=== PATIENT | female | born 1945 | race Caucasian/White ===

== ENCOUNTER → 2017-05-08 09:27 | Outpatient (CLI) | payer MEDICARE, OTHER, SELFPAY ==
[2017-05-08 10:56] LABS: Hemoglobin A1c 6.4 % (4.2-6.3)
[2017-05-08 11:04] LABS: AST(SGOT) 15 U/L (15-37); Alanine Aminotransfer ALT/SGPT 26 U/L (13-56); Albumin, Serum 3.7 g/dL (3.2-5.0); Alkaline Phosphatase 84 U/L (45-117); Anion Gap 10 (5-15); BUN 24 mg/dL (7-18); BUN/Creat Ratio 29.2 RATIO (10-20); Calcium,Total 8.9 mg/dL (8.5-10.1); Chloride 104 mmol/L (98-107); Cholesterol 148 mg/dL (200); Creatinine, Serum 0.82 mg/dL (0.55-1.02); EST Glomerular Filtration Rate 73 mL/min (>60); Est Glom Filt Rate - Afr Amer 88 mL/min (>60); Globulin 3.8 g/dL (2.2-4.2); Glucose 141 mg/dL (74-106); High Density Lipoprotein 44 mg/dL; Potassium 4.1 mmol/L (3.5-5.1); Protein, Total 7.5 g/dL (6.4-8.2); Sodium Level 141 mmol/L (136-145); Thyroid Stim Hormone (TSH) 1.85 uIU/mL (0.358-3.74); Triglycerides 180 mg/dL; Very Low Density Lipoprotein 36 mg/dL (5-40)
== END ==
DX: I10 Essential (primary) hypertension (principal); E78.00 Pure hypercholesterolemia, unspecified; E03.9 Hypothyroidism, unspecified; E11.9 Type 2 diabetes mellitus without complications
CPT/HCPCS: 36415; 80053; 80061; 83036; 84443

== ENCOUNTER → 2017-06-13 13:49 | Outpatient (CLI) | payer MEDICARE, OTHER, SELFPAY ==
--- NOTE | 2017-06-13 13:51 | HPBI_ITS ---
MAMMOGRAPHY - BILATERAL SCREENING REASON FOR EXAM: Female, 72 years old. Routine annual screening examination. PERTINENT HISTORY: Sister with breast cancer. TECHNIQUE: Digital bilateral breast matty (3D mammographic acquisition) in the CC and MLO projections. 2-D mediolateral oblique (MLO) and craniocaudad (CC) views of both breasts were obtained. CAD: Full Field Digital Mammography with Computer Added Detection was performed. COMPARISON: Comparison is made with prior outside examination dated April 20, 2009. FINDINGS: Breast Composition: There are scattered areas of fibroglandular density. There are no dominant masses or suspicious calcifications. No other significant abnormalities are identified. There has been no significant change since the prior study. HPBI/SCREENING MAMM (CAD), BILAT IMPRESSION: Stable bilateral screening mammogram. Yearly follow-up mammogram recommended. (A) ASSESSMENT CATEGORY: BIRADS Category 1: Negative. A letter regarding these results will be sent to the patient by the facility within 30 days. Approximately 10% of breast cancers are not detected by mammography. A normal mammogram should not delay biopsy of a clinically suspicious abnormality. [id number] Electronically Signed: Boris Carney MD at 8:27 EDT Tel [phone], Service support ,
== END ==
DX: Z12.31 Encounter for screening mammogram for malignant neoplasm of breast (principal)
CPT/HCPCS: 77063; 77067

== ENCOUNTER 2017-10-06 05:28 | Inpatient (IN) | payer MEDICARE, OTHER, SELFPAY ==
[2017-09-23 14:18] VITALS: BP 130/57; PULSE 85; RESP 16; TEMP 36.5; O2SAT 94; BMI 35.4
--- NOTE | 2017-09-23 14:54 | SDCEKG_ITS ---
Test Reason : Blood Pressure : / mmHG Vent. Rate : 082 BPM Atrial Rate : 082 BPM P-R Int : 152 ms QRS Dur : 090 ms QT Int : 384 ms P-R-T Axes : 044 086 064 degrees QTc Int : 448 ms Normal sinus rhythm Normal ECG Confirmed by FLORA ALBRIGHT MD ([id number]), editor & co founder JARRET PUGA ([id number]) on 09/25/2017 2:35:27 PM Referred By: Travis Jones Confirmed By:FLORA ALBRIGHT MD
--- NOTE | 2017-09-23 15:47 | RAD_ITS ---
STUDY: X-RAY CHEST REASON FOR EXAM: Female, 72 years old. PRE OPERATIVE TECHNIQUE: Frontal and lateral views of the chest. COMPARISON: April 01, 2016 FINDINGS: Chronic appearing increased interstitial lung markings. There is no demonstrated pleural abnormality. Enlarged heart size. Normal mediastinum and santino. Normal visualized pulmonary arteries. There is atherosclerotic calcification of the aortic arch with tortuosity. There are diffuse degenerative changes of the visualized thoracic spine. There is degenerative osteoarthritis of the bilateral shoulders. There is no demonstrated abnormality of the visualized soft tissue structures of the upper abdomen. RAD/Chest PA and Lateral IMPRESSION: There are no acute findings. Electronically Signed: Rizwan Overton MD at 16:27 EDT , Service support ,
[2017-09-23 16:07] LABS: Hematocrit 43.9 % (37-47); Hemoglobin 14.6 g/dl (12.0-15.0); Mean Corp Hgb Conc 33.3 g/gl (32-36); Mean Corpuscular Hgb 31.5 pg (27.0-32.0); Mean Corpuscular Volume 94.6 fL (81-99); Mean Platelet Vol. 9.6 fl (6.2-12.0); Platelet Count 211 K/mm3 (150-450); RBC Distribution Width CV 13.2 % (11.6-14.6); Red Blood Count 4.64 M/mm3 (4.2-5.4)
[2017-09-23 16:09] LABS: Scan Indicated on CBC? Y/N NO
[2017-09-23 16:37] LABS: Hemoglobin A1c 6.6 % (4.2-6.3)
[2017-09-23 16:42] LABS: Anion Gap 6 (5-15); BUN 22 mg/dL (7-18); BUN/Creat Ratio 23.4 RATIO (10-20); Chloride 104 mmol/L (98-107); Creatinine, Serum 0.94 mg/dL (0.55-1.02); EST Glomerular Filtration Rate 62 mL/min (>60); Est Glom Filt Rate - Afr Amer 75 mL/min (>60); Estimated Creatinine Clearance 43.42 ml/min; Glucose 97 mg/dL (74-106); Potassium 4.2 mmol/L (3.5-5.1); Sodium Level 143 mmol/L (136-145); Thyroid Stim Hormone (TSH) 2.67 uIU/mL (0.358-3.74)
[2017-10-06] VITALS (15 sets, daily range): BP systolic 109–139; BP diastolic 60–92; PULSE 58–91; RESP 14–18; TEMP 36–36.6; O2SAT 91–99; BMI 35.4; BMI 38.2
[2017-10-06] MEDS: Acetaminophen 500 MG Tablet 1000 MG PO ×3 (06:05→22:26)
[2017-10-06] MEDS: oxyCODONE HCl Cr 10 MG Tablet PO (06:05)
[2017-10-06 06:30] LABS: Bedside Glucose 188 mg/dL (70-110)
[2017-10-06] MEDS: Lactated Ringers 1,000 ML 999 ML IV (07:03)
[2017-10-06] MEDS: Cefazolin 2 GM in 0.9% Normal Saline 100 ML IV (07:17)
--- NOTE | 2017-10-06 07:30 | PCM.OPRPT ---
Report of Operation Date of Procedure: 10/06/17 Pre-Operative Diagnosis: Severe end-stage osteoarthritis left knee Post-Operative Diagnosis: Same Surgery/Procedure Performed:: total knee arthroplasty left Description of Surgical Findings:: Eburnation of bone, periarticular osteophytes pharmacy clinical coordinator: Brandon Cage Type of Anesthesia:: Spinal Anesthesiologist: Brayan Subramanian Special Medications: txa Specimen's removed: Bone and soft tissue Estimated Blood Loss (mL): 100 Fluids Replaced: See anesthesia report Description of Procedure: Implants: [place] triathlon size 4 PS femur, 3 tibia, 32 x 10 mm patella all cemented with Simplex, 10 mm posterior stabilized articulating surface Indications: Patient has severe end-stage osteoarthritis diagnosed via x-rays in the knee. They have failed all forms of conservative measures including activity modification, injections, anti-inflammatories, use of assistive device. The patient has pain that affects on a daily basis and prevents him from doing things that they enjoyed. They have elected to undergo the above procedure. The risks of the procedure were discussed at length and their questions were answered. Procedure description: The patient was greeted in the preoperative area. The left knee was then marked with a surgical marker. Patient was then taken to or [address]. They were administered a dose of antibiotics as well as tranexamic acid. Once adequate anesthesia was obtained and airway was secured to placed in supine position on the operating room table. A well-padded tourniquet was placed on the affected extremity. Leg was then prepped and draped in the usual sterile fashion from the knee down. Ioban was used on the skin. Surgical timeout was then performed and confirmed with all present. Six-inch Esmarch was used to examine the limb and tourniquet was then inflated to 250 mmHg. A longitudinal incision was then planned and carried out in the anterior aspect of the knee. The dissection was then carried the length of the incision the extensor mechanism was identified. Standard medial parapatellar arthrotomy was then performed revealing severe eburnation of bone and periarticular osteophytes. There is complete loss of cartilage especially in the medial compartment with varus alignment. Anterior fat pad was removed for visualization purposes and the anterior medial aspect of the tibia was skeletonized for exposure to the knee. The knee was then flexed the patella was inverted. Opening reamer was then used in the femur approximately 1 cm anterior to the attachment of the PCL. The intramedullary valgus wand was then placed in the femur set at 5? of valgus. The distal femoral cutting jig was then applied to the femur with anticipated resection of approximately 8 mm. This was then made with a oscillating saw. The sizing guide was then placed referencing off the posterior condyles and also reference off the epicondylar axis. This was measured and the appropriate size 4-in-1 cutting jig was then applied to the distal femur. Anterior posterior cuts were made followed by the anterior and posterior chamfer cuts. These bony pieces and fragments were removed and placed on the back table. Posterior retractor was then utilized and the tibia was subluxed anteriorly. Extramedullary tibial alignment jig was then applied to the tibia referencing off the medial one third of the tibial tubercle the anterior tibial spine the middle aspect of the tibiotalar joint. Also reference off patient's wilton slope. The tibial cutting jig was then pinned with anticipated resection of 2 mm off of the deficient medial tibial condyle. This cut was made with the oscillating saw. Once this was complete a laminar public health veterinarian was utilized in both medial lateral meniscus were removed and a posterior capsular osteophytes were also removed. Posterior capsule release was performed in the posterior capsule as well as the geniculate arteries are treated with the aqua Ann. The tibia was incised and the appropriate sized tibial tray was then pinned. The femoral box cutting jig was then applied to the femur and the box was prepared removing a portion of the intercondylar notch. The femoral trial was then placed and the knee was trialed. Full flexion-extension were easily achieved. The knee seemed to balance quite nicely. Any remaining osteophytes were removed at this time. Once this was complete the patella was everted and the Amy patella reaming device was then utilized the patella was then placed in the appropriate jig and reamer was then used to remove approximately 9 mm of the undersurface of the patella. A soft tissue remaining was in the way was removed and patella trial was then placed listed maintain excellent tracking using the no thumbs technique. The tibial tray at this point was punched to accommodate the fins of the final implant. At this point cement was mixed on the back table. The trial components were removed and the knee was copiously irrigated. Did use a cocktail of injection for postoperative pain control. The final components were then cemented in the standard fashion and excess cement was removed with cement removal tools and patellar clamp is placed in the patella. As the cement had cured in full extension tourniquet was deflated and hemostasis was perfect with Bovie cautery as well as the aqua Manus. Needle is once again trialed with different size polyethylenes to ensure the full range of motion was achieved as well as excellent balancing ligamentously was achieved. At this point the knee was copiously irrigated. Final implant was then inserted locking mechanism was engaged and confirmed to be locked. The arthrotomy was then closed with #1 Vicryl aggravate type fashion interrupted. Subcutaneous tissue was closed with 0 Vicryl and surgical lillie were placed in the skin. A occlusive silver impregnated dressing was then applied followed by well-padded sterile dressing secured with an Robert wrap. The patient was taken to the PACU in stable condition. No complications known at this time. Postoperatively we will maintain standard total knee postoperative protocol. The use of the physician assistant professor of economics was integral during this procedure. They assisted with positioning placement of the tourniquet retracting closure and placement of the dressing. The procedure would have been much more difficult without their expertise and assistance - Complications None known - Admit VTE Documentation VTE Present on Admission: Yes VTE Mechan Device Prophylaxis: SCD's, Thigh High ALMA Hose VTE Pharm Prophylaxis ordered?: Yes
[2017-10-06 09:16] LABS: Bedside Glucose 173 mg/dL (70-110)
--- NOTE | 2017-10-06 09:41 | EKG12_ITS ---
Test Reason : POST-OP Blood Pressure : / mmHG Vent. Rate : 070 BPM Atrial Rate : 070 BPM P-R Int : 200 ms QRS Dur : 100 ms QT Int : 450 ms P-R-T Axes : 055 079 058 degrees QTc Int : 486 ms Normal sinus rhythm Normal ECG When compared with ECG of 23-SEP-2017 14:10, No significant change was found Confirmed by JOSE RAMON CRAFT, FLORA ([id number]), food expeditor JARRET PUGA ([id number]) on 10/07/2017 3:02:41 PM Referred By: Travis Jones Confirmed By:FLORA ALBRIGHT MD
[2017-10-06] MEDS: Lactated Ringers 1,000 ML 125 ML IV (10:56)
[2017-10-06] MEDS: oxyCODONE 5 MG Tablet PO ×2 (12:20→20:29)
[2017-10-06] MEDS: Ketorolac 15 MG/ML Vial IV (12:21)
[2017-10-06] MEDS: Albuterol 2.5 MG/3 ML VIAL.NEB. INHALATION (12:46)
--- NOTE | 2017-10-06 14:52 | CASEMGMT ---
[facility] Face to Face with patient for initial transition planning/care coordination assessment. RN LOGAN introduced self and role at [facility]. Patient sitting in chair, alert and oriented. Patient willing to participate in assessment and is able to answer all questions appropriately. Care providers, pharmacy, and demographics verified. See link attached. Patient wishes to discharge home and is setup with [facility] for outpatient therapy with friend providing transportation. Patient states she has no further needs or concerns at this time. CM to follow for discharge planning needs that may arise. Disposition Plan: Patient to discharge home with family support, outpatient therapy, and follow-up plans in place.
[2017-10-06] MEDS: Cefazolin 1 GM/50 ML BAG IV ×2 (15:30→22:30)
[2017-10-06] MEDS: Aspirin 325 MG Tablet PO (16:07)
[2017-10-06] MEDS: morphine SR 15 MG Tablet PO (22:23)
[2017-10-06] MEDS: Senna/Docusate Sodium 1 Tablet 2 TABLET PO (22:26)
[2017-10-06] MEDS: buPROPion (SR) 100 MG TABLET.SA PO (22:26)
[2017-10-06] MEDS: Losartan Potassium 100 MG Tablet PO (22:27)
[2017-10-06] MEDS: Celecoxib 200 MG Capsule PO (22:27)
[2017-10-06] MEDS: Metoprolol Tartrate 100 MG Tablet PO (22:27)
[2017-10-06] MEDS: Pravastatin 40 MG Tablet PO (22:27)
[2017-10-07] VITALS (7 sets, daily range): BP systolic 113–135; BP diastolic 71–91; PULSE 70–82; RESP 17–18; TEMP 36.8–37.2; O2SAT 92–100
[2017-10-07] MEDS: oxyCODONE 5 MG Tablet PO ×4 (01:47→18:45)
[2017-10-07] MEDS: Ondansetron 4 MG/2 ML Vial IV ×2 (05:13→14:05)
[2017-10-07] MEDS: 0.9% NaCl Peripheral Flush Adult/Peds IV ×4 (05:13→20:30)
[2017-10-07 05:52] LABS: Hematocrit 37.1 % (37-47); Hemoglobin 12.6 g/dl (12.0-15.0); Mean Corpuscular Hgb 32.8 pg (27.0-32.0); Mean Corpuscular Volume 96.6 fL (81-99); Platelet Count 149 K/mm3 (150-450); RBC Distribution Width CV 12.9 % (11.6-14.6); RBC Distribution Width SD 43.3 fl (35.1-43.9); Red Blood Count 3.84 M/mm3 (4.2-5.4); White Blood Count 10.7 K/mm3 (4.4-11.0)
[2017-10-07 05:59] LABS: Scan Indicated on CBC? Y/N NO
[2017-10-07] MEDS: Levothyroxine 150 MCG Tablet PO (06:00)
[2017-10-07] MEDS: Acetaminophen 500 MG Tablet 1000 MG PO ×3 (06:00→21:44)
[2017-10-07 06:23] LABS: Anion Gap 3 (5-15); BUN 16 mg/dL (7-18); BUN/Creat Ratio 21.1 RATIO (10-20); Calcium,Total 8.6 mg/dL (8.5-10.1); Chloride 104 mmol/L (98-107); Creatinine, Serum 0.76 mg/dL (0.55-1.02); EST Glomerular Filtration Rate 80 mL/min (>60); Est Glom Filt Rate - Afr Amer 97 mL/min (>60); Estimated Creatinine Clearance 40.81 ml/min; Glucose 155 mg/dL (74-106); Potassium 4.5 mmol/L (3.5-5.1); Sodium Level 143 mmol/L (136-145)
[2017-10-07] MEDS: Aspirin 325 MG Tablet PO ×2 (07:39→17:18)
[2017-10-07] MEDS: FLUTICASONE/VILANTEROL 1 EACH BLST.W.DEV IH (07:39)
[2017-10-07] MEDS: Celecoxib 200 MG Capsule PO ×2 (07:39→21:44)
[2017-10-07] MEDS: Famotidine 20 MG Tablet PO (07:39)
[2017-10-07] MEDS: buPROPion (SR) 100 MG TABLET.SA PO ×2 (07:39→21:44)
[2017-10-07] MEDS: Montelukast 10 MG Tablet PO (07:39)
[2017-10-07] MEDS: dilTIAZem CD 240 MG Capsule PO (07:39)
[2017-10-07] MEDS: Metoprolol Tartrate 100 MG Tablet PO ×2 (07:39→21:44)
[2017-10-07] MEDS: Fenofibrate 145 MG Tablet PO (07:39)
--- NOTE | 2017-10-07 07:45 | PCM.PN.ORT ---
Subjective: Patient sitting up in bed eating breakfast. Pain well managed. Denies chest pain, shortness breath, calf pain, nausea vomiting. No other complaints Objective: Dressings clean dry intact. Negative signs and symptoms of DVT. Vital signs labs within normal limits. Patient is afebrile neurovascular is otherwise intact. - Physical Exam General: Alert, Oriented x3, Cooperative HEENT: PERRLA Neurological: Cranial nerves II-XII grossly intact Psych/Mental Status: Normal Affect, Alert and oriented to time, place, person, mood and affect Vital Signs Temp Pulse Resp BP Pulse Ox 98.4 F 75 18 135/91 H 99 10/07/17 07:33 10/07/17 07:39 10/07/17 07:33 10/07/17 07:33 10/07/17 07:33 Oxygen Flow Rate (L/min) 3 Oxygen Delivery Method Nasal Cannula Weight: 95 kg Body Mass Index (BMI) 38.2 Finger Stick Blood Glucose 173 Intake and Output for Last 24 Hours 10/05/17 10/06/17 10/07/17 23:59 23:59 23:59 Intake Total 3572 / 3572 120 / 120 Output Total 1000 / 1000 200 / 200 Balance 2572 / 2572 -80 / -80 Laboratory Tests Past 24 Hrs 10/07/17 10/07/17 05:40 05:40 WBC 10.7 RBC 3.84 L Hgb 12.6 Hct 37.1 MCV 96.6 MCH 32.8 H MCHC 34.0 RDW 12.9 RDW Differential 43.3 Plt Count 149 L MPV 9.0 Sodium 143 Potassium 4.5 Chloride 104 Carbon Dioxide 36.0 H Anion Gap 3 L BUN 16 Creatinine 0.76 Estim Creat Clear Calc 40.81 Est GFR (MDRD) Af Amer 97 Est GFR (MDRD) Non-Af 80 BUN/Creatinine Ratio 21.1 H Glucose 155 H Calcium 8.6 POC Glucose 10/06/17 09:10 POC Glucose 173 H Medical Necessity - Tobacco Use Smoking Status: Current some day smoker Tobacco Use: Cigarettes Assessment/Plan Status post left total knee Plan 1. Continue all pain medications as prescribed 2. Begin physical therapy today, weight-bear as tolerated with walker 3. Aspirin 325 mg 1 p.o. every 12 hours times 30 days for postop DVT prophylaxis 4. Encourage incentive spirometry 5. Possible discharge home tomorrow
[2017-10-07] MEDS: morphine SR 15 MG Tablet PO ×2 (10:02→21:44)
[2017-10-07] MEDS: Morphine 2 MG/ML Syringe IV (17:25)
[2017-10-07] MEDS: Ketorolac 15 MG/ML Vial IV (20:30)
[2017-10-07] MEDS: Senna/Docusate Sodium 1 Tablet 2 TABLET PO (21:43)
[2017-10-07] MEDS: Pravastatin 40 MG Tablet PO (21:44)
[2017-10-07] MEDS: Losartan Potassium 100 MG Tablet PO (21:44)
[2017-10-07] MEDS: Albuterol 2.5 MG/3 ML VIAL.NEB. INHALATION (23:27)
[2017-10-08] MEDS: proMETHazine 25 MG/ML Syringe 12.5 MG IM (00:08)
[2017-10-08 02:22] VITALS: BP 106/59; PULSE 69; RESP 16; TEMP 36.4; O2SAT 94
[2017-10-08 06:08] LABS: Hematocrit 32.5 % (37-47); Hemoglobin 10.8 g/dl (12.0-15.0); Mean Corp Hgb Conc 33.2 g/gl (32-36); Mean Corpuscular Volume 96.2 fL (81-99); Mean Platelet Vol. 9.6 fl (6.2-12.0); Platelet Count 156 K/mm3 (150-450); RBC Distribution Width CV 12.9 % (11.6-14.6); RBC Distribution Width SD 43.2 fl (35.1-43.9); Red Blood Count 3.38 M/mm3 (4.2-5.4)
[2017-10-08 06:14] LABS: Scan Indicated on CBC? Y/N NO
[2017-10-08] MEDS: Levothyroxine 150 MCG Tablet PO (06:18)
[2017-10-08] MEDS: Acetaminophen 500 MG Tablet 1000 MG PO ×2 (06:18→14:06)
[2017-10-08 08:13] VITALS: BP 112/64; PULSE 60; RESP 18; TEMP 36.8; O2SAT 92
[2017-10-08] MEDS: dilTIAZem CD 240 MG Capsule PO (08:22)
[2017-10-08] MEDS: Celecoxib 200 MG Capsule PO (08:22)
[2017-10-08] MEDS: Fenofibrate 145 MG Tablet PO (08:22)
[2017-10-08] MEDS: Aspirin 325 MG Tablet PO (08:22)
[2017-10-08] MEDS: FLUTICASONE/VILANTEROL 1 EACH BLST.W.DEV IH (08:22)
[2017-10-08] MEDS: buPROPion (SR) 100 MG TABLET.SA PO (08:22)
[2017-10-08] MEDS: Senna/Docusate Sodium 1 Tablet 2 TABLET PO (08:22)
[2017-10-08] MEDS: Famotidine 20 MG Tablet PO (08:22)
[2017-10-08] MEDS: Montelukast 10 MG Tablet PO (08:22)
[2017-10-08 08:25] VITALS: PULSE 60
[2017-10-08] MEDS: morphine SR 15 MG Tablet PO (09:04)
--- NOTE | 2017-10-08 11:57 | PCM.PN.ORT ---
Subjective: Patient sitting up in bed, pain well-managed. No other complaints. Ready for discharge home. Objective: Dressing clean dry intact, negative signs symptoms of DVT. Vital signs labs within normal limits. Patient is afebrile neurovascular is otherwise intact. - Physical Exam General: Alert, Oriented x3 Psych/Mental Status: Normal Affect, Alert and oriented to time, place, person, mood and affect Vital Signs Temp Pulse Resp BP Pulse Ox 98.3 F 60 18 112/64 92 10/08/17 08:13 10/08/17 08:25 10/08/17 08:13 10/08/17 08:13 10/08/17 08:13 Oxygen Flow Rate (L/min) 3 Oxygen Delivery Method Room Air Weight: 95 kg Body Mass Index (BMI) 38.2 Finger Stick Blood Glucose 173 Intake and Output for Last 24 Hours 10/06/17 10/07/17 10/08/17 23:59 23:59 23:59 Intake Total 3572 / 3572 840 / 840 780 / 780 Output Total 1000 / 1000 350 / 350 100 / 100 Balance 2572 / 2572 490 / 490 680 / 680 Laboratory Tests Past 24 Hrs 10/08/17 05:14 WBC 9.0 RBC 3.38 L Hgb 10.8 L Hct 32.5 L MCV 96.2 MCH 32.0 MCHC 33.2 RDW 12.9 RDW Differential 43.2 Plt Count 156 MPV 9.6 Medical Necessity - Tobacco Use Smoking Status: Current some day smoker Tobacco Use: Cigarettes Assessment/Plan Status post left total knee Plan 1. Continue all pain medications as prescribed 2. Continue physical therapy outpatient, weight-bear as tolerated with walker 3. Aspirin 325 mg 1 p.o. every 12 hours times 30 days for postop DVT prophylaxis 4. Follow-up as scheduled 5. Discharge home today
--- NOTE | 2017-10-08 12:02 | PCM.DC.TKR ---
Discharge Diet: No Restrictions Discharge Activity: May Not Drive, May Shower, Use Walker May shower in (days): 1 Ice area for (Minutes): 20 - each hour while awake. Weight Bearing Status: Weight bearing as tolerated Elevate: Operative Extremity Additional Activity Instructions:: Wear elastic stockings for 2 weeks after your surgery. Call your doctor if your incision/area has: Continuous Slow Oozing, Sudden Increased Bleeding, Increased Pain/ Swelling, Increased Redness, Foul Smelling Discharge Call your doctor if you observe: Fever of 101 or Higher, Coldness, Increased Pain - in extremity, Numbness or Tingling, Change in Color, Calf discomfort, Uncontrolled pain Change Dressing in (Days):: 0 - and daily as needed. Remove Dressing in (days):: 8 Cleanse incision/area with: Soap & Water Allergies/Adverse Reactions: Allergies Sulfa (Sulfonamide Antibiotics) Allergy (Verified 09/23/17 14:04) Other Medications to take at Discharge Albuterol Inhaler [Ventolin Hfa] 2 puff INHALATION Q6H PRN PRN 09/23/17 Ascorbic Acid [Vitamin C] 500 mg PO DAILY 09/23/17 Bupropion HCl [Wellbutrin Sr] 100 mg PO BID 09/23/17 Cimetidine 150 mg PO BID 09/23/17 Diltiazem HCl [Diltiazem 24Hr ER] 240 mg PO DAILY 09/23/17 Fenofibrate Nanocrystallized [Triglide] 160 mg PO DAILY 09/23/17 Fluticasone/Vilanterol [Breo Ellipta 100-25 Mcg INH] 1 each IH DAILY 09/23/17 Gluc Bender/Chondro Bender A/Vit C/Mn [Glucosamine-Chondroitin Cap] 1 each PO DAILY 09/23/17 Hyoscyamine Sulfate 0.125 mg SL PRN PRN 09/23/17 Levothyroxine [Synthroid] 150 mcg PO DAILY 09/23/17 Loperamide HCl [Imodium A-D] 2 mg PO PRN PRN 09/23/17 Losartan Potassium [Cozaar] 100 mg PO QHS 09/23/17 Magnesium 40 mg PO DAILY 09/23/17 Metoprolol Tartrate [Lopressor] 100 mg PO BID 09/23/17 Montelukast Sodium [Singulair] 10 mg PO DAILY 09/23/17 Mcdonald-3 Fatty Acids [Fish Oil] 500 mg PO DAILY 09/23/17 Potassium 99 mg PO DAILY 09/23/17 Pravastatin [Pravachol] 40 mg PO QHS 09/23/17 Turmeric Root Extract [Turmeric] 500 mg PO DAILY 09/23/17 Vitamin B Complex 1 each PO DAILY 09/23/17 Vitamin E 1,000 unit PO DAILY 09/23/17 Acetaminophen [Tylenol] 1,000 mg PO Q8 #90 tab 10/08/17 Oxycodone [Oxyir] 5 - 10 mg PO Q6H PRN PRN 7 Days #80 tab 10/08/17 The following prescriptions were given: Oxycodone [Oxyir] 5 - 10 mg PO Q6H PRN PRN 7 Days #80 tab PRN Reason: Mod-Severe Pain (4-10/10) Acetaminophen [Tylenol] 1,000 mg PO Q8 #90 tab Primary Care Physician: Mihir Bess [Primary Care Provider] - Test Results: Test results from this visit will be discussed in further detail at your follow-up appointment, if applicable. Please Follow Up With: Brandon Cage PA-C When: see pink sheet
[2017-10-08 13:37] VITALS: BP 121/54; PULSE 67; RESP 20; TEMP 37.4; O2SAT 93
[2017-10-08] MEDS: Ketorolac 15 MG/ML Vial IV (13:45)
== END 2017-10-08 14:19 | disposition home or self-care (01) | DRG 470 ==
PROVIDERS: Admitting Provider Orthopaedic Surgery; Visit Provider Orthopaedic Surgery
PROC: 0SRD0J9 Replacement of Left Knee Joint with Synthetic Substitute, Cemented, Open Approach (ICD-10-PCS; CPT 27447; principal; 2017-10-06 06:50)
DX: M17.12 Unilateral primary osteoarthritis, left knee (principal); I10 Essential (primary) hypertension; F17.210 Nicotine dependence, cigarettes, uncomplicated; E11.9 Type 2 diabetes mellitus without complications; E66.9 Obesity, unspecified; Z68.35 Body mass index [BMI] 35.0-35.9, adult
CPT/HCPCS: 36415; 71046; 80048; 82962; 83036; 84443; 85027; 87081; 93005; 94640; 97116; 97162; 97166; 97530; C1776; J7120; A4216; J2405

== ENCOUNTER → 2017-11-10 08:34 | Outpatient (CLI) | payer MEDICARE, OTHER, SELFPAY ==
[2017-11-10 09:59] LABS: Hemoglobin A1c 5.7 % (4.2-6.3)
[2017-11-10 10:42] LABS: AST(SGOT) 14 U/L (15-37); Alanine Aminotransfer ALT/SGPT 16 U/L (13-56); Albumin, Serum 3.6 g/dL (3.2-5.0); Alkaline Phosphatase 85 U/L (45-117); Bilirubin, Direct 0.14 mg/dL (0.00-0.30); Cholesterol 126 mg/dL (200); High Density Lipoprotein 45 mg/dL; Protein, Total 7.6 g/dL (6.4-8.2); Thyroid Stim Hormone (TSH) 4.47 uIU/mL (0.358-3.74); Triglycerides 179 mg/dL; Very Low Density Lipoprotein 36 mg/dL (5-40)
== END ==
PROVIDERS: Visit Provider Family Medicine
DX: E11.9 Type 2 diabetes mellitus without complications (principal); E03.9 Hypothyroidism, unspecified; E78.00 Pure hypercholesterolemia, unspecified
CPT/HCPCS: 36415; 80061; 80076; 83036; 84443

== ENCOUNTER → 2018-02-16 15:47 | Outpatient (CLI) | payer MEDICARE, OTHER, SELFPAY ==
--- NOTE | 2018-02-16 15:50 | CT_ITS ---
STUDY: LOW DOSE CT LUNG CANCER SCREENING REASON FOR EXAM: Female, 72 years old. History of a 50 pack-year smoker. RADIATION DOSAGE (If Supplied By Facility): CTDIvol = ( 2.55 ) mGy, DLP = ( 75.31 ) mGycm TECHNIQUE: No contrast was administered. Low dose technique was utilized (average mAS-38 and kVp 120). 1.25 mm axial source images with a slice interval of 1.25-mm were reconstructed in lung windows. 2.5 mm axial source images with a slice interval of 2.5-mm were reconstructed in lung windows. 5.0 mm axial source images with a slice interval of 5.0-mm were reconstructed in soft tissue windows. Nodule measured using lung windows on PACS and/or independent workstation with automated measurement of minimum and maximum diameter. Nodule measurement reported as average diameter rounded to the nearest whole number. Growth is defined as an increase ins size of greater than 1.5 mm. COMPARISON: None. NODULES: There is a 2.8 mm peripherally located nodule in the lateral aspect of the left lower lobe as seen on axial image #149. This is also evidence of a partially calcified nodule measuring 2.9 mm in the peripheral lateral aspect of the right lower lobe as seen on image #147. There is a 4.1 mm faintly calcified nodule in the anterior lateral aspect of the right upper lobe as seen on axial image #76. There is evidence of a thickening of the superior aspect of the right major fissure. Mild increased markings in the lateral aspect of the left lower lobe suggestive of possible focal scarring. Aorta: Unremarkable. Coronary arteries: Coronary artery calcification. Calcified right hilar lymph nodes. Pulmonary artery: Unremarkable. Mediastinal nodes: Small benign-appearing mediastinal lymph nodes. Other chest and abdominal findings: CT/Low Dose CT Lung Screening IMPRESSION: Lung-RADS category 2 - Continue annual screening with LDCT in 12 months. IMPORTANT NOTES FOR USE: ACR Lung-RADS Version 1.0 Assessment Categories Release Date: July 19, 2013 Category: Coded 0-4 bases on nodule(s) with highest degree of suspicion. Negative screen is defined as categories 1 and 2; a positive screen is defined as categories 3 and 4. Category 3 and 4A nodules that are unchanged on interval CT should be coded as category 2, and individuals returned to screening in 12 months. Category 4X: Category 3 or 4 nodules with additional imaging findings that increase the suspicion of lung cancer, such as spiculation, GGN that doubles in size in 1 year, enlarged lymph notes, etc. Category Modifiers: S (significant finding unrelated to lung cancer) and C (prior history of treated lung cancer) may be added to the 0-4 Lung-RADS Electronically Signed: Boris Carney MD at 15:49 EST Tel [phone], Service support ,
--- OUTSIDE RECORDS SUMMARY | 2018-03-31 14:22 | XMS RPT_ITS ---
:1945 Author Organization [facility] Care Team Providers Name Role Phone TIP GARCIA, DR. HAYWOOD Attending Unavailable AZIZA GARCIA, DR. ANN Primary Care Unavailable Mihir Bess Attending Unavailable Mihir Bess Primary Care Unavailable Mihir Bess Attending Unavailable Mihir Bess Primary Care Unavailable Mihir Bess Referring Unavailable Travis Jones Admitting Unavailable Travis Jones Attending Unavailable Travis Jones Referring Unavailable Mihir Bess Primary Care Unavailable Ulysses Alfred Attending Unavailable Robert, Travis Referring Unavailable Aziza Mihir Attending Unavailable Mihir Bess Referring Unavailable Mihir Bess Primary Care Unavailable Tima, Ulysses Attending Unavailable Robert, Travis Referring Unavailable Jose L Orr Attending Unavailable Jose L Orr Referring Unavailable Mihir Bess Primary Care Unavailable PROBLEMS PROBLEMS DATE TYPE CONDITION / CODE ATTENDING STATUS SOURCE 02/16/2018 Unknown Z87.891 - Personal Dominga Jose L Active [facility] history of nicotine Community dependence / Hospital Z87.891(ICD-10) Repository 11/10/2017 Unknown E78.00 - Pure Mihir Bess Active [place] hypercholesterolemia Community , unspecified / Hospital E78.00(ICD-10) Repository 11/10/2017 Unknown E11.9 - Type 2 Mihir Bess Active [facility] diabetes mellitus Community without Hospital complications / Repository E11.9(ICD-10) 10/08/2017 Unknown G89.18 - Other acute Travis Jones Active [place] postprocedural pain Community / G89.18(ICD-10) Hospital Repository 11/19/2017 Unknown I10 - Essential Tima, [place] Active [facility] (primary) Community hypertension / Hospital I10(ICD-10) Repository 07/28/2017 Unknown Z12.31 - Encounter Mihir Bess Active [place] for screening Community mammogram for Hospital malignant neoplasm Repository of breast / Z12.31(ICD-10) 05/08/2017 Unknown E03.9 - Mihir Bess Active [place] Hypothyroidism, Community unspecified / Hospital E03.9(ICD-10) Repository PROCEDURES PROCEDURES No Procedure Records FoundRESULTS RESULTS LOW DOSE CT LUNG Observed: 02/16/2018 Status: F Source: [facility] SCREENING 3:50 PM ON LICENSE OF [facility] REPOSITORY [facility] Imaging Services [address] [place] [address] Lung Screening MR#: [id number] Acct: [id number] Name: MAURICEHAILEY Rep #: [id number] : 1945 F 72 From: Boris Carney MD PCP: Mihir Bess Status: REG CLI Study: Low Dose CT Lung Screening Date of Exam: 02/16/18 Exam# [id number] Ordering Dr: Jose L Orr MD STUDY: LOW DOSE CT LUNG CANCER SCREENING REASON FOR EXAM: Female, 72 years old. History of a 50 pack-year smoker. RADIATION DOSAGE (If Supplied By Facility): CTDIvol = ( 2.55 ) mGy, DLP = ( 75.31 ) mGycm TECHNIQUE: No contrast was administered. Low dose technique was utilized (average mAS-38 and kVp 120). 1.25 mm axial source images with a slice interval of 1.25- mm were reconstructed in lung windows. 2.5 mm axial source images with a slice interval of 2.5-mm were reconstructed in lung windows. 5.0 mm axial source images with a slice interval of 5.0-mm were reconstructed in soft tissue windows. Nodule measured using lung windows on PACS and/or independent workstation with automated measurement of minimum and maximum diameter. Nodule measurement reported as average diameter rounded to the nearest whole number. Growth is defined as an increase ins size of greater than 1.5 mm. COMPARISON: None. NODULES: There is a 2.8 mm peripherally located nodule in the lateral aspect of the left lower lobe as seen on axial image #149. This is also evidence of a partially calcified nodule measuring 2.9 mm in the peripheral lateral aspect of the right lower lobe as seen on image #147. There is a 4.1 mm faintly calcified nodule in the anterior lateral aspect of the right upper lobe as seen on axial image #76. There is evidence of a thickening of the superior aspect of the right major fissure. Mild increased markings in the lateral aspect of the left lower lobe suggestive of possible focal scarring. Aorta: Unremarkable. Coronary arteries: Coronary artery calcification. Calcified right hilar lymph nodes. Pulmonary artery: Unremarkable. Mediastinal nodes: Small benign-appearing mediastinal lymph nodes. Other chest and abdominal findings: CT/Low Dose CT Lung Screening IMPRESSION: Lung-RADS category 2 - Continue annual screening with LDCT in 12 months. IMPORTANT NOTES FOR USE: ACR Lung-RADS Version 1.0 Assessment Categories Release Date: July 19, 2013 Category: Coded 0-4 bases on nodule(s) with highest degree of suspicion. Negative screen is defined as categories 1 and 2; a positive screen is defined as categories 3 and 4. Category 3 and 4A nodules that are unchanged on interval CT should be coded as category 2, and individuals returned to screening in 12 months. Category 4X: Category 3 or 4 nodules with additional imaging findings that increase the suspicion of lung cancer, such as spiculation, GGN that doubles in size in 1 year, enlarged lymph notes, etc. Category Modifiers: S (significant finding unrelated to lung cancer) and C (prior history of treated lung cancer) may be added to the 0-4 Lung-RADS Electronically Signed: Boris Carney MD at 15:49 EST Tel [phone], Service support , CC: Mihir Bess; Jose L Orr MD Curing Press Maintainer: Signed HEMOGLOBIN A1C Collected: 11/10/2017 Status: F Source: [place] 8:54 AM [facility] REPOSITORY TYPE CODE TESTS RESULT OUT OF RANGE REFERENCE UNITS LAB L501.9985 4.2-6.3 % Normal HGB A1C 5.7 Performed By: #### L501.9985 #### [facility] [address] [facility]. [place], [place], [id number] LIVER PROFILE Collected: 11/10/2017 Status: F Source: [place] 8:54 AM [facility] REPOSITORY TYPE CODE TESTS RESULT OUT OF RANGE REFERENCE UNITS LAB L501.1500 6.4-8.2 g/dL Normal T PROT 7.6 LAB L501.1800 3.2-5.0 g/dL Normal ALB 3.6 LAB L501.1950 2.2-4.2 g/dL Normal GLOB 4.0 LAB L501.4100 15-37 U/L Low AST 14 LAB L501.4305 45-117 U/L Normal ALK P 85 LAB L501.4405 13-56 U/L Normal ALT 16 LAB L501.4600 0.20-1.00 mg/dL Normal T BILI 0.60 LAB L501.4700 0.00-0.30 mg/dL Normal D BILI 0.14 Performed By: #### L500.3400, L500.4100, L501.9520 #### [facility] [address] [facility], [address] LIPID PROFILE Collected: 11/10/2017 Status: F Source: [place] 8:54 AM [facility] REPOSITORY TYPE CODE TESTS RESULT OUT OF RANGE REFERENCE UNITS LAB L501.4900 200 mg/dL Normal CHOL 126 Result Comment: <200 mg/dL Desirable 200-240 mg/dL Borderline >240 mg/dL High Risk LAB L501.5000 mg/dL Normal TRIG 179 Result Comment: The drugs N-Acetylcysteine and Metamizole may falsely depress this assay. Serum Triglycerides Reference Interval Normal <150 mg/dL Borderline high 150 - 199 mg/dL High 200 - 499 mg/dL Very High > or = 500 mg/dL LAB L501.6400 mg/dL Normal HDL 45 Result Comment: The drugs N-Acetylcysteine and Metamizole may falsely depress this assay. Reference Range HDL <40 mg/dL Low HDL Cholesterol HDL >or= 60 mg/dL High HDL Cholesterol LAB L501.6500 0-130 mg/dL Normal LDL 45 LAB L501.6600 5-40 mg/dL Normal VLDL 36 Performed By: #### L500.3400, L500.4100, L501.9520 #### [facility] [address] [facility] [place], [address] THYROID STIM HORMONE Collected: 11/10/2017 Status: F Source: [place] (TSH) 8:54 AM [facility] REPOSITORY TYPE CODE TESTS RESULT OUT OF RANGE REFERENCE UNITS LAB L501.9520 0.358-3.74 uIU/mL High TSH 4.47 Performed By: #### L500.3400, L500.4100, L501.9520 #### [facility] [address] [place], [address] DISCHARGE INSTRUCTION Observed: 10/08/2017 Status: F Source: [place] 12:03 PM [facility] REPOSITORY [facility] Medical Records Department [address] [place] [address] [place] [address] Instructions for Home/Discharge Instructions 10/08/17 1202 MR#: [id number] Acct: [id number] Name: HAILEY MAURICE Rep #: [id number] : 1945 72 From: Brandon Cage PA-C PCP: Mihir Bess Status: ADM IN Discharge Diet: No Restrictions Discharge Activity: May Not Drive, May Shower, Use Walker May shower in (days): 1 Ice area for (Minutes): 20 - each hour while awake. Weight Bearing Status: Weight bearing as tolerated Elevate: Operative Extremity Additional Activity Instructions:: Wear elastic stockings for 2 weeks after your surgery. Call your doctor if your incision/area has: Continuous Slow Oozing, Sudden Increased Bleeding, Increased Pain/ Swelling, Increased Redness, Foul Smelling Discharge Call your doctor if you observe: Fever of 101 or Higher, Coldness, Increased Pain - in extremity, Numbness or Tingling, Change in Color, Calf discomfort, Uncontrolled pain Change Dressing in (Days):: 0 - and daily as needed. Remove Dressing in (days):: 8 Cleanse incision/area with: Soap AND Water Allergies/Adverse Reactions: Allergies Sulfa (Sulfonamide Antibiotics) Allergy (Verified 09/23/17 14:04) Other Medications to take at Discharge Albuterol Inhaler [Ventolin Hfa] 2 puff INHALATION Q6H PRN PRN 09/23/17 Ascorbic Acid [Vitamin C] 500 mg PO DAILY 09/23/17 Bupropion HCl [Wellbutrin Sr] 100 mg PO BID 09/23/17 Cimetidine 150 mg PO BID 09/23/17 Diltiazem HCl [Diltiazem 24Hr ER] 240 mg PO DAILY 09/23/17 Fenofibrate Nanocrystallized [Triglide] 160 mg PO DAILY 09/23/17 Fluticasone/Vilanterol [Breo Ellipta 100-25 Mcg INH] 1 each IH DAILY 09/23/17 Gluc Bender/Chondro Bender A/Vit C/Mn [Glucosamine-Chondroitin Cap] 1 each PO DAILY 09/23/17 Hyoscyamine Sulfate 0.125 mg SL PRN PRN 09/23/17 Levothyroxine [Synthroid] 150 mcg PO DAILY 09/23/17 Loperamide HCl [Imodium A-D] 2 mg PO PRN PRN 09/23/17 Losartan Potassium [Cozaar] 100 mg PO QHS 09/23/17 Magnesium 40 mg PO DAILY 09/23/17 Metoprolol Tartrate [Lopressor] 100 mg PO BID 09/23/17 Montelukast Sodium [Singulair] 10 mg PO DAILY 09/23/17 [place]-3 Fatty Acids [Fish Oil] 500 mg PO DAILY 09/23/17 Potassium 99 mg PO DAILY 09/23/17 Pravastatin [Pravachol] 40 mg PO QHS 09/23/17 Turmeric Root Extract [Turmeric] 500 mg PO DAILY 09/23/17 Vitamin B Complex 1 each PO DAILY 09/23/17 Vitamin E 1,000 unit PO DAILY 09/23/17 Acetaminophen [Tylenol] 1,000 mg PO Q8 #90 tab 10/08/17 Oxycodone [Oxyir] 5 - 10 mg PO Q6H PRN PRN 7 Days #80 tab 10/08/17 The following prescriptions were given: Oxycodone [Oxyir] 5 - 10 mg PO Q6H PRN PRN 7 Days #80 tab PRN Reason: Mod-Severe Pain (4-10/10) Acetaminophen [Tylenol] 1,000 mg PO Q8 #90 tab Primary Care Physician: Mihir Bess [Primary Care Provider] - Test Results: Test results from this visit will be discussed in further detail at your follow-up appointment, if applicable. Please Follow Up With: Brandon Cage PA-C When: see pink sheet 10/08/17 1203 <Electronically signed by Brandon Cage PA-C> Date Brandon Cage PA-C CC: Mihir Bess CBC-COMPLETE BLOOD CNT Collected: 10/08/2017 Status: F Source: [place] NO DIFF 5:14 AM [facility] REPOSITORY TYPE CODE TESTS RESULT OUT OF RANGE REFERENCE UNITS LAB L100.1000 4.4-11.0 K/mm3 Normal WBC 9.0 LAB L100.1200 4.2-5.4 M/mm3 Low RBC 3.38 LAB L100.1300 12.0-15.0 g/dl Low HGB 10.8 LAB L100.1400 37-47 % Low HCT 32.5 LAB L100.1500 81-99 fL Normal MCV 96.2 LAB L100.1600 27.0-32.0 pg Normal MCH 32.0 LAB L100.1700 32-36 g/gl Normal MCHC 33.2 LAB L100.1810 11.6-14.6 % Normal RDW CV 12.9 LAB L100.1820 35.1-43.9 fl Normal RDW SD 43.2 LAB L100.1900 150-450 K/mm3 Normal PLT 156 LAB L100.2000 6.2-12.0 fl Normal MPV 9.6 Performed By: #### L100.0500 #### [facility] [address] [facility] [place], [address] 12 LEAD ELECTROCARDIOGRAM Observed: 10/07/2017 Status: F Source: [place] 3:03 PM [facility] REPOSITORY [facility] Cardiovascular Services [address] [place] [address] 12 Lead EKG 10/06/17 0936 MR#: [id number] Acct: [id number] Name: HAILEY MAURICE Rep #: [id number] : 1945 72 From: Ulysses Alfred MD Attending Dr: Travis Jones DO Status: ADM IN Ordering Dr: Brayan Subramanian MD Date: 10/06/17 Location: MS3 Sex: F C Admitted: 10/06/17 Test Reason : POST-OP Blood Pressure : / mmHG Vent. Rate : 070 BPM Atrial Rate : 070 BPM P-R Int : 200 ms QRS Dur : 100 ms QT Int : 450 ms P-R-T Axes : 055 079 058 degrees QTc Int : 486 ms Normal sinus rhythm Normal ECG When compared with ECG of 23-SEP-2017 14:10, No significant change was found Confirmed by ULYSSES ALFRED MD ([id number]), editor in chief newspaper JARRET PUGA ([id number]) on 10/07/2017 3:02:41 PM Referred By: Travis Jones Confirmed By:ULYSSES ALFRED MD 10/07/17 1502 Date Ulysses Alfred MD CC: Mihir Bess; Travis Jones DO; Brayan Subramanian MD Signed CBC-COMPLETE BLOOD CNT Collected: 10/07/2017 Status: F Source: [place] NO DIFF 5:40 AM [facility] REPOSITORY TYPE CODE TESTS RESULT OUT OF RANGE REFERENCE UNITS LAB L100.1000 4.4-11.0 K/mm3 Normal WBC 10.7 LAB L100.1200 4.2-5.4 M/mm3 Low RBC 3.84 LAB L100.1300 12.0-15.0 g/dl Normal HGB 12.6 LAB L100.1400 37-47 % Normal HCT 37.1 LAB L100.1500 81-99 fL Normal MCV 96.6 LAB L100.1600 27.0-32.0 pg High MCH 32.8 LAB L100.1700 32-36 g/gl Normal MCHC 34.0 LAB L100.1810 11.6-14.6 % Normal RDW CV 12.9 LAB L100.1820 35.1-43.9 fl Normal RDW SD 43.3 LAB L100.1900 150-450 K/mm3 Low PLT 149 LAB L100.2000 6.2-12.0 fl Normal MPV 9.0 Performed By: #### L100.0500 #### [facility] [address] [place], [place], [address] BASIC METABOLIC Collected: 10/07/2017 Status: F Source: [place] PROFILE (BMP) 5:40 AM [facility] REPOSITORY TYPE CODE TESTS RESULT OUT OF RANGE REFERENCE UNITS LAB L501.0100 74-106 mg/dL High GLU 155 Result Comment: Fasting Glucose result greater than or equal to 126 mg/dL suggests DIABETES MELLITUS per A.D.A. criteria. Please note revised GLUCOSE reference range effective 2017. LAB L501.1000 7-18 mg/dL Normal BUN 16 LAB L501.1100 0.55-1.02 mg/dL Normal CREAT,SERUM 0.76 Result Comment: The validity of the calculated GFR AND GFRAA in patients over 70 years has not been determined. Clinical correlation is essential. LAB L501.1110 >60 mL/min Normal EST GFR 80 Result Comment: Non- GFR Calc LAB L501.1115 >60 mL/min Normal EST GFR - AA 97 Result Comment: GFR Calc LAB L501.1255 ml/min Normal Estimated CRCL 40.81 LAB L501.1300 10-20 RATIO High BUN/CRE 21.1 LAB L501.2200 8.5-10 mg/dL Normal .1 CA 8.6 LAB L501.5300 136-14 mmol/L Normal 5 NA 143 LAB L501.5600 3.5-5. mmol/L Normal 1 K 4.5 LAB L501.5900 98-107 mmol/L Normal CL 104 LAB L501.6100 21.0-3 mmol/L High 2.0 CO2 36.0 LAB L501.6200 5-15 Low GAP 3 Performed By: #### L500.2500 #### [facility] [address] [place], [address] BEDSIDE GLUCOSE Collected: 10/06/2017 Status: F Source: [place] 9:10 AM [facility] REPOSITORY TYPE CODE TESTS RESULT OUT OF REFERENCE UNITS RANGE LAB L501.080 70-110 mg/dL High BEDSIDE GLU 173 Result Comment: MANAGEMENT OF PATIENT CARE PER NURSING PROTOCOL Performed By: #### L501.080 #### [facility] Point of Care [address] [place] [address] OPERATIVE REPORT Observed: 10/06/2017 Status: F Source: [place] 8:35 AM [facility] REPOSITORY [facility] Medical Records Department [address] [place] [address] Operative Report 10/06/17 0730 MR#: [id number] Acct: [id number] Name: MAURICEHAILEY Rep #: [id number] : 1945 72 From: Travis Jones DO PCP: Mihir Bess Status: ADM IN Y Location: [place] [address]-1 Report of Operation Date of Procedure: 10/06/17 Pre-Operative Diagnosis: Severe end-stage osteoarthritis left knee Post-Operative Diagnosis: Same Surgery/Procedure Performed:: total knee arthroplasty left Description of Surgical Findings:: Eburnation of bone, periarticular osteophytes hazardous waste management specialist: Brandon Cage Type of Anesthesia:: Spinal Anesthesiologist: Brayan Subramanian Special Medications: txa Specimen's removed: Bone and soft tissue Estimated Blood Loss (mL): 100 Fluids Replaced: See anesthesia report Description of Procedure: Implants: Aydee triathlon size 4 PS femur, 3 tibia, 32 x 10 mm patella all cemented with Simplex, 10 mm posterior stabilized articulating surface Indications: Patient has severe end-stage osteoarthritis diagnosed via x-rays in the knee. They have failed all forms of conservative measures including activity modification, injections, anti-inflammatories, use of assistive device. The patient has pain that affects on a daily basis and prevents him from doing things that they enjoyed. They have elected to undergo the above procedure. The risks of the procedure were discussed at length and their questions were answered. Procedure description: The patient was greeted in the preoperative area. The left knee was then marked with a surgical marker. Patient was then taken to or [address]. They were administered a dose of antibiotics as well as tranexamic acid. Once adequate anesthesia was obtained and airway was secured to placed in supine position on the operating room table. A well-padded tourniquet was placed on the affected extremity. Leg was then prepped and draped in the usual sterile fashion from the knee down. Ioban was used on the skin. Surgical timeout was then performed and confirmed with all present. Six-inch Esmarch was used to examine the limb and tourniquet was then inflated to 250 mmHg. A longitudinal incision was then planned and carried out in the anterior aspect of the knee. The dissection was then carried the length of the incision the extensor mechanism was identified. Standard medial parapatellar arthrotomy was then performed revealing severe eburnation of bone and periarticular osteophytes. There is complete loss of cartilage especially in the medial compartment with varus alignment. Anterior fat pad was removed for visualization purposes and the anterior medial aspect of the tibia was skeletonized for exposure to the knee. The knee was then flexed the patella was inverted. Opening reamer was then used in the femur approximately 1 cm anterior to the attachment of the PCL. The intramedullary valgus wand was then placed in the femur set at 5 of valgus. The distal femoral cutting jig was then applied to the femur with anticipated resection of approximately 8 mm. This was then made with a oscillating saw. The sizing guide was then placed referencing off the posterior condyles and also reference off the epicondylar axis. This was measured and the appropriate size 4-in-1 cutting jig was then applied to the distal femur. Anterior posterior cuts were made followed by the anterior and posterior chamfer cuts. These bony pieces and fragments were removed and placed on the back table. Posterior retractor was then utilized and the tibia was subluxed anteriorly. Extramedullary tibial alignment jig was then applied to the tibia referencing off the medial one third of the tibial tubercle the anterior tibial spine the middle aspect of the tibiotalar joint. Also reference off patient's [place] slope. The tibial cutting jig was then pinned with anticipated resection of 2 mm off of the deficient medial tibial condyle. This cut was made with the oscillating saw. Once this was complete a laminar sign poster was utilized in both medial lateral meniscus were removed and a posterior capsular osteophytes were also removed. Posterior capsule release was performed in the posterior capsule as well as the geniculate arteries are treated with the aqua Ann. The tibia was incised and the appropriate sized tibial tray was then pinned. The femoral box cutting jig was then applied to the femur and the box was prepared removing a portion of the intercondylar notch. The femoral trial was then placed and the knee was trialed. Full flexion-extension were easily achieved. The knee seemed to balance quite nicely. Any remaining osteophytes were removed at this time. Once this was complete the patella was everted and the Amy patella reaming device was then utilized the patella was then placed in the appropriate jig and reamer was then used to remove approximately 9 mm of the undersurface of the patella. A soft tissue remaining was in the way was removed and patella trial was then placed listed maintain excellent tracking using the no thumbs technique. The tibial tray at this point was punched to accommodate the fins of the final implant. At this point cement was mixed on the back table. The trial components were removed and the knee was copiously irrigated. Did use a cocktail of injection for postoperative pain control. The final components were then cemented in the standard fashion and excess cement was removed with cement removal tools and patellar clamp is placed in the patella. As the cement had cured in full extension tourniquet was deflated and hemostasis was perfect with Bovie cautery as well as the aqua Manus. Needle is once again trialed with different size polyethylenes to ensure the full range of motion was achieved as well as excellent balancing ligamentously was achieved. At this point the knee was copiously irrigated. Final implant was then inserted locking mechanism was engaged and confirmed to be locked. The arthrotomy was then closed with #1 Vicryl aggravate type fashion interrupted. Subcutaneous tissue was closed with 0 Vicryl and surgical lillie were placed in the skin. A occlusive silver impregnated dressing was then applied followed by well-padded sterile dressing secured with an Robert wrap. The patient was taken to the PACU in stable condition. No complications known at this time. Postoperatively we will maintain standard total knee postoperative protocol. The use of the physician tv production assistant was integral during this procedure. They assisted with positioning placement of the tourniquet retracting closure and placement of the dressing. The procedure would have been much more difficult without their expertise and assistance - Complications None known - Admit VTE Documentation VTE Present on Admission: Yes VTE Mechan Device Prophylaxis: SCD's, Thigh High ALMA Hose VTE Pharm Prophylaxis ordered?: Yes 10/06/17 0835 <Electronically signed by Travis Jones DO> Date Travis Jones DO CC: Mihir Bess; Travis Jones DO Signed BEDSIDE GLUCOSE Collected: 10/06/2017 Status: F Source: [place] 6:03 AM [facility] REPOSITORY TYPE CODE TESTS RESULT OUT OF REFERENCE UNITS RANGE LAB L501.080 70-110 mg/dL High BEDSIDE GLU 188 Result Comment: MANAGEMENT OF PATIENT CARE PER NURSING PROTOCOL Performed By: #### L501.080 #### [facility] Point of Care [address] [facility] [place] [address] 12 LEAD ELECTROCARDIOGRAM Observed: 09/25/2017 Status: F Source: [place] 2:35 PM [facility] REPOSITORY [facility] Cardiovascular Services [address] [place] [address] EKG - [facility] 09/23/17 1410 MR#: [id number] Acct: [id number] Name: HAILEY MAURICE Rep #: [id number] : 1945 72 From: Ulysses Alfred MD Attending Dr: Travis Jones DO Status: PRE IN Ordering Dr: Travis Jones DO Date: 09/23/17 Location: [facility] Sex: F C Admitted: Test Reason : Blood Pressure : / mmHG Vent. Rate : 082 BPM Atrial Rate : 082 BPM P-R Int : 152 ms QRS Dur : 090 ms QT Int : 384 ms P-R-T Axes : 044 086 064 degrees QTc Int : 448 ms Normal sinus rhythm Normal ECG Confirmed by ULYSSES ALFRED MD ([id number]), editor in chief newspaper JARRET PUGA ([id number]) on 09/25/2017 2:35:27 PM Referred By: Travis Jones Confirmed By:ULYSSES ALFRED MD 09/25/17 1435 Date Ulysses Alfred MD CC: Mihir Jones DO Date Dictated: 09/23/17 1410 Date Transcribed: 09/23/17 1410 Curing Press Maintainer: Signed CHEST PA AND LATERAL Observed: 09/23/2017 Status: F Source: [place] 3:47 PM [facility] REPOSITORY [facility] Imaging Services [address] [place] [address] Chest PA and Lateral MR#: [id number] Acct: [id number] Name: HAILEY MAURICE Rep #: [id number] : 1945 F 72 From: Rizwan Overton MD PCP: Mihir Bess Status: PRE IN Study: Chest PA and Lateral Date of Exam: 09/23/17 Exam# [id number] Ordering Dr: Travis Jones DO STUDY: X-RAY CHEST REASON FOR EXAM: Female, 72 years old. PRE OPERATIVE TECHNIQUE: Frontal and lateral views of the chest. COMPARISON: April 01, 2016 FINDINGS: Chronic appearing increased interstitial lung markings. There is no demonstrated pleural abnormality. Enlarged heart size. Normal mediastinum and santino. Normal visualized pulmonary arteries. There is atherosclerotic calcification of the aortic arch with tortuosity. There are diffuse degenerative changes of the visualized thoracic spine. There is degenerative osteoarthritis of the bilateral shoulders. There is no demonstrated abnormality of the visualized soft tissue structures of the upper abdomen. RAD/Chest PA and Lateral IMPRESSION: There are no acute findings. Electronically Signed: Rizwan Overton MD at 16:27 EDT , Service support , CC: Mihir Bess; Travis Jones DO Curing Press Maintainer: Signed CBC-COMPLETE BLOOD CNT Collected: 09/23/2017 Status: F Source: LIDIA NO DIFF 3:35 PM [facility] REPOSITORY TYPE CODE TESTS RESULT OUT OF RANGE REFERENCE UNITS LAB L100.1000 4.4-11.0 K/mm3 Normal WBC 9.0 LAB L100.1200 4.2-5.4 M/mm3 Normal RBC 4.64 LAB L100.1300 12.0-15.0 g/dl Normal HGB 14.6 LAB L100.1400 37-47 % Normal HCT 43.9 LAB L100.1500 81-99 fL Normal MCV 94.6 LAB L100.1600 27.0-32.0 pg Normal MCH 31.5 LAB L100.1700 32-36 g/gl Normal MCHC 33.3 LAB L100.1810 11.6-14.6 % Normal RDW CV 13.2 LAB L100.1820 35.1-43.9 fl High RDW SD 45.0 LAB L100.1900 150-450 K/mm3 Normal PLT 211 LAB L100.2000 6.2-12.0 fl Normal MPV 9.6 Performed By: #### L100.0500 #### [facility] [address] [place], [place], [address] HEMOGLOBIN A1C Collected: 09/23/2017 Status: F Source: LIDIA 3:35 PM [facility] REPOSITORY TYPE CODE TESTS RESULT OUT OF RANGE REFERENCE UNITS LAB L501.9985 4.2-6.3 % High HGB A1C 6.6 Performed By: #### L501.9985 #### [facility] [address] [place], [address] BASIC METABOLIC Collected: 09/23/2017 Status: F Source: LIDIA PROFILE (BMP) 3:35 PM [facility] REPOSITORY TYPE CODE TESTS RESULT OUT OF RANGE REFERENCE UNITS LAB L501.0100 74-106 mg/dL Normal GLU 97 Result Comment: Please note revised GLUCOSE reference range effective 2017. LAB L501.1000 7-18 mg/dL High BUN 22 LAB L501.1100 0.55-1.02 mg/dL Normal CREAT,SERUM 0.94 Result Comment: The validity of the calculated GFR AND GFRAA in patients over 70 years has not been determined. Clinical correlation is essential. LAB L501.1110 >60 mL/min Normal EST GFR 62 Result Comment: Non- GFR Calc LAB L501.1115 >60 mL/min Normal EST GFR - AA 75 Result Comment: GFR Calc LAB L501.1255 ml/min Normal Estimated CRCL 43.42 LAB L501.1300 10-20 RATIO High BUN/CRE 23.4 LAB L501.2200 8.5-10 mg/dL Normal .1 CA 9.0 LAB L501.5300 136-14 mmol/L Normal 5 NA 143 LAB L501.5600 3.5-5. mmol/L Normal 1 K 4.2 LAB L501.5900 98-107 mmol/L Normal CL 104 LAB L501.6100 21.0-3 mmol/L High 2.0 CO2 33.0 LAB L501.6200 5-15 Normal GAP 6 Performed By: #### L500.2500, L501.9520 #### [facility] [address] [place], [address] THYROID STIM HORMONE Collected: 09/23/2017 Status: F Source: LIDIA (TSH) 3:35 PM [facility] REPOSITORY TYPE CODE TESTS RESULT OUT OF RANGE REFERENCE UNITS LAB L501.9520 0.358-3.74 uIU/mL Normal TSH 2.67 Performed By: #### L500.2500, L501.9520 #### [facility] [address] [place] [place], [address] Observed: 09/23/2017 Status: F Source: HOOPLE MRSA/SAID SCREEN 3:00 PM [facility] REPOSITORY MRSA/SAID SCRN S. AUREUS S. aureus Negative MRSA MRSA Negative Performed By: #### M100.651 #### [facility] [address] [facility] [place], [address] FINAL SURGICAL Observed: 09/12/2017 Status: F Source: [facility] PATHOLOGY REPORT 10:23 AM [facility] REPOSITORY . Pathology Reports Accession: Collected Date/Time: Received Date/Time: Pathologist: [id number] 09/12/2017 10:23 EDT 09/15/2017 09:57 EDT MD MANOJ MATTHEWS Final Surgical Pathology Report DIAGNOSIS: RIGHT COLON POLYP, BIOPSY -- ACUTE COLITIS PATTERN OF INJURY WITH INCREASED NEUTROPHILS IN THE LAMINA PROPRIA AND REACTIVE GLANDULAR EPITHELIAL CHANGES. CLINICAL INFORMATION: Procedure: COLONOSCOPY WITH BIOPSY Preoperative diagnosis: HISTORY POLYPS Postoperative diagnosis: HISTORY POLYPS SPECIMEN: A POLYP, RIGHT COLON - BIOPSY OF - R/O ADENOMA GROSS DESCRIPTION: Received in formalin labeled right colon polyp biopsy is a 1.5 x 0.5 x 0.2 cm aggregate of apodaca soft tissue fragments. TS -1 Dictated by ISAIAS KISER ([facility]) MICROSCOPIC DESCRIPTION: Slides reviewed. Electronically Signed by Pathology Report verified by [facility] Electronically signed by MANOJ MATTHEWS MD Sign out Date: 09/16/2017 14:16 Performing Lab: [facility], [address] [place] [address] Performed By: #### SPFR #### [place] [address] SCREENING MAMM (CAD), Observed: 06/13/2017 Status: F Source: [place] BILAT 1:51 PM [facility] REPOSITORY [facility] Imaging Services [address] [facility] [address] SCREENING MAMM (CAD), BILAT MR#: [id number] Acct: [id number] Name: JOSAFATHAILEY Ayla Rep #: [id number] : 1945 F 72 From: Boris Carney MD PCP: Mihir Bess Status: REG CLI Study: SCREENING MAMM (CAD), BILAT Date of Exam: 06/13/17 Exam# [id number] Ordering Dr: Mihir Bess MD MAMMOGRAPHY - BILATERAL SCREENING REASON FOR EXAM: Female, 72 years old. Routine annual screening examination. PERTINENT HISTORY: Sister with breast cancer. TECHNIQUE: Digital bilateral breast matty (3D mammographic acquisition) in the CC and MLO projections. 2-D mediolateral oblique (MLO) and craniocaudad (CC) views of both breasts were obtained. CAD: Full Field Digital Mammography with Computer Added Detection was performed. COMPARISON: Comparison is made with prior outside examination dated April 20, 2009. FINDINGS: Breast Composition: There are scattered areas of fibroglandular density. There are no dominant masses or suspicious calcifications. No other significant abnormalities are identified. There has been no significant change since the prior study. HPBI/SCREENING MAMM (CAD), BILAT IMPRESSION: Stable bilateral screening mammogram. Yearly follow-up mammogram recommended. (A) ASSESSMENT CATEGORY: BIRADS Category 1: Negative. A letter regarding these results will be sent to the patient by the facility within 30 days. Approximately 10% of breast cancers are not detected by mammography. A normal mammogram should not delay biopsy of a clinically suspicious abnormality. [id number] Electronically Signed: Boris Carney MD at 8:27 EDT Tel [phone], Service support , CC: Mihir Bess; Mihir Bess MD Curing Press Maintainer: Signed HEMOGLOBIN A1C Collected: 05/08/2017 Status: F Source: HOOPLE 9:36 AM [facility] REPOSITORY TYPE CODE TESTS RESULT OUT OF RANGE REFERENCE UNITS LAB L501.9985 4.2-6.3 % High HGB A1C 6.4 Performed By: #### L501.9985 #### [facility] [place], [address] COMPREHENSIVE METABOLIC Collected: 05/08/2017 Status: F Source: LIDIA CASTELLANOS 9:36 AM [facility] REPOSITORY TYPE CODE TESTS RESULT OUT OF RANGE REFERENCE UNITS LAB L501.0100 74-106 mg/dL High GLU 141 Result Comment: Fasting Glucose result greater than or equal to 126 mg/dL suggests DIABETES MELLITUS per A.D.A. criteria. Please note revised GLUCOSE reference range effective 2017. LAB L501.1000 7-18 mg/dL High BUN 24 LAB L501.1100 0.55-1.02 mg/dL Normal CREAT,SERUM 0.82 Result Comment: The validity of the calculated GFR AND GFRAA in patients over 70 years has not been determined. Clinical correlation is essential. LAB L501.1110 >60 mL/min Normal EST GFR 73 Result Comment: Non- GFR Calc LAB L501.1115 >60 mL/min Normal EST GFR - AA 88 Result Comment: GFR Calc LAB L501.1300 10-20 RATIO High BUN/CRE 29.2 LAB L501.1500 6.4-8.2 g/dL T Normal PROT 7.5 LAB L501.1800 3.2-5.0 g/dL Normal ALB 3.7 LAB L501.1950 2.2-4.2 g/dL Normal GLOB 3.8 LAB L501.2000 0.9-2.4 RATIO Normal A/G 1.0 LAB L501.2200 8.5-10.1 mg/dL CA Normal 8.9 LAB L501.4100 15-37 U/L Normal AST 15 LAB L501.4305 45-117 U/L Normal ALK P 84 LAB L501.4405 13-56 U/L Normal ALT 26 Result Comment: Please note revised ALT reference range effective 2017. LAB L501.4600 0.20-1.00 mg/dL Normal T BILI 0.80 LAB L501.5300 136-145 mmol/L Normal NA 141 LAB L501.5600 3.5-5.1 mmol/L Normal K 4.1 LAB L501.5900 98-107 mmol/L Normal CL 104 LAB L501.6100 21.0-32.0 mmol/L Normal CO2 27.0 LAB L501.6200 5-15 Normal GAP 10 Performed By: #### L500.4050, L500.4100, L501.9520 #### [facility] [address] [place], [place], [address] LIPID PROFILE Collected: 05/08/2017 Status: F Source: LIDIA 9:36 AM [facility] REPOSITORY TYPE CODE TESTS RESULT OUT OF RANGE REFERENCE UNITS LAB L501.4900 200 mg/dL Normal CHOL 148 Result Comment: <200 mg/dL Desirable 200-240 mg/dL Borderline >240 mg/dL High Risk LAB L501.5000 mg/dL Normal TRIG 180 Result Comment: The drugs N-Acetylcysteine and Metamizole may falsely depress this assay. Serum Triglycerides Reference Interval Normal <150 mg/dL Borderline high 150 - 199 mg/dL High 200 - 499 mg/dL Very High > or = 500 mg/dL LAB L501.6400 mg/dL Normal HDL 44 Result Comment: The drugs N-Acetylcysteine and Metamizole may falsely depress this assay. Reference Range HDL <40 mg/dL Low HDL Cholesterol HDL >or= 60 mg/dL High HDL Cholesterol LAB L501.6500 0-130 mg/dL Normal LDL 68 LAB L501.6600 5-40 mg/dL Normal VLDL 36 Performed By: #### L500.4050, L500.4100, L501.9520 #### [facility] [address] [place], [place], [address] THYROID STIM HORMONE Collected: 05/08/2017 Status: F Source: LIDIA (TSH) 9:36 AM [facility] REPOSITORY TYPE CODE TESTS RESULT OUT OF RANGE REFERENCE UNITS LAB L501.9520 0.358-3.74 uIU/mL Normal TSH 1.85 Performed By: #### L500.4050, L500.4100, L501.9520 #### [facility] [address] [place], [place], [address] ALLERGIES ALLERGIES DATE TYPE / CODE NAME / CODE REACTION SEVERITY SOURCE 09/23/2017 Drug Sulfa Other Unknown [facility] Allergy/4160 (Sulfonamide Hospital 83691(SNOMED Antibiotics)/ Repository CT) [id number](RX NORM) ENCOUNTERS ENCOUNTERS ADMIT/DISCHARGE ACCOUNT NUMBER ADMITTING ENCOUNTER LOCATION SOURCE CLASS 02/16/[id number] [facility] ding:CT Repository 11/10/[id number] [facility] ding:LAB Repository 10/06/2017/10/09/19 [id number] Robert, Inpatient [place] ding:[id number] Repository : [id number]: 1 10/06/2017/10/09/19 [id number] Ambulatory BMSBuilding: [place] [facility] Repository 09/23/2017/10/09/19 [id number] Ambulatory BMSBuilding: [place] [facility] Repository 09/12/2017/09/13/19 [id number] Ambulatory BBuilding:IN [place] [address] [place] [address] Repository 06/13/[id number] [facility] ding:BI Repository 05/08/[id number] [facility] ding:LAB Repository PAYERS PAYERS ENCOUNTER GUARANTOR PAYER SUBSCRIBER SOURCE 02/16/2018 HAILEY Aguila Primary HAILEY R [place] [id number] W Insurance:MEDICARE GIBSONDOB: [facility] PART A [facility] [id number] Number: Repository [address]Ihh: [phone] [id number] [phone] () Date:2018-01-26 02/16/2018 Secondary HAILEY R [place] Insurance:AARPPolicy GIBSONDOB: [facility] Number: [id number] [id number] Repository Date:2101-11-16[address], [place] [address]SV: 02/16/2018 Tertiary NOT GIVENUNK [place] Insurance:SELF PAY [facility] Number: Effective Repository Date:2018-01-26 11/10/2017 HAILEY Aguila Primary HAILEY R [place] [id number] W Insurance:MEDICARE GIBSONDOB: [facility] PART A [facility] [id number] Number: Repository [address]Mlr: [phone] [id number] [phone] (HP) Date:2017-11-10 11/10/2017 Secondary HAILEY R [place] Insurance:AARPPolicy GIBSONDOB: Community Number: [id number] Hospital [id number] Repository Date:3327-04-02[address], [place] [address]HN: 11/10/2017 Tertiary NOT GIVENUNK [place] Insurance:SELF PAY [facility] Number: Effective Repository Date:2017-11-10 10/06/2017 HAILEY R Primary HAILEY R [place] [id number] W Insurance:MEDICARE GIBSONDOB: [facility] [address] PART A [facility] [id number] Number: Repository [address]Iqq: [phone] [id number] [phone] () Date:2017-09-11 10/06/2017 Secondary HAILEY R [place] Insurance:AARPPolicy GIBSONDOB: Community Number: [id number] Hospital [id number] Repository Date:6447-09-43[address], [place] [address]NV: 10/06/2017 Tertiary NOT GIVENUNK [place] Insurance:SELF PAY [facility] Number: Effective Repository Date:2017-09-11 10/06/2017 HAILEY R Primary HAILEY R [place] [id number] W Insurance:MEDICARE GIBSONDOB: [facility] [address] PART A [facility] [id number] Number: Repository [address]Hyu: [phone] [id number] [phone] () Date:2017-09-11 10/06/2017 Secondary HAILEY R [place] Insurance:AARPPolicy GIBSONDOB: Community Number: [id number] Hospital [id number] Repository Date:7113-70-41[address], [place] [address]UH: 10/06/2017 Tertiary NOT GIVENUNK [place] Insurance:SELF PAY [facility] Number: Effective Repository Date:2017-10-06 09/23/2017 HAILEY R Primary HAILEY R [place] [id number] W Insurance:MEDICARE GIBSONDOB: Community [address] PART A BPolicy [id number] Number: Repository [address]Gea: [phone] [id number] [phone] () Date:2017-09-11 09/23/2017 Secondary HAILEY R [place] Insurance:AARPPolicy GIBSONDOB: Community Number: [id number] Hospital [id number] Repository Date:5756-90-42[address], [place] [address]ZN: 09/23/2017 Tertiary NOT GIVENUNK [place] Insurance:SELF PAY [facility] Number: Effective Repository Date:2017-09-23 09/12/2017 HAILEY R Primary HAILEY R [facility] GIBSONDOB: Insurance:MEDICARE GIBSONDOB: [facility] W PART BPolicy Number: [id number] Repository [id number] W [facility] [address] C Date:2017-09-02 [address] [place] [address] [id number] [address] [place] [address]Idt: (025) Name:[facility] [address]Fkn: () Administrators LLCPO [phone] [address]Pxqexvqcq, ()Tel: [phone] [place] [phone]: () [phone] 09/12/2017 Secondary HAILEY R [facility] Insurance:AARP UNITED GIBSONDOB: [facility] HEALTH-SECONDARY [id number] Repository ONLYPolicy Number: [address] [facility] [id number] [address] Date:2017-09-[place], [place] [id number] [address]Zei: (369) Name:CHIEF DIGITAL MEDIA OFFICER [phone] [address], [place] ()Tel: [phone]: () [phone] 06/13/2017 Hailey R Primary Hailey R [place] [id number] W Insurance:MEDICARE GibsonDOB: [facility] [address] PART A [facility] [id number] Number: Repository [address]Jyj: [phone] [id number] [phone] () Date:2017-05-08 06/13/2017 Secondary Hailey R [place] Insurance:AARPPolicy GibsonDOB: Community Number: [id number] Hospital [id number] Repository Date:5807-85-44NP [facility] [address], [place] [address]AK: 06/13/2017 Tertiary NOT GIVENUNK [place] Insurance:SELF PAY [facility] Number: Effective Repository Date:2017-05-08 05/08/2017 Hailey R Primary Hailey R [place] [id number] W Insurance:MEDICARE GibsonDOB: [facility] PART A [place] [id number] Number: Repository [address]Fpr: [phone] [id number] [phone] () Date:2017-05-08 05/08/2017 Secondary Hailey R [place] Insurance:AARPPolicy GibsonDOB: Community Number: [id number] Hospital [id number] Repository Date:4629-84-85LI [facility] [address], [place] [address]KQ: 05/08/2017 Tertiary NOT GIVENUNK [place] Insurance:SELF PAY [facility] Number: Effective Repository Date:2017-05-08
== END ==
PROVIDERS: Referring Provider Internal Medicine Pulmonary Disease; Visit Provider Internal Medicine Pulmonary Disease
DX: Z87.891 Personal history of nicotine dependence (principal); Z12.2 Encounter for screening for malignant neoplasm of respiratory organs
CPT/HCPCS: G0297

== ENCOUNTER → 2019-01-08 | Outpatient (CLI) | payer MEDICARE, OTHER, SELFPAY ==
[2017-10-06 11:03] VITALS: BMI 38.2
[2019-01-08 11:20] LABS: Hemoglobin A1c 6.8 % (4.2-6.3)
[2019-01-08 11:30] LABS: AST(SGOT) 11 U/L (15-37); Alanine Aminotransfer ALT/SGPT 19 U/L (13-56); Albumin, Serum 3.7 g/dL (3.2-5.0); Alkaline Phosphatase 82 U/L (45-117); Bilirubin, Direct 0.16 mg/dL (0.00-0.30); Cholesterol 143 mg/dL (200); Globulin 4.2 g/dL (2.2-4.2); High Density Lipoprotein 45 mg/dL; Protein, Total 7.9 g/dL (6.4-8.2); Thyroid Stim Hormone (TSH) 5.81 uIU/mL (0.358-3.74); Triglycerides 153 mg/dL; Very Low Density Lipoprotein 31 mg/dL (5-40)
== END | disposition home or self-care (01) ==
LOC: LAB 10:18
PROVIDERS: Referring Provider Family Medicine; Visit Provider Family Medicine
DX: E03.9 Hypothyroidism, unspecified (principal); E11.9 Type 2 diabetes mellitus without complications; E78.00 Pure hypercholesterolemia, unspecified
CPT/HCPCS: 36415; 80061; 80076; 83036; 84443

== ENCOUNTER → 2019-02-16 13:03 | Outpatient (CLI) | payer MEDICARE, OTHER, SELFPAY ==
[2017-10-06 11:03] VITALS: BMI 38.2
--- NOTE | 2019-02-16 13:05 | CT_ITS ---
STUDY: LOW DOSE CT LUNG CANCER SCREENING REASON FOR EXAM: Female, 73 years old. RADIATION DOSAGE (If Supplied By Facility): CTDIvol = ( 3.02 ) mGy, DLP = ( 89.12 ) mGycm TECHNIQUE: No contrast was administered. Low dose technique was utilized (average mAS-38 and kVp 120). 1.25 mm axial source images with a slice interval of 1.25-mm were reconstructed in lung windows. 2.5 mm axial source images with a slice interval of 2.5-mm were reconstructed in lung windows. 5.0 mm axial source images with a slice interval of 5.0-mm were reconstructed in soft tissue windows. Nodule measured using lung windows on PACS and/or independent workstation with automated measurement of minimum and maximum diameter. Nodule measurement reported as average diameter rounded to the nearest whole number. Growth is defined as an increase ins size of greater than 1.5 mm. COMPARISON: None. NODULES: Right lun-There is 0.45 cm right lower lung nodule adjacent to the pleura (image 123/211). 2-there is 0.48 cm nodule in the right midlung peripherally (image 118/121). 3-Tiny pleural nodule paravertebral in location (image 90/121). 4-there is 0.74 x 0.44 cm anterior aspect right midlung (image 67/2 11). Left lun-calcified granuloma left apex (image 28/211). 2.-Tiny nodule laterally near the pleural (image 58/211). 3-0.57 cm left lower lobe nodule (image 147/211). 4-Tiny pleural nodule left lower lobe (image 147/211). 5- tiny pleural nodule left lower lobe (image 15 9/211). IMPRESSION: Multiple small nodules involving both lung manning please see the discussion above and refer to the images. 9image number Nodule #: Density: Lung location: lobe: cm from pleura Location in series: Series Number: Image: Size - D1 x D2 mm: mm: average diameter Margin: Shape: Calcification: Fat: Temporal comparison: Total lung nodules (excluding granulomas): Emphysema: Endobronchial lesion: Aorta: Coronary arteries: Heart: Pulmonary artery: Mediastinal nodes: Other chest and abdominal findings: CT/Low Dose CT Lung Screening IMPRESSION: IMPORTANT NOTES FOR USE: ACR Lung-RADS Version 1.0 Assessment Categories Release Date: July 19, 2013 Category: Coded 0-4 bases on nodule(s) with highest degree of suspicion. Negative screen is defined as categories 1 and 2; a positive screen is defined as categories 3 and 4. Category 3 and 4A nodules that are unchanged on interval CT should be coded as category 2, and individuals returned to screening in 12 months. Category 4X: Category 3 or 4 nodules with additional imaging findings that increase the suspicion of lung cancer, such as spiculation, GGN that doubles in size in 1 year, enlarged lymph notes, etc. Category Modifiers: S (significant finding unrelated to lung cancer) and C (prior history of treated lung cancer) may be added to the 0-4 Lung-RADS Electronically Signed: Edison Harry, at 9:13 EST Tel , Service support ,
== END ==
PROVIDERS: Referring Provider Internal Medicine Pulmonary Disease; Visit Provider Internal Medicine Pulmonary Disease
DX: Z87.891 Personal history of nicotine dependence (principal)
CPT/HCPCS: G0297

== ENCOUNTER → 2019-08-17 12:38 | Outpatient (CLI) | payer MEDICARE, OTHER, SELFPAY ==
--- NOTE | 2019-08-17 12:41 | CT_ITS ---
STUDY: CT CHEST WITHOUT CONTRAST REASON FOR EXAM: Female, 74 years old. LUNG NODULE FOLLOW-UP. COPD RADIATION DOSAGE (If Supplied By Facility): CTDIvol = ( 16.90 ) mGy, DLP = ( 578.42 ) mGycm TECHNIQUE: Transaxial imaging was performed without the administration of intravenous contrast material. Individualized dose optimization techniques were used for this CT. COMPARISON: 02/16/1990 FINDINGS: No change in the 7 mm noncalcified nodule in the anterior right upper lobe on image 44. No change in a 4 mm noncalcified nodule in the periphery of the right lower lobe on image 61. No change in a 4 mm noncalcified nodule peripherally in the right lower lobe the lungs on image 72. No change in a 5 mm noncalcified nodule peripherally in the left lower lobe the lungs on image 67. No change in a 4 mm noncalcified nodule in the periphery of the left lower lobe the lungs on image 73. No new noncalcified nodule or mass. There is no demonstrated pleural abnormality. Normal heart and pericardium. There are calcifications of the coronary arteries. Normal mediastinum. Normal hilar regions. Normal unenhanced pulmonary arteries. Normal aorta arch and descending thoracic aorta. There are multi-level degenerative changes of the thoracic spine. Diffusely decreased attenuation of the hepatic parenchyma consistent with fatty infiltration. CT/Chest without Contrast IMPRESSION: No change in multiple small noncalcified nodules. Follow-up CT the chest is recommended in 6 months document stability particularly of the 7 mm nodule. Right upper lobe. Electronically Signed: Dre Wyatt MD at 12:06 EDT Tel , Service support ,
== END ==
PROVIDERS: Referring Provider Internal Medicine Pulmonary Disease; Visit Provider Internal Medicine Pulmonary Disease
DX: R91.1 Solitary pulmonary nodule (principal)
CPT/HCPCS: 71250

== ENCOUNTER → 2019-08-24 | Outpatient (CLI) | payer MEDICARE, OTHER, SELFPAY ==
[2017-10-06 11:03] VITALS: BMI 38.2
[2019-08-24 09:21] LABS: Erythrocyte Sedimentation Rate 17 mm/hr (0-30)
[2019-08-24 09:22] LABS: Absolute Lymphocyte Count 1.89 X10^3/uL (0.83-4.51); Absolute Neutrophil Count 5.5 X10^3/uL (2.0-7.7); Basophil# 0.05 X10^3/uL; Basophil% 0.6 % (0-1); Color, Urine Yellow (Yellow); Eosinophil# 0.26 X10^3/uL; Eosinophils% 3.1 % (0-5); Glucose, Dipstick Normal (Normal); Hematocrit 44.7 % (37-47); Hemoglobin 14.5 g/dL (12.0-15.0); Ketone-Dipstick Negative (Negative); Leukocyte Esterase-Dipstick Negative /ul (Negative); Lymphocyte # 1.89 X10^3/ul (4.0); Lymphocyte % 22.4 % (19-41); Mean Corp Hgb Conc 32.4 g/dL (32-36); Mean Corpuscular Hgb 31.3 pg (27.0-32.0); Mean Corpuscular Volume 96.5 fL (81-99); Mean Platelet Vol. 9.6 fl (6.2-12.0); Monocyte# 0.72 X10^3/uL; Monocyte% 8.5 % (0-10); NRBC Flagged by Analyzer 0 % (0-5); Neutrophil # 5.47 X10^3/uL (2.7-7.7); Neutrophil % 64.9 % (47-70); Nitrite-Dipstick Negative (Negative); Occult Blood-Urine 10 /ul (Negative); Platelet Count 239 K/mm3 (150-450); Protein-Dipstick 30 mg/dl (Negative); RBC Distribution Width CV 12.9 % (11.6-14.6); RBC Distribution Width SD 45.1 fl (35.1-43.9); Red Blood Count 4.63 M/mm3 (4.2-5.4); Urine Bilirubin Dipstick Negative (Negative); Urine Clarity Clear (Clear); Urine Urobilinogen Normal (Normal); White Blood Count 8.4 K/mm3 (4.4-11.0)
[2019-08-24 09:50] LABS: ALB/GLOB Ratio 0.9 RATIO (0.9-2.4); AST(SGOT) 12 U/L (15-37); Alanine Aminotransfer ALT/SGPT 25 U/L (13-56); Albumin, Serum 3.6 g/dL (3.2-5.0); Alkaline Phosphatase 83 U/L (45-117); Anion Gap 9 (5-15); BUN 22 mg/dL (7-18); BUN/Creat Ratio 24.1 RATIO (10-20); Calcium,Total 9.2 mg/dL (8.5-10.1); Chloride 100 mmol/L (98-107); Creatinine, Serum 0.91 mg/dL (0.55-1.02); EST Glomerular Filtration Rate 64 mL/min (>60); Est Glom Filt Rate - Afr Amer 78 mL/min (>60); Globulin 4.2 g/dL (2.2-4.2); Glucose 199 mg/dL (74-106); Protein, Total 7.8 g/dL (6.4-8.2); Rheumatoid Factor < 10.0 IU/mL (<15); Sodium Level 140 mmol/L (136-145); Thyroid Stim Hormone (TSH) 0.74 uIU/mL (0.358-3.74)
[2019-08-24 09:56] LABS: Hemoglobin A1c 6.5 % (3.8-5.6)
[2019-08-25 17:15] LABS: ANTINUCLEAR ANTIBODIES DIRECT Negative (Negative)
== END | disposition home or self-care (01) ==
LOC: LAB 08:16
PROVIDERS: Referring Provider Family Medicine; Visit Provider Family Medicine
DX: Z00.00 Encounter for general adult medical examination without abnormal findings (principal); M13.0 Polyarthritis, unspecified; E78.00 Pure hypercholesterolemia, unspecified; I10 Essential (primary) hypertension; E11.9 Type 2 diabetes mellitus without complications; E03.9 Hypothyroidism, unspecified
CPT/HCPCS: 36415; 80053; 81002; 83036; 84443; 85025; 85652; 86038; 86431

== ENCOUNTER → 2019-09-27 | Outpatient (CLI) | payer MEDICARE, OTHER, SELFPAY ==
--- NOTE | 2019-09-27 13:55 | US_ITS ---
STUDY: SUPERFICIAL ULTRASOUND - SUBMANDIBULAR REGION. REASON FOR EXAM: Female, 74 years old. 3 lumps underneath the jaw. Its question swollen glands. TECHNIQUE: A superficial ultrasound was performed with real-time and static connell-scale imaging. COMPARISON: None. FINDINGS: The right submandibular gland measures 2.7 x 3.2 x 1.9 cm and is grossly normal. The left submandibular gland measures 2.6 x 2.9 x 1.8 cm and is unremarkable. In the right neck, there is a 0.9 x 0.8 x 0.7 cm lymph node which correlates with one of the palpable areas. Also the right neck there is a 0.8 x 1.3 x 0.6 cm lymph node. Also in the mid neck under the chin there is a 1.1 x 1.0 x 1.1 cm lymph node. The patient is status post thyroidectomy. US/Head/Neck Soft Tissue IMPRESSION: 1. 3 small lymph nodes which correlate with the palpable masses. 2. Normal submandibular glands. 3. Status post thyroidectomy. Electronically Signed: Jonny Gonzales DO at 22:44 EDT Tel [phone], Service support ,
== END | disposition home or self-care (01) ==
LOC: US 13:53
PROVIDERS: Referring Provider Family Medicine; Visit Provider Family Medicine
DX: R22.9 Localized swelling, mass and lump, unspecified (principal)
CPT/HCPCS: 76536

== ENCOUNTER → 2020-02-21 12:51 | Outpatient (CLI) | payer MEDICARE, OTHER, SELFPAY ==
--- NOTE | 2020-02-21 12:53 | CT_ITS ---
STUDY: CT CHEST WITHOUT CONTRAST REASON FOR EXAM: Female, 74 years old. LUNG NODULE F/U, SMOKER X 45 YRS, ONLY SMOKES A FEW CIGARETTES A WEEK NOW, HTN, COPD, DB RADIATION DOSAGE (If Supplied By Facility): CTDIvol = ( 15.08 ) mGy, DLP = ( 486.05 ) mGycm TECHNIQUE: Transaxial imaging was performed without the administration of intravenous contrast material. Multiplanar coronal and sagittal images were reformatted. Individualized dose optimization techniques were used for this CT. COMPARISON: Comparison is made with prior study dated 08/17/2019. FINDINGS: Small benign-appearing bilateral axillary lymph nodes. Stable 7 mm noncalcified nodule in the anterior aspect of the right upper lobe as seen on axial image #41. Stable appearance of a 4 mm noncalcified nodule in the peripheral aspect of the right lower lobe as seen on axial image #71. Stable 5 mm noncalcified nodule in the peripheral aspect of the left lower lobe as seen on axial image #78. Stable thickening of the right minor fissure. There are calcifications of the coronary arteries. There are multiple small lymph nodes within the mediastinum, which are normal in size and morphology most compatible with reactive lymph hyperplasia. Calcified right hilar lymph nodes. Normal unenhanced pulmonary arteries. There is atherosclerotic calcification of the aortic arch with tortuosity and elongation of the aortic arch and descending thoracic aorta. There are multi-level degenerative changes of the thoracic spine. Hepatomegaly. Calcified splenic granulomas. CT/Chest without Contrast IMPRESSION: Stable examination. Electronically Signed: Boris Carney, at 15:20 EST , Service support ,
== END ==
PROVIDERS: Referring Provider Internal Medicine Pulmonary Disease; Visit Provider Internal Medicine Pulmonary Disease
DX: R91.1 Solitary pulmonary nodule (principal)
CPT/HCPCS: 71250

== ENCOUNTER → 2020-03-10 13:45 | Outpatient (CLI) | payer MEDICARE, OTHER, SELFPAY ==
[2017-10-06 11:03] VITALS: BMI 38.2
--- NOTE | 2020-03-10 13:47 | BI_ITS ---
MAMMOGRAPHY - BILATERAL SCREENING REASON FOR EXAM: Female, 74 years old. Routine annual screening examination. PERTINENT HISTORY: Sister with breast cancer. TECHNIQUE: Digital bilateral breast terri (3D mammographic acquisition) in the CC and MLO projections. 2-D mediolateral oblique (MLO) and craniocaudad (CC) views of both breasts were obtained. CAD: Full Field Digital Mammography with Computer Added Detection was performed. COMPARISON: Comparison is made with prior study of 06/13/2017. FINDINGS: Breast Composition: There are scattered areas of fibroglandular density. There are no dominant masses or suspicious calcifications. Stable benign-appearing right axillary lymph nodes. No other significant abnormalities are identified. There has been no significant change since the prior study. BI/SCREEN MAMM (CAD) W/TERRI BILAT IMPRESSION: Stable bilateral screening mammogram. Yearly follow-up mammogram recommended. (A) ASSESSMENT CATEGORY: BIRADS Category 2: Benign. A letter regarding these results will be sent to the patient by the facility within 30 days. Approximately 10% of breast cancers are not detected by mammography. A normal mammogram should not delay biopsy of a clinically suspicious abnormality. [id number] Electronically Signed: Boris Carney, at 15:00 EST , Service support ,
== END ==
PROVIDERS: Visit Provider Family Medicine
DX: Z12.31 Encounter for screening mammogram for malignant neoplasm of breast (principal)
CPT/HCPCS: 77063; 77067

== ENCOUNTER → 2021-02-20 13:54 | Outpatient (CLI) | payer MEDICARE, OTHER, SELFPAY ==
--- NOTE | 2021-02-20 14:00 | CT_ITS ---
STUDY: CT CHEST WITHOUT CONTRAST REASON FOR EXAM: Female, 75 years old. PULM NODULE. Follow-up. RADIATION DOSAGE (If Supplied By Facility): CTDIvol = ( 17.96 ) mGy, DLP = ( 601.23 ) mGycm TECHNIQUE: Transaxial imaging was performed without the administration of intravenous contrast material. Multiplanar coronal and sagittal images were reformatted. Individualized dose optimization techniques were used for this CT. COMPARISON: Comparison is made with prior study dated 02/21/2020. FINDINGS: Small bilateral axillary lymph nodes. Stable 7 mm noncalcified nodule in the anterior aspect of the right upper lobe as seen on axial image #45. Stable 4 mm noncalcified nodule in the peripheral lateral aspect of the right lower lobe as seen on axial image #78. Stable thickening of the right major fissure. There are calcifications of the coronary arteries. There are multiple small lymph nodes within the mediastinum, which are normal in size and morphology most compatible with reactive lymph hyperplasia. Calcified right hilar lymph nodes. Normal unenhanced pulmonary arteries. Normal aorta arch and descending thoracic aorta. There are multi-level degenerative changes of the thoracic spine. Calcified splenic granulomas. CT/Chest without Contrast IMPRESSION: Stable examination. Electronically Signed: Boris Carney MD at 14:29 EST , Service support ,
== END ==
PROVIDERS: Referring Provider Internal Medicine Pulmonary Disease; Visit Provider Internal Medicine Pulmonary Disease
DX: R91.1 Solitary pulmonary nodule (principal)
CPT/HCPCS: 71250

== ENCOUNTER 2021-05-08 12:38 | Outpatient (CLI) | payer MEDICARE, OTHER, SELFPAY ==
--- NOTE | 2021-05-08 12:59 | BI_ITS ---
MAMMOGRAPHY - BILATERAL SCREENING REASON FOR EXAM: Female, 75 years old. Routine annual screening examination. PERTINENT HISTORY: Sister with breast cancer. TECHNIQUE: Digital bilateral breast terri (3D mammographic acquisition) in the CC and MLO projections. 2-D mediolateral oblique (MLO) and craniocaudad (CC) views of both breasts were obtained. CAD: Full Field Digital Mammography with Computer Added Detection was performed. COMPARISON: Comparison is made with prior study dated 03/10/2020 and 06/13/2017. FINDINGS: Breast Composition: There are scattered areas of fibroglandular density. There are no dominant masses or suspicious calcifications. Stable benign-appearing bilateral axillary No other significant abnormalities are identified. There has been no significant change since the prior study. BI/SCRN MAMM (CAD)W/TERRI BILAT IMPRESSION: Stable bilateral screening mammogram. Yearly follow-up mammogram recommended. (A) ASSESSMENT CATEGORY: BIRADS Category 2: Benign. A letter regarding these results will be sent to the patient by the facility within 30 days. Approximately 10% of breast cancers are not detected by mammography. A normal mammogram should not delay biopsy of a clinically suspicious abnormality. [id number] Electronically Signed: Boris Carney MD at 14:22 EST ,
--- NOTE | 2021-05-08 13:01 | BD_ITS ---
STUDY: DUAL ENERGY X-RAY ABSORPTIOMETRY / DXA REASON FOR EXAM: Female, 75 years old. [id number]. Patient is postmenopausal. TECHNIQUE: Bone Mineral Density (BMD) measurements of lumbar spine and bilateral hips were obtained. COMPARISON: None. FINDINGS: Lumbar Spine (L1-L4): g/cm2 (1.017) / T-score (-0.3) / Z-score (2.1) Findings are suggestive of normal bone density with a low fracture risk. Left Femur Total: g/cm2 (0.930) / T-score (-0.1) / Z-score (1.7) Left Femoral Neck: g/cm2 (0.845) / T-score (0.0) / Z-score (2.0) Right Femur Total: g/cm2 (0.920) / T-score (-0.2) / Z-score (1.6) Right Femoral Neck: g/cm2 (0.864) / T-score (0.1) / Z-score (2) BD/Dexa Bone Density Study IMPRESSION: The patient is considered normal as outlined below according to World [employer] Organization (WHO) criteria with a low fracture risk. Reference Information: The T-score is the number of standard deviations above or below the standard which is normal for young adults at their peak bone mineral density. The World Health Organization (WHO) interprets the T-scores as follows: Above -1 Normal bone density Between -1 and -2.5 Osteopenia Equal to / or below -2.5 Osteoporosis As a practical clinical guideline, osteopenia may be graded as follows: Mild -1 through -1.5 Moderate -1.6 through -2.0 Severe -2.1 through -2.4 The Z-score is the number of standard deviations above or below age-matched controls. A Z-score of less than -1.5 would be considered abnormal. References: 1. NIH Osteoporosis and Related Bone Diseases www osteo.org 2. International Society for Clinical Densitometry www iscd.org 3. National Osteoporosis Foundation www nof.org Electronically Signed: Boris Carney MD at 12:50 EST ,
== END 2021-05-08 23:59 | disposition home or self-care (01) ==
PROVIDERS: Referring Provider Internal Medicine; Visit Provider Internal Medicine
DX: Z12.31 Encounter for screening mammogram for malignant neoplasm of breast (principal); Z13.820 Encounter for screening for osteoporosis; Z78.0 Asymptomatic menopausal state
CPT/HCPCS: 77063; 77067; 77080

== ENCOUNTER → 2021-12-07 | Outpatient (CLI) | payer MEDICARE, OTHER, SELFPAY ==
[2021-12-07 10:25] LABS: Absolute Lymphocyte Count 2.07 X10^3/uL (0.83-4.51); Absolute Neutrophil Count 4.7 X10^3/uL (2.0-7.7); Basophil# 0.06 X10^3/uL; Basophil% 0.8 % (0-1); Eosinophil# 0.17 X10^3/uL; Eosinophils% 2.2 % (0-5); Hemoglobin 14.5 g/dL (12.0-15.0); Lymphocyte # 2.07 X10^3/ul (0.83-4.51); Lymphocyte % 26.7 % (19-41); Mean Corp Hgb Conc 32.2 g/dL (32-36); Mean Corpuscular Hgb 31.3 pg (27.0-32.0); Mean Platelet Vol. 9.5 fl (6.2-12.0); Monocyte# 0.69 X10^3/uL; Monocyte% 8.9 % (0-10); NRBC Flagged by Analyzer 0 % (0-5); Neutrophil % 60.6 % (47-70); Platelet Count 226 K/mm3 (150-450); RBC Distribution Width CV 12.9 % (11.6-14.6); RBC Distribution Width SD 45.9 fl (35.1-43.9); Red Blood Count 4.64 M/mm3 (4.2-5.4); White Blood Count 7.8 K/mm3 (4.4-11.0)
== END | disposition home or self-care (01) ==
PROVIDERS: Referring Provider Internal Medicine Pulmonary Disease; Visit Provider Internal Medicine Pulmonary Disease
DX: R09.02 Hypoxemia (principal); R06.00 Dyspnea, unspecified
CPT/HCPCS: 36415; 85025

== ENCOUNTER 2022-05-10 10:55 | Emergency (ER) | payer MEDICARE, OTHER, SELFPAY ==
[2022-05-10 10:56] VITALS: BP 148/96; PULSE 83; RESP 16; TEMP 36.2; O2SAT 97; BMI 30.8
[2022-05-10] MEDS: Morphine 4 MG/ML Syringe IV (11:27)
[2022-05-10] MEDS: Ondansetron 4 MG/2 ML Vial IV (11:27)
[2022-05-10 11:32] LABS: Absolute Lymphocyte Count 1.77 X10^3/uL (0.83-4.51); Absolute Neutrophil Count 4.8 X10^3/uL (2.0-7.7); Basophil# 0.07 X10^3/uL; Eosinophil# 0.12 X10^3/uL; Eosinophils% 1.6 % (0-5); Hematocrit 43.2 % (37-47); Hemoglobin 14.5 g/dL (12.0-15.0); Lymphocyte # 1.77 X10^3/ul (0.83-4.51); Lymphocyte % 24.2 % (19-41); Mean Corp Hgb Conc 33.6 g/dL (32-36); Mean Corpuscular Hgb 31.5 pg (27.0-32.0); Mean Corpuscular Volume 93.7 fL (81-99); Monocyte# 0.55 X10^3/uL; Monocyte% 7.5 % (0-10); NRBC Flagged by Analyzer 0 % (0-5); Neutrophil % 65.6 % (47-70); Platelet Count 195 K/mm3 (150-450); RBC Distribution Width CV 12.8 % (11.6-14.6); RBC Distribution Width SD 43.9 fl (35.1-43.9); Red Blood Count 4.61 M/mm3 (4.2-5.4); White Blood Count 7.3 K/mm3 (4.4-11.0)
[2022-05-10 11:53] LABS: AST(SGOT) 18 U/L (15-37); Alanine Aminotransfer ALT/SGPT 21 U/L (13-56); Albumin, Serum 3.6 g/dL (3.2-5.0); Alkaline Phosphatase 67 U/L (45-117); Anion Gap 6 (5-15); BUN 15 mg/dL (7-18); BUN/Creat Ratio 19.1 RATIO (10-20); Bilirubin, Direct 0.24 mg/dL (0.00-0.30); Calcium,Total 9.3 mg/dL (8.5-10.1); Chloride 110 mmol/L (98-107); Creatinine, Serum 0.78 mg/dL (0.55-1.02); EST Glomerular Filtration Rate 76 mL/min (>60); Est Glom Filt Rate - Afr Amer 92 mL/min (>60); Globulin 3.7 g/dL (2.2-4.2); Glucose 126 mg/dL (74-106); Lipase 577 U/L (73-393); Potassium 3.7 mmol/L (3.5-5.1); Protein, Total 7.3 g/dL (6.4-8.2); Sodium Level 143 mmol/L (136-145)
--- NOTE | 2022-05-10 11:54 | EDS_ITS ---
HPI HPI - GI History of Present Illness Chief Complaint: Abd Pain Detail of Chief Complaint: Right upper quadrant pain, history of cholelithiasis Informant: patient Abdominal Pain/Flank Pain Onset: Weeks Context: Sudden Onset Timing: Continuous and Waxes and wanes Quality: Aching and Cramping Location: RUQ Current Severity: Moderate Maximum Severity: Severe Worsened by: Nothing Relieved by: Nothing Nausea/Vomiting/Emesis GI Symptom: Positive for Nausea; Negative for Vomiting Diarrhea/Melena/Hematochezia GI Symptom: Negative for Diarrhea, Melena or Hematochezia Associated Symptoms Associated Symptoms: Negative for Dysuria, Frequency, Hematuria or Urgency Narrative Narrative: Patient presents with right upper quadrant pain. She was scheduled to see Dr. Forbes, general surgeon, today. Her appointment was canceled because of an emergency. She presents because of persistent pain since onset. She was told by staff that she would have to wait 2 weeks. She states she cannot wait 2 weeks. She states no matter what she eats or drinks her pain gets somewhat worse. The pain is never gone away. She does report nausea without vomiting or diarrhea. She denies fever, chills night sweats. Denies change in color of her urine or stool. Denies change in color of her eyes. Records from outside facility were obtained using [facility]. Liver was unremarkable. Common bile duct was 0.4 cm at the hilum. Gallbladder caliber was normal. Stones and sludge were noted. There was no thickening of the gallbladder wall. No evidence of pericholecystic fluid or positive sonographic Burkett sign. There is no right hydronephrosis. There was a 5.2 cm right renal cyst noted. Outside records from [facility] were reviewed. This was the evaluation prior to her gallbladder ultrasound. Concern at time of that evaluation was that patient had biliary disease. Prior similar symptoms: Yes Recent Illness/Hospitalization: Yes PFSH PFSH Home Medications albuterol sulfate 90 mcg/actuation aerosol inhaler (Ventolin HFA) 2 puff inhalation Q6H PRN PRN COPD 09/23/17 [History Last Taken Unknown] ascorbic acid (vitamin C) 500 mg capsule 500 mg PO DAILY SUPPLEMENT 09/23/17 [History Last Taken Unknown] bupropion HCl 100 mg tablet,12 hr sustained-release (Wellbutrin SR) 100 mg PO BID ANXIETY 09/23/17 [History Last Taken Unknown] cimetidine 200 mg tablet 150 mg PO BID ANTACID 09/23/17 [History Last Taken Unknown] diltiazem HCl 240 mg capsule,extended release 24 hr 240 mg PO DAILY BP 09/23/17 [History Last Taken 10/06/17 04:00 240 MG] fenofibrate nanocrystallized 160 mg tablet (Triglide) 160 mg PO DAILY CHOLESTEROL 09/23/17 [History Last Taken Unknown] fluticasone furoate 100 mcg-vilanterol 25 mcg/dose inhalation powder (Breo Ellipta) 1 ea IH DAILY COPD 09/23/17 [History Last Taken 10/06/17 04:00 1 EACH] [id number] C-Mn 500 mg-400 mg capsule 1 ea PO DAILY SUPPLEMENT 09/23/17 [History Last Taken Unknown] hyoscyamine sulfate 0.125 mg sublingual tablet 0.125 mg sublingual PRN PRN Irritable Bowel Syndrome 09/23/17 [History Last Taken Unknown] levothyroxine 150 mcg tablet 150 mcg PO DAILY THYROID 09/23/17 [History Last Taken 10/06/17 04:00 150 MCG] loperamide 2 mg capsule (Imodium A-D) 2 mg PO PRN PRN Irritable Bowel Syndrome 09/23/17 [History Last Taken Unknown] losartan 100 mg tablet 100 mg PO QHS BP 09/23/17 [History Last Taken Unknown] magnesium 30 mg tablet 40 mg PO DAILY SUPPLEMENT 09/23/17 [History Last Taken Unknown] metoprolol tartrate 100 mg tablet (Lopressor) 100 mg PO BID BP 09/23/17 [History Last Taken 10/06/17 04:00 100 MG] montelukast 10 mg tablet (Singulair) 10 mg PO DAILY COPD 09/23/17 [History Last Taken Unknown] omega 3-dha 60 mg-epa 90 mg-fish oil 500 mg capsule, delayed release (Fish Oil) 500 mg PO DAILY SUPPLEMENT 09/23/17 [History Last Taken Unknown] potassium 99 mg tablet 99 mg PO DAILY SUPPLEMENT 09/23/17 [History Last Taken Unknown] pravastatin 40 mg tablet 40 mg PO QHS CHOLESTEROL 09/23/17 [History Last Taken Unknown] turmeric root extract 500 mg capsule 500 mg PO DAILY SUPPLEMENT 09/23/17 [History Last Taken Unknown] vitamin B complex 1 ea PO DAILY SUPPLEMENT 09/23/17 [History Last Taken Unknown] vitamin E 670 mg (1,000 unit) capsule 1,000 unit PO DAILY SUPPLEMENT 09/23/17 [History Last Taken Unknown] acetaminophen 500 mg tablet 1,000 mg PO Q8 #90 tabs 10/08/17 [Rx Last Taken Unknown] oxycodone 5 mg tablet 5 - 10 mg PO Q6H PRN PRN Mod-Severe Pain (4-10/10) 7 days #80 tabs 10/08/17 [Rx Last Taken Unknown] oxycodone-acetaminophen 5 mg-325 mg tablet 1 tab PO Q6H PRN PRN pain 5 days #20 TABLETS 05/10/22 [Rx Last Taken Unknown] Allergy/AdvReac Type Severity Reaction Status Date / Time Sulfa (Sulfonamide Allergy Other Verified 09/23/17 14:04 Antibiotics) Social History (Updated 05/10/22 @ 11:[address] Sergio Mojica MD) household members: none Smoking Status: Never smoker substance use type: does not use ROS ROS ED Constitutional Constitutional ED: Denies chills, fever(s), subjective, sweats or weight loss ENT ENT ED: Denies ear pain, rhinorrhea or sore throat Cardiovascular Cardiovascular: Denies chest pain, orthopnea, palpitations, paroxysmal nocturnal dyspnea or racing heartbeat Respiratory/Chest Respiratory/Chest: Denies cough, dyspnea, dyspnea on exertion, orthopnea or paroxysmal nocturnal dyspnea Gastrointestinal Gastrointestinal: Reports abdominal pain and nausea; Denies constipation, diarrhea, melena or vomiting Genitourinary Genitourinary ED: Denies dysuria, hematuria or urinary frequency Musculoskeletal Musculoskeletal: Denies arthralgias, back pain, myalgias or neck pain Integumentary Denies abscess, Abrasions or rash Neurologic Neurologic: Denies paresthesias Psychiatric Psychiatric: Reports depression Endocrine Endocrinology: Denies polydipsia, polyphagia or polyuria EXAM Physical Exam Const Vital Signs: 05/10/22 10:56 05/10/22 12:35 05/10/22 12:35 Temperature 97.2 F L Temperature Source Temporal Pulse Rate 83 Respiratory Rate 16 Blood Pressure 148/96 H Blood Pressure Mean 113 Pulse Ox 97 85 95 Oxygen Delivery Method Room Air Room Air Nasal Cannula Oxygen Flow Rate (L/min) 2 Positive well nourished, well developed and obese Constitutional Narrative: Patient appears uncomfortable. General Appearance ED: well developed; Negative for NAD Nutritional Appearance: obese HEENT Reports TM's clear and moist mucous membranes HEENT Narrative: Posterior pharynx unremarkable. normocephalic and atraumatic Tympanic Membrane ED: Yes TM's clear Eyes PERRL and EOMs intact bilaterally General Eye ED: Negative for pale conjunctiva or scleral icterus Neck no lymphadenopathy, supple and no JVD Resp normal respiratory effort and clear to auscultation bilaterally Cardio regular rate, regular rhythm, S1 normal heart sound, S2 normal heart sound and no murmurs GI no masses; Negative for non-tender Inspection: Negative for abdominal distention Auscultation: hypoactive bowel sounds Palpation: soft, tender RLQ (There is is a positive clinical Burkett sign.) and guarding RUQ; Negative for rigid, hepatomegaly, splenomegaly, hernia, mass, pulsatile mass or rebound tenderness present Back/Spine no CVA tenderness Cervical Spine: Negative for cervical spine tenderness Thoracic Spine / Upper Back: Negative for thoracic spinal tenderness Extremity full ROM General Extremety ED: Negative for edema or tenderness General Extremity: Negative for edema Neuro CN's II-XII intact bilaterally, moves all extremities and no sensory deficits noted Sensorium / Orientation: alert Psych Mood & Affect: depressed Skin no wounds General Skin Exam: Negative for jaundice Lesions: no lesions Rashes: no rashes MDM MDM MDM Narrative Medical decision making narrative: Will obtain blood work and discuss case with surgeon. Patient did receive IV morphine for her pain and IV Zofran for her nausea. If transaminases are elevated will reimage. Lipase was obtained because of possibility of gallstone pancreatitis. Prior records from outside facility were reviewed. Lab Data Attestation: I reviewed the patient's lab results. Lab results narrative: White count is normal. Basic metabolic panel is unremarkable. Liver panel is unremarkable. Lipase is elevated at 577. Lipase is approximate 1.5 times normal. This does not indicate pancreatitis. Because she has multiple stones noted on ultrasound and lipase is now elevated we will obtain ultrasound of the right upper quadrant to assess gallbladder and common bile duct. The common bile duct was normal on prior ultrasound. Labs: Laboratory Results - last 24 hr 05/10/22 05/10/22 11:25 11:25 WBC 7.3 RBC 4.61 Hgb 14.5 Hct 43.2 MCV 93.7 MCH 31.5 MCHC 33.6 RDW Std Deviation 43.9 RDW Coeff of Duong 12.8 Plt Count 195 MPV 9.0 Immature Gran % (Auto) 0.100 Neut % (Auto) 65.6 Lymph % (Auto) 24.2 Tillman % (Auto) 7.5 Eos % (Auto) 1.6 Baso % (Auto) 1.0 Absolute Neuts (auto) 4.8 Absolute Lymphs (auto) 1.77 Nucleated RBC % 0 Sodium 143 Potassium 3.7 Chloride 110 H Carbon Dioxide 27.0 Anion Gap 6 BUN 15 Creatinine 0.78 Estim Creat Clear Calc 45.50 Est GFR (MDRD) Af Amer 92 Est GFR (MDRD) Non-Af 76 BUN/Creatinine Ratio 19.1 Glucose 126 H Calcium 9.3 Total Bilirubin 0.70 Direct Bilirubin 0.24 AST 18 ALT 21 Alkaline Phosphatase 67 Total Protein 7.3 Albumin 3.6 Globulin 3.7 Lipase 577 H Radiography Diagnostic Testing: Clinical Impression(s) from Imaging Studies Gallbladder Ultrasound 05/10/22 12:05 IMPRESSION: Hepatomegaly and diffuse fatty infiltration of the liver. Solitary gallstone with mildly distended gallbladder lumen. Electronically Signed: Boris Carney MD at 13:24 EST , ADDENDUM: 05/10/22 1402 IMPRESSION: undefined Treatment and Re-Evaluation Narrative: Patient was reassessed at 1541. Patient states that she is still having pain. She was informed that her laboratory studies are unremarkable. She was informed that she has a solitary gallstone. There was fatty infiltration of the liver as well. There is no evidence of cholecystitis. There is no evidence of pancreatitis. The common bile duct was normal. She was discharged with prescription for pain medicine. She did reschedule to follow-up with surgeon. Discharge Plan Triage Chief Complaint: Abd Pain ED Provider: YuniorSergio Dx/Rx/DC Orders Clinical Impression: Biliary colic, Cholelithiasis, Hypertension, Fatty liver, Elevated lipase Instructions: ED Gallstones with Biliary Colic Prescriptions: New oxycodone-acetaminophen [oxycodone-acetaminophen] 5-325 mg tablet 1 tab PO Q6H PRN PRN (Reason: pain) 5 Days Qty: 20 0RF No Action vitamin E 1,000 UNIT capsule 1,000 unit PO DAILY loperamide [Imodium A-D] 2 MG capsule 2 mg PO PRN PRN (Reason: Irritable Bowel Syndrome) pravastatin 40 MG tablet 40 mg PO QHS metoprolol tartrate [Lopressor] 100 MG tablet 100 mg PO BID diltiazem HCl 240 MG capsule,extended release 24hr 240 mg PO DAILY bupropion HCl [Wellbutrin SR] 100 MG tablet sustained-release 12 hr 100 mg PO BID potassium 99 MG tablet 99 mg PO DAILY cimetidine 200 MG tablet 150 mg PO BID hyoscyamine sulfate 0.125 MG tablet, sublingual 0.125 mg sublingual PRN PRN (Reason: Irritable Bowel Syndrome) levothyroxine 150 MCG tablet 150 mcg PO DAILY montelukast [Singulair] 10 MG tablet 10 mg PO DAILY albuterol sulfate [Ventolin HFA] 1 INHALER inhaler 2 puff inhalation Q6H PRN PRN (Reason: COPD) losartan 100 MG tablet 100 mg PO QHS magnesium 30 MG tablet 40 mg PO DAILY vitamin B complex 1 EACH capsule 1 ea PO DAILY [id number] C-Mn 1 EACH capsule 1 ea PO DAILY omega 5-oof-cad-fish oil [Fish Oil] 500 MG capsule,delayed release(DR/EC) 500 mg PO DAILY fenofibrate nanocrystallized [Triglide] 160 MG tablet 160 mg PO DAILY turmeric root extract 500 MG capsule 500 mg PO DAILY fluticasone furoate-vilanterol [Breo Ellipta] 1 EACH blister with device 1 ea IH DAILY ascorbic acid (vitamin C) 500 MG capsule 500 mg PO DAILY acetaminophen 500 MG tablet 1,000 mg PO Q8 Qty: 90 0RF oxycodone 5 MG tablet 5 - 10 mg PO Q6H PRN PRN (Reason: Mod-Severe Pain (4-10/10)) 7 Days Qty: 80 0RF Primary Care Provider: JAYLENE VO Referrals: JAYLENE VO MD [Primary Care Provider] - Andrew Forbes MD [Med Staff - Active Staff] - [facility] appointment Disposition Disposition: Home, Self Care
--- NOTE | 2022-05-10 12:05 | US_ITS ---
STUDY: ABDOMINAL ULTRASOUND - RIGHT UPPER QUADRANT REASON FOR VISIT: Female, 76 years old PAIN -- History of cholelithiasis, common bile duct was no TECHNIQUE: Ultrasound evaluation of the right upper quadrant was performed with real-time and static connell-scale imaging. TECHNICAL QUALITY: Adequate. COMPARISON: None. FINDINGS: Liver: The liver is enlarged and measures 23.6 cm. There is increased echogenicity consistent with fatty infiltration. The bile ducts are within normal limits. There is hepatic color flow. The direction of portal flow is hepatopetal. There is no demonstrated mass lesion. Gallbladder: There is a moderately distended gallbladder. The gallbladder wall measures 2 mm. There is a positive sonographic Burkett''s sign. There is no pericholecystic fluid. There is a solitary echogenic gallstone within the gallbladder. This measures 1.3 cm. Common Bile Duct (C.B.D.): The common bile duct measures 5 mm. Pancreas: Normal size of the head, body and tail of the pancreas. There is normal echogenicity of the pancreas. There is no demonstrated pancreatic mass or cyst. Right Kidney: Normal size of the right kidney. The right kidney measures 13 cm x 4.9 cm x 4.7 cm. Normal renal cortex. The right cortex measures 1.8 cm. There is no demonstrated renal mass or cyst. There is no right hydronephrosis. US/Gallbladder IMPRESSION: Hepatomegaly and diffuse fatty infiltration of the liver. Solitary gallstone with mildly distended gallbladder lumen. Electronically Signed: Boris Carney MD at 13:24 EST ,
[2022-05-10 12:35] VITALS: O2SAT 85; O2SAT 95
[2022-05-10 15:57] VITALS: RESP 18; O2SAT 99
== END 2022-05-10 16:00 | disposition home or self-care (01) ==
PROVIDERS: Emergency Provider Emergency Medicine; PCP Internal Medicine; Visit Provider Emergency Medicine
DX: K80.70 Calculus of gallbladder and bile duct without cholecystitis without obstruction (principal); N28.1 Cyst of kidney, acquired; K76.0 Fatty (change of) liver, not elsewhere classified; I10 Essential (primary) hypertension; Z87.19 Personal history of other diseases of the digestive system; F32.A Depression, unspecified; E66.9 Obesity, unspecified
CPT/HCPCS: 76705; 80048; 80076; 83690; 85025; 96374; 96375; 99283; J7030; A4216; J2405

== ENCOUNTER 2022-05-27 11:51 | Day surgery (SDC) | payer MEDICARE, OTHER, SELFPAY ==
[2022-05-27] VITALS (7 sets, daily range): BP systolic 113–136; BP diastolic 64–70; PULSE 81–86; RESP 16–20; TEMP 36.2–36.5; O2SAT 90–96; BMI 34.0
[2022-05-27] MEDS: Lactated Ringers 1,000 ML 15 ML IV (12:23)
--- NOTE | 2022-05-27 12:40 | HP.PCM_ITS ---
History and Physical Date of Admission: 05/27/22 Date of Service:? 05/20/22 MR#: [id number] Acct: [id number] Name:RAFAEL PARK Rep #: [id number] : 1945 ? ? Provider: Dr. Andrew Forbes MD Age/Sex:? 76/F ? ? [place] [facility] [place] Status: Signed Intake Vital Signs ? 05/10/2309:56 05/20/2308:49 Height 5 ft 6 in 5 ft 2 in Weight: 191 lb 187 lb BMI 30.8 34.2 BP 148/96 H 154/73 H Blood Pressure Location ? Rt brachial Position ? Sitting Respiration 16 17 Pulse 83 80 Pulse Source ? Monitor Temp 97.2 F L 97.6 F L Temp Source Temporal Temporal Pulse Oximetry (%) 97 93 Oxygen Delivery Method ? room air Intake Visit Reasons:?Gall Stones Chief Complaint: Gallstones Medical Aides Teacher Required: No Is patient in pain?: Yes Allergies Sulfa (Sulfonamide Antibiotics) Allergy (Verified 05/20/22 09:50) Rash Medications albuterol sulfate 90 mcg/actuation aerosol inhaler (Ventolin HFA) 2 puff inhalation Q6H PRN PRN COPD 09/23/17 [History Confirmed 05/20/22] ascorbic acid (vitamin C) 500 mg capsule 500 mg PO DAILY SUPPLEMENT 09/23/17 [History Confirmed 05/20/22] bupropion HCl 100 mg tablet,12 hr sustained-release (Wellbutrin SR) 100 mg PO BID ANXIETY 09/23/17 [History Confirmed 05/20/22] cimetidine 200 mg tablet 150 mg PO BID ANTACID 09/23/17 [History Confirmed 05/20/22] fenofibrate nanocrystallized 160 mg tablet (Triglide) 160 mg PO DAILY CHOLESTEROL 09/23/17 [History Confirmed 05/20/22] fluticasone furoate 100 mcg-vilanterol 25 mcg/dose inhalation powder (Breo Ellipta) 1 ea IH DAILY COPD 09/23/17 [History Confirmed 05/20/22] fviuysumdxn-lzceqqrxx-kvg C-Mn 500 mg-400 mg capsule 1 ea PO DAILY SUPPLEMENT 09/23/17 [History Confirmed 05/20/22] hyoscyamine sulfate 0.125 mg sublingual tablet 0.125 mg sublingual PRN PRN Irrit able Bowel Syndrome 09/23/17 [History Confirmed 05/20/22] loperamide 2 mg capsule (Imodium A-D) 2 mg PO PRN PRN Irritable Bowel Syndrome 09/23/17 [History Confirmed 05/20/22] losartan 100 mg tablet 100 mg PO QHS BP 09/23/17 [History Confirmed 05/20/22] magnesium 30 mg tablet 40 mg PO DAILY SUPPLEMENT 09/23/17 [History Confirmed 05/20/22] montelukast 10 mg tablet (Singulair) 10 mg PO DAILY COPD 09/23/17 [History Confirmed 05/20/22] omega 3-dha 60 mg-epa 90 mg-fish oil 500 mg capsule, delayed release (Fish Oil) 500 mg PO DAILY SUPPLEMENT 09/23/17 [History Confirmed 05/20/22] pravastatin 40 mg tablet 40 mg PO QHS CHOLESTEROL 09/23/17 [History Confirmed 05/20/22] vitamin B complex 1 ea PO DAILY SUPPLEMENT 09/23/17 [History Confirmed 05/20/22] acetaminophen 500 mg tablet 1,000 mg PO Q8 #90 tabs 10/08/17 [Rx Confirmed 05/20/22] aspirin 81 mg chewable tablet 81 mg PO DAILY 05/20/22 [History Confirmed 05/20/22] azelastine 137 mcg (0.1 %) nasal spray aerosol 2 spray intranasal BID 05/20/22 [History Confirmed 05/20/22] cholecalciferol (vitamin D3) 50 mcg (2,000 unit) capsule 150 mcg PO DAILY 05/20/22 [History Confirmed 05/20/22] cinnamon bark 500 mg capsule (Cinnamon) 1,000 mg PO BID 05/20/22 [History Confirmed 05/20/22] fluticasone fur. 100 mcg-umeclid 62.5 mcg-vilant 25 mcg inhalat.powder (Trelegy Ellipta) 1 inh inhalation DAILY 05/20/22 [History Confirmed 05/20/22] guaifenesin 600 mg tablet, extended release 12 hr (Mucinex) 1,200 mg PO DAILY 05/20/22 [History Confirmed 05/20/22] hydralazine 50 mg tablet 25 mg PO TID 05/20/22 [History Confirmed 05/20/22] levocetirizine 5 mg tablet 5 mg PO DAILY 05/20/22 [History Confirmed 05/20/22] levothyroxine 150 mcg tablet 175 mcg PO DAILY THYROID 05/20/22 [History Confirmed 05/20/22] metformin 500 mg tablet 500 mg PO DAILY 05/20/22 [History Confirmed 05/20/22] metoprolol tartrate 100 mg tablet (Lopressor) 50 mg PO BID BP 05/20/22 [History Confirmed 05/20/22] mirtazapine 15 mg tablet 15 mg PO DAILY 05/20/22 [History Confirmed 05/20/22] omeprazole 20 mg capsule,delayed release 20 mg PO DAILY #30 caps 05/20/22 [Rx Confirmed 05/20/22] potassium chloride 10 mEq tablet,extended release 10 meq PO DAILY 05/20/22 [History Confirmed 05/20/22] vitamin E 670 mg (1,000 unit) capsule 670 mg PO DAILY SUPPLEMENT 05/20/22 [History Confirmed 05/20/22] zinc 50 mg tablet 50 mg PO DAILY 05/20/22 [History Confirmed 05/20/22] PFS Medical History?(Updated 05/20/22 @ 18:[address] Andrew Forbes MD) Adhesion, postoperative Hemorrhoids History of back problems History of ovarian cyst History of rheumatic fever Surgical History?(Updated 05/20/22 @ 09:44 by Ayse Friday) History of appendectomy History of cardiac cath History of carpal tunnel repair History of D&C History of hysterectomy History of left knee replacement History of ovarian cystectomy History of placement of ear tubes History of thyroidectomy Hx of tonsillectomy Family History?(Updated 05/20/22 @ 09:45 by Ayse Friday) Sister Breast cancer HypertensionMother Cancer ?? ? pancreatic HypertensionAunt DiabetesGrandfather Hypertension CVA (cerebral vascular accident)Grandmother Hypertension Social History?(Updated 05/20/22 @ 09:49 by Ayse Friday) household members:? none Smoking Status:? Current every day smoker tobacco type: cigarettes Smoking packs per day: 0.5 Smoking cigarettes per day: 10.0 alcohol intake:? never substance use type:? does not use HPI HPI HPI: Patient is a 76-year-old female who presents for diagnosis of cholelithiasis.? They are referred for surgical consultation from emergency medicine.? Patient presents today with her daughter who is a nurse practitioner locally.? Pain is described as hurting all the time, but punctuated with sudden sharp pains.? She reports that this pain radiates from back to front.? Symptoms have been present for at least 1.5 months.? She states that she was initially seen at [facility] where she was directed to follow-up with her PCP and administered some naproxen.? On presenting to her PCP there is a suspicion of kidney stones and she underwent renal ultrasound 04/26/2022 but this was negative.? Ultrasound of the gallbladder, however revealed sludge and gallstones.? At this time she was referred to our office, but we had to cancel her initial visit on 05/10/2022 due to emergency operation.? That same day patient states that her pain became intolerable and she presented to our emergency room.? At that visit she had her right upper quadrant ultrasound repeated and this was stable.? She also had no concerning laboratories (daughter reports that patient's lipase was mildly elevated but not consistent with pancreatitis?Per chart it was 577) and she was thus discharged with a recommendation to keep to a liquid diet.? Patient states that she was compliant with this recommendation, but did not notice any difference in her pain symptoms after 3 to 4 days.? Symptoms are not associated with eating.? Patient denies any associated nausea, vomiting, fevers, or chills.? Because of this discomfort, and feeling full all the time she has experienced some weight loss. In addition to the above, patient complains of uncomfortable bloating that prevents her from sitting on her right side.? She denies any history or present complaint of heartburn or reflux.? She has had no swallowing difficulties.? She confirms a history of screening colonoscopy with Dr. Cooper.? She reports this scope was performed 3 years ago and she was given a 5-year follow-up.? Her daughter recalls a history of adenomatous polyps. Previous work-up has included: Right upper quadrant ultrasound (as above on 05/10/2022.? This identified hepatomegaly and diffuse fatty liver infiltration.? Radiology also identified a solitary gallstone measuring 1.3 cm with mildly distended gallbladder lumen.? Gallbladder wall measures 2 mm.? Common bile duct diameter measured 5 mm. ROS General General: Yes weight change and fatigue; No appetite, colon cancer, breast cancer or weakness HEENT HEENT: Yes swollen glands; No difficulty swallowing, eye injury, eye surgery or hoarseness Endo Endocrine: Yes thyroid disease and diabetes mellitus; No thyroid cancer, Hair loss, heat intolerance or cold intolerance Skin Skin: No rash or changing moles Musc Musculoskeletal: Yes back problems and arthritis; No rheumatoid arthritis, gout or joint pain Cardio Cardiovascular: Yes high blood pressure; No murmur, pacemaker, heart disease, atrial fibrillation, heart attack, heart stent, palpitations, shortness of breat with exertion or chest pain Psych Psychiatric: No depression, anxiety or hearing voices Resp Respiratory: Yes shortness of breath, Yes sleep apnea, Yes cough, Yes COPD, No asthma, No emphysema and No wheezing Gastro Gastrointestinal: Yes abdominal pain, No nausea or vomiting, No diarrhea, No co nstipation, No blood in stool, No acid reflux, Yes hemorrhoids, No ulcers, No gallbladder problem and No black,tarry stools Hebert Hematologic: No blood thinners, No blood disorders, No bleeding, No anemia and No blood clots Neuro Neurologic: No system reviewed and no additional complaints, except as documented, No as per HPI, No abnormal gait, No abnormal hearing, No abnormal movements, No abnormal speech, No behavioral changes, No burning sensations, No confusion, No convulsions, No disequilibrium, No dizziness, No localized weakness, No frequent falls, No headache(s), No lack of coordination, No loss of vision, No memory loss, No numbness, No other visual disturbances, No radicular pain, No restless legs, No sensory deficit, No syncope, No tingling, No tremor(s), No weakness and No other Exam Const General: cooperative Other: Frustrated Resp Effort & Inspection: normal respiratory effort Auscultation: no rales, no rhonchi and no wheezes Cardio Rate: regular rate Rhythm: regular rhythm GI Other: Mildly distended, soft, tender to palpation in the right upper quadrant and epigastrium.? Patient's tenderness is not consistent as she reports differing degrees of intensity with repeat exam.? Burkett sign is negative. Musc Thoracic/Lumbar Spine: paraspinal tenderness on the right (Patient reports significant lower thoracic tenderness right about the level of the costovertebral angle and extending anteriorly) in the lower thoracic Assessment and Plan Assessment and Plan (1) Abdominal pain: ?Status:?Acute ?Comment: Is a 76-year-old female, with numerous comorbidities and moderately extensive past surgical history, who presents for complaints of constant right upper quadrant abdominal discomfort.? Her full history is given in HPI, but is not consistent with a classic description of biliary colic/symptomatic cholelithiasis.? Important differences include origination posteriorly and radiation than anteriorly as well as no postprandial effect or any associated nausea and vomiting.? With exam, patient's pain is partially reproduced with palpation along the paraspinal tissues in the lower thoracic region.? With this history and exam my differential includes gastritis, peptic ulcer disease, radiculopathy, chronic cholecystitis.? Given patient's extensive past surgical history and the atypical history for this complaint, I would like to proceed with further work-up of this differential.? I have recommended initiation of PPI, scheduling diagnostic EGD, obtaining HIDA imaging, and that patient reestablishes contact with her spine doctor.? Patient and her daughter expressed appreciation for this recommendation and states they see the merit in further evaluation before proceeding with surgery. ?Plan: ? Omeprazole 20 mg daily ? Diagnostic EGD ? HIDA imaging ? Patient referred back to spine/pain doctor given radiating pain from her back (2) Cholelithiasis: ?Status:?Acute ?Comment: Patient with evidence of cholelithiasis and sludge on recent gallbladder imaging.? However, her story is not typical for biliary colic or symptomatic lithiasis.? Weighing this against her extensive surgical/medical history, I have proposed the above work-up for further evaluation.? As part of this I would like to obtain a HIDA scan to assess for possible chronic cholecystitis.? Given the large size of her solitary gallstone, I do not believe that it would be at significant risk for becoming lodged within the biliary tract.? I have also informed patient and her daughter, that if we proceeded with surgery rather than doing further work-up and we did not help with her discomfort, we could instead exacerbate her issues with chronic diarrhea. ?Plan: ? HIDA imaging as above I have examined the patient and the H&P has been reviewed. There are no clinical changes since date of exam. Procedure was described in brief, again, and I also reminded both patient and her daughter of Sveta may expect biopsy results. Neither has any questions so we will proceed to the endoscopy suite for diagnostic EGD as discussed above.
[2022-05-27 12:45] LABS: Bedside Glucose 134 mg/dL (74-106)
--- NOTE | 2022-05-27 13:00 | IMM_PTH ---
PATIENT: RAFAEL MAURICE LOC: EN U#:[id number] AGE/SX: 77/F ROOM: RE05/27/[address]: Dr. Andrew Forbes MD : 1945 BED: DIS: 05/27/2022 SPEC #: [id number] RECD: 05/28/22 09:04 STATUS: EVIN RELewis #: [id number] WILLIAM: 05/27/22 13:[address]: Andrew Forbes DEPT: IMMUNOHISTOCHEMISTRY RECD BY: Anaid Salmon ENTERED: 05/28/22 09:05 SP TYPE: IMMUNO OTHR DR: JAYLENE VO MD Tissues: B - Stomach, NOS E - Gastric mucous membrane Procedures: H Pylori (initial) P53 (initial) KI-67 (add) PHYSICIAN & INSTITUTION [place] [id number] SPECIMEN INFORMATION: Tissue Source: B ? Antrum biopsy, E - Gastroesophageal junction Clinical Info: Abdominal pain, cholelithiasis Specimen Number: [id number] B & E CPT code: 24121 x2, 68181 METHODOLOGY: Deparaffinized sections of prefer/formalin-fixed tissue or PAP/DQ stained slides are incubated with monoclonal/polyclonal antibodies/oligonucleotide probes. Localization is made via biotin free immunoperoxidase method. Appropriate controls are performed and reacted as expected. Results on target cell population are indicated in the following table: RESULTS: ANTIBODY / CLONE RESULT Block B H Pylori (polyclonal) negative Block E P53 (DO-7) negative (Null pattern) Ki-67 (30-9) positive, very low These tests were developed and their performance characteristics determined by [facility]. They may not have been cleared or approved by the U.S. Food and Drug Administration. The FDA has determined that such clearance or approval is not necessary. The above immunohistochemical/dualISH markers are ordered and reviewed by the Pathologist. INTERPRETATION: B. Antrum, biopsy: Negative for Helicobacter pylori organisms. E. Gastroesophageal junction, biopsy: Negative for dysplasia. SJ:olena 05/30/2022
--- NOTE | 2022-05-27 13:00 | EGD_PTH ---
PATIENT: RAFAEL MAURICE LOC: EN U#:[id number] AGE/SX: 77/F ROOM: RE05/27/[address]: Dr. Andrew Forbes MD : 1945 BED: DIS: 05/27/2022 SPEC #: [id number] RECD: 05/27/22 13:36 STATUS: EVIN LUIZA #: [id number] WILLIAM: 05/27/22 13:[address]: Andrew Forbes DEPT: SURGICAL PATHOLOGY RECD BY: Barbara Hall ENTERED: 05/28/22 07:18 SP TYPE: EGD BIOPSY OTHR DR: JAYLENE VO MD Tissues: A - Duodenum, NOS B - Gastric mucous membrane C - Stomach, NOS D - Gastric fundus E - Stomach, NOS F - Esophagus, NOS Procedures: Special Stain Group II Surgery Specimen Level IV Alcian Blue/PAS (control) HEADER OPERATION[place] [place] with [place] PRE-OP DIAGNOSIS: Abdominal pain, cholelithiasis TISSUE SUBMITTED: A - Duodenal bulb biopsy, B - Antrum biopsy for H. pylori and path, C - Greater curvature biopsy, D - Fundus biopsy, E - Plaque gastroesophageal junction biopsy, F - Proximal esophagus nodule biopsy MICROSCOPIC DIAGNOSIS A. Duodenal bulb, biopsy: Fragments of duodenal mucosa, no pathologic diagnosis. B. Antrum, biopsy: Mild gastritis. See microscopic description and comment. C. Greater curvature, biopsy: Mild gastritis. See microscopic description. D. Fundus, biopsy: Mild gastritis. See microscopic description. E. Gastroesophageal junction, biopsy: Fragments of gastroesophageal mucosa with focal intestinal metaplasia (goblet cell metaplasia), consistent with Callahan's esophagus. Chronic inflammation. Negative for dysplasia. See comment. F. Proximal esophagus, biopsy: A fragment of benign squamous epithelium. SJ:rg 05/29/2022 COMMENT B. The results of immunohistochemistry for Helicobacter pylori will be reported separately ([id number]). E. Immunohistochemistry ([id number]) for P53 and Ki-67 will be performed and results will be reported separately. Alcian blue/PAS stain with matched control is used in the evaluation of the specimen. MICROSCOPIC DESCRIPTION Slides are reviewed. B-D. The specimen shows fragments of gastric mucosa with chronic inflammatory cell infiltrates in the lamina propria consisting of lymphocytes and plasma cells, consistent with mild chronic gastritis. GROSS DESCRIPTION A - Received in fixative is one container labeled with the patient's name and designated duodenal bulb biopsy. The specimen consists of multiple irregular fragments of light [place]aca soft tissue that in aggregate measure 1.0 x 0.3 x 0.1 cm. The specimen is totally submitted in one cassette. B - Received in fixative is one container labeled with the patient's name and designated antrum biopsy. The specimen consists of multiple irregular fragments of light [place] soft tissue that in aggregate measure 1.0 x 0.4 x 0.1 cm. The specimen is totally submitted in one cassette. C - Received in fixative is one container labeled with the patient's name and designated greater curvature biopsy. The specimen consists of multiple irregular fragments of light [place] soft tissue that in aggregate measure 0.3 x 0.2 x 0.1 cm. The specimen is totally submitted in one cassette. D - Received in fixative is one container labeled with the patient's name and designated fundus biopsy. The specimen consists of one irregular fragment of light [place] soft tissue that measures 0.3 x 0.3 x 0.1 cm. The specimen is totally submitted in one cassette. E - Received in fixative is one container labeled with the patient's name and designated GE junction biopsy. The specimen consists of multiple irregular fragments of light [place] soft tissue that in aggregate measure 2.0 x 0.2 x 0.1 cm. The specimen is totally submitted in one cassette. F - Received in fixative is one container labeled with the patient's name and designated proximal esophagus biopsy. The specimen consists of one irregular fragment of light [place]aca soft tissue that measures 0.4 x 0.2 x 0.1 cm. The specimen is totally submitted in one cassette. / SJ:olena 05/28/2022 TC:3 [facility]: [id number] [phone], [phone]
--- NOTE | 2022-05-27 13:36 | OP.EGD_ITS ---
Patient Name: Hailey Govea Procedure Date: 05/27/2022 12:41 PM Date of : 1945 Age: 77 Procedure: Upper GI endoscopy Indications: Epigastric abdominal pain, Anorexia, Abdominal bloating Providers: Andrew Forbes MD Referring MD: Andrew Forbes MD Medicines: See the Anesthesia note for documentation of the administered medications Patient Profile: Patient has symptoms of acute epigastric abdominal pain. Complications: No immediate complications. Estimated blood loss: Minimal. Procedure: Pre-Anesthesia Assessment: - The heart rate, respiratory rate, oxygen saturations, blood pressure, adequacy of pulmonary ventilation, and response to care were monitored throughout the procedure. After obtaining informed consent, the endoscope was passed under direct vision. Throughout the procedure, the patient's blood pressure, pulse, and oxygen saturations were monitored continuously. The gastroscope was introduced through the mouth, and advanced to the second part of duodenum. The upper GI endoscopy was accomplished without difficulty. The patient tolerated the procedure well. Scope In: 1:00:11 PM Scope Out: 1:25:25 PM Total Procedure Duration Time 0 hours 25 minutes 14 seconds Findings: No gross lesions were noted in the first portion of the duodenum and in the second portion of the duodenum. No biopsies or other specimens were collected for this exam. Localized nodular mucosa was found in the duodenal bulb. Biopsies were taken with a cold forceps for histology. Estimated blood loss was minimal. Diffuse moderately erythematous mucosa without bleeding was found in the gastric fundus, in the gastric body and in the gastric antrum. Biopsies were taken with a cold forceps for histology. Estimated blood loss was minimal. The Z-line was regular and was found 39 cm from the incisors. Biopsies were taken with a cold forceps for histology. Multiple 3 mm semi-sessile fundic gland polyps with no bleeding and no stigmata of recent bleeding were found in the gastric fundus. Biopsies were taken with a cold forceps for histology. Estimated blood loss was minimal. A few 5 mm mucosal nodules with a patchy distribution were found in the upper third of the esophagus and in the middle third of the esophagus. Biopsies were taken with a cold forceps for histology. Estimated blood loss was minimal. A small hiatal hernia was present. No biopsies or other specimens were collected for this exam. Impression: - No gross lesions in the first portion of the duodenum and in the second portion of the duodenum. No specimens collected. - Nodular mucosa in the duodenal bulb. Biopsied. - Erythematous mucosa in the gastric fundus, gastric body and antrum. Biopsied. - Z-line regular, 39 cm from the incisors. Biopsied. - Multiple fundic gland polyps. Biopsied. - Mucosal nodule found in the esophagus. Biopsied. - Small hiatal hernia. No specimens collected. Recommendation: - Discharge patient to home (via wheelchair). - Resume previous diet today. - Continue present medications. - Await pathology results. - Telephone my office for pathology results in 1 week. Procedure Code(s): --- Professional --- 41324, Esophagogastroduodenoscopy, flexible, transoral; with biopsy, single or multiple Diagnosis Code(s): --- Professional --- K31.89, Other diseases of stomach and duodenum K31.7, Polyp of stomach and duodenum K22.8, Other specified diseases of esophagus K44.9, Diaphragmatic hernia without obstruction or gangrene R10.13, Epigastric pain R63.0, Anorexia R14.0, Abdominal distension (gaseous) CPT copyright 2017 [employer]. All rights reserved. The codes documented in this report are preliminary and upon anime artist review may be revised to meet current compliance requirements. Andrew Forbes MD 05/27/2022 1:36:24 PM This report has been signed electronically. Number of Addenda: 0 Note Initiated On: 05/27/2022 12:41 PM
--- NOTE | 2022-05-27 13:37 | OP.CCLET_ITS ---
05/27/2022 Geo Faith Md Re : Upper GI endoscopy procedure for Hailey Goeva Dear Vianney This procedure was performed on Friday, May 27, 2022. My impressions and recommendations are as follows: Impressions : - No gross lesions in the first portion of the duodenum and in the second portion of the duodenum. No specimens collected. - Nodular mucosa in the duodenal bulb. Biopsied. - Erythematous mucosa in the gastric fundus, gastric body and antrum. Biopsied. - Z-line regular, 39 cm from the incisors. Biopsied. - Multiple fundic gland polyps. Biopsied. - Mucosal nodule found in the esophagus. Biopsied. - Small hiatal hernia. No specimens collected. Recommendations : - Discharge patient to home (via wheelchair). - Resume previous diet today. - Continue present medications. - Await pathology results. - Telephone my office for pathology results in 1 week. My findings are described in the full procedure note, which is enclosed. If I can be of further assistance, please feel free to contact me at Doctor phone number(s): , Work: . Sincerely, Andrew Forbes MD 05/27/2022 1:36:24 PM This report has been signed electronically.
== END 2022-05-27 14:30 | disposition home or self-care (01) ==
LOC: EN 11:52 → AC 11:54
PROVIDERS: PCP Internal Medicine; Referring Provider Surgery; Visit Provider Surgery
PROC: 0DJ08ZZ Inspection of Upper Intestinal Tract, Via Natural or Artificial Opening Endoscopic (ICD-10-PCS; CPT 43235; principal; 2022-05-27 12:55)
DX: K22.70 Barrett's esophagus without dysplasia (principal); J44.9 Chronic obstructive pulmonary disease, unspecified; E11.9 Type 2 diabetes mellitus without complications; K80.20 Calculus of gallbladder without cholecystitis without obstruction; F17.210 Nicotine dependence, cigarettes, uncomplicated; K44.9 Diaphragmatic hernia without obstruction or gangrene; E03.9 Hypothyroidism, unspecified; K31.7 Polyp of stomach and duodenum; K22.89 Other specified disease of esophagus; K31.89 Other diseases of stomach and duodenum; K29.70 Gastritis, unspecified, without bleeding; Z79.890 Hormone replacement therapy; Z79.899 Other long term (current) drug therapy; I10 Essential (primary) hypertension; Z87.19 Personal history of other diseases of the digestive system; E78.00 Pure hypercholesterolemia, unspecified
CPT/HCPCS: 43239; 82962; 88305; 88313; 88341; 88342; J7120; J2405

== ENCOUNTER → 2022-06-18 | Outpatient (CLI) | payer MEDICARE, OTHER, SELFPAY ==
--- NOTE | 2022-06-18 09:27 | NM_ITS ---
CLINICAL: 77-year-old female with history of right upper quadrant abdominal pain. RADIONUCLIDE HEPATOBILIARY SCINTIGRAPHY COMPARISON: Gallbladder ultrasound report 05/10/2022 FINDINGS: Following the intravenous administration of 5.4 mCi of 99m Tc Mebrofenin, hepatobiliary images reveal: 1. Relatively prompt and homogeneous radiopharmaceutical concentration is noted by a normal sized liver. No parenchymal defects are identified. 2. Gallbladder activity is identified at 30 minutes post radiopharmaceutical administration. 3. Small intestinal tract is observed at 15 minutes following tracer injection. 4. Washout of the radiopharmaceutical by the hepatic parenchyma appears qualitatively normal. Cholecystokinin (0.02 ug/kg) was administered intravenously over a 30-minute period. The post CCK gallbladder ejection fraction calculated at 21 minutes following Cholecystokinin administration was noted to be 9.0 % (normal greater than 35%). There is scintigraphic evidence of duodenal-gastric reflux following cholecystokinin infusion. UT/Hepatobilliary Img w/Pharm Int IMPRESSION: 1. ABNORMAL 99m Tc Mebrofenin hepatobiliary imaging examination with Cholecystokinin. A. A gallbladder ejection fraction calculated to be less than 35% following the administration of Cholecystokinin is consistent with the presence of functional hepatobiliary disease (gallbladder and/or sphincter of Oddi dyskinesia) and/or organic hepatobiliary disease (chronic acalculous cholecystitis and/or cystic duct syndrome) in patients with intermediate to high pretest probabilities of hepatobiliary illness. (Christo Mcnulty et al, Journal of Nuclear Medicine 32:1695, 1991). B. There is scintigraphic evidence of post cholecystokinin duodenal-gastric reflux. Electronically Signed: Dre Cardoza, at 21:28 EDT ,
== END | disposition home or self-care (01) ==
LOC: NM 09:26
PROVIDERS: PCP Internal Medicine; Visit Provider Surgery
DX: R10.11 Right upper quadrant pain (principal); K80.20 Calculus of gallbladder without cholecystitis without obstruction
CPT/HCPCS: 78227; A9537; J2805

== ENCOUNTER 2022-06-22 12:00 | Emergency (ER) | payer MEDICARE, OTHER, SELFPAY ==
[2022-06-22 12:01] VITALS: BP 158/91; PULSE 114; RESP 16; TEMP 36.3; O2SAT 90; BMI 33.6
[2022-06-22 12:13] VITALS: BP 139/83; PULSE 109; RESP 18; O2SAT 93
--- NOTE | 2022-06-22 12:46 | US_ITS ---
STUDY: ABDOMINAL ULTRASOUND - RIGHT UPPER QUADRANT REASON FOR VISIT: Female, 77 years old ruq pain, known cholelithiasis TECHNIQUE: Ultrasound evaluation of the right upper quadrant was performed with real-time and static connell-scale imaging. TECHNICAL QUALITY: Adequate. COMPARISON: CT of abdomen and pelvis dated July 01, 2016 FINDINGS: Liver: The liver measures 17 cm. There is increased echogenicity consistent with fatty infiltration. The bile ducts are within normal limits. There is hepatic color flow. The direction of portal flow is hepatopetal. There is no demonstrated mass lesion. Gallbladder: Mildly distended gallbladder. The gallbladder wall measures 2.0 mm. There is a negative sonographic Burkett''s sign. There is no pericholecystic fluid. Moderate sized 2.7 cm gallstone redemonstrated. Common Bile Duct (C.B.D.): The common bile duct measures 6.0 mm. Pancreas: Normal size of the head and occipital body of the pancreas. The tail was not seen. There is normal echogenicity of the pancreas. There is no demonstrated pancreatic mass or cyst. Right Kidney: Normal size of the right kidney. The right kidney measures 12.9 cm. Normal renal cortex. There is no demonstrated renal mass or cyst. There is no right hydronephrosis. US/Gallbladder IMPRESSION: 1. Redemonstration of a solitary gallstone and mild gallbladder distention. Electronically Signed: Humphrey Turner MD at 14:45 EDT ,
--- NOTE | 2022-06-22 12:47 | CT_ITS ---
STUDY: CT Abdomen And Pelvis W/ Contrast Injection 06/22/2022 2:28 PM REASON FOR EXAM: Female, 77 years old. PT STATES RUQ TO BACK PAIN WITH DIARRHEA SINCE FRIDAY. PT SCHEDULED WITH DR WILHELM TO SCHEDULE SURGERY FOR GALLBLADDER ON FRIDAY. pain abdominal pain Individualized dose optimization techniques were used for this CT. COMPARISON: 07.01.16. TECHNIQUE: CT Abdomen And Pelvis W/ Contrast Injection IV 100mL [id number] FINDINGS: There are atherosclerotic calcifications of visualized coronary arteries. The visualized portions of the heart are within normal limits. There is hepatomegaly with diffuse hepatic enlargement. There is a solitary gallstone. There are multiple benign calcified granulomata of the spleen. Normal pancreas. Gallbladder is dilated at 56 mm in diameter. Findings may suggest hydropic gallbladder. Normal bilateral adrenal glands. There are hypodensities in the right kidney. These are consistent for cysts. No follow up required. No acute findings of the left kidney. Normal visualized stomach. Normal small intestine. Stool throughout the colon. There is non-visualization of the appendix. There are calcifications of the abdominal aorta. This is consistent for atherosclerotic disease. There is NO abdominal aortic aneurysm. Vascular workup can be obtained based on clinical correlation. Normal inferior vena cava. Subcentimeter mesenteric lymph nodes. Normal urinary bladder. There is absence of the uterus consistent with a prior hysterectomy. Acquired degenerative spinal stenosis. There is an umbilical hernia containing fat. There are diffuse degenerative changes of the visualized lumbar spine. There is a Grade 1 anterolisthesis of L4 on L5. CT/Abdomen/Pelvis W IV Cont ONLY IMPRESSION: (NOT LISTED IN ORDER OF SIGNIFICANCE) There is hepatomegaly with diffuse hepatic enlargement. There is a solitary gallstone. Gallbladder is dilated at 56 mm in diameter. Findings may suggest hydropic gallbladder. Other findings as above. Electronically Signed: Rizwan Overton MD at 14:33 EDT ,
[2022-06-22] MEDS: 0.9% Normal Saline 1,000 ML 999 ML IV (12:59)
[2022-06-22] MEDS: HYDROmorphone 0.5 MG/0.5 ML SYRINGE IV (12:59)
[2022-06-22] MEDS: Ondansetron 4 MG/2 ML Vial IV (13:00)
[2022-06-22 13:15] LABS: Basophil# 0.06 X10^3/uL; Basophil% 0.8 % (0-1); Eosinophil# 0.12 X10^3/uL; Eosinophils% 1.6 % (0-5); Hematocrit 40.9 % (37-47); Hemoglobin 13.7 g/dL (12.0-15.0); Lymphocyte % 21.9 % (19-41); Mean Corp Hgb Conc 33.5 g/dL (32-36); Mean Corpuscular Hgb 31.2 pg (27.0-32.0); Mean Corpuscular Volume 93.2 fL (81-99); Monocyte# 0.51 X10^3/uL; NRBC Flagged by Analyzer 0 % (0-5); Neutrophil # 4.98 X10^3/uL (2.7-7.7); Neutrophil % 68.4 % (47-70); Platelet Count 198 K/mm3 (150-450); RBC Distribution Width CV 12.7 % (11.6-14.6); Red Blood Count 4.39 M/mm3 (4.2-5.4); White Blood Count 7.3 K/mm3 (4.4-11.0)
[2022-06-22 13:29] LABS: AST(SGOT) 24 U/L (15-37); Alanine Aminotransfer ALT/SGPT 29 U/L (13-56); Albumin, Serum 3.6 g/dL (3.2-5.0); Alkaline Phosphatase 70 U/L (45-117); Anion Gap 5 (5-15); BUN 14 mg/dL (7-18); BUN/Creat Ratio 16.4 RATIO (10-20); Bilirubin, Direct 0.21 mg/dL (0.00-0.30); Calcium,Total 9.5 mg/dL (8.5-10.1); Chloride 106 mmol/L (98-107); Creatinine, Serum 0.86 mg/dL (0.55-1.02); EST Glomerular Filtration Rate 69 mL/min (>60); Est Glom Filt Rate - Afr Amer 83 mL/min (>60); Estimated Creatinine Clearance 44.02 ml/min; Globulin 3.5 g/dL (2.2-4.2); Glucose 103 mg/dL (74-106); Lipase 63 U/L (73-393); Potassium 4.1 mmol/L (3.5-5.1); Protein, Total 7.1 g/dL (6.4-8.2); Sodium Level 140 mmol/L (136-145)
[2022-06-22 14:03] VITALS: BP 148/67; PULSE 86; RESP 18; O2SAT 96
[2022-06-22 14:12] VITALS: BP 158/65; PULSE 94; RESP 16; O2SAT 95
--- NOTE | 2022-06-22 14:48 | ED.VIS.GI ---
HPI HPI - GI History of Present Illness Chief Complaint: Abd Pain Narrative Narrative: 77-year-old female presenting with diffuse crampy abdominal pain, diarrhea, right upper quadrant pain. Patient states she was diagnosed with a gallstone. She states that 1 isolated gallstone. She was seen for and had an ultrasound and lab work which did not demonstrate acute cholecystitis. Patient states she saw Dr. Forbes and she has a scheduled appointment outpatient for Friday to discuss surgical planning. She is had a HIDA scan she states which showed 9% function of her gallbladder. Patient denies having fever. Is not nauseous. She states she feels generally weak from all the diarrhea. She has a history of IBS she states. She also has a history of diverticulitis. [facility] LICENSE OF [facility] Medical History Adhesion, postoperative Arthritis Back pain BiPAP (biphasic positive airway pressure) dependence Cardiology follow-up encounter Chronic cough COPD (chronic obstructive pulmonary disease) Diabetes Dietary restriction Easy bruising Epigastric direct abdominal tenderness Fatty liver Hemorrhoids High cholesterol History of back problems History of diverticulitis History of echocardiogram History of IBS History of ovarian cyst History of rheumatic fever History of stress test Hypertension On home oxygen therapy Post-menopausal Shortness of breath on exertion Smoker Thyroid disease Wears partial dentures Home Medications albuterol sulfate 90 mcg/actuation aerosol inhaler (Ventolin HFA) 2 puff inhalation Q6H PRN PRN COPD 09/23/17 [History Last Taken Unknown] ascorbic acid (vitamin C) 500 mg capsule 500 mg PO DAILY SUPPLEMENT 09/23/17 [History Last Taken Unknown] bupropion HCl 100 mg tablet,12 hr sustained-release (Wellbutrin SR) 100 mg PO BID ANXIETY 09/23/17 [History Last Taken Unknown] fenofibrate nanocrystallized 160 mg tablet (Triglide) 160 mg PO DAILY CHOLESTEROL 09/23/17 [History Last Taken Unknown] vevkvgvxomh-rmmppagvf-mez C-Mn 500 mg-400 mg capsule 1 ea PO DAILY SUPPLEMENT 09/23/17 [History Last Taken Unknown] hyoscyamine sulfate 0.125 mg sublingual tablet 0.125 mg sublingual PRN PRN Irritable Bowel Syndrome 09/23/17 [History Last Taken Unknown] loperamide 2 mg capsule (Imodium A-D) 2 mg PO PRN PRN Irritable Bowel Syndrome 09/23/17 [History Last Taken Unknown] losartan 100 mg tablet 100 mg PO QHS BP 09/23/17 [History Last Taken Unknown] magnesium 30 mg tablet 40 mg PO DAILY SUPPLEMENT 09/23/17 [History Last Taken Unknown] montelukast 10 mg tablet (Singulair) 10 mg PO DAILY COPD 09/23/17 [History Last Taken Unknown] omega 3-dha 60 mg-epa 90 mg-fish oil 500 mg capsule, delayed release (Fish Oil) 500 mg PO DAILY SUPPLEMENT 09/23/17 [History Last Taken Unknown] pravastatin 40 mg tablet 40 mg PO QHS CHOLESTEROL 09/23/17 [History Last Taken Unknown] vitamin B complex 1 ea PO DAILY SUPPLEMENT 09/23/17 [History Last Taken Unknown] aspirin 81 mg chewable tablet 81 mg PO DAILY 05/20/22 [History Last Taken Unknown] azelastine 137 mcg (0.1 %) nasal spray aerosol 2 spray intranasal BID 05/20/22 [History Last Taken Unknown] cholecalciferol (vitamin D3) 50 mcg (2,000 unit) capsule 50 mcg PO DAILY 05/20/22 [History Last Taken Unknown] cinnamon bark 500 mg capsule (Cinnamon) 1,000 mg PO BID 05/20/22 [History Last Taken Unknown] fluticasone fur. 100 mcg-umeclid 62.5 mcg-vilant 25 mcg inhalat.powder (Trelegy Ellipta) 1 inh inhalation DAILY 05/20/22 [History Last Taken Unknown] guaifenesin 600 mg tablet, extended release 12 hr (Mucinex) 1,200 mg PO DAILY 05/20/22 [History Last Taken 05/27/22] hydralazine 50 mg tablet 25 mg PO TID 05/20/22 [History Last Taken 05/27/22] levocetirizine 5 mg tablet 5 mg PO DAILY 05/20/22 [History Last Taken Unknown] levothyroxine 150 mcg tablet 175 mcg PO DAILY THYROID 05/20/22 [History Last Taken 05/27/22] metformin 500 mg tablet 500 mg PO DAILY 05/20/22 [History Last Taken Unknown] metoprolol tartrate 100 mg tablet (Lopressor) 50 mg PO BID BP 05/20/22 [History Last Taken 05/27/22] mirtazapine 15 mg tablet 15 mg PO QHS 05/20/22 [History Last Taken Unknown] potassium chloride 10 mEq tablet,extended release 10 meq PO DAILY 05/20/22 [History Last Taken Unknown] vitamin E 670 mg (1,000 unit) capsule 670 mg PO DAILY SUPPLEMENT 05/20/22 [History Last Taken Unknown] omeprazole 20 mg tablet,delayed release 20 mg PO DAILY 05/22/22 [History Last Taken Unknown] oxycodone-acetaminophen 5 mg-325 mg tablet (Percocet) 1 tab PO Q6H PRN Pain 05/22/22 [History Last Taken Unknown] Allergy/AdvReac Type Severity Reaction Status Date / Time adhesive tape Allergy Rash Verified 06/22/22 12:09 Sulfa (Sulfonamide Allergy Rash Verified 06/22/22 12:09 Antibiotics) Family History Sister Breast cancer Hypertension Mother Cancer pancreatic Hypertension Aunt Diabetes Grandfather Hypertension CVA (cerebral vascular accident) Grandmother Hypertension Surgical History History of appendectomy History of cardiac cath History of carpal tunnel repair History of D&C History of esophagogastroduodenoscopy (EGD) History of hysterectomy History of left knee replacement History of ovarian cystectomy History of placement of ear tubes History of thyroidectomy Hx of colonoscopy Hx of left cataract extraction Hx of right cataract extraction Hx of tonsillectomy Social History household members: none Smoking Status: Current every day smoker tobacco type: cigarettes alcohol intake: never substance use type: does not use ROS ROS ED Constitutional Constitutional ED: Reports other Details: Generalized weakness ; Denies chills or fever(s) ENT ENT ED: Denies rhinorrhea or sore throat Cardiovascular Cardiovascular: Denies chest pain or palpitations Respiratory/Chest Respiratory/Chest: Denies cough or dyspnea Gastrointestinal Gastrointestinal: Reports abdominal pain and diarrhea; Denies nausea or vomiting Genitourinary Genitourinary ED: Denies dysuria or hematuria Musculoskeletal Musculoskeletal: Denies arthralgias or back pain Integumentary Denies abscess Neurologic Neurologic: Denies headache(s) or paresthesias Psychiatric Psychiatric: Denies anxiety or depression EXAM Physical Exam Const Vital Signs: 06/22/22 12:01 06/22/22 12:13 06/22/22 14:03 Temperature 97.4 F L Temperature Source Temporal Pulse Rate 114 H 109 H 86 Respiratory Rate 16 18 18 Blood Pressure 158/91 H 139/83 H 148/67 H Blood Pressure Mean 113 101 94 Pulse Ox 90 93 96 Oxygen Delivery Method Room Air Room Air Nasal Cannula Oxygen Flow Rate (L/min) 2 06/22/22 14:12 06/22/22 14:55 Temperature Temperature Source Pulse Rate 94 89 Respiratory Rate 16 18 Blood Pressure 158/65 H 139/71 H Blood Pressure Mean 96 Pulse Ox 95 91 Oxygen Delivery Method Room Air Oxygen Flow Rate (L/min) Positive well nourished General Appearance ED: NAD; Negative for pallor HEENT Reports moist mucous membranes Eyes PERRL and EOMs intact bilaterally Neck no lymphadenopathy Resp normal respiratory effort Cardio regular rate and regular rhythm GI GI Narrative: Diffusely tender to palpation. Mild right upper quadrant tenderness. No rebound, guarding, rigidity Back/Spine no CVA tenderness Neuro CN's II-XII intact bilaterally Sensorium / Orientation: alert, oriented to person, oriented to place and oriented to time Motor Exam: strength 5/5 throughout Psych mental status grossly normal Skin General Skin Exam: Negative for jaundice or pallor MDM MDM MDM Narrative Medical decision making narrative: Patient presenting with abdominal pain, diarrhea. Recently diagnosed with gallstone. She has diffuse pain but does have pain of the right upper quadrant. Differential includes but is not limited to GERD, gastritis, peptic ulcer disease, acute cholecystitis, acute cholelithiasis, appendicitis, diverticulitis, pancreatitis, small bowel obstruction, perforated bowel, viral etiology, food poisoning. Patient given Dilaudid and Zofran. Blood work was obtained. CBC shows no leukocytosis. Hemoglobin hematocrit stable. Platelets are normal. LFTs are all within normal limits. Renal function electrolytes are also normal. Glucose normal. Lipase normal. Right upper quadrant ultrasound was obtained and does not show any acute cholecystitis and it does again identify a solitary stone. When this was negative I did get a CT of the abdomen pelvis to rule out diverticulitis and this was also negative for acute findings except for the stone in the gallbladder. Patient counseled on findings. I discussed the case with Dr. Scott who reviewed the imaging and the lab work and recommended that she follow-up with Dr. Forbes on Friday. Patient counseled of this. Return precautions were discussed. Discharged in stable condition. Impression: 1. Abdominal pain 2. Diarrhea 3. Gallstone Lab Data Labs: Laboratory Results - last 24 hr 06/22/22 06/22/22 13:02 13:02 WBC 7.3 RBC 4.39 Hgb 13.7 Hct 40.9 MCV 93.2 MCH 31.2 MCHC 33.5 RDW Std Deviation 43.0 RDW Coeff of Duong 12.7 Plt Count 198 MPV 9.0 Immature Gran % (Auto) 0.300 Neut % (Auto) 68.4 Lymph % (Auto) 21.9 Stewart % (Auto) 7.0 Eos % (Auto) 1.6 Baso % (Auto) 0.8 Absolute Neuts (auto) 5.0 Absolute Lymphs (auto) 1.60 Nucleated RBC % 0 Sodium 140 Potassium 4.1 Chloride 106 Carbon Dioxide 29.0 Anion Gap 5 BUN 14 Creatinine 0.86 Estim Creat Clear Calc 44.02 Est GFR (MDRD) Af Amer 83 Est GFR (MDRD) Non-Af 69 BUN/Creatinine Ratio 16.4 Glucose 103 Calcium 9.5 Total Bilirubin 0.70 Direct Bilirubin 0.21 AST 24 ALT 29 Alkaline Phosphatase 70 Total Protein 7.1 Albumin 3.6 Globulin 3.5 Lipase 63 L Radiography Diagnostic Testing: Clinical Impression(s) from Imaging Studies Gallbladder Ultrasound 06/22/22 12:46 IMPRESSION: 1. Redemonstration of a solitary gallstone and mild gallbladder distention. Electronically Signed: Humphrey Turner MD at 14:45 EDT , Abdomen/Pelvis CT 06/22/22 12:47 IMPRESSION: (NOT LISTED IN ORDER OF SIGNIFICANCE) There is hepatomegaly with diffuse hepatic enlargement. There is a solitary gallstone. Gallbladder is dilated at 56 mm in diameter. Findings may suggest hydropic gallbladder. Other findings as above. Electronically Signed: Rizwan Overton MD at 14:33 EDT , Discharge Plan Triage Chief Complaint: Abd Pain ED Provider: Farhan Enriquez Dx/Rx/DC Orders Instructions: ED Abdominal Pain Unkn Cause Fem Prescriptions: No Action potassium chloride 10 mEq tablet extended release 10 meq PO DAILY metformin 500 mg tablet 500 mg PO DAILY hydralazine 50 mg tablet 25 mg PO TID Trelegy Ellipta 100-62.5-25 mcg blister with device 1 inh inhalation DAILY azelastine 137 mcg (0.1 %) aerosol,spray 2 spray intranasal BID Rx Instructions: administer into each nostril levocetirizine 5 mg tablet 5 mg PO DAILY mirtazapine 15 mg tablet 15 mg PO QHS guaifenesin [Mucinex] 600 mg tablet extended release 12hr 1,200 mg PO DAILY cholecalciferol (vitamin D3) 50 mcg (2,000 unit) capsule 50 mcg PO DAILY cinnamon bark [Cinnamon] 500 mg capsule 1,000 mg PO BID aspirin 81 mg tablet,chewable 81 mg PO DAILY loperamide [Imodium A-D] 2 MG capsule 2 mg PO PRN PRN (Reason: Irritable Bowel Syndrome) pravastatin 40 MG tablet 40 mg PO QHS bupropion HCl [Wellbutrin SR] 100 MG tablet sustained-release 12 hr 100 mg PO BID hyoscyamine sulfate 0.125 MG tablet, sublingual 0.125 mg sublingual PRN PRN (Reason: Irritable Bowel Syndrome) montelukast [Singulair] 10 MG tablet 10 mg PO DAILY albuterol sulfate [Ventolin HFA] 1 INHALER inhaler 2 puff inhalation Q6H PRN PRN (Reason: COPD) losartan 100 MG tablet 100 mg PO QHS magnesium 30 MG tablet 40 mg PO DAILY vitamin B complex 1 EACH capsule 1 ea PO DAILY fimfqlaeznc-hwwiutzlb-zib C-Mn 1 EACH capsule 1 ea PO DAILY Fish Oil 500 MG capsule,delayed release(DR/EC) 500 mg PO DAILY Triglide 160 MG tablet 160 mg PO DAILY ascorbic acid (vitamin C) 500 MG capsule 500 mg PO DAILY levothyroxine 150 mcg tablet 175 mcg PO DAILY metoprolol tartrate [Lopressor] 100 mg tablet 50 mg PO BID vitamin E 670 mg (1,000 unit) capsule 670 mg PO DAILY Label Comments: M, W, F oxycodone-acetaminophen [Percocet] 5-325 mg Tablet 1 tab PO Q6H PRN (Reason: Pain) omeprazole 20 mg Tablet,Delayed Release (Dr/Ec) 20 mg PO DAILY Primary Care Provider: JAYLENE VO Referrals: JAYLENE VO MD [Primary Care Provider] - Andrew Forbes MD [Med Staff - Active Staff] - Keep [facility] appointment Disposition Disposition: Home, Self Care Discharge Date/Time: 06/22/22 15:23
[2022-06-22 14:55] VITALS: BP 139/71; PULSE 89; RESP 18; O2SAT 91
== END 2022-06-22 15:23 | disposition home or self-care (01) ==
PROVIDERS: Emergency Provider Student in an Organized Health Care Education/Training Program; PCP Internal Medicine; Visit Provider Student in an Organized Health Care Education/Training Program
DX: R10.11 Right upper quadrant pain (principal); J44.9 Chronic obstructive pulmonary disease, unspecified; E11.9 Type 2 diabetes mellitus without complications; K80.20 Calculus of gallbladder without cholecystitis without obstruction; E78.00 Pure hypercholesterolemia, unspecified; I10 Essential (primary) hypertension; R19.7 Diarrhea, unspecified
CPT/HCPCS: 74177; 76705; 80048; 80076; 83690; 85025; 96361; 96374; 96375; 99283; J7030; Q9967; J2405

== ENCOUNTER → 2022-06-25 | Outpatient (CLI) | payer MEDICARE, OTHER, SELFPAY | END | disposition home or self-care (01) | LOC: LABSPEC 14:28 | PROVIDERS: PCP Internal Medicine; Referring Provider Surgery; Visit Provider Surgery | DX: R19.7 Diarrhea, unspecified (principal); K58.9 Irritable bowel syndrome, unspecified | CPT/HCPCS: 87506 ==

== ENCOUNTER 2022-07-08 09:37 | Observation (INO) | payer MEDICARE, OTHER, SELFPAY ==
[2022-07-03 15:18] LABS: Hemoglobin A1c 5.8 % (3.8-5.6)
[2022-07-03 15:29] LABS: Thyroid Stim Hormone (TSH) 4.65 uIU/mL (0.358-3.74)
[2022-07-08] VITALS (16 sets, daily range): BP systolic 106–141; BP diastolic 61–73; PULSE 77–87; RESP 16–18; TEMP 36.1–37.3; O2SAT 92–97; BMI 33.8
--- NOTE | 2022-07-08 | GALL_PTH ---
PATIENT: RAFAEL MAURICE LOC: [facility]3 U#:[id number] AGE/SX: 77/F ROOM: ND317 RE07/08/[address]: Dr. Andrew Forbes MD : 1945 BED: 1 DIS: 07/09/2022 SPEC #: [id number] RECD: 07/08/22 13:03 STATUS: EVIN JARRETT #: [id number] WILLIAM: 07/08/22 00:[address]: Andrew Forbes DEPT: SURGICAL PATHOLOGY RECD BY: Diogenes Chatman ENTERED: 07/08/22 13:03 SP TYPE: JOSE GATES DR: MD JAYLENE Zarate MD Tissues: Gallbladder, NOS Procedures: Surgery Specimen Level III HEADER OPERATION: Laparoscopic cholecystectomy with IOC PRE-OP DIAGNOSIS: Symptomatic cholelithiasis, umbilical hernia, biliary dyskinesia, bile reflux gastritis TISSUE SUBMITTED: Gallbladder MICROSCOPIC DIAGNOSIS Gallbladder, cholecystectomy: Chronic cholecystitis and cholelithiasis. AM:olena 07/09/2022 MICROSCOPIC DESCRIPTION Slides are reviewed. GROSS DESCRIPTION Received is one container labeled with the patient's name and designated gallbladder. The specimen consists of a gallbladder measuring 8.5 x 4.0 x 2.5 cm. The external surface is smooth and glistening. Focally, it is granular, hemorrhagic and contains cautery artifact. The lumen of the gallbladder contains greenish-yellow mucoid bile and a single black calculus measuring 2.4 x 1.6 x 1.5 cm. The gallbladder mucosa is bile-stained and without any mass lesions. The gallbladder wall averages 0.2 cm in thickness and is free of mass lesions. Management Professional sections of the gallbladder and the cystic duct at margin of resection are submitted in one cassette. / AM:olena 07/08/2022 TC:3 CPT: 29127
--- NOTE | 2022-07-08 06:04 | EKG12_ITS ---
Test Reason : PRE-OP Blood Pressure : / mmHG Vent. Rate : 081 BPM Atrial Rate : 081 BPM P-R Int : 184 ms QRS Dur : 086 ms QT Int : 406 ms P-R-T Axes : 057 088 051 degrees QTc Int : 471 ms Normal sinus rhythm Normal ECG When compared with ECG of 06-OCT-2017 09:36, No significant change was found Confirmed by JOSE RAMON CRAFT, FLORA ([id number]), newspaper editor managing NISHA ACKERMAN ([id number]) on 07/15/2022 1:54:42 PM Referred By: Andrew Forbes Confirmed By:FLORA ALBRIGHT MD
[2022-07-08] MEDS: Lactated Ringers 1,000 ML 15 ML IV ×2 (06:42→07:30)
[2022-07-08 07:15] LABS: Bedside Glucose 141 mg/dL (74-106)
[2022-07-08] MEDS: Cefazolin 2 GM in 0.9% Normal Saline 100 ML IV (07:30)
--- NOTE | 2022-07-08 07:30 | PCM.HP.BLA ---
History and Physical Date of Admission: 07/08/22 Date of Service:? 06/25/22 MR#: [id number] Acct: [id number] Name:RAFAEL PARK Rep #: [id number] : 1945 ? ? Provider: Dr. Andrew Forbes MD Age/Sex:? 77/F ? ? Location: [facility] [place] Status: Signed Intake Vital Signs ? 05/28/2311:11 06/23/2311:01 06/25/2309:05 Height 5 ft 2 in 5 ft 2 in 5 ft 2 in Weight: ? ? 187 lb 8 oz BMI ? ? 34.2 BP ? ? 131/80 H Blood Pressure Location ? ? Lt brachial Position ? ? Sitting Respiration ? ? 17 Pulse ? ? 76 Pulse Source ? ? Monitor Temp ? ? 97.5 F L Temp Source ? ? Temporal Pulse Oximetry (%) ? ? 92 Oxygen Delivery Method ? ? room air Intake Visit Reasons:?DISCUSS SURGERY Chief Complaint: discuss surgery Is patient in pain?: Yes Allergies adhesive tape Allergy (Verified 06/25/22 10:06) RashSulfa (Sulfonamide Antibiotics) Allergy (Verified 06/25/22 10:06) Rash Medications albuterol sulfate 90 mcg/actuation aerosol inhaler (Ventolin HFA) 2 puff inhalation Q6H PRN PRN COPD 09/23/17 [History Confirmed 05/22/22] ascorbic acid (vitamin C) 500 mg capsule 500 mg PO DAILY SUPPLEMENT 09/23/17 [History Confirmed 05/22/22] bupropion HCl 100 mg tablet,12 hr sustained-release (Wellbutrin SR) 100 mg PO BID ANXIETY 09/23/17 [History Confirmed 05/22/22] fenofibrate nanocrystallized 160 mg tablet (Triglide) 160 mg PO DAILY CHOLESTEROL 09/23/17 [History Confirmed 05/22/22] [id number]-[id number]-syg C-Mn 500 mg-400 mg capsule 1 ea PO DAILY SUPPLEMENT 09/23/17 [History Confirmed 05/22/22] hyoscyamine sulfate 0.125 mg sublingual tablet 0.125 mg sublingual PRN PRN Irritable Bowel Syndrome 09/23/17 [History Confirmed 05/22/22] loperamide 2 mg capsule (Imodium A-D) 2 mg PO PRN PRN Irritable Bowel Syndrome 09/23/17 [History Confirmed 05/22/22] losartan 100 mg tablet 100 mg PO QHS BP 09/23/17 [History Confirmed 05/22/22] magnesium 30 mg tablet 40 mg PO DAILY SUPPLEMENT 09/23/17 [History Confirmed 05/22/22] montelukast 10 mg tablet (Singulair) 10 mg PO DAILY COPD 09/23/17 [History Confirmed 05/22/22] omega 3-dha 60 mg-epa 90 mg-fish oil 500 mg capsule, delayed release (Fish Oil) 500 mg PO DAILY SUPPLEMENT 09/23/17 [History Confirmed 05/22/22] pravastatin 40 mg tablet 40 mg PO QHS CHOLESTEROL 09/23/17 [History Confirmed 05/22/22] vitamin B complex 1 ea PO DAILY SUPPLEMENT 09/23/17 [History Confirmed 05/22/22] aspirin 81 mg chewable tablet 81 mg PO DAILY 05/20/22 [History Confirmed 05/22/22] azelastine 137 mcg (0.1 %) nasal spray aerosol 2 spray intranasal BID 05/20/22 [History Confirmed 05/22/22] cholecalciferol (vitamin D3) 50 mcg (2,000 unit) capsule 50 mcg PO DAILY 05/20/22 [History Confirmed 05/22/22] cinnamon bark 500 mg capsule (Cinnamon) 1,000 mg PO BID 05/20/22 [History Confirmed 05/22/22] fluticasone fur. 100 mcg-umeclid 62.5 mcg-vilant 25 mcg inhalat.powder (Trelegy Ellipta) 1 inh inhalation DAILY 05/20/22 [History Confirmed 05/22/22] guaifenesin 600 mg tablet, extended release 12 hr (Mucinex) 1,200 mg PO DAILY 05/20/22 [History Confirmed 05/22/22] hydralazine 50 mg tablet 25 mg PO TID 05/20/22 [History Confirmed 05/22/22] levocetirizine 5 mg tablet 5 mg PO DAILY 05/20/22 [History Confirmed 05/22/22] levothyroxine 150 mcg tablet 175 mcg PO DAILY THYROID 05/20/22 [History Confirmed 05/22/22] metformin 500 mg tablet 500 mg PO DAILY 05/20/22 [History Confirmed 05/22/22] metoprolol tartrate 100 mg tablet (Lopressor) 50 mg PO BID BP 05/20/22 [History Confirmed 05/22/22] mirtazapine 15 mg tablet 15 mg PO QHS 05/20/22 [History Confirmed 05/22/22] potassium chloride 10 mEq tablet,extended release 10 meq PO DAILY 05/20/22 [History Confirmed 05/22/22] vitamin E 670 mg (1,000 unit) capsule 670 mg PO DAILY SUPPLEMENT 05/20/22 [History Confirmed 05/22/22] omeprazole 20 mg tablet,delayed release 20 mg PO DAILY 05/22/22 [History Confirmed 05/22/22] oxycodone-acetaminophen 5 mg-325 mg tablet (Percocet) 1 tab PO Q6H PRN Pain 05/22/22 [History Confirmed 05/22/22] cholestyramine (with sugar) 4 gram oral powder PO 06/25/22 [History Confirmed 06/25/22] sucralfate 1 gram tablet (Carafate) 1 g PO BID #60 tabs 06/25/22 [Rx Confirmed 06/25/22] PFSH Medical History? Adhesion, postoperative Arthritis Back pain BiPAP (biphasic positive airway pressure) dependence Cardiology follow-up encounter Chronic cough COPD (chronic obstructive pulmonary disease) Diabetes Dietary restriction Easy bruising Epigastric direct abdominal tenderness Fatty liver Hemorrhoids High cholesterol History of back problems History of diverticulitis History of echocardiogram History of IBS History of ovarian cyst History of rheumatic fever History of stress test Hypertension On home oxygen therapy Post-menopausal Shortness of breath on exertion Smoker Thyroid disease Wears partial dentures Surgical History? History of appendectomy History of cardiac cath History of carpal tunnel repair History of D&C History of esophagogastroduodenoscopy (EGD) History of hysterectomy History of left knee replacement History of ovarian cystectomy History of placement of ear tubes History of thyroidectomy Hx of colonoscopy Hx of left cataract extraction Hx of right cataract extraction Hx of tonsillectomy Family History? Sister Breast cancer HypertensionMother Cancer ?? ? pancreatic HypertensionAunt DiabetesGrandfather Hypertension CVA (cerebral vascular accident)Grandmother Hypertension Social History? household members:? none Smoking Status:? Current every day smoker tobacco type: cigarettes alcohol intake:? never substance use type:? does not use HPI HPI HPI: Patient is well-known to me for history of gallbladder work-up.? At our last encounter she underwent EGD on 05/27/2022.? Her last office visit was 05/20/2022.? He reports today with her 2 daughters.? She recalls a recent visit to the ER on 06/22/2022.? She states at that time she had diarrhea for up to 4 days prior.? She notes that it was explosive in nature.? She reports that since this visit, she was placed on cholestyramine by her PCP with good effect.? She notes favorable response to both her diarrhea as well as her abdominal pains.? Still she is noticing that her stool is light brown to yellow in color and loose.? She still remarks that her abdominal pains present as a stabbing character from time to time.? She repeatedly mentions that with the symptoms she simply cannot go on living like this as she is just existing. As this history is taken, 1 of patient's daughters reports that there is a history of irritable bowel syndrome?that has been marked by fecal incontinence for years. Below is recapitulated from patient's last office visit for ease of review: Patient is a 76-year-old female who presents for diagnosis of cholelithiasis.? They are referred for surgical consultation from emergency medicine.? Patient presents today with her daughter who is a nurse practitioner locally.? Pain is described as hurting all the time, but punctuated with sudden sharp pains.? She reports that this pain radiates from back to front.? Symptoms have been present for at least 1.5 months.? She states that she was initially seen at [facility] where she was directed to follow-up with her PCP and administered some naproxen.? On presenting to her PCP there is a suspicion of kidney stones and she underwent renal ultrasound 04/26/2022 but this was negative.? Ultrasound of the gallbladder, however revealed sludge and gallstones.? At this time she was referred to our office, but we had to cancel her initial visit on 05/10/2022 due to emergency operation.? That same day patient states that her pain became intolerable and she presented to our emergency room.? At that visit she had her right upper quadrant ultrasound repeated and this was stable.? She also had no concerning laboratories (daughter reports that patient's lipase was mildly elevated but not consistent with pancreatitis?Per chart it was 577) and she was thus discharged with a recommendation to keep to a liquid diet.? Patient states that she was compliant with this recommendation, but did not notice any difference in her pain symptoms after 3 to 4 days.? Symptoms are not associated with eating.? Patient denies any associated nausea, vomiting, fevers, or chills.? Because of this discomfort, and feeling full all the time she has experienced some weight loss. In addition to the above, patient complains of uncomfortable bloating that prevents her from sitting on her right side.? She denies any history or present complaint of heartburn or reflux.? She has had no swallowing difficulties.? She confirms a history of screening colonoscopy with Dr. Cooper.? She reports this scope was performed 3 years ago and she was given a 5-year follow-up.? Her daughter recalls a history of adenomatous polyps. Previous work-up has included: Right upper quadrant ultrasound (as above on 05/10/2022.? This identified hepatomegaly and diffuse fatty liver infiltration.? Radiology also identified a solitary gallstone measuring 1.3 cm with mildly distended gallbladder lumen.? Gallbladder wall measures 2 mm.? Common bile duct diameter measured 5 mm. ROS General General: Yes weight change and fatigue; No appetite, colon cancer, breast cancer or weakness HEENT HEENT: Yes swollen glands; No difficulty swallowing, eye injury, eye surgery or hoarseness Endo Endocrine: Yes thyroid disease and diabetes mellitus; No thyroid cancer, Hair loss, heat intolerance or cold intolerance Skin Skin: No rash or changing moles Musc Musculoskeletal: Yes back problems and arthritis; No rheumatoid arthritis, gout or joint pain Cardio Cardiovascular: Yes high blood pressure; No murmur, pacemaker, heart disease, atrial fibrillation, heart attack, heart stent, palpitations, shortness of breat with exertion or chest pain Psych Psychiatric: No depression, anxiety or hearing voices Resp Respiratory: Yes shortness of breath, Yes sleep apnea, Yes cough, Yes COPD, No asthma, No emphysema and No wheezing Gastro Gastrointestinal: Yes abdominal pain, No nausea or vomiting, No diarrhea, No constipation, No blood in stool, No acid reflux, Yes hemorrhoids, No ulcers, No gallbladder problem and No black,tarry stools Hebert Hematologic: No blood thinners, No blood disorders, No bleeding, No anemia and No blood clots Neuro Neurologic: No system reviewed and no additional complaints, except as documented, No as per HPI, No abnormal gait, No abnormal hearing, No abnormal movements, No abnormal speech, No behavioral changes, No burning sensations, No confusion, No convulsions, No disequilibrium, No dizziness, No localized weakness, No frequent falls, No headache(s), No lack of coordination, No loss of vision, No memory loss, No numbness, No other visual disturbances, No radicular pain, No restless legs, No sensory deficit, No syncope, No tingling, No tremor(s), No weakness and No other Exam Const General: cooperative, healthy appearing and no acute distress Orientation: alert and awake Resp Effort & Inspection: normal respiratory effort GI Other: Mildly distended, no scars above the level of the umbilicus.? Small fat-containing umbilical hernia that is tender with palpation generalized tenderness in the right upper quadrant.? Soft. Assessment and Plan Assessment and Plan (1) Symptomatic cholelithiasis: ?Status:?Acute ?Comment: Is a 77-year-old female with known cholelithiasis who describes ongoing biliary colic type of symptoms.? She did have some relief with initiation of cholestyramine for treatment of diarrhea as a double effect.? Now that we also have a diagnosis of biliary dyskinesia with her recent HIDA imaging, I have recommended that we proceed for laparoscopic cholecystectomy with intraoperative cholangiogram.? Patient did have recent ER visit with completed CMP and lipase?both these were within normal limits.? I did discuss with patient that both bile reflux gastropathy and diarrhea can be seen in the postoperative period from the cholecystectomy and I have no way to prognosticate what her symptoms will do in response.? I have also informed her that I would have a low threshold to monitor her postoperatively given her numerous medical comorbidities, but would plan for an outpatient disposition. ?Plan: Lap margarita with intraoperative cholangiogram targeting 07/08/2022. (2) Biliary dyskinesia: ?Status:?Acute ?Comment: As per recent HIDA imaging patient has an ejection fraction of 9%.? This qualifies her as biliary dyskinesia.? Taken together with the biliary colic described above, I recommend laparoscopic cholecystectomy with intraoperative cholangiogram. (3) Bile reflux gastritis: ?Status:?Acute ?Comment: Seen during EGD earlier last month (May 2022).? Patient reports that she is still taking the PPI, but never was able to mixing picker tender Carafate due to miscommunication.? We will look to make sure that this is appropriately ordered out of today's visit and patient is to begin taking it as soon as she fills the prescription.? I have, as above, shared with patient and her family that I am uncertain whether the gallbladder surgery may improve this issue, and have concerns that it may actually worsen the symptoms.? Patient states that she is ready to try despite this risk. ?Plan: ? Carafate to be ordered to patient's pharmacy 1 g twice daily (4) Diarrhea in adult patient: ?Status:?Acute ?Comment: Patient describes onset frequent, explosive diarrhea.? She reports some benefits with starting cholestyramine per PCP.? She denies any recent stool testing.? Given that we are planning a semielective surgery, I would like to obtain a results before proceeding to the OR.? I have also informed patient that diarrhea can be a side effect of cholecystectomy and have no way of prognosticating how her body will respond in the postoperative period.? Lastly, patient's family reports that patient does have a diagnosis of irritable bowel syndrome with fecal incontinence, but the above symptoms appear to be distinctly worse from her baseline. ?Plan: Obtain stool sample.? If positive this may delay our cholecystectomy slightly (5) Umbilical hernia without obstruction and without gangrene: ?Status:?Acute ?Comment: Patient with small local hernia noted on recent CT imaging during her ER visit earlier this month.? This appears to be asymptomatic, but when I performed exam patient does have tenderness referred to the right upper quadrant.? I have discussed repairing this at the time of her cholecystectomy by simply shifting my supraumbilical port site into this hernia and the closing it primarily.? Patient is interested in proceeding with this addition to her procedure.? We will addend her consents to reflect this addition. ?Plan: Plan for primary repair of umbilical hernia at the time of cholecystectomy ? ? ? Orders: Orders ENTERIC PATHOGEN PANEL STOOL Today K58.9 - Irritable bowel syndrome without diarrhea, R19.7 - Diarrhea, unspecified I have examined the patient and the H&P has been reviewed. There are no clinical changes since date of exam. Patient states that she has had more abdominal discomfort this morning since not really take her cholestyramine, but otherwise has remained in a stable state of health. We reviewed the plans for today's operation as well as post procedure expectations. At this time we will rerequest a observation bed, but monitor patient's progress and have not completely ruled out discharge later today. Proceed to the operating room now for planned laparoscopic cholecystectomy intraoperative cholangiogram and primary repair of umbilical hernia.
[2022-07-08] MEDS: Bupivacaine 0.25% 30 ML Vial (07:58)
--- NOTE | 2022-07-08 08:00 | RAD_ITS ---
STUDY: INTRAOPERATIVE CHOLANGIOGRAM. REASON FOR EXAM: Female, 77 years old. Laparoscopic cholecystectomy. FLUOROSCOPY TIME (if supplied): ( 27 seconds ) minutes/seconds. 14.46 mGy TECHNIQUE: An intraoperative cholangiogram was performed by the surgeon. Imaging was submitted. COMPARISON: None. FINDINGS: The intrahepatic biliary ducts are unremarkable. The common bile duct is not dilated. There is free flow of contrast into the duodenum. No intraluminal filling defect is seen. RAD/Cholangiogram/ O R,Initial IMPRESSION: Unremarkable intraoperative cholangiogram. Electronically Signed: Boris Carney MD at 13:13 EDT ,
--- NOTE | 2022-07-08 09:35 | OP.PCM_ITS ---
Report of Operation Date of Procedure: 07/08/22 Pre-Operative Diagnosis: 1. Cholelithiasis 2. Biliary dyskinesia Post-Operative Diagnosis: 1. Cholelithiasis 2. Biliary dyskinesia 3. Chronic cholecystitis Surgery/Procedure Performed:: 1. Laparoscopic cholecystectomy with intraoperative cholangiogram 2. Primary repair of umbilical hernia Description of Surgical Findings:: ? Diminutive cystic duct but with otherwise normal biliary anatomy ? Evidence of mild chronic inflammation around the infundibulum of the gallbladder Surgeon: Andrew Forbes rental clerk tool and equipment: Renetta Elizalde Type of Anesthesia: General/Supplemental Anesthesiologist: Lincoln Coronado Specimen's removed: Gallbladder Estimated Blood Loss (mL): 25 Description of Procedure: After proper identification in the preoperative holding area the patient was brought to the operating room where positioned supine on the operating room table. Preoperatively SCDs were placed and antibiotics were administered. General anesthesia was then induced. Patient's abdomen was prepped and draped i n usual sterile fashion. A formal timeout was conducted to confirm both patient and the procedure. Procedure was begun with dissection of the patient's umbilical hernia. A curvilinear incision was made through a infraumbilical crease after instilling local anesthetic. Blunt dissection was used to encircle the umbilical stalk and the overlying skin was sharply removed taking great care to avoid any buttonholing. The fascial defect was then enlarged cephalad using electrocautery to facilitate passage of our 12 mm trocar. A finger sweep was performed to ensure there were no underlying adhesions and the 12 mm balloon trocar was inserted. Pneumoperitoneum was established at 12 mmHg. 3 additional trocars were placed in the epigastrium and in the right upper quadrant (2 x 5 mm). However, simply instilling local anesthetic for placement of our epigastric port resulted in an inadvertent laceration of a branch probably from the superior epigastric artery. This resulted in some hemorrhaging which was promptly addressed with the use of monopolar energy applied to our [place] grasper. Hemostasis was achieved and we returned to the original operation. The gallbladder was visualized with mild inflammation?most prominent towards the infundibulum. The gallbladder fundus was then grasped and elevated cephalad. Despite trying to limit our handling of the gallbladder, a inadvertent rent was made in the fundal portion of the gallbladder with this traction resulting in local bile spillage which was promptly suctioned free of the peritoneum. Heart grasper then was placed across this opening in the gallbladder wall. Returning the gallbladder to traction, careful dissection was used to open the peritoneum and the structures of the hepatocystic triangle were delineated. The cystic duct proved to be particularly diminutive with this dissection. Once the critical view of safety was obtained, the cystic duct was singly clipped and partially sharply divided. A grasper was used to milked back some debris within the cystic duct and there was backflow of clear yellow bile just prior to insertion of our metal tipped cholangiocatheter. This catheter was introduced to the peritoneum via a angiocatheter placed through the right upper quadrant under laparoscopic visualization. After clipping this catheter into place, a cholangiogram was obtained showing a short cystic duct flowing into a common bile duct with unobstructed antegrade flow of contrast into the duodenum. There was also retrograde flow through the common hepatic duct into the right and left hepatic ducts. Satisfied with this result, the clip was removed from the cystic duct holding the catheter in place and the catheter was withdrawn. The cystic duct stump was then triply clipped and sharply divided. The same process was used for the cystic artery. The gallbladder was then removed from the gallbladder fossa with the use of electrocautery. The gallbladder fossa was inspected and proved to be entirely hemostatic. The gallbladder was placed in an Endo Catch bag and removed from the peritoneum. Morison's pouch was irrigated and the effluent was suctioned free of the peritoneum. Hemostasis was again confirmed in the gallbladder fossa. I also confirmed hemostasis in the site of bleeding from our subxiphoid port site. Pneumoperitoneum was evacuated and the fascia of the enlarged umbilical hernia defect (12 mm port site) was closed with #1 PDS in a continuous fashion. A total of 25 mL of anesthetic was injected at the port sites for postoperative pain control. The skin of each port site was then closed in subcuticular fashion using 4-0 Monocryl (a tacking stitch was also used for the umbilical hernia closure site to close down the space between the overlying skin and the underlying fascia). A special Telfa rolled dressing was placed in the umbilical concavity to create a vacuum sealed pressure dressing using the OpSite and aspirating the air from underneath. Steri-Strips and bandages were applied as dressings to the remaining port sites and the angiocatheter site in the right upper quadrant. Patient tolerated the procedure well without any apparent complications. On emergence from their anesthetic the patient was taken to PACU for ongoing recovery. Complications None Admit VTE Documentation VTE Mechan Device Prophylaxis: SCD's
--- NOTE | 2022-07-08 10:44 | SUR.PHASEI ---
PACU: STILL VERY NAUSEATED, Hx PONV, SCOPE PATCH ON, ZOFRAN GIVEN [phone], BENADRYL/REGLAN GIVEN 1009. CALLED DR WATKINS WHO ORDERED PHENERGAN, GAVE AT [phone]. WILL MEDICATE FOR PAIN WHEN NAUSEA IMPROVING.
[2022-07-08 12:11] LABS: Bedside Glucose 182 mg/dL (74-106)
[2022-07-08] MEDS: Ibuprofen 400 MG Tablet PO ×3 (13:20→23:53)
[2022-07-08] MEDS: oxyCODONE 5 MG Tablet PO ×2 (13:21→23:54)
[2022-07-08] MEDS: 0.9% Normal Saline 1,000 ML 75 ML IV (13:26)
[2022-07-08] MEDS: Ipratropium/Albuterol Sulfate 3 ML AMPUL.NEB INHALATION (22:13)
[2022-07-08] MEDS: Pravastatin 40 MG Tablet PO (22:16)
[2022-07-08] MEDS: Metoprolol Tartrate 50 MG Tablet PO (22:17)
[2022-07-08] MEDS: hydrALAZINE 25 MG Tablet PO (22:18)
--- NOTE | 2022-07-09 00:08 | CPS ---
Tx given by RN
[2022-07-09 00:35] VITALS: BMI 33.8
[2022-07-09] MEDS: 0.9% Normal Saline 1,000 ML 75 ML IV (02:46)
[2022-07-09 03:40] VITALS: BP 127/60; PULSE 67; RESP 18; TEMP 36.8; O2SAT 98
[2022-07-09 04:35] VITALS: BMI 33.8
[2022-07-09] MEDS: Levothyroxine 175 MCG Tablet PO (06:40)
[2022-07-09] MEDS: Ibuprofen 400 MG Tablet PO (06:41)
[2022-07-09 07:05] LABS: Bedside Glucose 99 mg/dL (74-106)
[2022-07-09 07:54] VITALS: O2SAT 98
[2022-07-09 08:00] VITALS: BP 126/63; PULSE 65; RESP 16; TEMP 36.7; O2SAT 94
[2022-07-09] MEDS: Acetaminophen 500 MG Tablet PO (08:59)
[2022-07-09] MEDS: Budesonide Respules 0.5 MG/2 ML AMPUL.NEB. INHALATION (08:59)
[2022-07-09] MEDS: Ipratropium/Albuterol Sulfate 3 ML AMPUL.NEB INHALATION (08:59)
[2022-07-09 09:06] VITALS: PULSE 77; RESP 22
[2022-07-09 09:30] VITALS: BP 126/63; PULSE 77
[2022-07-09] MEDS: Metoprolol Tartrate 50 MG Tablet PO (09:30)
[2022-07-09] MEDS: Aspirin 81 MG TAB.CHEW PO (09:30)
[2022-07-09] MEDS: hydrALAZINE 25 MG Tablet PO (09:30)
[2022-07-09] MEDS: Pantoprazole Sodium 20 MG Tablet PO (09:31)
--- NOTE | 2022-07-09 09:50 | DCINST_ITS ---
Discharge Instructions Diet Discharge Diet: Light diet - advance as tolerated Activity Discharge Activity: May Not Drive (while taking narcotic pain medications) and May Shower (tomorrow) Dressing / Incision Call your doctor if your incision/area has: Continuous Slow Oozing, Increased Pain/ Swelling, Foul Smelling Discharge and Swelling at the incision site Call your doctor if you observe: Fever of 101 or Higher Suture Line Care: Avoid Pulling/Pushing and Avoid Pinching/Bending Remove Dressing in: 1 day (Remove small op-site dressings in 1 day) Cleanse incision/area with: Soap & Water Additional Dressing/Incision Instructions:: Leave umbilical dressing in place for 5 days. You may shower over top of the plastic dressings as they are waterproof. Follow Up Care Please Follow Up With: Andrew Forbes MD When: Call our office to schedule a 10 day follow-up after discharge. Our office number is [phone] Test Results: Test results from this visit will be discussed in further detail at your follow- up appointment, if applicable. Discharge Plan Admission Admit Date/Time: 07/08/22 09:37 Primary Reason for Your Visit: Biliary dyskinesia Attending Provider: Andrew Forbes Primary Care Provider: JAYLENE VO Consulting Providers: Lincoln Coronado Discharge Orders/Prescriptions Prescriptions: New oxycodone 5 mg Tablet 5 mg PO Q6H PRN PRN (Reason: Pain Score 6-10) 3 Days Qty: 9 0RF Continued potassium chloride 10 mEq tablet extended release 10 meq PO DAILY metformin 500 mg tablet 500 mg PO DAILY hydralazine 50 mg tablet 25 mg PO BID Trelegy Ellipta 100-62.5-25 mcg blister with device 1 inh inhalation DAILY azelastine 137 mcg (0.1 %) aerosol,spray 2 spray intranasal BID Rx Instructions: administer into each nostril levocetirizine 5 mg tablet 5 mg PO DAILY mirtazapine 15 mg tablet 15 mg PO QHS guaifenesin [Mucinex] 600 mg tablet extended release 12hr 1,200 mg PO DAILY cholecalciferol (vitamin D3) 50 mcg (2,000 unit) capsule 50 mcg PO DAILY cinnamon bark [Cinnamon] 500 mg capsule 1,000 mg PO BID aspirin 81 mg tablet,chewable 81 mg PO DAILY sucralfate [Carafate] 1 gram tablet 1 g PO BID Qty: 60 0RF loperamide [Imodium A-D] 2 MG capsule 2 mg PO PRN PRN (Reason: Irritable Bowel Syndrome) pravastatin 40 MG tablet 40 mg PO QHS bupropion HCl [Wellbutrin SR] 100 MG tablet sustained-release 12 hr 100 mg PO BID hyoscyamine sulfate 0.125 MG tablet, sublingual 0.125 mg sublingual PRN PRN (Reason: Irritable Bowel Syndrome) montelukast [Singulair] 10 MG tablet 10 mg PO DAILY albuterol sulfate [Ventolin HFA] 1 INHALER inhaler 2 puff inhalation Q6H PRN PRN (Reason: COPD) losartan 100 MG tablet 100 mg PO QHS magnesium 30 MG tablet 40 mg PO DAILY vitamin B complex 1 EACH capsule 1 ea PO DAILY xjzorkzsiko-epywknteq-jnv C-Mn 1 EACH capsule 1 ea PO DAILY Fish Oil 500 MG capsule,delayed release(DR/EC) 500 mg PO DAILY ascorbic acid (vitamin C) 500 MG capsule 500 mg PO DAILY levothyroxine 150 mcg tablet 175 mcg PO DAILY metoprolol tartrate [Lopressor] 100 mg tablet 50 mg PO BID vitamin E 670 mg (1,000 unit) capsule 670 mg PO DAILY Label Comments: M, W, F omeprazole 20 mg Tablet,Delayed Release (Dr/Ec) 20 mg PO DAILY fenofibrate 160 mg tablet 160 mg PO DAILY Changed cholestyramine (with sugar) 4 gram powder 1 ea PO DAILY Qty: 348.6 0RF Discontinued oxycodone-acetaminophen [Percocet] 5-325 mg Tablet 1 tab PO Q6H PRN (Reason: Pain) Referrals / Follow Up: JAYLENE VO MD [Primary Care Provider] - Andrew Forbes MD [Med Staff - Active Staff] - (Follow-up in 10 days following discharge) Disposition Disposition (needs filled in before D/C Order can be placed): Home, Self Care
--- NOTE | 2022-07-09 10:06 | CASEMGMT ---
BOB CM into pt room, pt sitting up on edge of bed. Pt states she will be going to her dtr's home until she can be back at her own home. She reports her dtr is a [employer]. Pt has been using walker here at the hospital, pt has one at home and will take to her dtr's. She typically does not use AD. Pt denies any homegoing needs and states she will not be alone.
--- NOTE | 2022-07-09 10:27 | PCM.PN.SRG ---
Subjective Subjective Patient is a 77 y/o F I am following s/p laparoscopic cholecystectomy with IOC and primary umbilical hernia repair with Dr. Forbes on 07/08/22. Patient appears to be recovering very well. Patient notes minimal amount of incisional pain. She denies nausea, vomiting, fever. She is tolerating clear liquids well. She has passed flatus. She voices readiness to be discharged. Objective Data Objective Data Vital Signs: Vital Signs Temp Pulse Resp BP Pulse Ox O2 Del Method O2 Flow Rate 98.1 F 77 22 H 126/63 H 94 Room Air 2 07/09/22 08:00 07/09/22 09:30 07/09/22 09:06 07/09/22 09:30 07/09/22 08:00 07/09/22 08:39 07/09/22 07:54 Oxygen Flow Rate (L/min) 2 Oxygen Delivery Method Room Air Weight: 184 lb 15.485 oz Body Mass Index (BMI) 33.8 Intake & Output: Intake and Output for Last 24 Hours 07/07/22 07/08/22 07/09/22 23:59 23:59 23:59 Intake Total 1110 / 1110 1000 / 1000 Balance 1110 / 1110 1000 / 1000 Lab / Micro Data Labs: Laboratory Results - last 24 hr 07/08/22 11:38: POC Glucose 182 H 07/09/22 06:40: POC Glucose 99 Physical Exam GI normal to inspection, nondistended, normoactive bowel sounds GI Narrative: Abdomen- incisions c/d/i. No erythema or infection noted. Assessment & Plan Assessment/Plan (1) S/P laparoscopic cholecystectomy: PLAN: Plan to keep umbilical dressing intact for 5 days Remove remaining smaller op-sites tomorrow Return to a light diet as tolerated Ready for discharge
[2022-07-09] MEDS: Insulin Lispro 100 UNIT/ML INSULN.PEN SC (11:11)
[2022-07-09 11:40] LABS: Bedside Glucose 175 mg/dL (74-106)
== END 2022-07-09 12:07 | disposition home or self-care (01) ==
LOC: ACINP 10:09 → SDC 10:10 → MS3 10:10
PROVIDERS: Anesthesiology; Admitting Provider Surgery; PCP Internal Medicine; Referring Provider Surgery; Visit Provider Surgery
PROC: (CPT 47610; principal; 2022-07-08 07:10)
PROC: (CPT 47563; 2022-07-08 07:10)
DX: K80.64 Calculus of gallbladder and bile duct with chronic cholecystitis without obstruction (principal); J44.9 Chronic obstructive pulmonary disease, unspecified; E11.9 Type 2 diabetes mellitus without complications; E78.00 Pure hypercholesterolemia, unspecified; K42.9 Umbilical hernia without obstruction or gangrene; R15.9 Full incontinence of feces; Z79.899 Other long term (current) drug therapy; Z79.82 Long term (current) use of aspirin; Z79.84 Long term (current) use of oral hypoglycemic drugs; Z79.890 Hormone replacement therapy; Z99.81 Dependence on supplemental oxygen; I10 Essential (primary) hypertension; M19.90 Unspecified osteoarthritis, unspecified site; K21.9 Gastro-esophageal reflux disease without esophagitis; R19.7 Diarrhea, unspecified; I97.52 Accidental puncture and laceration of a circulatory system organ or structure during other procedure; Y92.234 Operating room of hospital as the place of occurrence of the external cause; E03.9 Hypothyroidism, unspecified
CPT/HCPCS: 47563; 49591; 00790; 36415; 74300; 76000; 82962; 83036; 84443; 88304; 93005; 94640; 96360; 96361; 97802; 99221; J7030; J7120; G0378; J2405

== ENCOUNTER → 2022-08-05 | Outpatient (CLI) | payer MEDICARE, OTHER, SELFPAY ==
[2022-08-05 15:39] LABS: AST(SGOT) 17 U/L (15-37); Alanine Aminotransfer ALT/SGPT 21 U/L (13-56); Albumin, Serum 3.7 g/dL (3.2-5.0); Alkaline Phosphatase 80 U/L (45-117); Anion Gap 6 (5-15); BUN 24 mg/dL (7-18); BUN/Creat Ratio 12.7 RATIO (10-20); Calcium,Total 9.2 mg/dL (8.5-10.1); Chloride 106 mmol/L (98-107); Creatinine, Serum 1.89 mg/dL (0.55-1.02); EST Glomerular Filtration Rate 28 mL/min (>60); Est Glom Filt Rate - Afr Amer 33 mL/min (>60); Globulin 3.7 g/dL (2.2-4.2); Glucose 131 mg/dL (74-106); LDH 177 U/L (84-246); Protein, Total 7.4 g/dL (6.4-8.2); Sodium Level 141 mmol/L (136-145)
[2022-08-05 15:43] LABS: Absolute Neutrophil Count 6.6 X10^3/uL (2.0-7.7); Basophil# 0.06 X10^3/uL; Basophil% 0.6 % (0-1); Eosinophils% 2.1 % (0-5); Hemoglobin 13.6 g/dL (12.0-15.0); Lymphocyte % 21.7 % (19-41); Mean Corp Hgb Conc 32.4 g/dL (32-36); Mean Corpuscular Hgb 31.4 pg (27.0-32.0); Mean Platelet Vol. 9.4 fl (6.2-12.0); Monocyte# 0.62 X10^3/uL; Monocyte% 6.4 % (0-10); NRBC Flagged by Analyzer 0 % (0-5); Neutrophil # 6.64 X10^3/uL (2.7-7.7); Neutrophil % 68.8 % (47-70); Platelet Count 236 K/mm3 (150-450); RBC Distribution Width SD 46.3 fl (35.1-43.9); Red Blood Count 4.33 M/mm3 (4.2-5.4); White Blood Count 9.7 K/mm3 (4.4-11.0)
[2022-08-05 15:46] LABS: Erythrocyte Sedimentation Rate 17 mm/hr (0-30)
[2022-08-07 16:10] LABS: Endomysial Antibody IgA Negative (Negative); Immunoglobulin A 293 mg/dL (64-422); t-Transglutaminase IgA <2 U/mL (0-3)
[2022-08-10 17:07] LABS: Anti-Centromere B Ab <0.2 AI (0.0-0.9); Anti-Chromatin <0.2 AI (0.0-0.9); Anti-Jo <0.2 AI (0.0-0.9); Anti-Scleroderma-70 AB <0.2 AI (0.0-0.9); Anti-dsDNA Ab 1 IU/mL (0-9); Beef <0.10 kU/L (Class 0); Chocolate <0.10 kU/L (Class 0); Clam <0.10 kU/L (Class 0); Codfish <0.10 kU/L (Class 0); Corn <0.10 kU/L (Class 0); Egg, White <0.10 kU/L (Class 0); Egg, Whole <0.10 kU/L (Class 0); Milk (Cow) <0.10 kU/L (Class 0); Peanut <0.10 kU/L (Class 0); Pork <0.10 kU/L (Class 0); RNP Ab <0.2 AI (0.0-0.9); SCALLOP <0.10 kU/L (Class 0); SESAME SEED <0.10 kU/L (Class 0); SJOGREN'S Anti-SS-A test < 0.2 AI (0.0-0.9); SJOGREN'S Anti-SS-B test < 0.2 AI (0.0-0.9); Shrimp 0.11 kU/L (Class 0/I); Smith Ab <0.2 AI (0.0-0.9); Soybean <0.10 kU/L (Class 0); Walnut, (Food) <0.10 kU/L (Class 0); Wheat <0.10 kU/L (Class 0)
[2022-08-11 15:07] LABS: Cytoplasmic Ab (C-ANCA) <1:20 titer (Neg:<1:20); Immunoglobulin A 297 mg/dL (64-422); Immunoglobulin E 44 IU/mL (6-495); Immunoglobulin G 1061 mg/dL (586-1602); Immunoglobulin M 89 mg/dL (26-217); Perinuclear Ab (P-ANCA) <1:20 titer (Neg:<1:20)
== END | disposition home or self-care (01) ==
PROVIDERS: PCP Internal Medicine; Referring Provider Internal Medicine Gastroenterology; Visit Provider Internal Medicine Gastroenterology
DX: R19.7 Diarrhea, unspecified (principal); R06.02 Shortness of breath
CPT/HCPCS: 36415; 80053; 82784; 82785; 83516; 83615; 85025; 85652; 86003; 86005; 86140; 86225; 86235; 86255; 86256

== ENCOUNTER → 2022-08-07 | Outpatient (CLI) | payer MEDICARE, OTHER, SELFPAY ==
[2022-08-07 11:53] LABS: Bacteria 0 SEEN /hpf (None Seen); Mucous, Urine 0 SEEN /hpf (<or=2+); Red Blood Cells-Urine 0 SEEN /hpf (0-5)
[2022-08-07 12:35] LABS: Color, Urine Yellow (Yellow); Glucose, Dipstick Normal (Normal); Ketone-Dipstick Negative (Negative); Leukocyte Esterase-Dipstick 25 /ul (Negative); Nitrite-Dipstick Negative (Negative); Occult Blood-Urine Negative /ul (Negative); Protein-Dipstick 30 mg/dl (Negative); Specific Gravity, Urine 1.015 (1.002-1.030); Urine Bilirubin Dipstick Negative (Negative); Urine Clarity Sl. Cloudy (Clear); Urine Urobilinogen Normal (Normal)
[2022-08-07 12:40] LABS: Absolute Lymphocyte Count 1.97 X10^3/uL (0.83-4.51); Absolute Neutrophil Count 4.7 X10^3/uL (2.0-7.7); Basophil# 0.08 X10^3/uL; Basophil% 1.1 % (0-1); Eosinophil# 0.17 X10^3/uL; Eosinophils% 2.3 % (0-5); Hematocrit 43.9 % (37-47); Hemoglobin 14.1 g/dL (12.0-15.0); Lymphocyte # 1.97 X10^3/ul (0.83-4.51); Lymphocyte % 26.1 % (19-41); Mean Corp Hgb Conc 32.1 g/dL (32-36); Mean Corpuscular Hgb 31.2 pg (27.0-32.0); Mean Corpuscular Volume 97.1 fL (81-99); Mean Platelet Vol. 9.5 fl (6.2-12.0); Monocyte# 0.58 X10^3/uL; Monocyte% 7.7 % (0-10); NRBC Flagged by Analyzer 0 % (0-5); Neutrophil # 4.72 X10^3/uL (2.7-7.7); Neutrophil % 62.4 % (47-70); Platelet Count 229 K/mm3 (150-450); RBC Distribution Width CV 13.1 % (11.6-14.6); RBC Distribution Width SD 46.6 fl (35.1-43.9); Red Blood Count 4.52 M/mm3 (4.2-5.4); White Blood Count 7.6 K/mm3 (4.4-11.0)
[2022-08-07 13:08] LABS: Anion Gap 3 (5-15); BUN 22 mg/dL (7-18); BUN/Creat Ratio 29.9 RATIO (10-20); Calcium,Total 9.1 mg/dL (8.5-10.1); Chloride 109 mmol/L (98-107); Cholesterol 116 mg/dL (200); Creatinine, Serum 0.74 mg/dL (0.55-1.02); EST Glomerular Filtration Rate 82 mL/min (>60); Est Glom Filt Rate - Afr Amer 99 mL/min (>60); Glucose 115 mg/dL (74-106); High Density Lipoprotein 44 mg/dL; Potassium 4.2 mmol/L (3.5-5.1); Sodium Level 140 mmol/L (136-145); Thyroid Stim Hormone (TSH) 3.49 uIU/mL (0.358-3.74); Triglycerides 108 mg/dL; Very Low Density Lipoprotein 22 mg/dL (5-40)
[2022-08-07 13:25] LABS: Squamous Epithelial Cells - UA 0-5 SEEN /hpf (5-10); White Blood Cells 0-5 SEEN /hpf (0-5)
[2022-08-07 13:51] LABS: Hemoglobin A1c 5.3 % (3.8-5.6)
[2022-08-09 20:07] LABS: Pancreatic Elastase, Fecal 336 (>200)
[2022-08-15 21:07] LABS: Calprotectin, Stool 20 ug/g (0-120); Fats, Neutral Normal (.); Fats, Total Increased (.)
== END | disposition home or self-care (01) ==
LOC: LAB 11:44
PROVIDERS: Internal Medicine Gastroenterology; PCP Internal Medicine; Referring Provider Internal Medicine; Visit Provider Internal Medicine
DX: E03.9 Hypothyroidism, unspecified (principal); E11.42 Type 2 diabetes mellitus with diabetic polyneuropathy; R19.7 Diarrhea, unspecified; K58.0 Irritable bowel syndrome with diarrhea; I10 Essential (primary) hypertension
CPT/HCPCS: 36415; 80048; 80061; 81001; 82274; 82653; 82705; 83036; 83630; 83993; 84443; 85025; 87177; 87209; 87329; 87493; 87506

== ENCOUNTER → 2022-12-17 | Outpatient (CLI) | payer MEDICARE, OTHER, SELFPAY ==
--- NOTE | 2022-12-13 17:23 | RAD_ITS ---
STUDY: X-RAY CHEST REASON FOR EXAM: Female, 77 years old. COPD TECHNIQUE: PA and lateral views of the chest. COMPARISON: None. FINDINGS: No airspace consolidation. There is no demonstrated pleural abnormality. Normal size heart. Normal mediastinum and santino. Normal visualized pulmonary arteries. Normal visualized aortic arch and descending thoracic aorta. There are diffuse degenerative changes of the visualized thoracic spine. Normal visualized ribs, clavicles, and shoulders. There is no demonstrated abnormality of the visualized soft tissue structures of the upper abdomen. RAD/Chest PA and Lateral IMPRESSION: No acute cardiopulmonary process. Electronically Signed: Giancarlo Edouard MD ([place]) at 17:35 EDT ,
== END | disposition home or self-care (01) ==
LOC: RAD 12-19 16:03
PROVIDERS: PCP Internal Medicine; Referring Provider Internal Medicine Pulmonary Disease; Visit Provider Internal Medicine Pulmonary Disease
DX: J44.9 Chronic obstructive pulmonary disease, unspecified (principal); R09.02 Hypoxemia
CPT/HCPCS: 71046

== ENCOUNTER → 2023-01-11 | Outpatient (CLI) | payer MEDICARE, OTHER, SELFPAY ==
[2023-01-11 12:03] LABS: Absolute Lymphocyte Count 1.64 X10^3/uL (0.83-4.51); Absolute Neutrophil Count 4.4 X10^3/uL (2.0-7.7); Basophil# 0.07 X10^3/uL; Eosinophils% 2.9 % (0-5); Hematocrit 43.8 % (37-47); Lymphocyte # 1.64 X10^3/ul (0.83-4.51); Mean Corpuscular Hgb 30.7 pg (27.0-32.0); Mean Corpuscular Volume 96.1 fL (81-99); Mean Platelet Vol. 9.6 fl (6.2-12.0); Monocyte# 0.53 X10^3/uL; Monocyte% 7.8 % (0-10); NRBC Flagged by Analyzer 0 % (0-5); Neutrophil # 4.36 X10^3/uL (2.7-7.7); Neutrophil % 63.9 % (47-70); Platelet Count 204 K/mm3 (150-450); RBC Distribution Width CV 13.2 % (11.6-14.6); RBC Distribution Width SD 46.7 fl (35.1-43.9); Red Blood Count 4.56 M/mm3 (4.2-5.4); White Blood Count 6.8 K/mm3 (4.4-11.0)
[2023-01-11 12:07] LABS: Glucose, Dipstick Normal (Normal); Ketone-Dipstick Negative (Negative); Leukocyte Esterase-Dipstick 25 /ul (Negative); Nitrite-Dipstick Negative (Negative); Occult Blood-Urine Negative /ul (Negative); Protein-Dipstick 30 mg/dl (Negative); Urine Bilirubin Dipstick Negative (Negative); Urine Urobilinogen Normal (Normal); Urine pH 6.5 (5.0 - 8.0)
[2023-01-11 12:22] LABS: Anion Gap 6 (5-15); BUN 26 mg/dL (7-18); BUN/Creat Ratio 28.4 RATIO (10-20); Chloride 105 mmol/L (98-107); Cholesterol 112 mg/dL (200); Creatinine, Serum 0.91 mg/dL (0.55-1.02); EST Glomerular Filtration Rate 64 mL/min (>60); Est Glom Filt Rate - Afr Amer 77 mL/min (>60); Glucose 143 mg/dL (74-106); High Density Lipoprotein 42 mg/dL; Potassium 4.2 mmol/L (3.5-5.1); Sodium Level 143 mmol/L (136-145); Triglycerides 142 mg/dL; Very Low Density Lipoprotein 28 mg/dL (5-40)
[2023-01-11 12:28] LABS: Hemoglobin A1c 6.2 % (3.8-5.6)
[2023-01-11 13:10] LABS: Color, Urine YELLOW (Yellow); Urine Clarity Clear (Clear)
== END | disposition home or self-care (01) ==
PROVIDERS: PCP Internal Medicine; Visit Provider Internal Medicine
DX: I10 Essential (primary) hypertension (principal); E11.42 Type 2 diabetes mellitus with diabetic polyneuropathy
CPT/HCPCS: 36415; 80048; 80061; 81002; 83036; 85025

== ENCOUNTER 2023-01-23 07:01 | Day surgery (SDC) | payer MEDICARE, OTHER, SELFPAY ==
[2023-01-23] MEDS: Lactated Ringers 1,000 ML 15 ML IV (07:15)
[2023-01-23 07:16] VITALS: BP 130/68; PULSE 84; RESP 20; TEMP 36.3; O2SAT 95; BMI 34.0
[2023-01-23 07:39] LABS: Bedside Glucose 143 mg/dL (74-106)
--- NOTE | 2023-01-23 08:15 | COLBX_PTH ---
PATIENT: RAFAEL MAURICE LOC: EN U#:[id number] AGE/SX: 77/F ROOM: RE01/23/[address]: Dr. Maverick Rust DO : 1945 BED: DIS: 01/23/2023 SPEC #: [id number] RECD: 01/23/23 10:34 STATUS: EVIN JARRETT #: [id number] WILLIAM: 01/23/23 08:[address]: Maverick Rust DEPT: SURGICAL PATHOLOGY RECD BY: Regina Montes ENTERED: 01/23/23 12:46 SP TYPE: COLON BX OTHR DR: JAYLENE VO MD Tissues: A - COLON BIOPSY B - COLON BIOPSY C - COLON BIOPSY D - Ileum, NOS E - COLON BIOPSY Procedures: Surgery Specimen Level IV HEADER OPERATION: Colonoscopy with polypectomy, biopsies PRE-OP DIAGNOSIS: Diarrhea TISSUE SUBMITTED: A - Ascending colon polyp, B - Hepatic flexure polyp, C - Transverse colon mass biopsy, D - Terminal ileum biopsy, E - Random colon biopsy MICROSCOPIC DIAGNOSIS A. Ascending colon polyp, polypectomy: A polypoid fragment of colonic mucosa with submucosal vascular ectasia. B. Hepatic flexure polyp, polypectomy: Villous serrated adenoma. C. Transverse colon mass, biopsy: Fragments of colonic mucosa with ulceration and fibrinopurulent exudation. Negative for malignancy. See comment. D. Terminal ileum, biopsy: Fragments of small intestinal mucosa, no pathologic diagnosis. E. Colon, random biopsy: Fragments of colonic mucosa, no pathologic diagnosis. SJ:olena 01/24/2023 COMMENT Correlation with clinical, endoscopic findings and appropriate follow up are necessary. Case has been reviewed in consultation with Dr. Jaimes who concurs with the above diagnosis. IDC:AM MICROSCOPIC DESCRIPTION Slides are reviewed. GROSS DESCRIPTION A - Received in fixative is one container labeled with the patient's name and designated ascending colon polyp. The specimen consists of one irregular fragment of light [place] soft tissue that measures 0.7 x 0.5 x 0.1 cm. The specimen is totally submitted in one cassette. B - Received in fixative is one container labeled with the patient's name and designated hepatic flexure polyp. The specimen consists of multiple irregular fragments of light [place] soft tissue that in aggregate measure 1.5 x 1.0 x 0.3 cm. The specimen is totally submitted in one cassette. C - Received in fixative is one container labeled with the patient's name and designated transverse colon biopsy. The specimen consists of multiple irregular fragments of light [place] soft tissue that in aggregate measure 1.2 x 0.5 x 0.1 cm. The specimen is totally submitted in one cassette. D - Received in fixative is one container labeled with the patient's name and designated terminal ileum. The specimen consists of two irregular fragments of light [place] soft tissue that in aggregate measure 0.7 x 0.5 x 0.1 cm. The specimen is totally submitted in one cassette. E - Received in fixative is one container labeled with the patient's name and designated random colon. The specimen consists of multiple irregular fragments of light [place] soft tissue that in aggregate measure 1.5 x 0.3 x 0.1 cm. The specimen is totally submitted in one cassette. / AM:olena 01/23/2023 TC:1 CPT: 61976 x5
--- NOTE | 2023-01-23 08:25 | PCM.HP.BLA ---
History and Physical Date of Admission: 01/23/23 [facility] ED 05.10.22 with persistent RUQ abd pain. She was to establish with Dr. Forbes that day but had to cancel and couldn?t wait the two weeks to get OV and presented to ED. ? Biochemical CBC, CMP, LFT WNL.??? Lipase H577 ? US RUQ hepatomegaly 23.6cm with fatty infiltration; solitary gallstone with Burkett?s sign +; [facility] Dr. Forbes established 05.20.22 for previously diagnosed cholelithiasis. PCP r/o renal stones. ? EGD 05.27.22 nodular duodenal bulb; multiple fundic gland polyps; mucosal nodule in esophagus; small hiatal hernia. No specimens collected. [facility] ED presentation 06.22.22 with diffuse abdominal pain/cramping with reports of previously noted gallstone. Workup not concerning for acute finding and discharged with instruction to f/u with [facility]. ? US RUQ hepatomegaly 17cm with fatty infiltration; solitary gallstone, muprhy?s sign negative. ? CT abd/pel hepatomegaly with diffuse enlargement; solitary gallstone, gallbladder dilated 56mm; calcified granulomata of spleen; renal cysts [facility]SA OV 4.07.14 with recommendation of lap cholecystectomy. ? Laparoscopic cholecystectomy 07.08.22 performed without complication. Pathology chronic cholecystitis and cholelithiasis. [facility] OV 4 with symptom resolution. Notes need for screening colonoscopy for which records will be obtained. *BGI established . with continued resolution of abdominal pain. Need for screening colonoscopy requiring submucosal lift. ? Biochemical CBC, ESR, CMP, LFT, LDH, GAME, CHAPARRO comp, ANCA, GAME, celiac, IBD, without pertinent abnormality. ? CRP H14.90 ? RAST equivocal/low shrimp ? Stool calprotectin, elastase, lactoferrin, c.difficile (formed), blood WNL. Total fats increased. Contact, portal 08.13.22 with results and asking after symptoms. OV 12.06.22 feels she is doing approximately the same as previously. Cholestyramine is being taken QOD as directed by Dr. Forbes following cholecystectomy, on days without cholestyramine she is having significant loose stools. Last colonoscopy 5years prior with Dr. Cooper which she reports for severe diverticulosis and a concerning area that received ablation which Dr. Cooper felt was abnormal r/t NSAID use; this is not the first ablation episode.RAFAEL MAURICE, is a 77 F who presents to the office today for ROS Const Constitutional: No fatigue, fever(s), frequent falls, headache(s) or weight change ENT ENT: No headache(s) or difficulty swallowing Cardio Cardiology: No leg pain with exertion Gastro GI: Positive for bloating and diarrhea; No abdominal pain, change in bowel habits, constipation, heartburn, difficulty swallowing, Vomiting blood/hematemesis, Blood in stool, nausea/dyspepsia or vomiting Musc Musculoskeletal: Positive for back pain, stiffness, Arthritis and sciatica; No abnormal gait, joint pain, joint swelling, muscle cramps, muscle weakness, numbness, tingling, leg pain at night or leg pain with exertion Skin Skin: No dry skin, lesions, itchy eyes or rash Neuro Neurology: No abnormal gait, dizziness, frequent falls, headache(s), numbness, tingling, tremor(s), Increased tone in limbs, paralysis or seizures Psych Psychiatric: No anxiety, No depression, No paranoia, No Behavioral Problems, No Compulsive Behavior, No hyperactivity, No inattentiveness, No obsessions/compulsions, No Temper Tantrums and No suicidal ideation Endo Endocrine: No fatigue or weight change Aller/Imm Allergy/Immunologic: No itchy eyes Hebert/Lymp Hematologic/Lymphatic: No easy bleeding or easy bruising Exam Const General: cooperative and comfortable Nutritional Appearance: average body habitus and well nourished [facility] Head: normal to inspection Ears: hearing grossly normal bilaterally Nose: external nose normal Face and sinus: normal facial exam Mouth: oral mucosae normal Throat: posterior oropharynx normal Eyes General: appearance normal, both eyes and all related structures Neck Neck: normal visual inspection Chest Chest palpation & inspection: normal inspection of the chest and normal palpation of entire chest wall Resp Effort & Inspection: normal respiratory effort Auscultation: Bilateral: Clear to Auscultation Cardio Palpation: normal PMI Rate: regular rate Rhythm: regular rhythm GI Inspection: normal to inspection Auscultation: normal bowel sounds Percussion: normal to percussion Palpation: no hepatosplenomegaly Skin General: no rashes or lesions noted Neuro General: patient alert Extrem General: normal to inspection Psych Affect: normal affect Quality Reporting Tobacco Screening (CMS 138) Smoking Status: Current every day smoker Assessment and Plan Assessment and Plan (1) Diarrhea: Status: Chronic Plan: The patient had is doing better After getting her gallbladder removed., She is taking medication well for underlying diseases such as hypertension and diabetes. Diarrhea occurred for years and she was diagnosed with IBS with diarrhea. Prior to her getting Diarrhea was watery, 4 to 5 times a day, even at night, and mild diffuse abdominal pain was accompanied without tenderness. She had no known allergies and had no history of ingestion of contaminated foods or raw meats. She did not take any new medications. The exact etiology of chronic diarrhea is quite broad as there are many different causes. ?Any process which causes increased water into the stool can produce diarrhea. These typically categorize into inflammatory and secretory diarrhea. We will perform a work-up to see if she has a secretory ,osmotic or inflammatory diarrhea. We will get stool studies to look for diseases such as exocrine pancreatic insufficiency by checking fecal, tryptase and fecal elastase. We will also look for inflammatory bowel disease with an IBD SGI. She does have significant diverticular disease which is a component to bacterial overgrowth. She is doing fairly well with cholestyramine every other day and Imodium along with Bentyl on a daily basis. Since she is only taking the cholestyramine every other day I will switch her to colestipol twice a day. She will give us a follow-up phone call with a progress update. (2) Encounter for screening colonoscopy: Status: Chronic I have examined the patient and the H&P has been reviewed. There are no clinical changes since date of exam.
[2023-01-23 09:24] VITALS: BP 108/64; BP 130/68; PULSE 75; RESP 18; TEMP 37.4; O2SAT 94
[2023-01-23 09:30] VITALS: BP 122/65; BP 130/68; PULSE 74; RESP 16; O2SAT 92
[2023-01-23 09:35] VITALS: BP 126/71; BP 130/68; PULSE 76; RESP 16; O2SAT 92
--- NOTE | 2023-01-23 09:36 | OP.COLON_ITS ---
Patient Name: Hailey Govea Procedure Date: 01/23/2023 8:20 AM Date of : 1945 Age: 77 Procedure: Colonoscopy Indications: High risk colon cancer surveillance: Personal history of colonic polyps Providers: Maverick Rust DO Medicines: Monitored Anesthesia Care Patient Profile: This is a 77 year old female. Refer to note in patient chart for documentation of history and physical. Last Colonoscopy: 5 years ago. Complications: No immediate complications. Procedure: Pre-Anesthesia Assessment: - Prior to the procedure, a History and Physical was performed, and patient medications and allergies were reviewed. The patient is competent. The risks and benefits of the procedure and the sedation options and risks were discussed with the patient. All questions were answered and informed consent was obtained. Patient identification and proposed procedure were verified by the physician in the pre-procedure area. Mental Status Examination: alert and oriented. Airway Examination: normal oropharyngeal airway and neck mobility. Respiratory Examination: clear to auscultation. CV Examination: normal. Prophylactic Antibiotics: The patient does not require prophylactic antibiotics. Prior Anticoagulants: The patient has taken no anticoagulant or antiplatelet agents. ASA Grade Assessment: II - A patient with mild systemic disease. After reviewing the risks and benefits, the patient was deemed in satisfactory condition to undergo the procedure. The anesthesia plan was to use monitored anesthesia care (MAC). Immediately prior to administration of medications, the patient was re-assessed for adequacy to receive sedatives. The heart rate, respiratory rate, oxygen saturations, blood pressure, adequacy of pulmonary ventilation, and response to care were monitored throughout the procedure. The physical status of the patient was re-assessed after the procedure. After I obtained informed consent, the scope was passed under direct vision. Throughout the procedure, the patient's blood pressure, pulse, and oxygen saturations were monitored continuously. The Colonoscope was introduced through the anus and advanced to the terminal ileum. The colonoscopy was performed without difficulty. The patient tolerated the procedure well. The quality of the bowel preparation was fair. The terminal ileum, ileocecal valve, appendiceal orifice, and rectum were photographed. Scope In: 8:37:28 AM Scope Withdrawal Time 0 hours 30 minutes 11 seconds Scope Out: 9:18:30 AM Total Procedure Duration Time 0 hours 41 minutes 2 seconds Findings: The perianal and digital rectal examinations were normal. Four sessile polyps were found in the hepatic flexure and ascending colon. The polyps were 1 to 2 mm in size. These polyps were removed with a cold snare. Resection and retrieval were complete. Verification of patient identification for the specimen was done. Estimated blood loss was minimal. Multiple small and large-mouthed diverticula were found in the recto-sigmoid colon, sigmoid colon and descending colon. Stool was found in the recto-sigmoid colon, in the sigmoid colon, in the descending colon, at the splenic flexure and in the transverse colon. There was a medium-sized lipoma, in the ascending colon. An ulcerated non-obstructing large mass was found in the transverse colon. The mass was non-circumferential. The mass measured three cm in length. Oozing was present. This was biopsied with a cold forceps for histology. Area was successfully injected with 5 mL of a 0.1 mg/mL solution of epinephrine for drug delivery. Coagulation for hemostasis using argon plasma at 0.5 liters/minute and 20 weaver was successful. Area was tattooed with an injection of 1 mL of Kati ink. Localized mild inflammation was found in the terminal ileum. Biopsies were taken with a cold forceps for histology. Verification of patient identification for the specimen was done. Estimated blood loss was minimal. Impression: - Preparation of the colon was fair. - Four 1 to 2 mm polyps at the hepatic flexure and in the ascending colon, removed with a cold snare. Resected and retrieved. - Diverticulosis in the recto-sigmoid colon, in the sigmoid colon and in the descending colon. - Stool in the recto-sigmoid colon, in the sigmoid colon, in the descending colon, at the splenic flexure and in the transverse colon. - Medium-sized lipoma in the ascending colon. - Rule out malignancy, tumor in the transverse colon. Biopsied. Injected. Treated with argon plasma coagulation (APC). Tattooed. - Mild inflammation was found in the ileum secondary to ileitis. Biopsied. Recommendation: - Discharge patient to home. - Resume previous diet. - Continue present medications. - Await pathology results. - Repeat colonoscopy for surveillance based on pathology results. Procedure Code(s): --- Professional --- 81148, 59, Colonoscopy, flexible; with control of bleeding, any method 00205, Colonoscopy, flexible; with removal of tumor(s), polyp(s), or other lesion(s) by snare technique 69612, 59, Colonoscopy, flexible; with biopsy, single or multiple 80406, 59, Colonoscopy, flexible; with directed submucosal injection(s), any substance CPT copyright 2021 [employer]. All rights reserved. The codes documented in this report are preliminary and upon him coder review may be revised to meet current compliance requirements. Maverick Rust DO 01/23/2023 9:36:29 AM This report has been signed electronically. Number of Addenda: 0 Note Initiated On: 01/23/2023 8:20 AM
--- NOTE | 2023-01-23 09:36 | OP.CCLET_ITS ---
01/23/2023 Geo Faith Md Re : Colonoscopy procedure for Hailey Govea Dear Vianney This procedure was performed on January. My impressions and recommendations are as follows: Impressions : - Preparation of the colon was fair. - Four 1 to 2 mm polyps at the hepatic flexure and in the ascending colon, removed with a cold snare. Resected and retrieved. - Diverticulosis in the recto-sigmoid colon, in the sigmoid colon and in the descending colon. - Stool in the recto-sigmoid colon, in the sigmoid colon, in the descending colon, at the splenic flexure and in the transverse colon. - Medium-sized lipoma in the ascending colon. - Rule out malignancy, tumor in the transverse colon. Biopsied. Injected. Treated with argon plasma coagulation (APC). Tattooed. - Mild inflammation was found in the ileum secondary to ileitis. Biopsied. Recommendations : - Discharge patient to home. - Resume previous diet. - Continue present medications. - Await pathology results. - Repeat colonoscopy for surveillance based on pathology results. My findings are described in the full procedure note, which is enclosed. If I can be of further assistance, please feel free to contact me at . Sincerely, Maverick Rust DO 01/23/2023 9:36:29 AM This report has been signed electronically.
[2023-01-23 09:39] VITALS: BP 121/84; BP 130/68; PULSE 77; RESP 16; TEMP 37.1; O2SAT 95
[2023-01-23 09:54] VITALS: BP 130/68
== END 2023-01-23 10:10 | disposition home or self-care (01) ==
LOC: EN 07:01 → AC 07:02
PROVIDERS: PCP Internal Medicine; Referring Provider Internal Medicine; Visit Provider Internal Medicine Gastroenterology
PROC: 0DJD8ZZ Inspection of Lower Intestinal Tract, Via Natural or Artificial Opening Endoscopic (ICD-10-PCS; CPT 45378; principal; 2023-01-23 08:10)
DX: Z12.11 Encounter for screening for malignant neoplasm of colon (principal); J44.9 Chronic obstructive pulmonary disease, unspecified; E11.9 Type 2 diabetes mellitus without complications; F17.200 Nicotine dependence, unspecified, uncomplicated; K57.30 Diverticulosis of large intestine without perforation or abscess without bleeding; Z86.010 Personal history of colon polyps; I10 Essential (primary) hypertension; D17.5 Benign lipomatous neoplasm of intra-abdominal organs; R19.00 Intra-abdominal and pelvic swelling, mass and lump, unspecified site; K52.9 Noninfective gastroenteritis and colitis, unspecified; K31.819 Angiodysplasia of stomach and duodenum without bleeding; D37.4 Neoplasm of uncertain behavior of colon; K63.3 Ulcer of intestine; Z79.84 Long term (current) use of oral hypoglycemic drugs; Z79.899 Other long term (current) drug therapy; Z79.890 Hormone replacement therapy; E03.9 Hypothyroidism, unspecified; Z90.49 Acquired absence of other specified parts of digestive tract; Z87.19 Personal history of other diseases of the digestive system; Z79.82 Long term (current) use of aspirin; K29.60 Other gastritis without bleeding
CPT/HCPCS: 45380; 45385; 45381; 82962; 88305; J7120; A4648; J2405

== ENCOUNTER → 2023-03-12 | Outpatient (CLI) | payer MEDICARE, OTHER, SELFPAY ==
--- NOTE | 2023-03-12 14:37 | RAD_ITS ---
STUDY: X-RAY CHEST REASON FOR EXAM: Female, 77 years old. Cough TECHNIQUE: PA and lateral views of the chest. COMPARISON: Comparison is made with prior study dated December 13, 2022. FINDINGS: Hyperinflation. Mild linear scarring at the lung bases. There is no demonstrated pleural abnormality. Normal size heart. Calcified bilateral hilar lymph nodes. Normal visualized pulmonary arteries. Normal visualized aortic arch and descending thoracic aorta. There are degenerative changes of the visualized thoracic spine. Normal visualized ribs, clavicles, and shoulders. There is no demonstrated abnormality of the visualized soft tissue structures of the upper abdomen. RAD/Chest PA and Lateral IMPRESSION: Hyperinflation. Findings suggestive of mild increased markings at the lung bases suggestive of scarring. Electronically Signed: Boris Carney MD at 15:32 EST ,
== END | disposition home or self-care (01) ==
PROVIDERS: PCP Internal Medicine; Referring Provider Physician Assistant; Visit Provider Physician Assistant
DX: R05.9 Cough, unspecified (principal)
CPT/HCPCS: 71046

== ENCOUNTER → 2023-04-23 | Outpatient (CLI) | payer MEDICARE, OTHER, SELFPAY ==
--- NOTE | 2023-04-23 15:50 | CT_ITS ---
EXAM: CT CHEST, LUNG CANCER SCREENING WITHOUT INTRAVENOUS CONTRAST CLINICAL INDICATION: HX NICOTINE DEPENDENCE TECHNIQUE: Helically acquired images were obtained of the chest without intravenous contrast using low dose (LDCT) lung cancer screening protocol. This CT exam was performed using one or more of the following dose reduction techniques: automated exposure control, adjustment of the mA and/or kV according to patient size, and/or use of iterative reconstruction technique. COMPARISON: 02/20/2021 FINDINGS: LUNGS AND PLEURAL SPACES: There is a calcified granuloma in the left lung apex. There is a 1.1 x 0.5 cm noncalcified nodule in the right upper lobe which is increased in size from the reference exam and measures 0.9 x 0.4 cm. There is a 3 mm noncalcified nodule in the right lower lobe which is stable from the reference. No pleural effusion or thickening. No pneumothorax. HEART: Unremarkable. Heart size is normal. No pericardial effusion. No significant coronary artery calcifications. MEDIASTINUM: Unremarkable. No mediastinal or hilar adenopathy. Esophagus is unremarkable. No hiatal hernia. THYROID: Unremarkable. No thyroid lesions. BONES/JOINTS: Unremarkable. No suspicious lytic or blastic abnormality. VASCULATURE: Unremarkable. Thoracic aorta is non-dilated. LYMPH NODES: Unremarkable. No enlarged lymph nodes. CT/Low Dose CT Lung Screening IMPRESSION: Bilateral calcified and noncalcified nodules. The largest nodule in the right upper lobe is minimally increased size from the reference exam. Lung-RADS score: 4A - Suspicious. Recommend low-dose CT (LDCT) in 3 months or PET/CT for solid components 8 mm or larger in size. Electronically Signed: Willie Cornell MD at 23:53 EST ,
--- OUTSIDE RECORDS SUMMARY | 2023-04-23 16:20 | XMS RPT_ITS | CCD ---
Author Name Unknown Address [address] [place] [address] Organization [facility] Care Team Providers Care Application Development Project Manager Name Role Phone Mihir Bess Unavailable Unavailable TAVO CRAFT, [facility] Primary Care Physician [phone] Mihir Bess MD Primary Care Provider Unavailable Primary Care Provider Unavailranda VO MD, [facility] Primary Care Physician [phone] Pcp, No Primary Care Provider Unavailranda e Unavailable Primary Care Provider UnavailJIMENEZ Crow Referring Unavailable LOLY WILLIAM Attending Unavaila ronn VO MD, JAYLENE Primary Care Unavailable TAVO CRAFT, JAYLENE Primary Care Unavailable OMAR FARAH MD Attending Unavailable REYNA RODRIGUEZ, JIMENEZ Attending Unavailable TAVO CRAFT, JAYLENE Primary Care Unavailable DELMER RAMOS DO Attending Unavailable TAVO CRAFT, JAYLENE Primary Care Unavailable DELMER RAMOS DO Attending Unavailable TAVO CRAFT, JAYLENE Primary Care Unavailable REYNA RODRIGUEZ, JIMENEZ Attending Unavailable TAVO CRAFT, JAYLENE Primary Care Unavailable REYNA RODRIGUEZ, JIMENEZ Attending Unavailable TAVO CRAFT, JAYLENE Primary Care Unavailable Allergies Allergy Classification Reported Allergen(s) Allergy Type Date of Onset Reaction(s) Facility (9 sources) Sulfonamides (Antibiotic); Translations: [sulfa drugs] Drug allergy [facility] (6 sources) Sulfonamides (Antibiotic); Translations: [SULFA (SULFONAMIDE ANTIBIOTICS)] Drug Allergy 5 Rash [facility] (1 source) Sulfonamides (Antibiotic) Propensity to adverse reactions to drug 2 [facility] Medications Current Medications Medication Drug Class(es) Dates Sig (Normalized) Sig (Original) Albuterol (16 sources) beta2-Adrenergic Agonist Start: 09-12-2017 take 1 puff(s) by inhalation four times daily as needed for wheezing Ventolin HFA MDI (90 mcg/inh) inhalation aerosol 1 puff(s), Inhalation, QID, PRN as needed for wheezing, 0 Refill(s) Start Date: 09/12/17 Status: Ordered Completed/Discontinued Medications Medication Drug Class(es) Dates Sig (Normalized) Sig (Original) acetaminophen 500 mg oral tablet (15 sources) Start: 11-15-2021 End: 11-15-2021 acetaminophen (TYLENOL) tablet 1,000 mg Problems Active Problems Problem Classification Problem Date Documented Da te Episodic/Chronic Abdominal pain (10 sources) Abdominal pain - cause unknown; Translations: [Right upper quadrant pain] Onset: 04-30-2022 09-10-2017 Episodic Chronic obstructive pulmonary disease and bronchiectasis (14 sources) Chronic obstructive lung disease; Translations: [Chronic obstructive pulmonary disease, unspecified] Onset: 10-31-2014 04-14-2018 Chronic Diabetes mellitus without complication (9 sources) Diabetes mellitus 04-14-2018 Chronic Disorders of lipid metabolism (14 sources) Hypercholesterolemi a; Translations: [Mixed hyperlipidemia] Onset: 10-31-2014 04-14-2018 Chronic Diverticulosis and diverticulitis (14 sources) Diverticula of intestine; Translations: [Diverticular disease] Onset: 10-31-2014 04-14-2018 Chronic Essential hypertension (14 sources) Hypertensive disorder; Translations: [Essential (primary) hypertension] Onset: 10-31-2014 04-14-2018 Chronic Other gastrointestinal disorders (9 sources) Irritable bowel syndrome with diarrhea 09-10-2017 Chronic Other nutritional; endocrine; and metabolic disorders (5 sources) Obesity; Translations: [Obesity, unspecified] Onset: 10-31-2014 10-31-2014 Chronic Residual codes; unclassified (9 sources) Sleep apnea 09-10-2017 Chronic Spondylosis; intervertebral disc disorders; other back problems (1 source) Low back pain; Translations: [Low back pain, unspecified] Onset: 04-22-2022 Episodic Thyroid disorders (14 sources) Goiter; Translations: [Multinodular goiter] Onset: 10-31-2014 09-23-2014 Chronic Unclassified (1 source) Unknown / UNK(Unknown) Onset: 10-29-2016 Past or Other Problems Problem Classification Problem Date Documented Da te Episodic/Chronic Unclassified (1 source) R10.30 Onset: 10-29-2016 Results Test Name Value Interpretation Reference Range Facil ity Vital Signs Date Time Vital Sign Value Performing Clinician Diana akbar 01-30-2023 15:37-0500 Diastolic Blood Pressure Non-Invasive 62 1 DELMER RICHARD DO [facility] 01-30-2023 15:37-0500 Heart rate 77 /min DELMER RICHARD DO [facility] 01-30-2023 15:37-0500 Respiratory rate 17 /min DELMER RICHARD DO [facility] 01-30-2023 15:37-0500 Systolic Blood Pressure Non-Invasive 137 1 DELMER RICHARD DO [facility] 01-30-2023 15:15-0500 Diastolic Blood Pressure Non-Invasive 69 1 DELMER RICHARD DO [facility] 01-30-2023 15:15-0500 Heart rate 76 /min DELMER RICHARD DO [facility] 01-30-2023 15:15-0500 Respiratory rate 19 /min DELMER RICHARD DO [facility] 01-30-2023 15:15-0500 Systolic Blood Pressure Non-Invasive 136 1 DELMER RICHARD DO [facility] 01-30-2023 15:01-0500 diastolic 61 mm[Hg] DELMER RICHARD DO [facility] 01-30-2023 15:01-0500 Respiratory rate 19 /min DELMER RICHARD DO [facility] 01-30-2023 14:55-0500 Heart rate 69 /min DELMER RICHARD DO [facility] 01-30-2023 14:55-0500 systolic 120 mm[Hg] DELMER RICHARD DO [facility] 01-30-2023 14:40-0500 Body temperature 97.7 [degF] DELMER RICHARD DO [facility] 01-30-2023 14:35-0500 Respiratory Rate - Anes 18 br/min DELMER RICHARD DO [facility] 01-30-2023 14:30-0500 Respiratory Rate - Anes 21 br/min DELMER RICHARD DO [facility] 01-30-2023 14:25-0500 Respiratory Rate - Anes 24 br/min DELMER RICHARD DO [facility] 01-30-2023 12:53-0500 Body weight 33.75 kg/m2 DELMER RICHARD DO [facility] 01-30-2023 12:40-0500 Body height 160 cm DELMER RICHARD DO [facility] 01-30-2023 12:40-0500 Body temperature 97.7 [degF] DELMER RICHARD DO [facility] 01-30-2023 12:40-0500 Body weight 86.4 kg DELMER RICHARD DO [facility] 01-30-2023 12:40-0500 Heart rate 70 /min DELMER RICHARD DO [facility] 01-27-2023 09:05-0500 Blood Pressure Location DELMER RICHARD DO [facility] 01-27-2023 09:05-0500 Blood Pressure Method DELMER [employer] [facility] 01-27-2023 09:05-0500 Body height 160 cm [facility] [place] [facility] 01-27-2023 09:05-0500 Body weight 33.75 kg/m2 DELMER [facility] 01-27-2023 09:05-0500 Body weight 86.4 kg [facility] 01-27-2023 09:05-0500 Diastolic Blood Pressure Non-Invasive 70 1 [facility] 01-27-2023 09:05-0500 Heart rate 74 /min [facility]MER [facility] 01-27-2023 09:05-0500 Respiratory rate 18 /min [facility] 01-27-2023 09:05-0500 Systolic Blood Pressure Non-Invasive 128 1 [facility] 04-22-2022 15:00-0500 Body height 157.5 cm OMAR FARAH MD [facility] 04-22-2022 15:00-0500 Body temperature 98.96 [degF] OMAR FARAH MD [facility] 04-22-2022 15:00-0500 Body weight 89.2 kg OMAR FARAH MD [facility] 04-22-2022 15:00-0500 Diastolic Blood Pressure Non-Invasive 69 1 OMAR FARAH MD [facility] 04-22-2022 15:00-0500 Heart rate 85 /min OMAR FARAH MD [facility] 04-22-2022 15:00-0500 Respiratory rate 20 /min OMAR FARAH MD [facility] 04-22-2022 15:00-0500 Systolic Blood Pressure Non-Invasive 132 1 OMAR FARAH MD [facility] 11-15-2021 10:25-0400 Body temperature 97 [degF] Delmer [email or web address] Phone: [facility] 11-15-2021 10:25-0400 Diastolic blood pressure 73 mm[Hg] Delmer [email or web address] Phone: [facility] 11-15-2021 10:25-0400 Heart rate 75 /min Delmer [email or web address] Phone: [facility] 11-15-2021 10:25-0400 Respiratory rate 17 /min Delmer [email or web address] Phone: [facility] 11-15-2021 10:25-0400 SaO2% (BldA) [Mass fraction] 96 % Delmer [email or web address] Phone: [facility] 11-15-2021 10:25-0400 Systolic blood pressure 127 mm[Hg] Delmer [email or web address] Phone: [facility] 11-15-2021 06:56-0400 Body height 157.5 cm Delmer [email or web address] Phone: [facility] 11-15-2021 06:56-0400 Body mass index (BMI) [Ratio] 36.76 kg/m2 Delmer [email or web address] Phone: [facility] 11-15-2021 06:56-0400 Body weight 91.17 kg Delmer [email or web address] Phone: Attender Encounters Encounter Date Encounter Type Care Provider Facility Start: 01-30-2023 End: 01-30-2023 ambulatory DELMER SMITHIGHYLOIS JOHNSON Facility:B Start: 01-30-2023 End: 01-30-2023 SAME DAY STAY [facility]MER [facility] Start: 01-27-2023 End: 01-28-2023 ambulatory DELMER SMITHIGHYOLIS JOHNSON Facility:B Start: 01-27-2023 End: 01-27-2023 Admission to establishment DELMER SMITHIGHAM [facility] Start: 12-02-2022 End: 12-03-2022 ambulatory LOLY TEACH WARP SPLITTER-CUSTOMER SUPPORT COORDINATOR Facility:B Start: 05-22-2022 End: 05-23-2022 ambulatory JIMENEZ REYNA CUSTOMER SUPPORT COORDINATOR Facility:B Start: 05-22-2022 End: 05-22-2022 Patient encounter procedure JIMENEZ VANGT CUSTOMER SUPPORT COORDINATOR [facility] Start: 04-30-2022 ambulatory JIMENEZ MONAHAN Facilit y:[id number] Start: 04-30-2022 End: 04-30-2022 Subsequent hospital visit by physician Pending Sale To [facility] Procedures Date Procedure Procedure Detail Performing Clinician Start: 04-30-2022 Us abdominal real ti me w/image limited Jimenez Monahan Work Phone: Start: 11-15-2021 OPERATIVE REPORT Physic deepa Generic Start: 11-15-2021 Gluc bld gluc mntr d ev cleared fda spec home use [facility] Work Phone: Start: 12-07-2020 Catheterization of l eft heart CHIARA PREBISH CUSTOMER SUPPORT COORDINATOR Plan of Treatment Date Care Activity Detail Author Start: 12-07-2026 LIPID SCREEN LIPID SCREEN [facility] Start: 03-24-2022 ADVANCE DIRECTIVE DISCUSSION ADVANCE DIRECTIVE DISCUSSION [facility] Start: 03-24-2022 DEPRESSION ASSESSMENT DEPRESSION ASSESSMENT [facility] Start: 11-22-2021 Influenza vaccination [facility] Start: 03-24-2021 ADVANCE DIRECTIVE DISCUSSION ADVANCE DIRECTIVE DISCUSSION [facility] Start: 12-06-2020 COVID-19 VACCINE (3 - Booster for Moderna series) COVID-19 VACCINE (3 - Booster for Moderna series) [facility] Start: 08-31-2020 COVID-19 VACCINE (3 - Booster for Moderna series) COVID-19 VACCINE (3 - Booster for Moderna series) [facility] Start: 10-30-2019 DIABETES SCREEN DIABETES SCREEN [facility] Start: 05-28-2011 BONE DENSITY BONE DENSITY [facility] Start: 2001 Screening for osteoporosis DEXA (modify frequency per FRAX score) [facility] Start: 1996 Shingles vaccine (1 of 2) Shingles vaccine (1 of 2) [facility] Start: 1996 SHINGRIX VACCINE (1 of 2) SHINGRIX VACCINE (1 of 2) [facility] Start: 05-28-1991 COLOGUARD (FIT-DNA) COLOGUARD (FIT-DNA) [facility] Start: 05-28-1991 Colonoscopy COLONOSCOPY [facility] Start: 05-28-1991 COLORECTAL CANCER SCREENING COLORECTAL CANCER SCREENING [facility] Start: 05-28-[address] COLONOGRAPHY [facility] Start: 05-28-1991 FECAL OCCULT BLOOD FECAL OCCULT BLOOD [facility] Start: 05-28-1991 LIPID SCREEN LIPID SCREEN [facility] Start: 05-28-1991 Screening for malignant neoplasm of colon [facility] Start: 05-28-1991 SIGMOIDOSCOPY SIGMOIDOSCOPY [facility] Start: 1976 Zoledronic acid therapy ALPHA-1 ANTITRYPSIN DEFICIENCY SCREENING [facility] Start: 1965 DTaP/Tdap/Td vaccine (1 - Tdap) DTaP/Tdap/Td vaccine (1 - Tdap) [facility] Start: 1965 Urine microalbumin profile DTAP,TDAP,TD (1 - Tdap) [facility] Start: 1964 ANNUAL PCP TEAM CHRONIC DISEASE VISIT ANNUAL PCP TEAM CHRONIC DISEASE VISIT [facility] Start: 1964 BP CONTROLLED (<130/80) BP CONTROLLED (<130/80) [facility] Start: 1964 HEPATITIS C SCREENING HEPATITIS C SCREENING [facility] Start: 1964 Hepatitis C screening Hepatitis C screen [facility] Start: 1964 SPIROMETRY SPIROMETRY [facility] Start: 1958 Adult depression screening assessment DEPRESSION SCREENING [facility] Start: 1958 Depression Screen Depression Screen [facility] Start: 1956 Lipid panel Lipids [facility] Start: 1952 Pneumococcal 65+ years Vaccine (1 - PCV) Pneumococcal 65+ years Vaccine (1 - PCV) [facility] Start: 1952 PNEUMOCOCCAL: 65+ (1 - PCV) PNEUMOCOCCAL: 65+ (1 - PCV) [facility] Start: 1946 COVID-19 Vaccine (#1) COVID-19 Vaccine (#1) [facility] Blood glucose - POCT Blood gluco se - POCT Point of Care Testing STAT As Needed until discontinued starting 11/15/2021 [facility] Work Phone: Immunizations Immunization Date Immunization Notes Care Provider Fa cili 11-30-2014 tetanus and diphther ia toxoids, adsorbed, preservative free, for adult use (2 Lf of tetanus toxoid and 2 Lf of diphtheria toxoid) [facility] Payers Date Payer Category Payer Private Health Insurance [facility] AARP SUPPLEMENT [id number] 2016-Present [phone] [address] [place] [address] Indemnity [id number] 2016 Private Health Insurance [facility] AARP SUPPLEMENT [id number] 2016-Present [phone] [address] [place] [address] Indemnity [id number] 2016 Unknown [id number] 2014 Medicare MEDICARE MEDICAR E B [id number] 2014-[place] [address] Medicare [id number] 2011 Medicare [id number] 2011 Medicare [id number] 1945 Unknown [id number] 1946 Unknown [id number] 1946 Unknown [id number] 1946 Unknown [id number] 1946 Unknown [id number] 1946 Unknown [id number] 1946 Unknown [id number] Medicare [id number] Social History Date Type Detail Facility Start: 12-04-2020 Light tobacco smoker (finding) [facility] Sex Assigned At Female [facility] Start: 10-31-2014 End: 11-15-2021 Tobacco smoking status IDIS Smokes tobacco daily [facility] History of tobacco use Cigarette Smoker [facility] Start: 10-31-2014 End: 11-15-2021 Cigarettes smoked current (pack per day) - Reported 0.5 [facility] Start: 11-01-2014 Alcohol intake Not Asked [facility] Start: 1945 Sex Assigned At Not on file [facility] Start: 11-15-2021 Tobacco use and exposure Smokeless tobacco non-user [facility] Work Phone: Start: 11-15-2021 Alcohol intake Ex-drinker (finding) [facility] Work Phone: Start: 11-15-2021 History SDOH Alcohol Comment rare [facility] Work Phone: Start: 11-05-2021 End: 11-15-2021 Exposure to SARS-CoV-2 (event) Not sure [facility] Work Phone: Functional Status Date Assessment Result Facility 01-30-2023 Functional Status bilateral knee high padma lied/on [facility] 01-30-2023 Functional Status Maintained [facility] 01-27-2023 Functional Status Sensory Deficits None A [facility] 04-22-2022 Functional Status Independent [facility] Mental Status Date Assessment Result Facility 01-30-2023 Mental Status Oriented x 4 [facility] 01-30-2023 Mental Status [facility] 04-22-2022 Mental Status Orientation Oriented x 4 [facility] Clinical Notes 10-01-2021 to 01-30-2023 Telephone Encounter - Jeanine Dunne LPN - 03/20/2022 4:32 PM Sophie Patricio RN - 11/15/2021 9:43 AM Pedro Patricio RN - 11/15/2021 9:43 AM Alejandra Grayson RN - 11/15/2021 7:30 AM EDT Note Date & Type Note Facility 01-30-2023 Hospital Discharg e instructions Patient Education 01/30/2023 14:59:44 Eustachian Tube Dysfunction Eustachian Tube Dysfunction Eustachian tube dysfunction refers to a condition in which a blockage develops in the narrow passage that connects the middle ear to the back of the nose (eustachian tube). The eustachian tube regulates air pressure in the middle ear by letting air move between the ear and nose. It also helps to drain fluid from the middle ear space. Eustachian tube dysfunction can affect one or both ears. When the eustachian tube does not function properly, air pressure, fluid, or both can build up in the middle ear. What are the causes? This condition occurs when the eustachian tube becomes blocked or cannot open normally. Common causes of this condition include: Ear infections. Colds and other infections that affect the nose, mouth, and throat (upper respiratory tract). Allergies. Irritation from cigarette smoke. Irritation from stomach acid coming up into the esophagus (gastroesophageal reflux). The esophagus is the tube that carries food from the mouth to the stomach. Sudden changes in air pressure, such as from descending in an airplane or scuba diving. Abnormal growths in the nose or throat, such as: ?Growths that line the nose (nasal polyps). ?Abnormal growth of cells (tumors). ?Enlarged tissue at the back of the throat (adenoids). What increases the risk? You are more likely to develop this condition if: You smoke. You are overweight. You are a child who has: ?Certain defects of the mouth, such as cleft palate. ?Large tonsils or adenoids. What are the signs or symptoms? Common symptoms of this condition include: A feeling of fullness in the ear. Ear pain. Clicking or popping noises in the ear. Ringing in the ear. Hearing loss. Loss of balance. Dizziness. Symptoms may get worse when the air pressure around you changes, such as when you travel to an area of high elevation, fly on an airplane, or go scuba diving. How is this diagnosed? This condition may be diagnosed based on: Your symptoms. A physical exam of your ears, nose, and throat. Tests, such as those that measure: ?The movement of your eardrum (tympanogram). ?Your hearing (audiometry). How is this treated? Treatment depends on the cause and severity of your condition. In mild cases, you may relieve your symptoms by moving air into your ears. This is called popping the ears. In more severe cases, or if you have symptoms of fluid in your ears, treatment may include: ?Medicines to relieve congestion (decongestants). ?Medicines that treat allergies (antihistamines). ?Nasal sprays or ear drops that contain medicines that reduce swelling (steroids). ?A procedure to drain the fluid in your eardrum (myringotomy). In this procedure, a small tube is placed in the eardrum to: ?Drain the fluid. ?Restore the air in the middle ear space. ?A procedure to insert a balloon device through the nose to inflate the opening of the eustachian tube (balloon dilation). Follow these instructions at home: Lifestyle Do not do any of the following until your health care provider approves: ?Travel to high altitudes. ?Fly in airplanes. ?Work in a pressurized cabin or room. ?Scuba dive. Do not use any products that contain nicotine or tobacco, such as cigarettes and e-cigarettes. If you need help quitting, ask your health care provider. Keep your ears dry. Wear fitted earplugs during showering and bathing. Dry your ears completely after. General instructions Take [id number] and prescription medicines only as told by your health care provider. Use techniques to help pop your ears as recommended by your health care provider. These may include: ?Chewing gum. ?Yawning. ?Frequent, forceful swallowing. ?Closing your mouth, holding your nose closed, and gently blowing as if you are trying to blow air out of your nose. Keep all follow-up visits as told by your health care provider. This is important. Contact a health care provider if: Your symptoms do not go away after treatment. Your symptoms come back after treatment. You are unable to pop your ears. You have: ?A fever. ?Pain in your ear. ?Pain in your head or neck. ?Fluid draining from your ear. Your hearing suddenly changes. You become very dizzy. You lose your balance. Summary Eustachian tube dysfunction refers to a condition in which a blockage develops in the eustachian tube. It can be caused by ear infections, allergies, inhaled irritants, or abnormal growths in the nose or throat. Symptoms include ear pain, hearing loss, or ringing in the ears. Mild cases are treated with maneuvers to unblock the ears, such as yawning or ear popping. Severe cases are treated with medicines. Surgery may also be done (rare). This information is not intended to replace advice given to you by your health care provider. Make sure you discuss any questions you have with your health care provider. Document Released: 04/05/2016 Document Revised: 06/30/2018 Document Reviewed: 06/30/2018 [employer] Patient Education 2020 [employer]. 01/30/2023 14:59:21 General Anesthesia, Adult, Care After General Anesthesia, Adult, Care After This sheet gives you information about how to care for yourself after your procedure. Your health care provider may also give you more specific instructions. If you have problems or questions, contact your health care provider. What can I expect after the procedure? After the procedure, the following side effects are common: Pain or discomfort at the IV site. Nausea. Vomiting. Sore throat. Trouble concentrating. Feeling cold or chills. Weak or tired. Sleepiness and fatigue. Soreness and body aches. These side effects can affect parts of the body that were not involved in surgery. Follow these instructions at home: For at least 24 hours after the procedure: Have a responsible adult stay with you. It is important to have someone help care for you until you are awake and alert. Rest as needed. Do not: ?Participate in activities in which you could fall or become injured. ?Drive. ?Use heavy machinery. ?Drink alcohol. ?Take sleeping pills or medicines that cause drowsiness. ?Make important decisions or sign legal documents. ?Take care of children on your own. Eating and drinking Follow any instructions from your health care provider about eating or drinking restrictions. When you feel hungry, start by eating small amounts of foods that are soft and easy to digest (bland), such as toast. Gradually return to your regular diet. Drink enough fluid to keep your urine pale yellow. If you vomit, rehydrate by drinking water, juice, or clear broth. General instructions If you have sleep apnea, surgery and certain medicines can increase your risk for breathing problems. Follow instructions from your health care provider about wearing your sleep device: ?Anytime you are sleeping, including during daytime naps. ?While taking prescription pain medicines, sleeping medicines, or medicines that make you drowsy. Return to your normal activities as told by your health care provider. Ask your health care provider what activities are safe for you. Take uxbj-rda-[id number] and prescription medicines only as told by your health care provider. If you smoke, do not smoke without supervision. Keep all follow-up visits as told by your health care provider. This is important. Contact a health care provider if: You have nausea or vomiting that does not get better with medicine. You cannot eat or drink without vomiting. You have pain that does not get better with medicine. You are unable to pass urine. You develop a skin rash. You have a fever. You have redness around your IV site that gets worse. Get help right away if: You have difficulty breathing. You have chest pain. You have blood in your urine or stool, or you vomit blood. Summary After the procedure, it is common to have a sore throat or nausea. It is also common to feel tired. Have a responsible adult stay with you for the first 24 hours after general anesthesia. It is important to have someone help care for you until you are awake and alert. When you feel hungry, start by eating small amounts of foods that are soft and easy to digest (bland), such as toast. Gradually return to your regular diet. Drink enough fluid to keep your urine pale yellow. Return to your normal activities as told by your health care provider. Ask your health care provider what activities are safe for you. This information is not intended to replace advice given to you by your health care provider. Make sure you discuss any questions you have with your health care provider. Document Released: 06/16/2001 Document Revised: 03/13/2018 Document Reviewed: 10/24/2017 [employer] Patient Education 2020 [employer]. 01/30/2023 13:55:07 9. AO Myringotomy & Insertion of Ventilating Ear Tubes (10/01/2017) (CUSTOM) Myringotomy & Insertion of Ventilating Ear Tubes HOME CARE INSTRUCTIONS 1. Ventilating tubes have been inserted in the ears. These have been inserted to ventilate the middle ear space. This is the natural situation the ears should be filled with air rather than fluid. 2. Because these tubes are a grade of plastic, they act as a foreign body and may be rejected, and thus fall out of the ears. If this occurs, fluid may reform. It may be necessary to have new tubes reinserted. 3. After the first post-operative visit, the tubes are usually checked every 3-6 months to be sure that they are in place. 4. A small amount of ear drainage may be noted and may possibly be blood-tinged. This is normal for a couple of days after surgery. If drainage becomes excessive, resemble pus or develops a foul odor, please notify the office. 5. Do not blow your nose violently, nor attempt to suppress a sneeze. 6. Do not hold the nose closed and attempt to blow air through the Eustachian tube into the ear. (i.e. do not try to pop the ears). 7. All soap and water should be kept out of the ear until the doctor says it is okay for water to enter the ear. NO SWIMMING! Cotton may be placed in the opening of the ear canal and then covered with Vaseline when taking a shower or washing your hair. Alternatively, you may have ear molds made, if you so desire. Please inquire about this if you are interested. FOR PATIENTS WHO HAVE HAD GENERAL ANESTHESIA: The medicine used to put you to sleep will be acting in your body for the next 24 hours, so you might feel a little sleepy. This feeling will slowly wear off. Because the medicine is still in your system, for the next 24 hours, the adult patient should not: - Drive a car, operate machinery or power tools - Drink any alcoholic drinks (not even beer) - Make any important decisions, ie: sign important papers. Children should rest at home, but may be up and about according to doctor's instructions. CALL THE OFFICE IF: 1. You have any problems, questions, or concerns regarding your care of comfort GET HELP RIGHT AWAY IF: Fluid does not stop draining after 3 days or starts again. IF YOU HAVE AN EMERGENCY, AND ARE UNABLE TO REACH THE DOCTOR, CALL OR GO TO THE EMERGENCY ROOM Document Released: 12/17/2008 Document Revised: 06/01/2012 Document Reviewed: 12/17/2008 [employer] Patient Information 2015 [facility]. This information is not intended to replace advice given to you by your health care provider. Make sure you discuss any questions you have with your health care provider. Follow Up Care 12/12/2022 14:29:45 With:DELMER RAMOS DO Address: [address] [place] [phone] When: Unknown Comments:CALL DR RAMOS WITH ANY QUESTIONS OR CONCERNS. GO TO THE EMERGENCY ROOM WITH ANY URGENT CONCERNS. YOUR FOLLOW UP APPOINTMENT IS 02-20-23 AT 1:30 IN THE AFTERNOON. CALL AND RESCHEDULE IF THIS APPOINTMENT DOESN'T WORK FOR YOU With:DELMER RAMOS DO Address: [address] [place] [phone] When:02/20/2023 13:30:00 [facility] 01-30-2023 Note Discharge Instructions Thank you for allowing [facility] to assist you with your healthcare needs. The following is important discharge information regarding your hospital visit. Your Care Team JAYLENE VO MD, DR. What to do next Follow Up Appointments Follow Up with DELMER RAMOS DO When 02/20/2023 01:30 PM EST Where: [address] [place] [phone] Follow Up with DELMER RAMOS DO When Why: CALL DR RAMOS WITH ANY QUESTIONS OR CONCERNS. GO TO THE EMERGENCY ROOM WITH ANY URGENT CONCERNS. YOUR FOLLOW UP APPOINTMENT IS 02-20-23 AT 1:30 IN THE AFTERNOON. CALL AND RESCHEDULE IF THIS APPOINTMENT DOESN'T WORK FOR YOU Where: [address] [place] [address]- [phone] Allergies sulfa drug Medications Please ask your primary doctor or pharmacist before taking any other medication not listed, including over the counter drugs, herbal medications, vitamins and or supplements as they may interact with your home medications. What How Much When Instructions Last Dose New ofloxacin otic (ofloxacin 0.3% otic solution) 4 Drops Both ears Two (2) times a day Duration: 7 Days Refills: 1 Pickup at [facility] #[id number] Unchanged acetaminophen (Tylenol) by mouth Every 4 hours as needed for as needed for pain Unchanged albuterol (Ventolin HFA MDI (90 mcg/ inh) inhalation aerosol) 1 puff(s) by inhalation Four (4) times a day as needed for as needed for wheezing Unchanged ascorbic acid (Vitamin C) 1 tab by mouth Once a day Unchanged ascorbic acid/ chondroitin/ glucosa/ carmen (Glucosamine Chondroitin) by mouth Two (2) times a day Unchanged aspirin (aspirin 81 mg oral capsule) 1 cap by mouth Once a day Unchanged azelastine nasal (azelastine 137 mcg/ inh (0.1%) nasal spray) 2 spray(s) Intranasal Two (2) times a day Unchanged budesonide nasal (budesonide 0.032 mg/ inh nasal spray) in the nose Two (2) times a day Unchanged buPROPion (buPROPion 100 mg/ 12 hours (SR) oral tablet, extended release) 1 tab(s) by mouth Two (2) times a day Unchanged cholecalciferol (D3) 150 Microgram by mouth Once a day Unchanged colestipol (colestipol 1 g oral tablet) 1 tab(s) by mouth Two (2) times a day Unchanged fenofibrate (fenofibrate 160 mg oral tablet) 1 tab(s) by mouth Once a day Unchanged fluticasone/ umeclidinium/ vilanterol (Trelegy Ellipta 100 mcg-62.5 mcg-25 mcg/ inh inhalation powder) 1 puff(s) by inhalation Once a day at the same time every day. Following administration, rinse mouth with water after use (do not swallow). Unchanged guaiFENesin (Mucinex 600 mg oral tablet, extended release) 1 tab(s) by mouth Every 12 hours Duration: 7 Days Unchanged herbal/ nutritional product (Cinnamon 1000 mg capsule) by mouth Two (2) times a day Unchanged hydrALAZINE (hydrALAZINE 50 mg oral tablet) 1 tab(s) by mouth Two (2) times a day Unchanged hyoscyamine (hyoscyamine 0.125 mg oral tablet) 1 tab(s) by mouth Four (4) times a day as needed for abdominal pain/diarrhea Unchanged levocetirizine by mouth Once a day (in the evening) Unchanged levothyroxine 175 Microgram by mouth Once a day Unchanged loperamide (Imodium A-D) 2 Milligram by mouth As needed for as needed for loose stool Unchanged losartan (losartan 100 mg oral tablet) 1 tab(s) by mouth Daily at bedtime Unchanged metFORMIN (MetFORMIN (Eqv-Glumetza) 500 mg oral tablet, EXTENDED RELEASE) 1 tab(s) by mouth Once a day (in the morning) Unchanged metoprolol (Metoprolol Succinate ER 50 mg oral TABLET extended release) 1 tab(s) by mouth Two (2) times a day Unchanged mirtazapine (mirtazapine 15 mg oral tablet) 1 tab(s) by mouth Daily at bedtime Unchanged montelukast (montelukast 10 mg oral tablet) 1 tab(s) by mouth Once a day (in the evening) Unchanged multivitamin (Vitamin B Complex oral capsule) by mouth Once a day Unchanged omega-3 polyunsaturated fatty acids (Fish Oil) 1,000 Milligram by mouth Once a day Unchanged omeprazole (omeprazole 20 mg oral delayed release capsule) 1 cap by mouth Once a day Unchanged pravastatin (pravastatin 40 mg oral tablet) 1 tab(s) by mouth Daily at bedtime Unchanged vitamin E 1 tab by mouth Every other day Pharmacy Information [id number]: [address], [place] [phone] What When Comments Stop Taking Misc Medication Stop Taking Misc Medication Please take this list to your next doctor s visit. Bring all medications you take, including over the counter medications, herbals and other supplements with you to your doctor s visit. Patients and families are reminded to discard old lists and to update any records with all medication providers or retail pharmacies. Medication Leaflets ofloxacin otic (oh [place]OCK[place] a [place] tic) What is the most important information I should know about ofloxacin otic? Follow all directions on your medicine label and package. Tell each of your healthcare providers about all your medical conditions, allergies, and all medicines you use. What is ofloxacin otic? Ofloxacin is an antibiotic that treats infections caused by bacteria. Ofloxacin otic (for the ear) is used to treat infections of the ear canal in adults and children who are at least 6 months old. Ofloxacin otic is used in adults and children at least 1 year old to treat an inner ear infection (also called otitis media). Ofloxacin otic may be used on a long-term basis to treat an infection that causes a hole in the ear drum (ruptured ear drum) in adults and children who are at least 12 years old. Ofloxacin may also be used for purposes not listed in this medication guide. What should I discuss with my healthcare provider before using ofloxacin otic? You should not use this medicine if you are allergic to ofloxacin or similar antibiotics, such as ciprofloxacin (Cipro), gatifloxacin (Tequin), levofloxacin (Levaquin), lomefloxacin (Maxaquin), moxifloxacin (Avelox), or norfloxacin (Noroxin). FDA category C. It is not known whether ofloxacin otic will harm an unborn baby. Tell your doctor if you are or plan to become while using this medicine. It is not known whether this medicine passes into breast milk or if it could harm a nursing baby. You should not breast-feed while using this medicine. Do not give this medicine to a child without medical advice. How should I use ofloxacin otic? Follow all directions on your prescription label. Do not use this medicine in larger or smaller amounts or for longer than recommended. Shake the medicine well just before each use. You may warm the medicine before use by holding the bottle in your hand for 1 or 2 minutes. Using cold ear drops can cause dizziness. To use the ear drops: Lie down or tilt your head with your ear facing upward. Open the ear canal by gently pulling your ear back, or pulling downward on the earlobe when giving this medicine to a child. Hold the dropper upside down over your ear and drop the correct number of drops into the ear. Stay lying down or with your head tilted for at least 5 minutes. You may use a small piece of cotton to plug the ear and keep the medicine from draining out. If the patient being treated has ear tubes, the doctor may recommend gently pressing the tragus (part of the ear in front of the opening of the ear canal) four to five times in a pumping motion after administration of the drops. This may allow the drops to pass through the tubes into the middle ear. Follow the doctor's instructions. Do not touch the dropper tip or place it directly in your ear. It may become contaminated. Wipe the tip with a clean tissue but do not wash with water or soap. Use this medicine for the full prescribed length of time. Your symptoms may improve before the infection is completely cleared. Skipping doses may also increase your risk of further infection that is resistant to antibiotics. Call your doctor if your symptoms do not improve after 7 days of treatment, or if you have new symptoms. Store at room temperature away from moisture, heat, and light. Throw away any unused medicine after your treatment is finished. What happens if I miss a dose? Use the missed dose as soon as you remember. Skip the missed dose if it is almost time for your next scheduled dose. Do not use extra medicine to make up the missed dose. What happens if I overdose? An overdose of this medicine is not expected to be dangerous. Seek emergency medical attention or call the Poison Help line at if anyone has accidentally swallowed the medication. What should I avoid while taking ofloxacin otic? This medicine is for use only in the ears. Avoid getting the medicine in your eyes, mouth, and nose, or on your lips. Rinse with water if this medicine gets in or on these areas. Do not use other ear medications unless your doctor tells you to. What are the possible side effects of ofloxacin otic? Get emergency medical help if you have any of these signs of an allergic reaction: hives, rash, itching; slow heart rate, weak pulse, fainting; difficult breathing, slow breathing (breathing may stop); swelling of your face, lips, tongue, or throat. Stop using this medicine and call your doctor at once if you have: the first sign of any skin rash, no matter how mild; or ear drainage, discharge, or worsening pain. Common side effects may include: headache; dizziness; or mild ear pain or itching after using the ear drops. This is not a complete list of side effects and others may occur. Call your doctor for medical advice about side effects. You may report side effects to FDA at 1-962-DVN-6927. What other drugs will affect ofloxacin otic? It is not likely that other drugs you take orally or inject will have an effect on ofloxacin used in the ears. But many drugs can interact with each other. Tell each of your healthcare providers about all medicines you use, including prescription and cboy-qgt-kppitbn medicines, vitamins, and herbal products. Where can I get more information? Your pharmacist can provide more information about ofloxacin otic. Remember, keep this and all other medicines out of the reach of children, never share your medicines with others, and use this medication only for the indication prescribed. Every effort has been made to ensure that the information provided by [employer]. [employer]') is accurate, up-to-date, and complete, but no guarantee is made to that effect. Drug information contained herein may be time sensitive. [employer] information has been compiled for use by healthcare practitioners and consumers in the [place] and therefore [employer] does not warrant that uses outside of the [place] are appropriate, unless specifically indicated otherwise. [employer] drug information does not endorse drugs, diagnose patients or recommend therapy. [employer] drug information is an informational resource designed to assist licensed healthcare practitioners in caring for their patients and/or to serve consumers viewing this service as a supplement to, and not a substitute for, the expertise, skill, knowledge and judgment of healthcare practitioners. The absence of a warning for a given drug or drug combination in no way should be construed to indicate that the drug or drug combination is safe, effective or appropriate for any given patient. [employer] does not assume any responsibility for any aspect of healthcare administered with the aid of information [facility] provides. The information contained herein is not intended to cover all possible uses, directions, precautions, warnings, drug interactions, allergic reactions, or adverse effects. If you have questions about the drugs you are taking, check with your doctor, nurse or pharmacist. Copyright 3020-4447 [facility] [employer]. Version: 4.01. Revision Date: 11/04/2022. Education Materials Eustachian Tube Dysfunction Eustachian tube dysfunction refers to a condition in which a blockage develops in the narrow passage that connects the middle ear to the back of the nose (eustachian tube). The eustachian tube regulates air pressure in the middle ear by letting air move between the ear and nose. It also helps to drain fluid from the middle ear space. Eustachian tube dysfunction can affect one or both ears. When the eustachian tube does not function properly, air pressure, fluid, or both can build up in the middle ear. What are the causes? This condition occurs when the eustachian tube becomes blocked or cannot open normally. Common causes of this condition include: Ear infections. Colds and other infections that affect the nose, mouth, and throat (upper respiratory tract). Allergies. Irritation from cigarette smoke. Irritation from stomach acid coming up into the esophagus (gastroesophageal reflux). The esophagus is the tube that carries food from the mouth to the stomach. Sudden changes in air pressure, such as from descending in an airplane or scuba diving. Abnormal growths in the nose or throat, such as: ? Growths that line the nose (nasal polyps). ? Abnormal growth of cells (tumors). ? Enlarged tissue at the back of the throat (adenoids). What increases the risk? You are more likely to develop this condition if: You smoke. You are overweight. You are a child who has: ? Certain defects of the mouth, such as cleft palate. ? Large tonsils or adenoids. What are the signs or symptoms? Common symptoms of this condition include: A feeling of fullness in the ear. Ear pain. Clicking or popping noises in the ear. Ringing in the ear. Hearing loss. Loss of balance. Dizziness. Symptoms may get worse when the air pressure around you changes, such as when you travel to an area of high elevation, fly on an airplane, or go scuba diving. How is this diagnosed? This condition may be diagnosed based on: Your symptoms. A physical exam of your ears, nose, and throat. Tests, such as those that measure: ? The movement of your eardrum (tympanogram). ? Your hearing (audiometry). How is this treated? Treatment depends on the cause and severity of your condition. In mild cases, you may relieve your symptoms by moving air into your ears. This is called popping the ears. In more severe cases, or if you have symptoms of fluid in your ears, treatment may include: ? Medicines to relieve congestion (decongestants). ? Medicines that treat allergies (antihistamines). ? Nasal sprays or ear drops that contain medicines that reduce swelling (steroids). ? A procedure to drain the fluid in your eardrum (myringotomy). In this procedure, a small tube is placed in the eardrum to: ? Drain the fluid. ? Restore the air in the middle ear space. ? A procedure to insert a balloon device through the nose to inflate the opening of the eustachian tube (balloon dilation). Follow these instructions at home: Lifestyle Do not do any of the following until your health care provider approves: ? Travel to high altitudes. ? Fly in airplanes. ? Work in a pressurized cabin or room. ? Scuba dive. Do not use any products that contain nicotine or tobacco, such as cigarettes and e-cigarettes. If you need help quitting, ask your health care provider. Keep your ears dry. Wear fitted earplugs during showering and bathing. Dry your ears completely after. General instructions Take kgbg-tso-remdbgc and prescription medicines only as told by your health care provider. Use techniques to help pop your ears as recommended by your health care provider. These may include: ? Chewing gum. ? Yawning. ? Frequent, forceful swallowing. ? Closing your mouth, holding your nose closed, and gently blowing as if you are trying to blow air out of your nose. Keep all follow-up visits as told by your health care provider. This is important. Contact a health care provider if: Your symptoms do not go away after treatment. Your symptoms come back after treatment. You are unable to pop your ears. You have: ? A fever. ? Pain in your ear. ? Pain in your head or neck. ? Fluid draining from your ear. Your hearing suddenly changes. You become very dizzy. You lose your balance. Summary Eustachian tube dysfunction refers to a condition in which a blockage develops in the eustachian tube. It can be caused by ear infections, allergies, inhaled irritants, or abnormal growths in the nose or throat. Symptoms include ear pain, hearing loss, or ringing in the ears. Mild cases are treated with maneuvers to unblock the ears, such as yawning or ear popping. Severe cases are treated with medicines. Surgery may also be done (rare). This information is not intended to replace advice given to you by your health care provider. Make sure you discuss any questions you have with your health care provider. Document Released: 04/05/2016 Document Revised: 06/30/2018 Document Reviewed: 06/30/2018 [employer] Patient Education 2020 [employer]. General Anesthesia, Adult, Care After This sheet gives you information about how to care for yourself after your procedure. Your health care provider may also give you more specific instructions. If you have problems or questions, contact your health care provider. What can I expect after the procedure? After the procedure, the following side effects are common: Pain or discomfort at the IV site. Nausea. Vomiting. Sore throat. Trouble concentrating. Feeling cold or chills. Weak or tired. Sleepiness and fatigue. Soreness and body aches. These side effects can affect parts of the body that were not involved in surgery. Follow these instructions at home: For at least 24 hours after the procedure: Have a responsible adult stay with you. It is important to have someone help care for you until you are awake and alert. Rest as needed. Do not: ? Participate in activities in which you could fall or become injured. ? Drive. ? Use heavy machinery. ? Drink alcohol. ? Take sleeping pills or medicines that cause drowsiness. ? Make important decisions or sign legal documents. ? Take care of children on your own. Eating and drinking Follow any instructions from your health care provider about eating or drinking restrictions. When you feel hungry, start by eating small amounts of foods that are soft and easy to digest (bland), such as toast. Gradually return to your regular diet. Drink enough fluid to keep your urine pale yellow. If you vomit, rehydrate by drinking water, juice, or clear broth. General instructions If you have sleep apnea, surgery and certain medicines can increase your risk for breathing problems. Follow instructions from your health care provider about wearing your sleep device: ? Anytime you are sleeping, including during daytime naps. ? While taking prescription pain medicines, sleeping medicines, or medicines that make you drowsy. Return to your normal activities as told by your health care provider. Ask your health care provider what activities are safe for you. Take ukrt-oek-ihlrywg and prescription medicines only as told by your health care provider. If you smoke, do not smoke without supervision. Keep all follow-up visits as told by your health care provider. This is important. Contact a health care provider if: You have nausea or vomiting that does not get better with medicine. You cannot eat or drink without vomiting. You have pain that does not get better with medicine. You are unable to pass urine. You develop a skin rash. You have a fever. You have redness around your IV site that gets worse. Get help right away if: You have difficulty breathing. You have chest pain. You have blood in your urine or stool, or you vomit blood. Summary After the procedure, it is common to have a sore throat or nausea. It is also common to feel tired. Have a responsible adult stay with you for the first 24 hours after general anesthesia. It is important to have someone help care for you until you are awake and alert. When you feel hungry, start by eating small amounts of foods that are soft and easy to digest (bland), such as toast. Gradually return to your regular diet. Drink enough fluid to keep your urine pale yellow. Return to your normal activities as told by your health care provider. Ask your health care provider what activities are safe for you. This information is not intended to replace advice given to you by your health care provider. Make sure you discuss any questions you have with your health care provider. Document Released: 06/16/2001 Document Revised: 03/13/2018 Document Reviewed: 10/24/2017 [employer] Patient Education 2020 [employer] Myringotomy & Insertion of Ventilating Ear Tubes HOME CARE INSTRUCTIONS 1. Ventilating tubes have been inserted in the ears. These have been inserted to ventilate the middle ear space. This is the natural situation the ears should be filled with air rather than fluid. 2. Because these tubes are a grade of plastic, they act as a foreign body and may be rejected, and thus fall out of the ears. If this occurs, fluid may reform. It may be necessary to have new tubes reinserted. 3. After the first post-operative visit, the tubes are usually checked every 3-6 months to be sure that they are in place. 4. A small amount of ear drainage may be noted and may possibly be blood-tinged. This is normal for a couple of days after surgery. If drainage becomes excessive, resemble pus or develops a foul odor, please notify the office. 5. Do not blow your nose violently, nor attempt to suppress a sneeze. 6. Do not hold the nose closed and attempt to blow air through the Eustachian tube into the ear. (i.e. do not try to pop the ears). 7. All soap and water should be kept out of the ear until the doctor says it is okay for water to enter the ear. NO SWIMMING! Cotton may be placed in the opening of the ear canal and then covered with Vaseline when taking a shower or washing your hair. Alternatively, you may have ear molds made, if you so desire. Please inquire about this if you are interested. FOR PATIENTS WHO HAVE HAD GENERAL ANESTHESIA: The medicine used to put you to sleep will be acting in your body for the next 24 hours, so you might feel a little sleepy. This feeling will slowly wear off. Because the medicine is still in your system, for the next 24 hours, the adult patient should not: - Drive a car, operate machinery or power tools - Drink any alcoholic drinks (not even beer) - Make any important decisions, ie: sign important papers. Children should rest at home, but may be up and about according to doctor's instructions. CALL THE OFFICE IF: 1. You have any problems, questions, or concerns regarding your care of comfort GET HELP RIGHT AWAY IF: Fluid does not stop draining after 3 days or starts again. IF YOU HAVE AN EMERGENCY, AND ARE UNABLE TO REACH THE DOCTOR, CALL OR GO TO THE EMERGENCY ROOM Document Released: 12/17/2008 Document Revised: 06/01/2012 Document Reviewed: 12/17/2008 [facility] Patient Information 2015 [email or web address] [facility]. This information is not intended to replace advice given to you by your health care provider. Make sure you discuss any questions you have with your health care provider. Additional Information VACCINATE! IT SAVES LIVES! Members of the community who have not yet received the COVID-19 vaccine and would like to receive it can visit one of [facility] vaccine clinics. There are many vaccine clinic locations within the [facility]. For locations and available times, please visit [email or web address] It is important to note that some COVID mobile vaccine clinics are held outdoors and may be canceled in rainy or stormy conditions. To learn more about pediatric vaccinations (ages 5-11), we invite you to visit the Le[employer] webpage. [email or web address] To learn more about the COVID-19 vaccine, we invite you to visit the CDC website for a list of frequently asked questions.https://www.cdc.gov/cor onavirus/2019-ncov/vaccines/faq.h tml [facility] Patient Portal Access Instructions: Stay connected with your healthcare team and access your personal medical information anytime with the [facility] Patient Portal. Please follow the directions below to create your [facility] account: 1.Access the email account you provided upon registration to the hospital/physician office.2.Look for an invitation email from [facility].3.Open the email and access the invitation link: Accept Invitation to [facility].4.Fill in the required manning to create your account. To access your account, visit [facility]. Click the blue button labeled Access Patient Portal and then log in with the username and password that you created in the steps above. You will be able to view your test results, lab results, a summary of your visits, upcoming appointments and more. There is also a convenient messaging option where you can send secure messages to your provider. In addition, you will have the ability to download any documents or summaries to your computer and/or send the information securely to a physician. Remember that your healthcare information is confidential, so carefully consider who you will allow to register on the [facility] Patient Portal for access to your information. You can also access the [facility] Patient Portal on the [facility] Anywhere padma. Simply click on Patient Portal and then log into your account. If you would like to receive a full copy of your medical records, please contact the [facility] Medical Records Department by calling [phone], Friday through Friday between 8 a.m. and 4:30 p.m. HOW TO SAFELY DISPOSE OF PRESCRIPTION MEDICATIONS Please use one of the following methods to safely dispose of your unused medications. 1.Use a drug disposal kit: the drug disposal pouch allows you to safely discard your old and unused drugs. Ask your nurse to give you one when you are discharged.2.Visit a local take-back location: Many local pharmacies and police departments have programs that collect old and unwanted prescription drugs. Call your local pharmacy or go to http://Snapkin/5A2Zz6x to find one close to you.3.Make use of household items: Use cat litter or old coffee grounds to dispose medications if other options are not available. Mix your drugs with these household products, seal them in an airtight container and throw it into the garbage. Call [facility]: [phone] to be sure your drugs can be disposed of in this way. Some medicines may require a different approach.4.Never flush your medications down the toilet. IF YOU HAVE BEEN PRESCRIBED AN OPIOID FOR PAIN If you have been prescribed an opioid (such as hydrocodone, oxycodone or morphine), it is critical to understand the possible side effects and risks of opioid pain medications. Even when taken as directed, opioids can have several side effects including: Tolerance, meaning you might need to take more of a medication for the same pain relief. Nausea, vomiting and/or constipation. Sleepiness, dizziness, dry mouth, confusion, depression or itching. Physical dependence, meaning you have withdrawal symptoms when a medication is stopped, can develop within a few days. KNOW YOUR RESPONSIBILITIES It is important to know exactly how much and how often to take the opioid pain medications you are prescribed. Never take opioids in higher amounts or more often than prescribed. Do not combine opioids with alcohol or other drugs that cause drowsiness, such as benzodiazepines, also known as benzos, including diazepam and alprazolam, muscle relaxants or sleep aids. Never sell or share prescription opioids. This is illegal. Store opioids in a secure place and out of reach of others (including children, family, friends and visitors). The last page of this document has been signed and retained as a CHART COPY. Signatures Patient Education Materials Eustachian Tube Dysfunction General Anesthesia, Adult, Care After 9. AO Myringotomy & Insertion of Ventilating Ear Tubes (10/01/2017) (CUSTOM) Medication Leaflets ofloxacin otic My discharge plan and instructions have been reviewed and explained to me and I,RAFAEL MAURICE understand my current condition and have read and understand these discharge instructions. I have received a written copy of the plan/instructions. If I have questions, I am aware that I should contact my doctor. Patient/Geriatric Personal Care Aide Signature: Date/Time: Relationship to Patient: ____ Witness Name/Signature: Date/Time: [facility] 01-30-2023 Anesthesiology Consult note Patient: RAFAEL MAURICE Age: 77 years Sex: Female : 1945 Associated Diagnoses: None Author: MEORN MELVINFLIGHT INSPECTOR Preoperative Information Time of last food or liquid consumption: 01/30/2023 00:00:00 Anesthesia history Patient's history: negative. Family's history: negative. Review of Systems Ear/Nose/Mouth/Throat: Negative. Respiratory: copd, smoker. Cardiovascular: htn. Gastrointestinal: mo. Genitourinary: Negative. Endocrine: dm. Musculoskeletal: arthritis. Integumentary: Negative. Neurologic: Negative. Health Status Allergies: Allergic Reactions (Selected) Severity Not Documented Sulfa drug- No reactions were documented., Allergies (1) ActiveReaction sulfa drugNone Documented Current medications: (Selected) Inpatient Medications Ordered LR 1000 mL: 20 mL/hr, Intravenous Motrin Childrens Suspension: 600 mg, Oral, q6hr, PRN: as needed for pain Zofran: 4 mg, 2 mL, IV Push, q6h, PRN: Nausea Prescriptions Prescribed ofloxacin 0.3% otic solution: 4 drop(s), Ear, both, BID, for 7 day(s), 5 mL, 1 Refill(s) Documented Medications Documented Cinnamon 1000 mg capsule: Oral, BID, 0 Refill(s) D3: 150 mcg, Oral, qDay, 0 Refill(s) Fish Oil: 1,000 mg, Oral, qDay Glucosamine Chondroitin: Oral, BID, 0 Refill(s) Imodium A-D: 2 mg, Oral, PRN: as needed for loose stool, 0 Refill(s) MetFORMIN (Eqv-Glumetza) 500 mg oral tablet, EXTENDED RELEASE: 500 mg, 1 tab(s), Oral, qAM, 0 Refill(s) Metoprolol Succinate ER 50 mg oral TABLET extended release: 50 mg, 1 tab(s), Oral, BID, 30 tab(s), 0 Refill(s) Mucinex 600 mg oral tablet, extended release: 600 mg, 1 tab(s), Oral, q12h, for 7 day(s), 14 tab(s), 0 Refill(s) Trelegy Ellipta 100 mcg-62.5 mcg-25 mcg/inh inhalation powder: 1 puff(s), Inhalation, qDay, at the same time every day. Following administration, rinse mouth with water after use (do not swallow)., 60 EA, 0 Refill(s) Tylenol: Oral, q4h, PRN: as needed for pain, 0 Refill(s) Ventolin HFA MDI (90 mcg/inh) inhalation aerosol: 1 puff(s), Inhalation, QID, PRN: as needed for wheezing, 0 Refill(s) Vitamin B Complex oral capsule: Oral, qDay, 0 Refill(s) Vitamin C: 1 tab, Oral, qDay aspirin 81 mg oral capsule: 81 mg, 1 cap(s), Oral, qDay, 0 Refill(s) azelastine 137 mcg/inh (0.1%) nasal spray: 2 spray(s), Intranasal, BID, 30 mL, 0 Refill(s) buPROPion 100 mg/12 hours (SR) oral tablet, extended release: 100 mg, 1 tab(s), Oral, BID budesonide 0.032 mg/inh nasal spray: Nasal, BID, 0 Refill(s) colestipol 1 g oral tablet: 1 gram(s), 1 tab(s), Oral, BID, 0 Refill(s) fenofibrate 160 mg oral tablet: 160 mg, 1 tab(s), Oral, qDay, 30 tab(s) hydrALAZINE 50 mg oral tablet: 50 mg, 1 tab(s), Oral, BID, 90 tab(s), 0 Refill(s) hyoscyamine 0.125 mg oral tablet: 0.125 mg, 1 tab(s), Oral, QID, PRN: abdominal pain/diarrhea, 0 Refill(s) levocetirizine: Oral, qPM, 0 Refill(s) levothyroxine: 175 mcg, Oral, qDay, 0 Refill(s) losartan 100 mg oral tablet: 100 mg, 1 tab(s), Oral, qHS mirtazapine 15 mg oral tablet: 15 mg, 1 tab(s), Oral, qHS, 0 Refill(s) montelukast 10 mg oral tablet: 10 mg, 1 tab(s), Oral, qPM, 30 tab(s) omeprazole 20 mg oral delayed release capsule: 20 mg, 1 cap(s), Oral, qDay, 30 cap(s), 0 Refill(s) pravastatin 40 mg oral tablet: 40 mg, 1 tab(s), Oral, qHS vitamin E: 1 tab, Oral, Every other day, Medications (3) Active Scheduled: (0) Continuous: (1) Lactated Ringers Infusion 1000 mL 1,000 mL, Intravenous, 20 mL/hr PRN: (2) ibuprofen 600 mg, Oral, q6hr ondansetron 2 mg/ 1 mL 2 mL INJ 4 mg 2 mL, IV Push, q6h Problem list: Medical Lower abdominal pain of unknown etiology / SNOMED CT 156057243 / Confirmed COPD / SNOMED CT 86651117 / Confirmed Diabetes / SNOMED CT 160513312 / Confirmed Diverticulosis / SNOMED CT 835903778 / Confirmed Goiter / SNOMED CT 2504294 / Confirmed Hypercholesterolemia / SNOMED CT 40822589 / Confirmed Hypertension / SNOMED CT [id number] / Confirmed Irritable bowel syndrome with diarrhea / SNOMED CT 880595827 / Confirmed Sleep apnea / SNOMED CT 552432490 / Confirmed, Active Problems (10) COPD Diabetes Diverticulosis Goiter Hypercholesterolemia Hypertension Irritable bowel syndrome with diarrhea Lower abdominal pain of unknown etiology Sleep apnea Tobacco use Histories Past Medical History: Active COPD (61989626) Hypertension ([id number]) Goiter (4733235) Family History: Cancer Mother Breast cancer Sister High blood pressure Daughter Hypercholesterolemia Daughter HTN - Hypertension Mother Coronary artery disease Sister High cholesterol Mother Procedure history: Cardiac catheterisation, left heart ([id number]) on 12/07/2020 at 75 Years. Comments: 01/05/2021 9:27 Jeimy Orozco MA (ABR-OE) The study demonstrates moderate CAD, predominantly involving the LAD. Colonoscopy ([id number]) on 09/12/2017 at 72 Years. Tonsillectomy (167209763). Abdominal hysterectomy (698921531). Arthroplasty of the knee (580702501). Appendectomy (173109549). History of thyroidectomy (6730819016). Ovarian cystectomy (6009274276). Social History Social & Psychosocial Habits Alcohol 01/30/2023 Type: Liquor Frequency: 1-2 times per month 01/30/2023Risk Assessment: Low Risk Substance Abuse 01/30/2023Risk Assessment: Denies Substance Abuse 01/30/2023 Use: Never Tobacco 01/30/2023Risk Assessment: High Risk 01/30/2023 Tobacco Use: 5-9 cigarettes (between 1 Type: Cigarettes Home/Environment 01/30/2023 Domestic Concerns None Marital Status of Patient if Patient Independent Adult: Unmarried Nutrition/Health 01/30/2023 Type of diet: Diabetic, Regular Eating Difficulties None . Physical Examination Vital Signs 01/30/2023 14:00 EST Heart Rate Monitored 72 bpm bpm Respiratory Rate - Anes 14 br/min br/min Systolic Blood Pressure Non-Invasive 97 mmHg mmHg Diastolic Blood Pressure Non-Invasive 70 mmHg mmHg 01/30/2023 13:55 EST Heart Rate Monitored 77 bpm bpm Respiratory Rate - Anes 0 br/min br/min Systolic Blood Pressure Non-Invasive 144 mmHg mmHg Diastolic Blood Pressure Non-Invasive 73 mmHg mmHg 01/30/2023 12:40 EST Temperature Temporal Artery 36.5 DegC Apical Heart Rate 70 bpm Respiratory Rate 15 br/min Systolic Blood Pressure Non-Invasive 139 mmHg Diastolic Blood Pressure Non-Invasive 71 mmHg Vital Signs(last 24 hrs) Last Charted Heart Rate [id number] bpm (JAN 30 14:00) Resp Rate 15 br/min (JAN 30 12:40) SBP97 mmHg (JAN 30:00) DBP70 mmHg (JAN 30:) BMI33.75 (JAN 30 12:53) Measurements from flowsheet : Measurements 01/30/2023 12:53 EST Body Mass Index 33.75 kg/m2 01/30/2023 12:40 EST Height 160 cm Admission Weight 86.4 kg [place] Body Weight 52.38 kg Admission Body Mass Index 33.75 m2 Pain assessment: Pain Assessment 01/30/2023 12:40 EST Primary Pain Intensity 0 Pain Scale Type 0-10 Pain scale . General: Alert and oriented. Airway: Normal temporomandibular joint mobility. Mallampati classification: III (soft palate, base of uvula visible). Head: Normocephalic. Dentition Evaluation: Own teeth. Neck: Supple. Respiratory: Lungs are clear to auscultation, moist cough, diminished. Cardiovascular: Normal rate. Heart Sounds: Normal. Gastrointestinal: Soft. Musculoskeletal Normal range of motion. Integumentary: Intact. Neurologic: Alert, Oriented. Review / Management Results review: No qualifying data available , Lab results 01/30/2023 14:08 EST SN - [place] - Medication AFRIN NASAL SPRAY 0.5% SN - [place] - Medication ofloxacin ophthalmic 0.3% Solution SN - [place] - Route of Administration Nasal SN - WA - Route of Administration Topical SN - WA - By (Single) SN - WA - By (Single) SN - WA - By (Single) SN - WA - By (Single) SN - WA - Time Administered 01/30/2023 14:06 SN - WA - Time Administered 01/30/2023 14:07 01/30/2023 14:05 EST SN - PP - Body Position Supine Standard Intra-op 01/30/2023 14:04 EST SN - CTm - Surgery Start 01/30/2023 14:04 01/30/2023 14:00 EST Heart Rate Monitored 72 bpm bpm Respiratory Rate - Anes 14 br/min br/min Systolic Blood Pressure Non-Invasive 97 mmHg mmHg Diastolic Blood Pressure Non-Invasive 70 mmHg mmHg Oxygen Saturation 90 % % 01/30/2023 13:55 EST Heart Rate Monitored 77 bpm bpm Respiratory Rate - Anes 0 br/min br/min Systolic Blood Pressure Non-Invasive 144 mmHg mmHg Diastolic Blood Pressure Non-Invasive 73 mmHg mmHg Oxygen Saturation 85 % % 01/30/2023 13:50 EST SN - Proc - Anesthesia Type General SN - Proc - Actual Procedure BILATERAL MYRINGOTOMY WITH TYMPANOPLASTY TUBE INSERTION, NASOPHARYNGOSCOPY WITH DILATION OF EUSTACHIAN TUBE 01/30/2023 13:49 EST SN - Assess - LOC Alert, Awake SN - Assess - Orientation Oriented X 3 SN - Assess - Post-op Skin Integrity Intact/Dry 01/30/2023 13:47 EST SN - CAt - Case Attendee SN - CAt - Case Attendee SN - CAt - Case Attendee SN - CAt - Case Attendee SN - CAt - Case Attendee SN - CAt - Case Attendee SN - CAt - Case Attendee SN - CAt - Case Attendee SN - CAt - Case Attendee SN - CAt - Case Attendee SN - CAt - Case Attendee SN - CAt - Case Attendee SN - CAt - Case Attendee SN - CAt - Case Attendee SN - CAt - Role Performed Primary Surgeon SN - CAt - Role Performed FLIGHT INSPECTOR SN - CAt - Role Performed Rn Compliance 1 SN - CAt - Role Performed Scrub 1 SN - CAt - Role Performed Ortho Nurse 1 SN - CAt - Role Performed Packaging Designer SN - CAt - Role Performed Rn Compliance 2 01/30/2023 13:25 EST [facility] MAIN OR Preop & Phase II Record [facility] MAIN OR Preop & Phase II Record 01/30/2023 12:56 EST SN - Preop - CTm Pt Ready for OR/Proced 01/30/2023 12:56 01/30/2023 12:53 EST Designated Person #1 We May Share PHI Mark Major [phone] Designated Person #1 Relationship Daughter Designated Person #2 We May Share LYNN Currie [phone] Designated Person #2 Relationship Daughter Privacy Restrictions Requested None Body Mass Index 33.75 kg/m2 Status N/A Sensory Deficits None Diagnosed With Sleep Apnea Yes Advanced Directives Yes Advance Directive Type [place] Durable Power of Advertising Sales Consultant for [place], [place] Declaration (Living Will) Advance Directive Location Patient instructed to bring in copy Infectious Disease Symptoms Patient states no symptoms Infectious Disease Recent Exposure No Alcohol and Drug Use No Employee of Institutional Living No Health Care Employee No History of Exposure to TB No History of Positive Chest X-Ray for TB No History of Positive TB Skin Test No Homeless No Known Immunosuppression No Recent Immigrant No Resident of Institutional Living No Bloody Sputum No Fatigue No Fever No Loss of Appetite No Night Sweats No Persistent Cough > 3 Weeks No Weight Loss No Pre-Op Patient Education NPO after midnight, No smoking after midnight, No makeup, No jewelry, Aware of surgery location, Pre-op education done, Instructed to take ordered medications SN - Preprocedure Comments Spoke with patient, Verbalizes/Nonverbally indicates understanding, Other: METOPROLOL, HYDRALAZINE, LEVOTHYROXINE, OMEPRAZOLE, TRELEGY INH. Preop Patient Information Needed Medical clearance Anesthesia Evaluation Date/Time 01/27/2023 9:30 Anesthesia Evaluation Performed By MERON MELVIN APRN-CANDICE Barriers to Learning None evident Teaching Method Explanation, Printed materials Preferred Spoken Language Welsh Preferred Written Language Welsh Teaching Evaluation No further teaching needed Safety Brochure Information Reviewed Unable to complete [facility] Video Viewed No Information Given by Patient Patient's Current Physicians Patient's Current Physicians Discharge To, Anticipated Home with family care Prev Test Positive/Diagnosis w/COVID-19 Yes Previous COVID-19 Positive Date 2020 Current Quarantine/Isolated any Illness No Any Contact with Sick Animals/Birds No Traveled Anywhere in Last 30 Days No Lost Weight Unintentionally Recently No Eat Poorly Due to Decreased Appetite No Total MST Score 0 N/A Personal Devices, Patient Valuables Glasses Anesthesia/Transfusions Prior anesthesia Admission Note-Nursing Same Day Patient History 01/30/2023 12:52 EST Lactated Ringers Injection Begin Bag 1,000 mL mL 01/30/2023 12:51 EST Continuous IV Infusions LR Hand Left 01/30/2023 20 gauge Peripheral IV Activity: Insert new site Peripheral IV Dressing Condition: Clean, Dry, Intact Peripheral IV Dressing Activity: Applied, Transparent dressing Peripheral IV Line Status/Patency: Continuous infusion Peripheral IV Line Care: Secured with tape Peripheral IV Site Condition: No complications Peripheral IV Equipment: Extension set Peripheral IV Number of Attempts: 1 01/30/2023 12:42 EST SN - Preop - CTm Pt in SDS Room 01/30/2023 12:16 01/30/2023 12:40 EST Height 160 cm Admission Weight 86.4 kg [place] Body Weight 52.38 kg Admission Body Mass Index 33.75 m2 Temperature Temporal Artery 36.5 DegC Apical Heart Rate 70 bpm Respiratory Rate 15 br/min Systolic Blood Pressure Non-Invasive 139 mmHg Diastolic Blood Pressure Non-Invasive 71 mmHg Primary Pain Intensity 0 Pain Scale Type 0-10 Pain scale Heart Sounds ICU S1S2 Heart Rhythm Regular Respirations Unlabored Breath Sounds Auscultated Anterior and posterior All Lobes Breath Sounds Clear, Diminished Oxygen Therapy Room air Oxygen Saturation 94 % Abdomen Description Non-distended Bowel Sounds All Quadrants Present Urinary Elimination Voiding, no difficulties Skin Symptoms Ulcers/Lesions Skin Temperature Warm Skin Description Coco, Dry Skin Integrity Intact Mucous Membrane Color Coco Skin Moisture General Dry Extremity Movement Unequal Characteristics of Speech Clear Level of Consciousness Alert Strength All Extremities Strong Tone All Extremities Normal Affect/Behavior Appropriate, Calm, Cooperative Orientation Oriented x 4 Patient Identified Identification band, Verbal Arrival Mode Ambulatory Margarita Motor (2) Moves 4 extremities voluntarily or on command Margarita Respirations (2) Spontaneous respiration without support, RR > 10 Margarita Blood Pressure (2) BP 20% above or below preanesthetic level Margarita Pulse (2) Pulse 20% above or below preanesthetic level Margarita Oxygen Saturation (2) 94% or more Margarita Level of Consciousness (2) Fully awake Margarita III Score 12 Orientation Assessment Oriented x 4 Activity Status ADL Awake Sequential Compression Device bilateral knee high applied/on Standard Safety ID band on, Allergy Band on, Call device within reach, Bed in low position, Non-Slip footwear 01/30/2023 12:21 EST Allergies Yes Anesthesia Extension Set Applied Yes Silvering Department Supervisor On Yes Consent Form Signed Yes Patient Dressed In Hospital gown Pre-op Preparation Preop linens changed History & Physical Update On Chart Yes History & Physical On Chart Yes Obstructive Sleep Apnea Assess Completed Yes Belongings At Bedside Pants, Purse, Shirt, Shoes, Socks, Undergarments Personal Home Medications Received Received from patient Belongings Sent Home None Belongings to Security/Secured in Dept None NPO Status Maintained Allergy Band on and Verified Yes Blood Band on and Verified No Patient ID Band on and Verified Yes Implants Verified Yes Pacemaker/AICD Verified Yes Site Verified by Patient/Family Yes Anesthesia Consent Signed Yes Blood Consent Signed Yes Last Fluid Intake 01/28/2023 22:30 Last Food Intake 01/29/2023 18:30 Cardiac Clearance For Surgery By JAYLENE VO MD . Assessment and Plan [place] [employer] Anesthesiologists (ASA) physical status classification: Class III. Anesthetic Preoperative Plan Premedication: intravenous. Anesthetic technique: General. Induction: intravenously. Maintenance airway: Laryngeal mask airway. Postoperative pain management: Per surgeon. Risks discussed: nausea, vomiting, sore throat. Informed consent: signed by patient. Digitally Signed by MERON MELVIN on 01/30/2023 02:11 PM [facility] 04-22-2022 Hospital Discharg e instructions Patient Education 04/22/2022 17:38:38 Back Exercises, Lumbar Exercises to Strengthen Your Lower Back Strong lower back and abdominal muscles work together to support your spine. The exercises below will help strengthen the lower back. It is important that you begin exercising slowly and increase levels gradually. Always begin any exercise program with stretching. If you feel pain while doing any of these exercises, stop and talk to your doctor about a more specific exercise program that better suits your condition. Low back stretch The point of stretching is to make you more flexible and increase your range of motion. Stretch only as much as you are able. Stretch slowly. Do not push your stretch to the limit. If at any point you feel pain while stretching, this is your (temporary) limit. Lie on your back with your knees bent and both feet on the ground. Slowly raise your left knee to your chest as you flatten your lower back against the floor. Hold for 5 seconds. Relax and repeat the exercise with your right knee. Do 10 of these exercises for each leg. Repeat hugging both knees to your chest at the same time. Building lower back strength Start your exercise routine with 10 to 30 minutes a day, 1 to 3 times a day. Initial exercises Lying on your back: 1. Ankle pumps: Move your foot up and down, towards your head, and then away. Repeat 10 times with each foot. 2. Heel slides: Slowly bend your knee, drawing the heel of your foot towards you. Then slide your heel/foot from you, straightening your knee. Do not lift your foot off the floor (this is not a leg lift). 3. Abdominal contraction: Bend your knees and put your hands on your stomach. Tighten your stomach muscles. Hold for 5 seconds, then relax. Repeat 10 times. 4. Straight leg raise: Bend one leg at the knee and keep the other leg straight. Tighten your stomach muscles. Slowly lift your straight leg 6 to 12 inches off the floor and hold for up to 5 seconds. Repeat 10 times on each side. Standin. Wall squats: Stand with your back against the wall. Move your feet about 12 inches away from the wall. Tighten your stomach muscles, and slowly bend your knees until they are at about a 45 degree angle. Do not go down too far. Hold about 5 seconds. Then slowly return to your starting position. Repeat 10 times. 2. Heel raises: Stand facing the wall. Slowly raise the heels of your feet up and down, while keeping your toes on the floor. If you have trouble balancing, you can touch the wall with your hands. Repeat 10 times. More advanced exercises When you feel comfortable enough, try these exercises. 1. Kneeling lumbar extension: Begin on your hands and knees. At the same time, raise and straighten your right arm and left leg until they are parallel to the ground. Hold for 2 seconds and come back slowly to a starting position. Repeat with left arm and right leg, alternating 10 times. 2. Prone lumbar extension: Lie face down, arms extended overhead, palms on the floor. At the same time, raise your right arm and left leg as high as comfortably possible. Hold for 10 seconds and slowly return to start. Repeat with left arm and right leg, alternating 10 times. Gradually build up to 20 times. (Advanced: Repeat this exercise raising both arms and both legs a few inches off the floor at the same time. Hold for 5 seconds and release.) 3. Pelvic tilt: Lie on the floor on your back with your knees bent at 90 degrees. Your feet should be flat on the floor. Inhale, exhale, then slowly contract your abdominal muscles bringing your navel toward your spine. Let your pelvis rock back until your lower back is flat on the floor. Hold for 10 seconds while breathing smoothly. 4. Abdominal crunch: Perform a pelvic tilt (above) flattening your lower back against the floor. Holding the tension in your abdominal muscles, take another breath and raise your shoulder blades off the ground (this is not a full sit-up). Keep your head in line with your body (don t bend your neck forward). Hold for 2 seconds, then slowly lower. 9735-2175 [employer]. [address] [place] [address]. All rights reserved. This information is not intended as a substitute for professional medical care. Always follow your healthcare professional's instructions. Follow Up Care 04/22/2022 14:25:40 With:JAYLENE VO MD, Internal Medicine Address: [address] [place] [id number] When:2-4 days [facility] 04-22-2022 Note ORIGINAL EXAMINATION: THREE XRAY VIEWS OF THE LUMBAR SPINE 04/22/2022 5:07 pm COMPARISON: None. HISTORY: ORDERING SYSTEM PROVIDED HISTORY: Reason for Exam: Lower back pain 2 weeks FINDINGS: There are 5 pfe-hak-[id number] lumbar type vertebral bodies. The 12th ribs are diminutive. Degenerative 7 mm, grade 1 anterolisthesis of L4 on L5 with moderate disc space narrowing. The vertebral body heights are maintained. Multilevel degenerative discs are worse in the lower lumbar spine. There is also multilevel facet arthropathy. Degenerative changes within both SI joints. The visible sacrum is intact. IMPRESSION: Multilevel degenerative changes are most severe in the lower lumbar spine as detailed above. No acute compression deformity. I have personally reviewed the images of this examination and agree with the resident's findings and interpretations. Interpreted by: Clinton Blue MD Preliminary Report By: Rani Mccarthy Electronically signed By Clinton Blue MD Dictated Date: 04/22/2022 5:19:55 PM Prelim Date: 04/22/2022 5:21:55 PM Sign Date: 04/22/2022 6:55:43 PM Ordering Provider: MELITA COYLE [facility] 04-22-2022 Note Discharge Instructions Thank you for allowing [facility] to assist you with your healthcare needs. The following is important discharge information regarding your hospital visit. Diagnosis from Today's Visit Pain in right lumbar region of back Back pain What to Do Next Instructions from Your Care Team Take your naproxen 2 hours after taking baby aspirin. Follow up with your primary care doctor for your pain. No qualifying data available. Post Acute Orders No qualifying data available. You Need to Schedule the Following Appointments Follow Up with JAYLNEE VO MD, Internal Medicine When Within 2-4 days Where: [facility] [address] [place] [address] Allergies sulfa drug Medications Please ask your primary doctor or pharmacist before taking any other medication not listed, including over the counter drugs, herbal medications, vitamins and or supplements as they may interact with your home medications. What How Much When Instructions Last Dose New naproxen (naproxen 500 mg (as sodium) oral tablet, extended release) 1 tab(s) by mouth Two (2) times a day as needed for as needed for pain Duration: 5 Days Take 2 hours after taking baby aspirin. Printed Prescription Unchanged acetaminophen (Tylenol) by mouth Every 4 hours as needed for as needed for pain Unchanged albuterol (Ventolin HFA MDI (90 mcg/ inh) inhalation aerosol) 1 puff(s) by inhalation Four (4) times a day as needed for as needed for wheezing Unchanged ascorbic acid (Vitamin C) 1 tab by mouth Once a day Unchanged ascorbic acid/ chondroitin/ glucosa/ carmen (Glucosamine Chondroitin) by mouth Two (2) times a day Unchanged aspirin (aspirin 81 mg oral capsule) 1 cap by mouth Once a day Unchanged azelastine nasal (azelastine 137 mcg/ inh (0.1%) nasal spray) 2 spray(s) Intranasal Two (2) times a day Unchanged budesonide nasal (budesonide 0.032 mg/ inh nasal spray) in the nose Two (2) times a day Unchanged buPROPion (buPROPion 100 mg/ 12 hours (SR) oral tablet, extended release) 1 tab(s) by mouth Two (2) times a day Unchanged cholecalciferol (D3) 150 Microgram by mouth Once a day Unchanged cimetidine 150 Milligram by mouth Once a day Unchanged fenofibrate (fenofibrate 160 mg oral tablet) 1 tab(s) by mouth Once a day Unchanged fluticasone-vilanterol (Breo Ellipta 100 mcg-25 mcg/ inh inhalation powder) 1 puff(s) by inhalation Every day Unchanged glucosamine 1,200 Milligram by mouth Two (2) times a day Unchanged herbal/ nutritional product (Cinnamon 1000 mg capsule) by mouth Two (2) times a day Unchanged hyoscyamine (hyoscyamine 0.125 mg oral tablet) 1 tab(s) by mouth Four (4) times a day as needed for abdominal pain/diarrhea Unchanged levocetirizine by mouth Once a day (in the evening) Unchanged levothyroxine 175 Microgram by mouth Once a day Unchanged loperamide (Imodium A-D) 2 Milligram by mouth As needed for as needed for loose stool Unchanged losartan (losartan 100 mg oral tablet) 1 tab(s) by mouth Daily at bedtime Unchanged metFORMIN (MetFORMIN (Eqv-Glumetza) 500 mg oral tablet, EXTENDED RELEASE) 1 tab(s) by mouth Once a day (in the morning) Unchanged metoprolol (Toprol-XL 50 mg oral tablet, extended release) 1 tab(s) by mouth Once a day Unchanged Misc Medication Unchanged Misc Medication Unchanged montelukast (montelukast 10 mg oral tablet) 1 tab(s) by mouth Once a day (in the evening) Unchanged multivitamin (Vitamin B Complex oral capsule) by mouth Once a day Unchanged omega-3 polyunsaturated fatty acids (Fish Oil) 1,000 Milligram by mouth Once a day Unchanged pravastatin (pravastatin 40 mg oral tablet) 1 tab(s) by mouth Daily at bedtime Unchanged vitamin E 1 tab by mouth Every other day Please take this list to your next doctor s visit. Bring all medications you take, including over the counter medications, herbals and other supplements with you to your doctor s visit. Patients and families are reminded to discard old lists and to update any records with all medication providers or retail pharmacies. Education Materials Exercises to Strengthen Your Lower Back Strong lower back and abdominal muscles work together to support your spine. The exercises below will help strengthen the lower back. It is important that you begin exercising slowly and increase levels gradually. Always begin any exercise program with stretching. If you feel pain while doing any of these exercises, stop and talk to your doctor about a more specific exercise program that better suits your condition. Low back stretch The point of stretching is to make you more flexible and increase your range of motion. Stretch only as much as you are able. Stretch slowly. Do not push your stretch to the limit. If at any point you feel pain while stretching, this is your (temporary) limit. Lie on your back with your knees bent and both feet on the ground. Slowly raise your left knee to your chest as you flatten your lower back against the floor. Hold for 5 seconds. Relax and repeat the exercise with your right knee. Do 10 of these exercises for each leg. Repeat hugging both knees to your chest at the same time. Building lower back strength Start your exercise routine with 10 to 30 minutes a day, 1 to 3 times a day. Initial exercises Lying on your back: 1. Ankle pumps: Move your foot up and down, towards your head, and then away. Repeat 10 times with each foot. 2. Heel slides: Slowly bend your knee, drawing the heel of your foot towards you. Then slide your heel/foot from you, straightening your knee. Do not lift your foot off the floor (this is not a leg lift). 3. Abdominal contraction: Bend your knees and put your hands on your stomach. Tighten your stomach muscles. Hold for 5 seconds, then relax. Repeat 10 times. 4. Straight leg raise: Bend one leg at the knee and keep the other leg straight. Tighten your stomach muscles. Slowly lift your straight leg 6 to 12 inches off the floor and hold for up to 5 seconds. Repeat 10 times on each side. Standin. Wall squats: Stand with your back against the wall. Move your feet about 12 inches away from the wall. Tighten your stomach muscles, and slowly bend your knees until they are at about a 45 degree angle. Do not go down too far. Hold about 5 seconds. Then slowly return to your starting position. Repeat 10 times. 2. Heel raises: Stand facing the wall. Slowly raise the heels of your feet up and down, while keeping your toes on the floor. If you have trouble balancing, you can touch the wall with your hands. Repeat 10 times. More advanced exercises When you feel comfortable enough, try these exercises. 1. Kneeling lumbar extension: Begin on your hands and knees. At the same time, raise and straighten your right arm and left leg until they are parallel to the ground. Hold for 2 seconds and come back slowly to a starting position. Repeat with left arm and right leg, alternating 10 times. 2. Prone lumbar extension: Lie face down, arms extended overhead, palms on the floor. At the same time, raise your right arm and left leg as high as comfortably possible. Hold for 10 seconds and slowly return to start. Repeat with left arm and right leg, alternating 10 times. Gradually build up to 20 times. (Advanced: Repeat this exercise raising both arms and both legs a few inches off the floor at the same time. Hold for 5 seconds and release.) 3. Pelvic tilt: Lie on the floor on your back with your knees bent at 90 degrees. Your feet should be flat on the floor. Inhale, exhale, then slowly contract your abdominal muscles bringing your navel toward your spine. Let your pelvis rock back until your lower back is flat on the floor. Hold for 10 seconds while breathing smoothly. 4. Abdominal crunch: Perform a pelvic tilt (above) flattening your lower back against the floor. Holding the tension in your abdominal muscles, take another breath and raise your shoulder blades off the ground (this is not a full sit-up). Keep your head in line with your body (don t bend your neck forward). Hold for 2 seconds, then slowly lower. 7686-0276 [employer]. [address] [place] [address]. All rights reserved. This information is not intended as a substitute for professional medical care. Always follow your healthcare professional's instructions. Additional Information VACCINATE! IT SAVES LIVES! Members of the community who have not yet received the COVID-19 vaccine and would like to receive it can visit one of [facility] vaccine clinics. There are many vaccine clinic locations within the [facility]. For locations and available times, please visit [email or web address]. It is important to note that some COVID mobile vaccine clinics are held outdoors and may be canceled in rainy or stormy conditions. To learn more about pediatric vaccinations (ages 5-11), we invite you to visit the [facility] webpage. [email or web address] To learn more about the COVID-19 vaccine, we invite you to visit the [facility] website for a list of frequently asked questions. [email or web address] [facility] Patient Portal Access Instructions: Stay connected with your healthcare team and access your personal medical information anytime with the [facility] [employer] Patient Portal. If you would like a full copy of your medical records please contact the [facility] Medical Records Department Friday through Friday between 8a.m. and 4:30p.m. Please follow the directions below to access the portal: 1.Access the email account you provided upon registration to the [facility].2.Look for an invitation email from [facility].3.Open the email and access the invitation link: Accept Invitation to [facility]4.Fill in the required manning to create your account. Sign into [email or web address] with your username and password that you created in the above steps to stay up to date. You can then view a summary of results, a summary of your visits, and the ability to download your summaries to your computer or send the information securely to a physician. Remember that your healthcare information is confidential, so carefully consider who you will allow to register on the [facility] [employer] Patient Portal for access to your information. You can also access the [facility] [employer] Patient Portal on the [employer] padma. Simply click on Health Records under Health Data and then click on the [employer] logo. HOW TO SAFELY DISPOSE OF PRESCRIPTION MEDICATIONS Please use one of the following methods to safely dispose of your unused medications. 1.Use a drug disposal kit: the drug disposal pouch allows you to safely discard your old and unused drugs. Ask your nurse to give you one when you are discharged.2.Visit a local take-back location: Many local pharmacies and police departments have programs that collect old and unwanted prescription drugs. Call your local pharmacy or go to http://bit.ly/3K0Hr0b to find one close to you.3.Make use of household items: Use cat litter or old coffee grounds to dispose medications if other options are not available. Mix your drugs with these household products, seal them in an airtight container and throw it into the garbage. Call [facility]: [phone] to be sure your drugs can be disposed of in this way. Some medicines may require a different approach.4.Never flush your medications down the toilet. IF YOU HAVE BEEN PRESCRIBED AN OPIOIDS FOR PAIN If you have been prescribed an opioid (such as hydrocodone, oxycodone or morphine), it is critical to understand the possible side effects and risks of opioid pain medications. Even when taken as directed, opioids can have several side effects including: Tolerance, meaning you might need to take more of a medication for the same pain relief. Nausea, vomiting and/or constipation. Sleepiness, dizziness, dry mouth, confusion, depression or itching. Physical dependence, meaning you have withdrawal symptoms when a medication is stopped ? this can develop within a few days. KNOW YOUR RESPONSIBILITIES It is important to know exactly how much and how often to take the opioid pain medications you are prescribed. Never take opioids in higher amounts or more often than prescribed. Do not combine opioids with alcohol or other drugs that cause drowsiness, such as benzodiazepines, also known as benzos, including diazepam and alprazolam, muscle relaxants or sleep aids. Never sell or share prescription opioids. This is illegal. Store opioids in a secure place and out of reach of others (including children, family, friends and visitors). The last page(s) of this document has been signed and retained as a CHART COPY Signatures Patient Education Materials Back Exercises, Lumbar Medication Leaflets My discharge plan and instructions have been reviewed and explained to me and IJOSAFAT DEBORAH R understand my current condition and have read and understand these discharge instructions. I have received a written copy of the plan/instructions. If I have questions, I am aware that I should contact my doctor. Patient/Geriatric Personal Care Aide Signature: Date/Time: Relationship to Patient: ____ Witness Name/Signature: Date/Time: [facility] 04-22-2022 Note ORIGINAL EXAMINATION: THREE XRAY VIEWS OF THE LUMBAR SPINE 04/22/2022 5:07 pm COMPARISON: None. HISTORY: ORDERING SYSTEM PROVIDED HISTORY: Reason for Exam: Lower back pain 2 weeks FINDINGS: There are 5 tnm-erz-rfbkzwv lumbar type vertebral bodies. The 12th ribs are diminutive. Degenerative 7 mm, grade 1 anterolisthesis of L4 on L5 with moderate disc space narrowing. The vertebral body heights are maintained. Multilevel degenerative discs are worse in the lower lumbar spine. There is also multilevel facet arthropathy. Degenerative changes within both SI joints. The visible sacrum is intact. IMPRESSION: Multilevel degenerative changes are most severe in the lower lumbar spine as detailed above. No acute compression deformity. I have personally reviewed the images of this examination and agree with the resident's findings and interpretations. Interpreted by: Clinton Blue MD Preliminary Report By: Rani Mccarthy Electronically signed By Clinton Blue MD Dictated Date: 04/22/2022 5:19:55 PM Prelim Date: 04/22/2022 5:21:55 PM Sign Date: 04/22/2022 6:55:43 PM Ordering Provider: MELITA COYLE [facility] 03-20-2022 Miscellaneous Notes Script was filled in September for 1 year Jeanine Dunne LPN March 20, 2022 4:33 PM documented in this encounter [facility] 02-04-2022 Note ORIGINAL EXAMINATION: TWO XRAY VIEWS OF THE CHEST02/04/2022 1:12 pm COMPARISON: 12/04/2020 HISTORY: ORDERING SYSTEM PROVIDED HISTORY: Reason for Exam: dyspnea FINDINGS: The heart size is normal.The aorta is tortuous. There is no pulmonary consolidation. No pneumothorax or pleural effusion. No aggressive osseous lesions identified.Degenerative changes seen in the spine. IMPRESSION: No acute radiographic findings. Interpreted by: Brant Juarez MD Preliminary Report By: Brant Juarez MD Electronically signed By Brant Juarez MD Dictated Date: 02/04/2022 3:29:03 PM Prelim Date: 02/04/2022 3:30:02 PM Sign Date: 02/04/2022 3:30:02 PM Ordering Provider: [facility] 02-04-2022 Note ORIGINAL EXAMINATION: TWO XRAY VIEWS OF THE CHEST02/04/2022 1:12 pm COMPARISON: 12/04/2020 HISTORY: ORDERING SYSTEM PROVIDED HISTORY: Reason for Exam: dyspnea FINDINGS: The heart size is normal.The aorta is tortuous. There is no pulmonary consolidation. No pneumothorax or pleural effusion. No aggressive osseous lesions identified.Degenerative changes seen in the spine. IMPRESSION: No acute radiographic findings. 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 Pt responds to name. No c/o pain. IV infusing without diff-site without redness or edema. Belongings with pt. Cotton pieces in ear-no drainage noted. Dr. Hunter made aware of current blood sugar and that pt finished taking steroids on 11/10/21. No new orders received at this time. documented in this encounter [facility] Work Phone: 11-15-2021 Hospital Discharg e instructions Delmer Ramos DO - 11/15/2021 8:57 AM EDT Post-Op Care for your Ear Tubes Dr. Delmer Ramos 1. Ear tubes help protect from ear infections, middle-ear fluid (liquid behind the eardrum), and the hearing problems that go along with them. Most tubes last about 6 to 18 months, allowing time for patient to outgrow their ear problems. Most tubes fall out by themselves. The chance of a tube falling in, instead of out, is very rare. Tubes that do not come out after 2 or more years may need to be removed by your doctor. 2. Complications of ear tubes are usually minor. A white delmer or patch may develop on the eardrum which is called sclerosis. It does not affect hearing or future chance of ear infections. A small depression or pocket in the eardrum at the tube site may develop after the tube falls out. Again, this does not affect hearing and rarely requires treatment. About 1-2 out of 100 people may develop a small hole (perforation) of the eardrum after the tube falls out. The hole will often close on its own over time. But if it does not, it can be patched in the operating room. It is important to have regular return office appointments to assess the ear tubes and to assure healing of the eardrum. 3. Ear Tubes and Water Protection Some patients with ear tubes wear ear plugs when swimming. The ear plugs keep water out of the ear canal and out of the ear tube. However, water does not usually go through the tube during swimming. As a result, ear plugs are not necessary. Although most patients with tubes do note need ear plugs, they may be necessary in the following situations: A. Pain or discomfort when water enters the ear canal. B. Discharge or drainage is observed coming out of the ear canal. C. Frequent or prolonged episodes of ear discharge. There are times when use of ear plugs are advised. This includes: A. Swimming more that 6 feet under water. Ear plugs should also be worn if there is impact while swimming, such as jumping or diving into a pool. B. Swimming in lakes or non-chlorinated pools C. Dunking head in the bathtub (soapy water has a lower surface tension than plain water). A variety of soft, fitted ear plugs are available , if needed, as are special neoprene headbands to cover the ears. Never use Playdoh or Silly Putty as an earplug, because it can become trapped in the ear canal and require surgical removal. Once the tube becomes blocked or comes out, ear plugs are not needed if there is no hole in the eardrum. 4. Ear Tube Follow-Up and Aftercare Routine follow-up with your doctor every three (3) months is important to make sure that the tubes are in place and to check for any possible problems. All patients need to follow-up no matter how well they are doing. Patients often feel well even when there is a problem with the tube. Once the tubes fall out, you should return for a final re-check so your doctor can check the ears and be sure that fluid has not built up again. If you have any further questions or concerns please contact our office at: [phone] IF YOU HAVE AN EMERGENCY, AND ARE UNABLE TO REACH THE DOCTOR AT THE ABOVE NUMBER, CALL OR GO TO [facility] EMERGENCY ROOM [phone] documented in this encounter [facility] Work Phone: 10-01-2021 Miscellaneous Notes Rx mail pharmacy faxed requesting the following refill. Pending Prescriptions Disp Refills BUPROPION HCL 100 MG TABLET 90 tablet 3 Sig: Take 1 tablet by mouth twice daily. NAM: No FENOFIBRATE 160 MG TABLET 90 tablet 3 Sig: Take 1 tablet by mouth once daily. NAM: No Patient last appointment: 09/28/2021 Patient Phone numbers: [phone] (home) Request is for script(s) to be escript to pharmacy. Chiara Bailey LPN documented in this encounter [facility] Evaluation + Plan note No data available for this section [facility] Evaluation + Plan note Future Appointments Appointment Date:04/25/2022 02:00:00 PM Scheduled Provider: Location:[facility] Appointment Type:US Renal Future Scheduled TestsUS Renal 04/25/22 [facility] Evaluation + Plan note Future Appointments [facility] Hospital Discharge instructions No data available for this section [facility] Progress note No data available for this section [facility] Summary Purpose Family History No Family History Records FoundNo Family History Records FoundNo Family History Records Found No data available for this section No data available for this section No Family History Records Found Advance Directives No Advanced Directives Records FoundLatest Code Status on File Code Status Date Activated Date Inactivated Comments Full Code 11/15/2021 6:37 AM Additional Source Comments INFORMATION SOURCE (unrecogn ized section and content) DATE CREATED AUTHOR AUTHOR'S ORGANIZ ATION 11/20/2021 [facility] DATE CREATED AUTHOR AUTHOR'S ORGANIZ ATION 05/01/2022 [facility] DATE CREATED AUTHOR AUTHOR'S ORGANIZ ATION 03/13/2023 [facility] ([place]) Source Comments (unrecognize d section and content) In the event this informatio n is protected by the Federal Confidentiality of Alcohol and Drug Abuse Patient Records regulations: The Federal rules restrict any use of the information to criminally investigate or prosecute any alcohol or drug abuse patient.[facility] the event this information is protected by the Federal Confidentiality of Alcohol and Drug Abuse Patient Records regulations: The Federal rules restrict any use of the information to criminally investigate or prosecute any alcohol or drug abuse patient.[facility] the event this information is protected by the Federal Confidentiality of Alcohol and Drug Abuse Patient Records regulations: The Federal rules restrict any use of the information to criminally investigate or prosecute any alcohol or drug abuse patient.[facility] the event this information is protected by the Federal Confidentiality of Alcohol and Drug Abuse Patient Records regulations: The Federal rules restrict any use of the information to criminally investigate or prosecute any alcohol or drug abuse patient.[facility] Reason for Visit (unrecogniz ed section and content) Reason Onset Date Comments Refill Request 10/01/2021 Care Teams (unrecognized sec tion and content) Application Development Project Manager Relationship Specialty Start Date End Date Mihir Bess MD PCP - General Family Practice 08/09/14 [employer] Project Manager Relationship Specialty Start Date End Date Pcp, No PCP - General 10/06/21 04/23/22 Ordered Prescriptions (unrec ognized section and content) Scheduled Active and Recently Administ ered Medications (unrecognized section and content) Continuous Medication Order 11/13/2021 11/14/2021 11/15/2021 lactated ringers infusion IntraVENous, at 50 mL/hr, CONTINUOUS, Starting on Tenisha 11/15/21 at 1015, PACU only 1015 (Due) lactated ringers infusion IntraVENous, at 50 mL/hr, CONTINUOUS, Starting on Tenisha 11/15/21 at 0700, Upon admission to sameday - please start iv if patient does not have iv access. Use 500ml NS for patients on dialysis., Pre-op (day of surgery) 0721 (New Bag - Prov ider: Analilia Grayson RN) PRN Medication Order 11/13/2021 11/14/2021 11/15/2021 0.9 % sodium chloride bolus 500 mL (5.48 mL/kg), IntraVENous, at 1,000 mL/hr, Administer over 0.5 Hours, PRN, Anti-nausea, Starting on Tenisha 11/15/21 at 0945, PACU only 0.9 % sodium chloride infusion IntraVENous, at 5-250 mL/hr, PRN, if patient receiving piggyback infusions and maintenance fluids are not ordered OR KVO fluids to protect IV site / prevent frequent line interruptions/ long duration, Starting on Tenisha 11/15/21 at 0637, For piggyback infusion, administer at same rate as piggyback for a total of 25 mL. Enter 25 mL into dose field and piggyback rate into rate field of order. If piggyback is infusing at a rate less than 100 mL/hr, enter 25 mL into dose field and 100 mL/hr into rate field of order. For KVO fluids, enter rate of 20 mL/hr or less into rate field of order., Pre-op (day of surgery) diphenhydrAMINE (BENADRYL) injection 12.5 mg 12.5 mg, IntraVENous, ONCE PRN, 1 dose, Starting on Tenisha 11/15/21 at 0945, Until Tenisha 11/15/21 at 2359, Itching, PACU only hydrALAZINE (APRESOLINE) injection 5 mg(Linked Group 1) 5 mg, IntraVENous, EVERY 10 MIN PRN, 2 doses, Starting on Tenisha 11/15/21 at 0945, Until Discontinued, High Blood Pressure, for SBP greater than 160 mmHg for 2 consecutive measurements taken from different sites, PRN for SBP > 160 for 2 consecutive measurements, and if one of the following conditions is met: 1) If IV labetolol is ineffective. 2) If HR is under 60. 3) If patient has heart block, COPD or asthma. If both labetalol and hydralazine ineffective, notify anesthesiologist. for use Sameday and, PACU only HYDROmorphone (DILAUDID) injection 0.25 mg HYDROmorphone (DILAUDID) 1.5mg IV is equivalent to morphine 10mg IV, 0.25 mg, IntraVENous, EVERY 5 MIN PRN, 4 doses, Starting on Tenisha 11/15/21 at 0945, Until Discontinued, Pain Moderate (4-6), Phase I and Phase II- Initial therapy for moderate pain (4-6). Restricted to a 90 minute time frame starting when the patient can verbally state their pain score. If oral meds are utilized, do not return to initial therapy medications. SDS and, PACU only HYDROmorphone (DILAUDID) injection 0.5 mg HYDROmorphone (DILAUDID) 1.5mg IV is equivalent to morphine 10mg IV, 0.5 mg, IntraVENous, EVERY 5 MIN PRN, 4 doses, Starting on Tenisha 11/15/21 at 0945, Until Discontinued, Pain Severe (7-10), Phase I or Phase II- Initial therapy for severe pain (7-10). Restricted to a 90 minute time frame starting when the patient can verbally state their pain score. If oral meds are utilized, do not return to initial therapy medications. SDS and, PACU only labetalol (NORMODYNE;TRANDATE) injection 5 mg(Linked Group 1) 5 mg, IntraVENous, EVERY 10 MIN PRN, 2 doses, Starting on Tenisha 11/15/21 at 0945, Until Discontinued, High Blood Pressure, for SBP greater than 160 mmHg for 2 consecutive measurements taken from different sites., PRN for SBP >160 for 2 consecutive measurements, if HR is 60 or greater. If beta marin is contraindicated (HR less than 60, heart block, COPD or asthma) use hydralazine IV order. for use Sameday and, PACU only lidocaine PF 1 % injection 1 mL 1 mL, IntraDERmal, ONCE PRN, 1 dose, Starting on Tenisha 11/15/21 at 0637, Until Tenisha 11/15/21 at 2359, IV start, Pre-op (day of surgery) meperidine (DEMEROL) injection 12.5 mg 12.5 mg, IntraVENous, EVERY 5 MIN PRN, 4 doses, Starting on Tenisha 11/15/21 at 0945, Until Discontinued, Shivering, , May give every 5 minutes to max of 50mg., PACU only ondansetron (ZOFRAN) injection 4 mg 4 mg, IntraVENous, ONCE PRN, 1 dose, Starting on Tenisha 11/15/21 at 0945, Until Tenisha 11/15/21 at 2359, Nausea, Initial antiemetic therapy., PACU only oxyCODONE (ROXICODONE) immediate release tablet 10 mg(Linked Group 2) 10 mg, Oral, PRN, 1 dose, Starting on Tenisha 11/15/21 at 0945, Until Tenisha 11/15/21 at 2359, Pain Severe (7-10), PHASE II, PACU only oxyCODONE (ROXICODONE) immediate release tablet 5 mg(Linked Group 2) 5 mg, Oral, PRN, 1 dose, Starting on Tenisha 11/15/21 at 0945, Until Tenisha 11/15/21 at 2359, Pain Moderate (4-6), PHASE II, PACU only sodium chloride flush 0.9 % injection 5-40 mL 5-40 mL, IntraVENous, PRN, Starting on Tenisha 11/15/21 at 0637, Until Discontinued, Line Care, After every IV line use, For Line Patency: Peripheral IV = 5 mL; Midline or Central Line = 10 mL/lumen. If following IV push medication, administer flush at same rate as the IV push. Flush volume is determined by type of infusion therapy being given. For non-viscous solutions use: Peripheral IV = 5 mL Midline or Central Line = 10 mL/lumen For viscous solutions (i.e. blood components, parenteral nutrition, contrast media, or after obtaining blood sample) use: Peripheral IV = 10 mL Midline or Central Line = 20 mL/lumen, Pre-op (day of surgery) sodium chloride flush 0.9 % injection 5-40 mL 5-40 mL, IntraVENous, PRN, Starting on Tenisha 11/15/21 at 0945, Until Discontinued, Line Care, After every IV line use, For Line Patency: Peripheral IV = 5 mL; Midline or Central Line = 10 mL/lumen. If following IV push medication, administer flush at same rate as the IV push. Flush volume is determined by type of infusion therapy being given. For non-viscous solutions use: Peripheral IV = 5 mL Midline or Central Line = 10 mL/lumen For viscous solutions (i.e. blood components, parenteral nutrition, contrast media, or after obtaining blood sample) use: Peripheral IV = 10 mL Midline or Central Line = 20 mL/lumen, PACU only Linked Groups Order Group 1: labetalol (NORMODYNE;TRANDATE) injection 5 mgJump to med 5 mg, IntraVENous, EVERY 10 MIN PRN, 2 doses, Starting on Tenisha 11/15/21 at 0945, Until Discontinued, High Blood Pressure, for SBP greater than 160 mmHg for 2 consecutive measurements taken from different sites.
PRN for SBP >160 for 2 consecutive measurements, if HR is 60 or greater. If beta marin is contraindicated (HR less than 60, heart block, COPD or asthma) use hydralazine IV order. for use Sameday and
PACU only Or hydrALAZINE (APRESOLINE) injection 5 mgJump to med 5 mg, IntraVENous, EVERY 10 MIN PRN, 2 doses, Starting on Tenisha 11/15/21 at 0945, Until Discontinued, High Blood Pressure, for SBP greater than 160 mmHg for 2 consecutive measurements taken from different sites
PRN for SBP > 160 for 2 consecutive measurements, and if one of the following conditions is met: 1) If IV labetolol is ineffective. 2) If HR is under 60. 3) If patient has heart block, COPD or asthma. If both labetalol and hydralazine ineffective, notify anesthesiologist. for use Sameday and
PACU only Group 2: oxyCODONE (ROXICODONE) immediate release tablet 5 mgJump to med 5 mg, Oral, PRN, 1 dose, Starting on Tenisha 11/15/21 at 0945, Until Tenisha 11/15/21 at 2359, Pain Moderate (4-6)
PHASE II
PACU only Or oxyCODONE (ROXICODONE) immediate release tablet 10 mgJump to med 10 mg, Oral, PRN, 1 dose, Starting on Tenisha 11/15/21 at 0945, Until Tenisha 11/15/21 at 2359, Pain Severe (7-10)
PHASE II
PACU only Care Team (unrecognized sect ion and content) Care Team Personnel Name: JAYLENE VO MD Position: Physician Med Service: Active Provider Member Role: Primary Care Physician Address: Address: [address] [place] [address] Care Team Related Persons Name: MARK MAJOR Address: Home [address] Name: MARK MAJOR Address: Home [address] Name: MARK MAJOR Address: [address] [place] [address] Name: MARK MAJOR Address: Home [address] Care Team Personnel Name: JAYLENE VO MD Position: Physician Member Role: Primary Care Physician Address: Address: [address] [place] [address] Care Team Related Persons Name: MARK MAJOR Address: [address] [place] [address] Name: MARK MAJOR Address: [address] [place] [address] [place] Name: MARK MAJOR Address: [address] [place] [address] [place] Name: MARK MAJOR Address: Home [address] Care Team Personnel Name: JAYLENE VO MD Position: Physician Member Role: Primary Care Physician Address: Address: [address] [place] [address] Name: Elsa Pablo RN Position: RN Member Role: RN Name: MELITA COYLE MD Position: Resident Member Role: Resident Address: Address: [address] [place] [address] Name: OMAR FARAH MD Position: ED Physician Member Role: ED Physician Address: Address: [facility] [address] Care Team Related Persons Name: MARK MAJOR Address: Home [address] [place] [address] [place] Name: MARK MAJOR Address: [address] [place] [address] Name: MARK MAJOR Address: [address] [place] [address] [place] Name: MARK MAJOR Address: Home [address] Care Team Personnel Name: JAYLENE VO MD Position: Physician Member Role: Primary Care Physician Address: Address: [address] [place], [place] [id number] Care Team Related Persons Name: MARK MAJOR Address: Home [address] [place] [address] Name: MARK MAJOR Address: Home [address] [place] [address] [place] Name: MARK MAJOR Address: [address] [place] [address] [place] Name: MARK MAJOR Address: Home [address] Care Team Personnel Name: JAYLENE VO MD Position: Physician Member Role: Primary Care Physician Address: Address: [address] [place] [address] Care Team Related Persons Name: MARK MAJOR Address: Home [address] [place] [address] Name: MARK MAJOR Address: [address] [place] [address] [place] Name: MARK MAJOR Address: [address] [place] [address] [place] Name: MARK MAJOR Address: [address] [place] [address] [place] FOR RECORDS PERTAINING TO PATIENTS WHO ARE OR HAVE BEEN ENROLLED IN A CHEMICAL DEPENDENCY/SUBSTANCEABUSE PROGRAM, SOME INFORMATION MAY BE OMITTED. This clinical summary was aggregated from multiple sources. Caution should be exercised in using it in the provision of clinical care. This summary normalizes information from multiple sources, and as a consequence, information in this document may materially change the coding, format and clinical context of patient data. In addition, data may be omitted in some cases. CLINICAL DECISIONS SHOULD BE BASED ON THE PRIMARY CLINICAL RECORDS. [employer] [facility]. provides no warranty or guarantee of the accuracy or completeness of information in this document.
== END | disposition home or self-care (01) ==
LOC: CT 15:47
PROVIDERS: PCP Internal Medicine; Referring Provider Internal Medicine Pulmonary Disease; Visit Provider Internal Medicine Pulmonary Disease
DX: Z87.891 Personal history of nicotine dependence (principal)
CPT/HCPCS: 71271

== ENCOUNTER → 2023-06-03 | Outpatient (CLI) | payer MEDICARE, OTHER, SELFPAY ==
--- OUTSIDE RECORDS SUMMARY | 2023-06-03 08:04 | XMS RPT_ITS | CCD ---
Author Name Unknown Address [address] [place] [address] Organization [facility] Care Team Providers Care Drop Tester Name Role Phone Mihir Bess Unavailable Unavailable TAVO CRAFT, [facility] Primary Care Physician Mihir Bess MD Primary Care Provider Unavailable Primary Care Provider Unavailranda VO MD, [facility] Primary Care Physician [phone] Pcp, No Primary Care Provider Unavailranda e [...] Sulfonamides (Antibiotic); Translations: [sulfa drugs] Drug allergy [facility] (6 sources) Sulfonamides (Antibiotic); Translations: [SULFA (SULFONAMIDE ANTIBIOTICS)] Drug Allergy 5 Rash [facility] (1 source) Sulfonamides (Antibiotic) Propensity to [...] Pressure Non-Invasive 62 1 DELMER RICHARD DO [facility] 01-30-2023 15:37-0500 Heart rate 77 /min DELMER RICHARD DO [facility] 01-30-2023 15:37-0500 Respiratory rate 17 /min DELMER RICHARD DO [facility] 01-30-2023 15:37-0500 Systolic Blood Pressure Non-Invasive 137 1 DLEMER RICHARD DO [facility] 01-30-2023 15:15-0500 Diastolic Blood Pressure Non-Invasive 69 1 DELMER RICHARD DO [facility] 01-30-2023 15:15-0500 Heart rate 76 /min DELMER RICHARD DO [facility] 01-30-2023 15:15-0500 Respiratory rate 19 /min DELMER RICHARD DO [facility] 01-30-2023 15:15-0500 Systolic Blood Pressure Non-Invasive 136 1 DELMER RICHARD DO [facility] 01-30-2023 15:01-0500 diastolic 61 mm[Hg] DELMER RICHARD DO [facility] 01-30-2023 15:01-0500 Respiratory rate 19 /min DELMER RICHARD DO [facility] 01-30-2023 14:55-0500 Heart rate 69 /min DELMER RICHARD DO [facility] 01-30-2023 14:55-0500 systolic 120 mm[Hg] DELMER RICHARD DO [facility] 01-30-2023 14:40-0500 Body temperature 97.7 [degF] DELMER RICHARD DO [facility] 01-30-2023 14:35-0500 Respiratory Rate - Anes 18 br/min DELMER RICHARD DO [facility] 01-30-2023 14:30-0500 Respiratory Rate - Anes 21 br/min DELMER RICHARD DO [facility] 01-30-2023 14:25-0500 Respiratory Rate - Anes 24 br/min DELMER RICHARD DO [facility] 01-30-2023 12:53-0500 Body weight 33.75 kg/m2 DELMER RICHARD DO [facility] 01-30-2023 12:40-0500 Body height 160 cm DELMER RICHARD DO [facility] 01-30-2023 12:40-0500 Body temperature 97.7 [degF] DELMER RICHARD DO [facility] 01-30-2023 12:40-0500 Body weight 86.4 kg DELMER RICHARD DO [facility] 01-30-2023 12:40-0500 Heart rate 70 /min DELMER RICHARD DO [facility] 01-27-2023 09:05-0500 Blood Pressure Location DELMER RICHARD DO [facility] 01-27-2023 09:05-0500 Blood Pressure Method DELMER [employer] [facility] 01-27-2023 09:05-0500 Body height 160 cm DELMER SMITHIGHAM [employer] [facility] 01-27-2023 09:05-0500 Body weight 33.75 kg/m2 DELMER SMITHIGHAM [employer] [facility] 01-27-2023 09:05-0500 Body [facility] 86.4 [facility] 01-27-2023 09:05-0500 Diastolic Blood Pressure Non-Invasive 70 1 [facility] 01-27-2023 09:05-0500 Heart rate 74 /min [facility] 01-27-2023 09:05-0500 Respiratory rate 18 /min [facility] 01-27-2023 09:05-0500 Systolic Blood Pressure Non-Invasive 128 1 [facility] 04-22-2022 15:00-0500 Body height 157.5 cm OMAR FARAH MD [facility] 04-22-2022 15:00-0500 Body temperature 98.96 [degF] OMAR FARAH MD [facility] 04-22-2022 15:00-0500 Body weight 89.2 kg OMAR FARAH MD [facility] 04-22-2022 15:00-0500 Diastolic Blood Pressure Non-Invasive 69 1 OMAR FARAH MD [facility] 04-22-2022 15:00-0500 Heart rate 85 /min OMAR FARAH MD [facility] 04-22-2022 15:00-0500 Respiratory rate 20 /min OMAR FARAH MD [facility] 04-22-2022 15:00-0500 Systolic Blood Pressure Non-Invasive 132 1 OMAR FARAH MD [facility] 11-15-2021 10:25-0400 Body temperature 97 [degF] Delmer [employer] Phone: [employer] 11-15-2021 10:25-0400 Diastolic blood pressure 73 mm[Hg] Delmer [employer] Phone: [employer] 11-15-2021 10:25-0400 Heart rate 75 /min Delmer [employer] Phone: [employer] 11-15-2021 10:25-0400 Respiratory rate 17 /min Delmer [employer] Phone: [employer] 11-15-2021 10:25-0400 SaO2% (BldA) [Mass fraction] 96 % Delmer [employer] Phone: [employer] 11-15-2021 10:25-0400 Systolic blood pressure 127 mm[Hg] Delmer [employer] Phone: [employer] 11-15-2021 06:56-0400 Body height 157.5 cm Delmer [employer] Phone: [employer] 11-15-2021 06:56-0400 Body mass index (BMI) [Ratio] 36.76 kg/m2 Delmer [employer] Phone: [employer] 11-15-2021 06:56-0400 Body weight 91.17 kg Delmer [employer] Phone: [employer] Encounters Encounter Date Encounter Type Care Provider Facility Start: 01-30-2023 End: 01-30-2023 ambulatory DELMER SMITHIGHYOLIS JOHNSON Facility:B Start: 01-30-2023 End: 01-30-2023 SAME DAY STAY DELMER [facility] Start: 01-27-2023 End: 01-28-2023 ambulatory DELMER SMITHIGHYOLIS JOHNSON Facility:B Start: 01-27-2023 End: 01-27-2023 Admission to establishment DELMER SMITHIGHAM [facility] Start: 12-02-2022 End: 12-03-2022 ambulatory LOLY TEACH INFORMATION MANAGEMENT MANAGER-CONSERVATION OFFICER Facility:B Start: 05-22-2022 End: 05-23-2022 ambulatory JIMENEZ REYNA CONSERVATION OFFICER Facility:B Start: 05-22-2022 End: 05-22-2022 Patient encounter procedure JIMENEZ VANGT CONSERVATION OFFICER [facility] Start: 04-30-2022 ambulatory JIMENEZ MONAHAN Facilit [id number] Start: 04-30-2022 End: 04-30-2022 Subsequent hospital visit by physician [facility] Procedures Date Procedure Procedure Detail Performing Clinician Start: 04-30-2022 Us abdominal real ti me w/image limited Jimenez Monahan Work Phone: Start: 11-15-2021 OPERATIVE REPORT Physic deepa Generic Start: 11-15-2021 Gluc bld gluc mntr d ev cleared fda spec [facility] Start: 12-07-2020 Catheterization of l eft heart CHIARA PREBISH CONSERVATION OFFICER Plan of Treatment Date Care Activity Detail Author Start: 12-07-2026 LIPID SCREEN LIPID SCREEN [facility] Start: 03-24-2022 ADVANCE DIRECTIVE DISCUSSION ADVANCE DIRECTIVE DISCUSSION [facility] Start: 03-24-2022 DEPRESSION ASSESSMENT DEPRESSION ASSESSMENT [facility] Start: 11-22-2021 Influenza vaccination [facility] Start: 03-24-2021 ADVANCE DIRECTIVE DISCUSSION ADVANCE DIRECTIVE DISCUSSION [facility] Start: 12-06-2020 COVID-19 VACCINE (3 - Booster for Moderna series) COVID-19 VACCINE (3 - Booster for Moderna series) [facility] Start: 08-31-2020 COVID-19 VACCINE (3 - Booster for Moderna series) COVID-19 VACCINE (3 - Booster for Moderna series) [facility] Start: 10-30-2019 DIABETES SCREEN DIABETES SCREEN [facility] Start: 05-28-2011 BONE DENSITY BONE DENSITY [facility] Start: 2001 Screening for osteoporosis DEXA (modify frequency per FRAX score) [facility] Start: 1996 Shingles vaccine (1 of 2) Shingles vaccine (1 of 2) [facility] Start: 1996 SHINGRIX VACCINE (1 of 2) SHINGRIX VACCINE (1 of 2) [facility] Start: 05-28-1991 COLOGUARD (FIT-DNA) COLOGUARD (FIT-DNA) [facility] Start: 05-28-1991 Colonoscopy COLONOSCOPY [facility] Start: 05-28-1991 COLORECTAL CANCER SCREENING COLORECTAL CANCER SCREENING [facility] Start: 05-28-[address] COLONOGRAPHY [facility] Start: 05-28-1991 FECAL OCCULT BLOOD FECAL OCCULT BLOOD [facility] Start: 05-28-1991 LIPID SCREEN LIPID SCREEN [facility] Start: 05-28-1991 Screening [facility] malignant [facility]oplasm of [facility] Start: 05-28-1991 SIGMOIDOSCOPY SIGMOIDOSCOPY [facility] Start: 1976 Zoledronic acid therapy ALPHA-1 ANTITRYPSIN DEFICIENCY SCREENING [facility] Start: 1965 DTaP/Tdap/Td vaccine (1 - Tdap) DTaP/Tdap/Td vaccine (1 - Tdap) [facility] Start: 1965 Urine microalbumin profile DTAP,TDAP,TD (1 - Tdap) [facility] Start: 1964 ANNUAL PCP TEAM CHRONIC DISEASE VISIT ANNUAL PCP TEAM CHRONIC DISEASE VISIT [facility] Start: 1964 BP CONTROLLED (<130/80) BP CONTROLLED (<130/80) [facility] Start: 1964 HEPATITIS C SCREENING HEPATITIS C SCREENING [facility] Start: 1964 Hepatitis C screening Hepatitis C screen [facility] Start: 1964 SPIROMETRY SPIROMETRY [facility] Start: 1958 Adult depression screening assessment DEPRESSION SCREENING [facility] Start: 1958 Depression Screen Depression Screen [facility] Start: 1956 Lipid panel Lipids [facility] Start: 1952 Pneumococcal 65+ years Vaccine (1 - PCV) Pneumococcal 65+ years Vaccine (1 - PCV) [facility] Start: 1952 PNEUMOCOCCAL: 65+ (1 - PCV) PNEUMOCOCCAL: 65+ (1 - PCV) [facility] Start: 1946 COVID-19 Vaccine (#1) COVID-19 Vaccine (#1) [facility] Blood glucose - POCT Blood gluco se - POCT Point of Care Testing STAT As Needed until discontinued starting 11/15/2021 [facility] Work Phone: Immunizations Immunization Date Immunization Notes Care Provider Fa cili 11-30-2014 tetanus and diphther ia toxoids, adsorbed, preservative free, for adult use (2 Lf of tetanus toxoid and 2 Lf of diphtheria toxoid) [facility] Payers Date Payer Category Payer Private Health Insurance [facility] AARP SUPPLEMENT [id number] 2016-Present [phone] [address] [place] [address] Indemnity [id number] 2016 Private Health Insurance [facility] AARP SUPPLEMENT [id number] 2016-Present [phone] [address] [place] [address] Indemnity [id number] 2016 Unknown [id number] 2014 Medicare MEDICARE MEDICAR E B [id number] 2014-[place] [place] [address] Medicare [id number] 2011 Medicare [id number] 2011 Medicare [id number] 1945 Unknown [id number] 1945 Unknown [id number] 1945 Unknown [id number] 1945 Unknown [id number] 1945 Unknown [id number] 1945 Unknown [id number] 1945 Unknown [id number] Medicare [id number] Social History Date Type Detail Facility Start: 12-04-2020 Light tobacco smoker (finding) [facility] Sex Assigned At Female [facility] Start: 10-31-2014 End: 11-15-2021 Tobacco smoking status NEIS Smokes tobacco daily [facility] History of tobacco use Cigarette Smoker C [facility] Start: 10-31-2014 End: 11-15-2021 Cigarettes smoked current (pack per day) - Reported 0.5 [facility] Start: 11-01-2014 Alcohol intake Not Asked [facility] Start: 1945 Sex Assigned At Not on file C [facility] Start: 11-15-2021 Tobacco use and exposure Smokeless tobacco non-user [facility] Work Phone: Start: 11-15-2021 Alcohol intake Ex-drinker (finding) [facility] Work Phone: Start: 11-15-2021 History SDOH Alcohol Comment rare [facility] Work Phone: Start: 11-05-2021 End: 11-15-2021 Exposure to SARS-CoV-2 (event) Not sure [facility] Work Phone: Functional Status Date Assessment Result Facility 01-30-2023 Functional Status bilateral knee high padma lied/on [facility] 01-30-2023 Functional Status Maintained [facility] 01-27-2023 Functional Status Sensory Deficits None A [facility] 04-22-2022 Functional Status Independent [facility] Mental Status Date Assessment Result Facility 01-30-2023 Mental Status Oriented x 4 [facility] 01-30-2023 Mental Status [facility] 04-22-2022 Mental Status Orientation Oriented x 4 [facility] Clinical Notes 10-01-2021 to 01-30-2023 Telephone Encounter [...] your ears completely after. General instructions Take fvgw-uwa-merkzqo and prescription medicines only as told by [...] 04/05/2016 Document Revised: 06/30/2018 Document Reviewed: 06/30/2018 [employer] Patient Education 2020 Rue89. 01/30/2023 14:59:21 General Anesthesia, Adult, Care After [...] what activities are safe for you. Take emyi-hfy-oybxodg and prescription medicines only as told by [...] 06/16/2001 Document Revised: 03/13/2018 Document Reviewed: 10/24/2017 [employer] Patient Education 2020 Rue89. 01/30/2023 13:55:07 9. AO Myringotomy & Insertion [...] Document Reviewed: 12/17/2008 ExitCare Patient Information 2015 [facility]. This information is not intended to replace advice given to you by your health care provider. Make sure you discuss any questions you have with your health care provider. Follow Up Care 12/12/2022 14:29:45 With:DELMER RAMOS DO Address: [address] [place] [phone]- [phone] When: Unknown Comments:CALL DR RAMOS WITH ANY QUESTIONS OR CONCERNS. GO TO THE EMERGENCY ROOM WITH ANY URGENT CONCERNS. YOUR FOLLOW UP APPOINTMENT IS 02-20-23 AT 1:30 IN THE AFTERNOON. CALL AND RESCHEDULE IF THIS APPOINTMENT DOESN'T WORK FOR YOU With:DELMER RAMOS DO Address: [address] [place] [phone]- [phone] When:02/20/2023 13:30:00 [facility] 01-30-2023 Note Discharge Instructions Thank you for allowing [facility] to assist you with your healthcare needs. The following is important discharge information regarding your hospital visit. Your Care Team JAYLENE VO MD, DR. What to do next Follow Up Appointments Follow Up with DELMER RAMOS DO When 02/20/2023 01:30 PM EST Where: [address] [facility] [facility] [facility] [address] [place] [address]- [phone] Follow Up with DELMER RAMOS DO When Why: CALL DR RAMOS WITH ANY QUESTIONS OR CONCERNS. GO TO THE EMERGENCY ROOM WITH ANY URGENT CONCERNS. YOUR FOLLOW UP APPOINTMENT IS 02-20-23 AT 1:30 IN THE AFTERNOON. CALL AND RESCHEDULE IF THIS APPOINTMENT DOESN'T WORK FOR YOU Where: [address] [facility] [facility] [facility] [place] [address]- [phone] Allergies sulfa drug Medications Please ask your [...] Duration: 7 Days Refills: 1 Pickup at [facility] Unchanged acetaminophen (Tylenol) by mouth Every 4 [...] Every other day Pharmacy Information [id number]: [address], [place] [phone] What When Comments Stop Taking Misc Medication [...] may report side effects to FDA at [phone]-KFU-1042. What other drugs will affect ofloxacin otic? It is not likely that other drugs you take orally or inject will have an effect on ofloxacin used in the ears. But many drugs can interact with each other. Tell each of your healthcare providers about all medicines you use, including prescription and mdap-ait-llouzqt medicines, vitamins, and herbal products. Where can I get more information? Your pharmacist can provide more information about ofloxacin otic. Remember, keep this and all other medicines out of the reach of children, never share your medicines with others, and use this medication only for the indication prescribed. Every effort has been made to ensure that the information provided by [employer]. ('[employer]') is accurate, up-to-date, and complete, but no guarantee is made to that effect. Drug information contained herein may be time sensitive. [employer] information has been compiled for use by healthcare practitioners and consumers in the [place] and therefore [employer] does not warrant that uses outside of the [place] are appropriate, unless specifically indicated otherwise. [employer] drug information does not endorse drugs, diagnose patients or recommend therapy. [employer] drug information is an informational resource designed [...] effective or appropriate for any given patient. [employer] does not assume any responsibility for any aspect of healthcare administered with the aid of information [facility] provides. The information contained herein is not intended to cover all possible uses, directions, precautions, warnings, drug interactions, allergic reactions, or adverse effects. If you have questions about the drugs you are taking, check with your doctor, nurse or pharmacist. Copyright 4524-3872 [facility] [employer]. Version: 4.01. Revision Date: 11/04/2022. Education Materials [...] your ears completely after. General instructions Take mybk-kbg-mncglcc and prescription medicines only as told by [...] 04/05/2016 Document Revised: 06/30/2018 Document Reviewed: 06/30/2018 [employer] Patient Education 2020 Rue89. General Anesthesia, Adult, Care After This sheet [...] what activities are safe for you. Take rknu-cmk-ropjxcx and prescription medicines only as told by [...] 06/16/2001 Document Revised: 03/13/2018 Document Reviewed: 10/24/2017 [employer] Patient Education 2020 [employer] Myringotomy & Insertion of Ventilating Ear [...] 12/17/2008 Document Revised: 06/01/2012 Document Reviewed: 12/17/2008 [facility] Patient Information 2015 [employer] [facility]. This information is not intended to replace advice given to you by your health care provider. Make sure you discuss any questions you have with your health care provider. Additional Information VACCINATE! IT SAVES LIVES! Members of the community who have not yet received the COVID-19 vaccine and would like to receive it can visit one of [facility] vaccine clinics. There are many vaccine clinic locations within the [facility]. For locations and available times, please visit https://gettheshot.coronavirus.[place].gov/. It is important to note that some COVID mobile vaccine clinics are held outdoors and may be canceled in rainy or stormy conditions. To learn more about pediatric vaccinations (ages 5-11), we invite you to visit the [employer] webpage. https://www.[employer]org/pa ges/4524-Ihdmh-Wybeqysqepi-Freque hxtl-Cdxbc-Qajmxcctc.html To learn more about the COVID-19 vaccine, we invite you to visit the CDC website for a list of frequently asked questions.https://www.cdc.gov/cor onavirus/2019-ncov/vaccines/faq.h tml [facility] Patient Portal Access Instructions: Stay connected with your healthcare team and access your personal medical information anytime with the [facility] Patient Portal. Please follow the directions below to create your [facility] account: 1.Access the email account you provided upon registration to the hospital/physician office.2.Look for an invitation email from [facility].3.Open the email and access the invitation link: Accept Invitation to [facility].4.Fill in the required manning to create your account. To access your account, visit [email or web address]. Click the blue button labeled Access Patient [...] your information. You can also access the [facility] One[facility] Patient Portal on the [facility] padma. Simply click on Patient Portal and then log into your account. If you would like to receive a full copy of your medical records, please contact the [facility] Medical Records Department by calling [phone], Friday through Friday between 8 a.m. and [...] Call your local pharmacy or go to [email or web address] to find one close to you.3.Make use of household items: Use cat litter or old coffee grounds to dispose medications if other options are not available. Mix your drugs with these household products, seal them in an airtight container and throw it into the garbage. Call [facility]: [phone] to be sure your drugs can be [...] reviewed and explained to me and I,RAFAEL MARUICE understand my current condition and have read and understand these discharge instructions. I have received a written copy of the plan/instructions. If I have questions, I am aware that I should contact my doctor. 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 Signature: Date/Time: Relationship to Patient: ____ Witness Name/Signature: Date/Time: [facility] 01-30-2023 Anesthesiology Consult note Patient: RAFAEL MAURICE Age: 77 years Sex: Female : 1945 Associated Diagnoses: None Author: MERON MELVININSULATION ESTIMATOR Preoperative Information Time of last food or [...] pain of unknown etiology / SNOMED CT 134282146 / Confirmed COPD / SNOMED CT 82220269 / Confirmed Diabetes / SNOMED CT 269481499 / Confirmed Diverticulosis / SNOMED CT 642466847 / Confirmed Goiter / SNOMED CT 7940556 / Confirmed Hypercholesterolemia / SNOMED CT 61614392 / Confirmed Hypertension / SNOMED CT [id number] A74 / Confirmed Irritable bowel syndrome with diarrhea / SNOMED CT 007465511 / Confirmed Sleep apnea / SNOMED CT 881576992 / Confirmed, Active Problems (10) COPD Diabetes Diverticulosis Goiter Hypercholesterolemia Hypertension Irritable bowel syndrome with diarrhea Lower abdominal pain of unknown etiology Sleep apnea Tobacco use Histories Past Medical History: Active COPD (78878210) Hypertension ([id number] 6A74) Goiter (5514246) Family History: Cancer Mother Breast cancer Sister High blood pressure Daughter Hypercholesterolemia Daughter HTN - Hypertension Mother Coronary artery disease Sister High cholesterol Mother Procedure history: Cardiac catheterisation, left heart (576983696) on 12/07/2020 at 75 Years. Comments: 01/05/2021 9:27 Jeimy Orozco MA (ABR-OE) The study demonstrates moderate CAD, predominantly involving the LAD. Colonoscopy (424249030) on 09/12/2017 at 72 Years. Tonsillectomy (593973997). Abdominal hysterectomy (367117745). Arthroplasty of the knee (464269666). Appendectomy (568201291). History of thyroidectomy (2065737855). Ovarian cystectomy (6931703120). Social History Social & Psychosocial Habits Alcohol [...] Signs(last 24 hrs) Last Charted Heart Rate Czqymnpqc07 bpm (JAN 30 14:00) Resp Rate 15 br/min (JAN 30 12:40) SBP97 mmHg (JAN 30:00) DBP70 mmHg (JAN 30:) BMI33.75 (JAN 30 12:53) Measurements from flowsheet : Measurements 01/30/2023 12:53 EST Body Mass Index 33.75 kg/m2 01/30/2023 12:40 EST Height 160 cm Admission Weight 86.4 kg [place] Body Weight 52.38 kg Admission Body Mass [...] Surgeon SN - CAt - Role Performed INSULATION ESTIMATOR SN - CAt - Role Performed Mold Setter 1 SN - CAt - Role Performed Scrub 1 SN - CAt - Role Performed Retina Subspecialist 1 SN - CAt - Role Performed [employer] Truck Driver SN - CAt - Role Performed Mold Setter 2 01/30/2023 13:25 EST [facility] MAIN OR Preop & Phase II Record [facility] MAIN OR Preop & Phase II Record 01/30/2023 12:56 EST SN - Preop - CTm Pt Ready for OR/Proced 01/30/2023 12:56 01/30/2023 12:53 EST Designated Person #1 We May Share PHI Mark Major [phone] Designated Person #1 Relationship Daughter Designated Person #2 We May Share LYNN Currie [phone] Designated Person #2 Relationship Daughter Privacy Restrictions Requested None Body Mass Index 33.75 kg/m2 Status N/A Sensory Deficits None Diagnosed With Sleep Apnea Yes Advanced Directives Yes Advance Directive Type [place] Durable Power of Customer Care Representative for [place], [place] Declaration (Living Will) Advance Directive Location [...] Method Explanation, Printed materials Preferred Spoken Language Somali Preferred Written Language Somali Teaching Evaluation No further teaching needed Safety [...] Height 160 cm Admission Weight 86.4 kg [place] Body Weight 52.38 kg Admission Body Mass [...] Symptoms Ulcers/Lesions Skin Temperature Warm Skin Description [place], Dry Skin Integrity Intact Mucous Membrane Color [place] Skin Moisture General Dry Extremity Movement Unequal [...] Allergies Yes Anesthesia Extension Set Applied Yes Grab Jack Worker On Yes Consent Form Signed Yes Patient [...] JAYLENE VO MD . Assessment and Plan [place] Society of Anesthesiologists (ASA) physical status classification: Class III. Anesthetic Preoperative Plan Premedication: intravenous. Anesthetic technique: General. Induction: intravenously. Maintenance airway: Laryngeal mask airway. Postoperative pain management: Per surgeon. Risks discussed: nausea, vomiting, sore throat. Informed consent: signed by patient. Digitally Signed by MERON MELVIN on 01/30/2023 02:11 PM [facility] 04-22-2022 Hospital Discharg e instructions Patient Education [...] Hold for 2 seconds, then slowly lower. [id number] [employer]. [address] [place] [address]. All rights reserved. This information is not intended as a substitute for professional medical care. Always follow your healthcare professional's instructions. Follow Up Care 04/22/2022 14:25:40 With:JAYLENE VO MD, Internal Medicine Address: [address] [place] [id number] When:2-4 days [facility] 04-22-2022 Note ORIGINAL EXAMINATION: THREE XRAY VIEWS OF THE LUMBAR SPINE 04/22/2022 5:07 pm COMPARISON: None. HISTORY: ORDERING SYSTEM PROVIDED HISTORY: Reason for Exam: Lower back pain 2 weeks FINDINGS: There are 5 ukt-rao-iwjsuax lumbar type vertebral bodies. The 12th ribs [...] 04/22/2022 6:55:43 PM Ordering Provider: MELITA COYLE [facility] 04-22-2022 Note Discharge Instructions Thank you for [...] Schedule the Following Appointments Follow Up with JAYLENE VO MD, Internal Medicine When Within 2-4 days Where: [facility] [address] [place] [address] Allergies sulfa drug Medications Please [...] Hold for 2 seconds, then slowly lower. [id number] [employer]. [address] [place] [address]. All rights reserved. This information is not intended as a substitute for professional medical care. Always follow your healthcare professional's instructions. Additional Information VACCINATE! IT SAVES LIVES! Members of the community who have not yet received the COVID-19 vaccine and would like to receive it can visit one of [facility] vaccine clinics. There are many vaccine clinic locations within the [facility]. For locations and available times, please visit [email or web address]. It is important to note that some COVID mobile vaccine clinics are held outdoors and may be canceled in rainy or stormy conditions. To learn more about pediatric vaccinations (ages 5-11), we invite you to visit the [facility] webpage. [email or web address] To learn more about the COVID-19 vaccine, we invite you to visit the [facility] website for a list of frequently asked questions. [email or web address]-[email or web address] [email or web address].pdf [facility] Patient Portal Access Instructions: Stay connected with your healthcare team and access your personal medical information anytime with the [facility] Patient Portal. If you would like a full copy of your medical records please contact the [facility] Medical Records Department Friday through Friday between 8a.m. and 4:30p.m. Please follow the directions below to access the portal: 1.Access the email account you provided upon registration to the [facility].2.Look for an invitation email from [facility].3.Open the email and access the invitation link: Accept Invitation to [facility]4.Fill in the required manning to create your account. Sign into [email or web address] with your username and password that you [...] you will allow to register on the [facility] Patient Portal for access to your information. You can also access the [facility] Patient Portal on the [employer] Consult padma. Simply click on Health Records under Health Data and then click on the Yoh[employer] logo. HOW TO SAFELY DISPOSE OF PRESCRIPTION [...] Call your local pharmacy or go to http://bit.ly/3O1Ls2e to find one close to you.3.Make use of household items: Use cat litter or old coffee grounds to dispose medications if other options are not available. Mix your drugs with these household products, seal them in an airtight container and throw it into the garbage. Call [facility]: [phone] to be sure your drugs can be [...] aware that I should contact my doctor. 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 HISTORY: ORDERING SYSTEM PROVIDED HISTORY: Reason for Exam: Lower back pain 2 weeks FINDINGS: There are 5 lep-qxz-ddmxqpk lumbar type vertebral bodies. The 12th ribs [...] 04/22/2022 6:55:43 PM Ordering Provider: MELITA COYLE [facility] 03-20-2022 Miscellaneous Notes Script was filled in September for 1 year Jeanine Dunne LPN March 20, 2022 4:33 PM documented in this encounter [facility] 02-04-2022 Note ORIGINAL EXAMINATION: TWO XRAY [...] Sign Date: 02/04/2022 3:30:02 PM Ordering Provider: [facility] 02-04-2022 Note ORIGINAL EXAMINATION: TWO XRAY VIEWS [...] Sign Date: 02/04/2022 3:30:02 PM Ordering Provider: [facility] 12-07-2021 Evaluation + Plan note Diagnostic Tests PendingMicroalbumin Level Urine 12/07/21 [facility] 11-15-2021 History of Presen t illness Narrative Pt to PACU phase 1 via cart with INSULATION ESTIMATOR. Pt responds to name. No c/o pain. [...] or concerns please contact our office at: [phone] IF YOU HAVE AN EMERGENCY, AND ARE UNABLE TO REACH THE DOCTOR AT THE ABOVE NUMBER, CALL OR GO TO [facility] EMERGENCY ROOM [phone] documented in this encounter [facility] Work Phone: 10-01-2021 Miscellaneous Notes Rx mail pharmacy faxed requesting the following refill. Pending Prescriptions Disp Refills BUPROPION HCL 100 MG TABLET 90 tablet 3 Sig: Take 1 tablet by mouth twice daily. NAM: No FENOFIBRATE 160 MG TABLET 90 tablet 3 Sig: Take 1 tablet by mouth once daily. NAM: No Patient last appointment: 09/28/2021 Patient Phone numbers: [phone] (home) Request is for script(s) to be escript to pharmacy. Chiara Bailey LPN documented in this encounter [facility] Evaluation + Plan note No data available for this section [facility] Evaluation + Plan note Future Appointments Appointment Date:04/25/2022 02:00:00 PM Scheduled Provider: Location:[facility] Appointment Type:US Renal Future Scheduled TestsUS Renal 04/25/22 [facility] Evaluation + Plan note Future Appointments [facility] Hospital Discharge instructions No data available for this section [facility] Progress note No data available for this section [facility] Summary Purpose Family History No Family History [...] DATE CREATED AUTHOR AUTHOR'S ORGANIZ ATION 11/20/2021 [employer] DATE CREATED AUTHOR AUTHOR'S ORGANIZ ATION 05/01/2022 [facility] DATE CREATED AUTHOR AUTHOR'S ORGANIZ ATION 03/13/2023 [facility] ([place]) Source Comments (unrecognize d section and content) In the event this informatio n is protected by the Federal Confidentiality of Alcohol and Drug Abuse Patient Records regulations: The Federal rules restrict any use of the information to criminally investigate or prosecute any alcohol or drug abuse patient.[facility] the event this information is protected by the Federal Confidentiality of Alcohol and Drug Abuse Patient Records regulations: The Federal rules restrict any use of the information to criminally investigate or prosecute any alcohol or drug abuse patient.[facility] the event this information is protected by the Federal Confidentiality of Alcohol and Drug Abuse Patient Records regulations: The Federal rules restrict any use of the information to criminally investigate or prosecute any alcohol or drug abuse patient.[facility] the event this information is protected by the Federal Confidentiality of Alcohol and Drug Abuse Patient Records regulations: The Federal rules restrict any use of the information to criminally investigate or prosecute any alcohol or drug abuse patient.[facility] Reason for Visit (unrecogniz ed section and content) Reason Onset Date Comments Refill Request 10/01/2021 Care Teams (unrecognized sec tion and content) Drop Tester Relationship Specialty Start Date End Date Mihir Bess MD PCP - General Family Practice 08/09/14 Drop Tester Relationship Specialty Start Date End Date Pcp, [...] Member Role: Primary Care Physician Address: Address: [address] [place] [address] Care Team Related Persons Name: MARK MAJOR Address: Home [address] Name: MARK MAJOR Address: Home [address] Name: MARK MAJOR Address: [address] [place] [address] Name: MARK MAJOR Address: Home [address] Care Team Personnel Name: JAYLENE VO MD Position: Physician Member Role: Primary Care Physician Address: Address: [address] [place] [address] Care Team Related Persons Name: MARK MAJOR Address: [address] [place] [address] Name: MARK MAJOR Address: [address] [place] [address] [place] Name: MARK MAJOR Address: [address] [place] [address] [place] Name: MARK MAJOR Address: Home [address] Care Team Personnel Name: JAYLENE VO MD Position: Physician Member Role: Primary Care Physician Address: Address: [address] [place] [address] Name: Elsa Pablo RN Position: RN Member Role: RN Name: MELITA COYLE MD Position: Resident Member Role: Resident Address: Address: [address] [place] [address] Name: OMAR FARAH MD Position: ED Physician Member Role: ED Physician Address: [facility] [address] Care Team Related Persons Name: MARK MAJOR Address: Home [address] [place] [address] [place] Name: MARK MAJOR Address: [address] [place] [address] Name: MARK MAJOR Address: [address] [place] [address] [place] Name: MARK MAJOR Address: Home [address] Care Team Personnel Name: JAYLENE VO MD Position: Physician Member Role: Primary Care Physician Address: Address: [address] [place], [place] [id number] Care Team Related Persons Name: MARK MAJOR Address: Home [address] [place] [address] Name: MARK MAJOR Address: Home [address] [place] [address] [place] Name: MARK MAJOR Address: Home [address] [place] [address] [place] Name: MARK MAJOR Address: Home [address] Care Team Personnel Name: JAYLENE VO MD Position: Physician Member Role: Primary Care Physician Address: Address: [address] [place] [address] Care Team Related Persons Name: MARK MAJOR Address: Home [address] [place] [address] Name: MARK MAJOR Address: [address] [place] [address] [place] Name: MARK MAJOR Address: [address] [place] [address] [place] Name: MARK MAJOR Address: [address] [place] [address] [place] FOR RECORDS PERTAINING TO PATIENTS WHO [...] BE BASED ON THE PRIMARY CLINICAL RECORDS. [employer] [facility]. provides no warranty or guarantee of the accuracy or completeness of information in this document.
--- NOTE | 2023-06-03 08:30 | PET_ITS ---
EXAMINATION: FDG PET/CT ? INDICATIONS: 78-year-old female with a history of pulmonary nodularity. ? COMPARISON EXAMINATION: CT of the chest report dated 04/23/2023. ? TECHNIQUE: Following the intravenous administration of 13.1 mCi of F-18 deoxyglucose via the right antecubital fossa, multiplanar image acquisitions of the head, neck, chest, abdomen and pelvis to the level of the midthigh, obtained at one-hour post radiopharmaceutical administration contemporaneously interpreted with the current CT of the chest, abdomen and pelvis dated 06/03/[address] of the chest report dated 04/23/2023 via coregistration reveal: SERUM GLUCOSE LEVEL:? 194 mg/dL? HEIGHT:?? 62 inches WEIGHT:?? 195 pounds ? FINDINGS: ? HEAD/NECK:? There is no evidence of abnormal increased glucose metabolism in the pharyngeal mucosal space, parapharyngeal space, oropharynx, bilateral-lateral and anterior neck, hypopharynx and distribution of the larynx. ? The visualized portion of the cerebral cortical-subcortical structures demonstrate symmetric and preserved glucose metabolism. ? CHEST:? Prominent radiopharmaceutical concentration is defined in the descending thoracic aorta, commensurate with activated leukocytes associated with atherosclerotic plaque formation. There is no quantitative scintigraphic evidence of abnormal increased glucose metabolism within the context of the bilateral hemithorax pulmonary parenchyma, right and left hemithorax at the pleural interface, mediastinal structures, and left-right thoracic perihilum. ? CT of the chest demonstrates the following anatomic characteristics: Calcified and noncalcified parenchymal densities noted in the bilateral hemithorax are nonglucose avid. Bilateral axillary soft tissue densities are ametabolic. Atherosclerotic calcification is defined in the thoracic aorta without evidence of dilatation, aneurysm formation. Coronary arterial calcification is observed. ? ABDOMEN/PELVIS:? Normal physiologic distribution of the radiopharmaceutical is identified in the hepatic and splenic parenchyma, both renal units, urinary bladder, and visualized intestinal tract. ? CT of the abdomen and pelvis is remarkable for the following: Calcified granuloma formation is noted in both the hepatic and splenic parenchyma. The gallbladder is surgically absent. Atherosclerotic calcification is defined in the abdominal aorta without evidence of dilatation, aneurysm formation. Pelvic arterial calcification is observed. Exophytic cyst formation is manifest in the right renal unit. The uterus appears surgically absent. Right and left inguinal soft tissue densities are ametabolic. ? SKELETAL:? Degenerative changes defined in the thoracic and lumbar spine demonstrate no evidence of increased glucose metabolism. There are no sclerotic, mixed sclerotic-lytic, or primarily lytic changes defined in the axial skeletal structures with evidence of increased FDG uptake. ? PET/PET/CT Tumor Base -Thigh Init IMPRESSION: 1. NEGATIVE EXAMINATION. There is no definitive quantitatively significant scintigraphic evidence of viable neoplasm. 2. Bilateral hemithorax pulmonary parenchymal densities demonstrate no evidence of increased glucose concentration as defined above. 3. Metabolic, morphologic stability may be ensured in the bilateral hemithorax parenchymal densities with repeat CT of the thorax and/or FDG-PET CT imaging in 3-6 months if clinically indicated. Electronic Signature Dre Cardoza D.O. Accurate Quantification of SUVs for this report are calculated using the exclusive [employer]. (U.S. Patent No. [id number], [id number] 983 B2 [phone] [place] patent [id number] [id number]). Standardization and correction of the FDG SUV metric via [employer]AN technology allow for vendor non-specific objective quantitative examination comparison and optimization of the sensitivity and specificity of the FDG PET-CT examination. . [email or web address]/12/1579 [email or web address] Electronically Signed: Dre Cardoza DO at 23:55 EDT ,
== END | disposition home or self-care (01) ==
LOC: ONC 07:58
PROVIDERS: PCP Internal Medicine; Referring Provider Internal Medicine Pulmonary Disease; Visit Provider Internal Medicine Pulmonary Disease
DX: R91.1 Solitary pulmonary nodule (principal)
CPT/HCPCS: 78815; A9552

== ENCOUNTER → 2023-06-13 | Outpatient (CLI) | payer MEDICARE, OTHER, SELFPAY | END | disposition home or self-care (01) | LOC: LABSPEC 12:34 | PROVIDERS: PCP Internal Medicine; Referring Provider Internal Medicine Pulmonary Disease; Visit Provider Internal Medicine Pulmonary Disease | DX: R06.00 Dyspnea, unspecified (principal) | CPT/HCPCS: 87070; 87077; 87186; 87205 ==

== ENCOUNTER 2023-07-23 06:22 | Day surgery (SDC) | payer MEDICARE, OTHER, SELFPAY ==
--- NOTE | 2023-07-23 | COLBX_PTH ---
PATIENT: RAFAEL MAURICE LOC: EN U#:[id number] AGE/SX: 78/F ROOM: RE07/23/[address]: Dr. Maverick Rust DO : 1945 BED: DIS: 07/23/2023 SPEC #: [id number] RECD: 07/23/23 12:10 STATUS: EVIN RELewis #: [id number] WILLIAM: 07/23/23 00:[address]: Maverick Rust DEPT: SURGICAL PATHOLOGY RECD BY: Diogenes Chatman ENTERED: 07/23/23 12:10 SP TYPE: COLON BX OTHR DR: JAYLENE VO MD Tissues: A - Transverse colon B - Transverse colon C - Transverse colon Procedures: Surgery Specimen Level IV HEADER OPERATION: Colonoscopy polypectomy, biopsy PRE-OP DIAGNOSIS: History of polyps TISSUE SUBMITTED: A- Transverse colon polyp, B- Transverse colon submucosal mass, C- Transverse colon polyp #2 biopsy MICROSCOPIC DIAGNOSIS A. Transverse colon polyp, biopsy: Fragments of tubular adenoma. B. Transverse colon mass, biopsy: Fragments of benign colonic mucosa with focal glandular distortion, vascular congestion and eosinophilic infiltrate. No evidence of malignancy. See comment. C. Transverse colon polyp#2, biopsy: Hyperplastic polyp. AM/ 07/24/23 COMMENT B. Focal glandular distortion, vascular congestion and mature adipose tissue is present. These changes are suggestive of an inflammatory polyp. There is no evidence of adenomatous change or dysplasia. Clinical correlation is suggested. MICROSCOPIC DESCRIPTION Slides are reviewed. GROSS DESCRIPTION A. Received in fixative is one container labeled with the patient's name and designated Transverse colon polyp. The specimen consists of multiple irregular fragments of light [place] soft tissue that in aggregate measure 1.0 x 0.5 x 0.1 cm. The specimen is totally submitted in one cassette. B. Received in fixative is one container labeled with the patient's name and designated Submucosal mass transverse colon. The specimen consists of multiple irregular fragments of light [place] soft tissue that in aggregate measure 1.0 x 0.3 x 0.1 cm. The specimen is totally submitted in one cassette. C. Received in fixative is one container labeled with the patient's name and designated Transverse colon polyp. The specimen consists of two irregular fragments of light [place] soft tissue that in aggregate measure 0.2 x 0.2 x 0.1 cm. The specimen is totally submitted in one cassette. AM/mr 07/23/23 TC:5 CPT:[id number]
[2023-07-23 06:48] VITALS: BP 120/69; PULSE 74; RESP 17; TEMP 36.3; O2SAT 95; BMI 34.7
[2023-07-23] MEDS: Lactated Ringers 1,000 ML 15 ML IV (06:55)
[2023-07-23 06:59] LABS: Bedside Glucose 171 mg/dL (74-106)
--- NOTE | 2023-07-23 07:19 | HP.PCM_ITS ---
History and Physical Date of Admission: 07/23/23 [facility] ED 05.10.22 with persistent RUQ abd pain. She was to establish with Dr. Forbes that day but had to cancel and couldn?t wait the two weeks to get OV and presented to ED. ? Biochemical CBC, CMP, LFT WNL.??? Lipase H577 ? US RUQ hepatomegaly 23.6cm with fatty infiltration; solitary gallstone with Burkett?s sign +; [facility] Dr. Forbes established 05.20.22 for previously diagnosed cholelithiasis. PCP r/o renal stones. ? EGD 05.27.22 nodular duodenal bulb; multiple fundic gland polyps; mucosal nodule in esophagus; small hiatal hernia. No specimens collected. [facility] ED presentation 06.22.22 with diffuse abdominal pain/cramping with reports of previously noted gallstone. Workup not concerning for acute finding and discharged with instruction to f/u with [facility]. ? US RUQ hepatomegaly 17cm with fatty infiltration; solitary gallstone, muprhy?s sign negative. ? CT abd/pel hepatomegaly with diffuse enlargement; solitary gallstone, gallbladder dilated 56mm; calcified granulomata of spleen; renal cysts WSA OV 4.. with recommendation of lap cholecystectomy. ? Laparoscopic cholecystectomy 07.08.22 performed without complication. Pathology chronic cholecystitis and cholelithiasis. [facility] OV 4 with symptom resolution. Notes need for screening colonoscopy for which records will be obtained. *BGI established . with continued resolution of abdominal pain. Need for screening colonoscopy requiring submucosal lift. ? Biochemical CBC, ESR, CMP, LFT, LDH, GAME, CHAPARRO comp, ANCA, GAME, celiac, IBD, without pertinent abnormality. ? CRP H14.90 ? RAST equivocal/low shrimp ? Stool calprotectin, elastase, lactoferrin, c.difficile (formed), blood WNL. Total fats increased. Contact, portal 08.13.22 with results and asking after symptoms. OV 12.06.22 feels she is doing approximately the same as previously. Cholestyramine is being taken QOD as directed by Dr. Forbes following cholecystectomy, on days without cholestyramine she is having significant loose stools. Last colonoscopy 5years prior with Dr. Cooper which she reports for severe diverticulosis and a concerning area that received ablation which Dr. Cooper felt was abnormal r/t NSAID use; this is not the first ablation episode.RAFAEL MAURICE, is a 77 F who presents to the office today for ROS Const Constitutional: No fatigue, fever(s), frequent falls, headache(s) or weight change ENT ENT: No headache(s) or difficulty swallowing Cardio Cardiology: No leg pain with exertion Gastro GI: Positive for bloating and diarrhea; No abdominal pain, change in bowel habits, constipation, heartburn, difficulty swallowing, Vomiting blood/hematemesis, Blood in stool, nausea/dyspepsia or vomiting Musc Musculoskeletal: Positive for back pain, stiffness, Arthritis and sciatica; No abnormal gait, joint pain, joint swelling, muscle cramps, muscle weakness, numbness, tingling, leg pain at night or leg pain with exertion Skin Skin: No dry skin, lesions, itchy eyes or rash Neuro Neurology: No abnormal gait, dizziness, frequent falls, headache(s), numbness, tingling, tremor(s), Increased tone in limbs, paralysis or seizures Psych Psychiatric: No anxiety, No depression, No paranoia, No Behavioral Problems, No Compulsive Behavior, No hyperactivity, No inattentiveness, No obsessions/compulsions, No Temper Tantrums and No suicidal ideation Endo Endocrine: No fatigue or weight change Aller/Imm Allergy/Immunologic: No itchy eyes Hebert/Lymp Hematologic/Lymphatic: No easy bleeding or easy bruising Exam Const General: cooperative and comfortable Nutritional Appearance: average body habitus and well nourished [facility] Head: normal to inspection Ears: hearing grossly normal bilaterally Nose: external nose normal Face and sinus: normal facial exam Mouth: oral mucosae normal Throat: posterior oropharynx normal Eyes General: appearance normal, both eyes and all related structures Neck Neck: normal visual inspection Chest Chest palpation & inspection: normal inspection of the chest and normal palpation of entire chest wall Resp Effort & Inspection: normal respiratory effort Auscultation: Bilateral: Clear to Auscultation Cardio Palpation: normal PMI Rate: regular rate Rhythm: regular rhythm GI Inspection: normal to inspection Auscultation: normal bowel sounds Percussion: normal to percussion Palpation: no hepatosplenomegaly Skin General: no rashes or lesions noted Neuro General: patient alert Extrem General: normal to inspection Psych Affect: normal affect Quality Reporting Tobacco Screening (CMS 138) Smoking Status: Current every day smoker Assessment and Plan Assessment and Plan (1) Diarrhea: Status: Chronic Plan: The patient had is doing better After getting her gallbladder removed., She is taking medication well for underlying diseases such as hypertension and diabetes. Diarrhea occurred for years and she was diagnosed with IBS with diarrhea. Prior to her getting Diarrhea was watery, 4 to 5 times a day, even at night, and mild diffuse abdominal pain was accompanied without tenderness. She had no known allergies and had no history of ingestion of contaminated foods or raw meats. She did not take any new medications. The exact etiology of chronic diarrhea is quite broad as there are many different causes. ?Any process which causes increased water into the stool can produce diarrhea. These typically categorize into inflammatory and secretory diarrhea. We will perform a work-up to see if she has a secretory ,osmotic or inflammatory diarrhea. We will get stool studies to look for diseases such as exocrine pancreatic insufficiency by checking fecal, tryptase and fecal elastase. We will also look for inflammatory bowel disease with an IBD SGI. She does have significant diverticular disease which is a component to bacterial overgrowth. She is doing fairly well with cholestyramine every other day and Imodium along with Bentyl on a daily basis. Since she is only taking the cholestyramine every other day I will switch her to colestipol twice a day. She will give us a follow-up phone call with a progress update. (2) Encounter for screening colonoscopy: Status: Chronic I have examined the patient and the H&P has been reviewed. There are no clinical changes since date of exam.
--- NOTE | 2023-07-23 08:05 | OP.CCLET_ITS ---
07/23/2023 Geo Faith Md Re : Colonoscopy procedure for Hailey Govea Dear Vianney This procedure was performed on Sunday, July 23, 2023. My impressions and recommendations are as follows: Impressions : - Diverticulosis in the recto-sigmoid colon, in the sigmoid colon and in the descending colon. - One 10 mm polyp in the transverse colon, removed with a hot snare. Resected and retrieved. - Likely benign tumor in the transverse colon. Biopsied. Recommendations : - Discharge patient to home. - Resume previous diet. - Continue present medications. - Await pathology results. - Repeat colonoscopy in 1 year for surveillance. - Refer for surgical resection. My findings are described in the full procedure note, which is enclosed. If I can be of further assistance, please feel free to contact me at . Sincerely, Maverick Rust, 07/23/2023 8:04:26 AM This report has been signed electronically.
--- NOTE | 2023-07-23 08:05 | OP.COLON_ITS ---
Patient Name: Hailey Govea Procedure Date: 07/23/2023 7:16 AM Date of : 1945 Age: 78 Procedure: Colonoscopy Indications: High risk colon cancer surveillance: Personal history of colonic polyps Providers: Maverick Rust DO Referring MD: Geo Faith Md Medicines: Monitored Anesthesia Care Patient Profile: This is a 78 year old female. Refer to note in patient chart for documentation of history and physical. Last Colonoscopy: 6 months ago. Complications: No immediate complications. Procedure: Pre-Anesthesia Assessment: - Prior to the procedure, a History and Physical was performed, and patient medications and allergies were reviewed. The patient is competent. The risks and benefits of the procedure and the sedation options and risks were discussed with the patient. All questions were answered and informed consent was obtained. Patient identification and proposed procedure were verified by the physician. Mental Status Examination: normal. CV Examination: normal. Prophylactic Antibiotics: The patient does not require prophylactic antibiotics. Prior Anticoagulants: The patient has taken no anticoagulant or antiplatelet agents. ASA Grade Assessment: II - A patient with mild systemic disease. After reviewing the risks and benefits, the patient was deemed in satisfactory condition to undergo the procedure. The anesthesia plan was to use monitored anesthesia care (MAC). Immediately prior to administration of medications, the patient was re-assessed for adequacy to receive sedatives. The heart rate, respiratory rate, oxygen saturations, blood pressure, adequacy of pulmonary ventilation, and response to care were monitored throughout the procedure. The physical status of the patient was re-assessed after the procedure. After I obtained informed consent, the scope was passed under direct vision. Throughout the procedure, the patient's blood pressure, pulse, and oxygen saturations were monitored continuously. The colonoscope was introduced through the anus and advanced to the cecum, identified by appendiceal orifice and ileocecal valve. The colonoscopy was performed without difficulty. The patient tolerated the procedure well. The quality of the bowel preparation was adequate. The ileocecal valve, appendiceal orifice, and rectum were photographed. Scope In: 7:27:40 AM Scope Withdrawal Time 0 hours 10 minutes 36 seconds Scope Out: 7:54:14 AM Total Procedure Duration Time 0 hours 26 minutes 34 seconds Findings: The perianal and digital rectal examinations were normal. Multiple small and large-mouthed diverticula were found in the recto-sigmoid colon, sigmoid colon and descending colon. A 10 mm polyp was found in the transverse colon. The polyp was sessile. The polyp was removed with a hot snare. Resection and retrieval were complete. Verification of patient identification for the specimen was done. Estimated blood loss was minimal. A submucosal non-obstructing large mass was found in the transverse colon. The mass was non-circumferential. The mass measured three cm in length. No bleeding was present. This was biopsied with a cold forceps for histology. Verification of patient identification for the specimen was done. Estimated blood loss was minimal. Impression: - Diverticulosis in the recto-sigmoid colon, in the sigmoid colon and in the descending colon. - One 10 mm polyp in the transverse colon, removed with a hot snare. Resected and retrieved. - Likely benign tumor in the transverse colon. Biopsied. Recommendation: - Discharge patient to home. - Resume previous diet. - Continue present medications. - Await pathology results. - Repeat colonoscopy in 1 year for surveillance. - Refer for surgical resection. Procedure Code(s): --- Professional --- 03713, Colonoscopy, flexible; with removal of tumor(s), polyp(s), or other lesion(s) by snare technique 76339, 59, Colonoscopy, flexible; with biopsy, single or multiple CPT copyright 2021 [employer]. All rights reserved. The codes documented in this report are preliminary and upon studio musician review may be revised to meet current compliance requirements. Maverick Rust DO 07/23/2023 8:04:26 AM This report has been signed electronically. Number of Addenda: 0 Note Initiated On: 07/23/2023 7:16 AM
[2023-07-23 08:08] VITALS: BP 120/69; BP 127/67; PULSE 74; RESP 18; TEMP 36.2; O2SAT 95
[2023-07-23 08:11] VITALS: BP 113/93; BP 120/69; PULSE 75; RESP 18; O2SAT 92
[2023-07-23 08:15] VITALS: BP 120/69; BP 124/71; PULSE 73; RESP 18; O2SAT 92
[2023-07-23 08:19] VITALS: BP 120/69; BP 131/71; PULSE 70; RESP 14; TEMP 36.7; O2SAT 93
[2023-07-23 08:39] VITALS: BP 120/69
== END 2023-07-23 08:46 | disposition home or self-care (01) ==
LOC: EN 06:24 → AC 06:25
PROVIDERS: PCP Internal Medicine; Referring Provider Internal Medicine; Visit Provider Internal Medicine Gastroenterology
PROC: 0DJD8ZZ Inspection of Lower Intestinal Tract, Via Natural or Artificial Opening Endoscopic (ICD-10-PCS; CPT 45378; principal; 2023-07-23 07:10)
DX: Z12.11 Encounter for screening for malignant neoplasm of colon (principal); J44.9 Chronic obstructive pulmonary disease, unspecified; E11.9 Type 2 diabetes mellitus without complications; K52.82 Eosinophilic colitis; K57.30 Diverticulosis of large intestine without perforation or abscess without bleeding; Z86.010 Personal history of colon polyps; F17.200 Nicotine dependence, unspecified, uncomplicated; I10 Essential (primary) hypertension; D12.3 Benign neoplasm of transverse colon; Z79.899 Other long term (current) drug therapy; Z79.890 Hormone replacement therapy; E03.9 Hypothyroidism, unspecified; Z90.49 Acquired absence of other specified parts of digestive tract; E78.00 Pure hypercholesterolemia, unspecified; Z87.19 Personal history of other diseases of the digestive system
CPT/HCPCS: 45385; 45380; 82962; 88305; J7120; J2405

== ENCOUNTER → 2023-08-25 | Outpatient (CLI) | payer MEDICARE, OTHER, SELFPAY ==
[2023-08-25 10:32] LABS: Color, Urine Yellow (Yellow); Glucose, Dipstick Normal (Normal); Ketone-Dipstick Negative (Negative); Leukocyte Esterase-Dipstick 100 /ul (Negative); Nitrite-Dipstick Negative (Negative); Occult Blood-Urine Negative /ul (Negative); Protein-Dipstick 15 mg/dl (Negative); Specific Gravity, Urine 1.015 (1.002-1.030); Urine Bilirubin Dipstick Negative (Negative); Urine Clarity Clear (Clear); Urine Urobilinogen Normal (Normal)
[2023-08-25 10:35] LABS: Absolute Lymphocyte Count 1.85 X10^3/uL (0.83-4.51); Absolute Neutrophil Count 3.6 X10^3/uL (2.0-7.7); Basophil# 0.06 X10^3/uL; Eosinophil# 0.19 X10^3/uL; Hemoglobin 13.2 g/dL (12.0-15.0); Lymphocyte # 1.85 X10^3/ul (0.83-4.51); Lymphocyte % 29.6 % (19-41); Mean Corp Hgb Conc 32.2 g/dL (32-36); Mean Corpuscular Hgb 30.4 pg (27.0-32.0); Mean Corpuscular Volume 94.5 fL (81-99); Mean Platelet Vol. 9.8 fl (6.2-12.0); Monocyte# 0.57 X10^3/uL; Monocyte% 9.1 % (0-10); NRBC Flagged by Analyzer 0 % (0-5); Neutrophil # 3.56 X10^3/uL (2.7-7.7); Platelet Count 197 K/mm3 (150-450); RBC Distribution Width CV 12.7 % (11.6-14.6); RBC Distribution Width SD 44.2 fl (35.1-43.9); Red Blood Count 4.34 M/mm3 (4.2-5.4); White Blood Count 6.3 K/mm3 (4.4-11.0)
[2023-08-25 12:39] LABS: AST(SGOT) 19 U/L (15-37); Alanine Aminotransfer ALT/SGPT 24 U/L (13-56); Albumin, Serum 3.6 g/dL (3.2-5.0); Alkaline Phosphatase 64 U/L (45-117); Anion Gap 6 (5-15); BUN 24 mg/dL (7-18); BUN/Creat Ratio 27.7 RATIO (10-20); Calcium,Total 9.4 mg/dL (8.5-10.1); Chloride 105 mmol/L (98-107); Cholesterol 106 mg/dL (200); Creatinine, Serum 0.87 mg/dL (0.55-1.02); EST Glomerular Filtration Rate 67 mL/min (>60); Est Glom Filt Rate - Afr Amer 82 mL/min (>60); Globulin 3.6 g/dL (2.2-4.2); Glucose 153 mg/dL (74-106); High Density Lipoprotein 45 mg/dL; Potassium 4.2 mmol/L (3.5-5.1); Protein, Total 7.2 g/dL (6.4-8.2); Sodium Level 140 mmol/L (136-145); Triglycerides 112 mg/dL; Very Low Density Lipoprotein 22 mg/dL (5-40)
[2023-08-25 15:19] LABS: Hemoglobin A1c 6.3 % (3.8-5.6)
[2023-08-29 18:13] LABS: Microalbumin,Random Urine 93.3 mg/L (NO RANGE EST.)
== END | disposition home or self-care (01) ==
LOC: LAB 09:13
PROVIDERS: PCP Internal Medicine; Referring Provider Internal Medicine; Visit Provider Internal Medicine
DX: E11.42 Type 2 diabetes mellitus with diabetic polyneuropathy (principal)
CPT/HCPCS: 36415; 80053; 80061; 81002; 82043; 83036; 85025

== ENCOUNTER → 2023-12-04 | Outpatient (CLI) | payer MEDICARE, OTHER, SELFPAY ==
--- NOTE | 2023-12-04 12:45 | CT_ITS ---
INDICATION: NODULE EXAMINATION: CT CHEST WITHOUT CONTRAST - CT Chest W/O Contrast Injection TECHNIQUE: Helically acquired images were obtained of the chest. A radiation dose optimization technique was used for this scan. IV Contrast dosage and agent: None. COMPARISON: April 23, 2023 FINDINGS: LUNGS, PLEURA AND LARGE AIRWAYS: Tiny calcified granuloma in left upper lobe.. There is a slightly lobulated nodule in the right upper lobe measuring approximately 9.7 x 5.8 mm. There is a 3.8 mm noncalcified nodule superior segment of the right lower lobe and a similar-appearing nodule measuring approximately 3.3 mm the right base. Nodule No pleural effusion or thickening. No pneumothorax. THYROID: No thyroid lesions. HEART AND PERICARDIUM: Heart size is normal. No pericardial effusion. CORONARY ARTERIES: Multifocal coronary artery calcification VESSELS: Mild atherosclerotic change of the aorta without evidence for aneurysm. MEDIASTINUM AND KATHERINE: Multiple calcified right hilar nodes.. Esophagus is unremarkable. No hiatal hernia. UPPER ABDOMEN: Nonspecific fatty infiltrated liver. Tiny granulomatous calcifications within the spleen and liver BONES dorsal spine demonstrates advanced degenerative changes: No suspicious lytic or blastic abnormality. No significant change since prior exam change since prior exam CT/Chest without Contrast IMPRESSION: Findings consistent with old granulomatous disease and stable appearance to right lung nodules since prior study. Recommend additional follow-up imaging utilizing Fleischner Society criteria if clinically warranted Electronically Signed: Yanick Bennett MD at 19:59 EDT ,
== END | disposition home or self-care (01) ==
LOC: CT 12:38
PROVIDERS: PCP Internal Medicine; Referring Provider Internal Medicine Pulmonary Disease; Visit Provider Internal Medicine Pulmonary Disease
DX: R91.1 Solitary pulmonary nodule (principal); R06.02 Shortness of breath; R05.9 Cough, unspecified
CPT/HCPCS: 71250

== ENCOUNTER 2024-02-05 10:13 | Emergency (ER) | payer MEDICARE, OTHER, SELFPAY ==
[2024-02-05 10:14] VITALS: BP 158/132; PULSE 88; RESP 16; TEMP 36.5; O2SAT 96; BMI 37.1
--- NOTE | 2024-02-05 10:44 | MRI_ITS ---
HISTORY: neck pain, paraesthesias both arms, NO TRAUMA, NO H/O OF PRIOR CERVICAL SURGERY. TECHNIQUE: Multiplanar and multisequence MR images of the cervical spine were obtained without contrast. 264 images. COMPARISON: None. FINDINGS: VERTEBRAE: Vertebral body heights maintained. Mild degenerative changes at multiple levels. No other significant bone marrow signal abnormality. VERTEBRAL ALIGNMENT: Straightening of the cervical lordosis. Minimal 1-2 mm retrolisthesis of C4-5 and anterolisthesis of C5-6. SPINAL CORD: Slightly increased T2 cord signal at the C4-5 level. SOFT TISSUES: No prevertebral fluid collection. INTERVERTEBRAL DISCS: C2-3: Minimal posterior disc protrusion with uncovertebral and facet arthropathy superimposed on a developmentally narrow spinal canal resulting in moderate central canal stenosis and bilateral foraminal narrowing. C3-4: Minimal posterior disc bulge osteophyte complex with uncovertebral and facet arthropathy superimposed on a developmentally narrow spinal canal resulting in moderate central canal stenosis and bilateral foraminal narrowing C4-5: Mild posterior disc bulge osteophyte complex with uncovertebral and facet arthropathy resulting in mild indentation of the ventral cord, severe central canal stenosis, and moderate bilateral foraminal narrowing. C5-6: Mild posterior disc bulge osteophyte complex with uncovertebral and facet arthropathy superimposed on a developmentally narrow spinal canal resulting in moderate central canal stenosis and bilateral foraminal narrowing C6-7: Fusion across the intervertebral disc space. Residual degenerative change with osteophytes resulting in mild central canal stenosis and moderate bilateral foraminal narrowing. C7-T1: Mild disc bulge eccentric to the right resulting in minimal narrowing of the thecal sac and no significant foraminal narrowing. 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 Severe spinal canal stenosis, cord impingement, and bilateral foraminal narrowing of C4-5 with mild cord edema/myelopathy. Moderate spinal canal stenosis with bilateral foraminal narrowing at C2-3, C3-4, and C5-6. Electronically Signed: Ginette Viveros MD at 13:35 EST ,
--- NOTE | 2024-02-05 10:45 | EDS_ITS ---
HPI History of Present Illness Chief Complaint: Other, Pain/Inj Detail of Chief Complaint: Severe neck pain Informant: patient Narrative Narrative: Patient presents to the emergency department with complaint of severe neck pain. Patient states that she woke up 5 days ago with some mild discomfort in the right side of her neck. Patient was seen at urgent care and diagnosed with a trapezius strain and started on cyclobenzaprine and Motrin which is not helping her pain at all. Pain now bilaterally and radiating down both arms to about the elbow. She denies significant weakness. Pain worse with movement and cough. Patient has history of arthritis and has had some chronic back pain issues. She has been seen in the past by Dr. eLw back specialist as well as pain management Dr. Glover. Patient not anticoagulated. She does take a baby aspirin. [facility] Medical History (Updated 02/05/24 @ 14:[address] Memo Green, DO) Strain of cervical portion of both trapezius muscles Cervical myofascial strain Abn react-fluid aspirat COPD with exacerbation Contact with or exposure to other viral diseases Sessile colonic polyp Umbilical hernia without obstruction and without gangrene Wears partial dentures Post-menopausal Thyroid disease Diabetes Arthritis Fatty liver High cholesterol Easy bruising Back pain Dietary restriction History of IBS History of diverticulitis Epigastric direct abdominal tenderness Smoker On home oxygen therapy BiPAP (biphasic positive airway pressure) dependence COPD (chronic obstructive pulmonary disease) Shortness of breath on exertion Chronic cough Hypertension History of echocardiogram History of stress test Cardiology follow-up encounter History of rheumatic fever Adhesion, postoperative History of ovarian cyst Hemorrhoids History of back problems Peptic ulcer disease Home Medications ?Medication ?Instructions ?Recorded ?Last Taken ?Type albuterol sulfate 90 mcg/actuation 2 puff inhalation Q6H PRN PRN COPD 09/23/17 07/08/22 History aerosol inhaler (Ventolin HFA) ascorbic acid (vitamin C) 500 mg 500 mg PO DAILY SUPPLEMENT 09/23/17 Unknown History capsule bupropion HCl 100 mg tablet,12 hr 100 mg PO BID ANXIETY 09/23/17 01/23/23 History sustained-release (Wellbutrin SR) [id number] C-Mn 500 1 ea PO DAILY SUPPLEMENT 09/23/17 Unknown History mg-400 mg capsule loperamide 2 mg capsule (Imodium 2 mg PO PRN PRN Irritable Bowel 09/23/17 Unknown History A-D) Syndrome losartan 100 mg tablet 100 mg PO QHS BP 09/23/17 Unknown History magnesium 30 mg tablet 30 mg PO DAILY SUPPLEMENT 09/23/17 Unknown History montelukast 10 mg tablet 10 mg PO DAILY COPD 09/23/17 Unknown History (Singulair) omega 3-dha 60 mg-epa 90 mg-fish 500 mg PO DAILY SUPPLEMENT 09/23/17 07/18/23 History oil 500 mg capsule, delayed release (Fish Oil) pravastatin 40 mg tablet 40 mg PO QHS CHOLESTEROL 09/23/17 Unknown History vitamin B complex 1 ea PO DAILY SUPPLEMENT 09/23/17 Unknown History aspirin 81 mg chewable tablet 81 mg PO DAILY 05/20/22 07/18/23 History azelastine 137 mcg (0.1 %) nasal 2 spray intranasal BID 05/20/22 Unknown History spray cholecalciferol (vitamin D3) 50 50 mcg PO DAILY 05/20/22 Unknown History mcg (2,000 unit) capsule cinnamon bark 500 mg capsule 1,000 mg PO BID 05/20/22 Unknown History (Cinnamon) fluticasone fur. 100 mcg-umeclid 1 inh inhalation DAILY 05/20/22 Unknown History 62.5 mcg-vilant 25 mcg inhalat.powder (Trelegy Ellipta) guaifenesin 600 mg tablet, 1,200 mg PO DAILY 05/20/22 05/27/22 History extended release 12 hr (Mucinex) hydralazine 50 mg tablet 50 mg PO Q12H 05/20/22 07/08/22 History levocetirizine 5 mg tablet 5 mg PO DAILY 05/20/22 Unknown History metformin 500 mg tablet 500 mg PO BID 05/20/22 Unknown History mirtazapine 15 mg tablet 15 mg PO QHS 05/20/22 Unknown History potassium chloride 10 mEq 10 meq PO DAILY 05/20/22 Unknown History tablet,extended release vitamin E 670 mg (1,000 unit) 670 mg PO MOWEFR SUPPLEMENT 05/20/22 Unknown History capsule fenofibrate 160 mg tablet 160 mg PO DAILY 07/01/22 Unknown History oxycodone 5 mg tablet 5 mg PO Q6H PRN PRN Pain Score 07/09/22 Unknown Rx 6-10 3 days #9 tabs hyoscyamine sulfate 0.125 mg 0.125 mg sublingual Q8H PRN 04/02/23 Unknown Rx sublingual tablet Irritable Bowel Syndrome #60 tabs albuterol sulfate 2.5 mg/3 mL 2.5 mg inhalation Q6H PRN 07/21/23 Unknown History (0.083 %) solution for nebulization shortness of breath or wheezing levothyroxine 175 mcg tablet 175 mcg PO DAILY 07/21/23 Unknown History metoprolol succinate 50 mg 50 mg PO BID 07/21/23 Unknown History tablet,extended release 24 hr colestipol 1 gram tablet 1 g PO BID #180 TABLETS 09/17/23 Unknown Rx cyclobenzaprine 10 mg tablet 10 mg PO TID PRN muscle spasm #20 02/03/24 Unknown Rx tabs ibuprofen 600 mg tablet 600 mg PO Q6H PRN pain #30 tabs 02/03/24 Unknown Rx ammonium lactate 12 % lotion 1 applic topical DAILY PRN dry skin 02/05/24 Unknown History methylprednisolone 4 mg tablets in 4 mg PO DAILY #21 tabs 02/05/24 Unknown Rx a dose pack (Methylpred DP) omeprazole 20 mg capsule,delayed 40 mg PO DAILY 02/05/24 Unknown History release oxycodone-acetaminophen 5 mg-325 1 tab PO Q8H PRN pain 3 days #10 02/05/24 Unknown Rx mg tablet (Percocet) tabs Allergy/AdvReac Type Severity Reaction Status Date / Time adhesive tape Allergy Rash Verified 02/05/24 10:14 Sulfa (Sulfonamide Allergy Rash Verified 02/05/24 10:14 Antibiotics) Family History Sister Breast cancer Hypertension Mother Cancer pancreatic Hypertension Aunt Diabetes Grandfather Hypertension CVA (cerebral vascular accident) Grandmother Hypertension Surgical History Hx of esophagogastroduodenoscopy Hx of right cataract extraction Hx of left cataract extraction Hx of colonoscopy History of esophagogastroduodenoscopy (EGD) History of placement of ear tubes History of thyroidectomy History of carpal tunnel repair History of left knee replacement History of hysterectomy History of cardiac cath History of D&C History of ovarian cystectomy History of appendectomy Hx of tonsillectomy Social History household members: none Smoking Status: Former smoker alcohol intake: never substance use type: does not use ROS ROS ED Review of Systems ROS Unobtainable: other Constitutional Constitutional ED: Reports lethargy; Denies chills, fever(s), sweats or weight loss Eyes Eyes: Denies blurry vision, change in vision or diplopia ENT ENT ED: Denies rhinorrhea or sore throat Cardiovascular Cardiovascular: Denies chest pain, orthopnea or racing heartbeat Respiratory/Chest Respiratory/Chest: Denies cough, dyspnea, dyspnea on exertion, orthopnea or sputum Gastrointestinal Gastrointestinal: Denies abdominal pain, diarrhea, nausea or vomiting Genitourinary Genitourinary ED: Denies dysuria, hematuria or urinary frequency Musculoskeletal Musculoskeletal: Reports neck pain; Denies arthralgias, back pain or myalgias Integumentary Denies abscess, Abrasions or rash Neurologic Neurologic: Reports paresthesias; Denies headache(s) or weakness Psychiatric Psychiatric: Denies anxiety, depression or suicidal thoughts Endocrine Endocrinology: Denies polydipsia, polyphagia or polyuria Hematologic/Lymphatic Hematologic/Lymphatic: Denies easy bleeding, easy bruising or lymphadenopathy Allergic/Immunologic Allergic/Immunologic ED: Denies mouth swelling, tongue swelling or urticaria EXAM Physical Exam Const Vital Signs: 02/05/24 10:14 02/05/24 10:50 02/05/24 14:38 Temperature 97.7 F L 98 F Temperature Source Oral Pulse Rate 88 70 Respiratory Rate 16 15 Respiratory Effort Normal Non-Labored Respiratory Pattern Normal Blood Pressure 158/132 H 126/72 H Blood Pressure Mean 140 90 Pulse Ox 96 99 Oxygen Delivery Method Room Air Positive well nourished and well developed General Appearance ED: well developed and NAD HEENT Reports TM's clear and moist mucous membranes normocephalic and atraumatic; Negative for trauma or tenderness Tympanic Membrane ED: Yes TM's clear Eyes PERRL and EOMs intact bilaterally General Eye ED: Negative for pale conjunctiva or scleral icterus Neck no lymphadenopathy, supple and no JVD Neck Narrative: Patient with diffuse tenderness at the base of the neck lower cervical spine segments as well as paraspinal musculature bilaterally. Deep tendon reflexes diminished at the right bicep but normal at the right tricep. 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 Deep tendon reflexes in the left arm plus 2 out of 4 at the bicep, tricep, and brachioradialis. Normal sensation to light touch. Chest Wall inspection of chest normal and palpation of chest normal Chest: Negative for tenderness Resp normal respiratory effort and clear to auscultation bilaterally Effort and Inspection: Negative for respiratory distress or pain with movement Auscultation: Negative for rhonchi, wheezes or diminished lung sounds Cardio regular rate, regular rhythm, S1 normal heart sound, S2 normal heart sound and no murmurs Peripheral Pulses: pulses 2+ throughout GI normal to inspection, nondistended, normoactive bowel sounds, soft to palpation, non-tender, non-distended and no masses Back/Spine no CVA tenderness and no thoracic nor lumbar tenderness Extremity normal to inspection General Extremety ED: Negative for edema General Extremity: Negative for edema Neuro oriented x3, CN's II-XII intact bilaterally, no sensory deficits noted and gait normal Sensorium / Orientation: awake, alert, oriented to person, oriented to place and oriented to time Motor Exam: strength 5/5 throughout and strength abnormal Psych mental status grossly normal Skin no rashes or lesions noted and no wounds MDM MDM MDM Narrative Medical decision making narrative: Patient with neck pain x 6 days. She had Percocet at home that is not helping her pain. Cyclobenzaprine and ibuprofen also not helping. Currently rates her pain an 8 out of 10. Suspect possibly a cervical radiculopathy. Will obtain an MRI to evaluate further. Patient was medicated with Dilaudid and Zofran IM. MRI of the cervical spine obtained read by radiology as multilevel degenerative disc disease superimposed on developmentally narrow spinal canal there was severe spinal canal stenosis with cord impingement and bilateral foraminal narrowing at C4-5 with mild cord edema and myelopathy. Patient had moderate spinal canal stenosis with bilateral foraminal narrowing at C2-3, C3-4, and C5- 6. At this point patient had seen Dr. Lew in the past but my understanding is that he is retiring and no longer operating. I also attempted to call Dr. Ramon spine surgeon and will attempt to discuss case with him. I discussed case with pain management Dr. Glover whom patient is seen in the past who asked that we start patient on a Medrol Dosepak and he will attempt to get her in the office for possible injections. Based on the findings and clinical exam I do not feel she is an emergent surgical candidate. Radiography Diagnostic Testing: Clinical Impression(s) from Imaging Studies Cervical Spine MRI 02/05/24 10:44 IMPRESSION: Multilevel degenerative disc disease superimposed on a developmentally narrow spinal canal. Severe spinal canal stenosis, cord impingement, and bilateral foraminal narrowing of C4-5 with mild cord edema/myelopathy. Moderate spinal canal stenosis with bilateral foraminal narrowing at C2-3, C3-4, and C5-6. Electronically Signed: Ginette Viveros MD at 13:35 EST , Discharge Plan Triage Chief Complaint: Other, Pain/Inj ED Provider: Memo Green Dx/Rx/DC Orders Clinical Impression: Cervical radiculopathy, Cervical spinal stenosis Instructions: Cervical Radiculopathy, ED Neck Pain Prescriptions: New methylprednisolone [Methylpred DP] 4 mg tablets,dose pack 4 mg PO DAILY Qty: 21 0RF oxycodone-acetaminophen [Percocet] 5-325 mg tablet 1 tab PO Q8H PRN (Reason: pain) 3 Days Qty: 10 0RF No Action potassium chloride 10 mEq tablet extended release 10 meq PO DAILY metformin 500 mg tablet 500 mg PO BID hydralazine 50 mg tablet 50 mg PO Q12H Rx Instructions: 50 mg in AM and 100mg in PM Trelegy Ellipta 100-62.5-25 mcg blister with device 1 inh inhalation DAILY azelastine 137 mcg (0.1 %) aerosol,spray 2 spray intranasal BID Rx Instructions: administer into each nostril levocetirizine 5 mg tablet 5 mg PO DAILY mirtazapine 15 mg tablet 15 mg PO QHS guaifenesin [Mucinex] 600 mg tablet extended release 12hr 1,200 mg PO DAILY cholecalciferol (vitamin D3) 50 mcg (2,000 unit) capsule 50 mcg PO DAILY cinnamon bark [Cinnamon] 500 mg capsule 1,000 mg PO BID aspirin 81 mg tablet,chewable 81 mg PO DAILY Patient Comments: on hold for colonoscopy 07/23/23 cyclobenzaprine 10 mg tablet 10 mg PO TID PRN (Reason: muscle spasm) Qty: 20 0RF ibuprofen 600 mg tablet 600 mg PO Q6H PRN (Reason: pain) Qty: 30 0RF loperamide [Imodium A-D] 2 MG capsule 2 mg PO PRN PRN (Reason: Irritable Bowel Syndrome) pravastatin 40 MG tablet 40 mg PO QHS bupropion HCl [Wellbutrin SR] 100 MG tablet sustained-release 12 hr 100 mg PO BID montelukast [Singulair] 10 MG tablet 10 mg PO DAILY albuterol sulfate [Ventolin HFA] 1 INHALER inhaler 2 puff inhalation Q6H PRN PRN (Reason: COPD) losartan 100 MG tablet 100 mg PO QHS magnesium 30 MG tablet 30 mg PO DAILY vitamin B complex 1 EACH capsule 1 ea PO DAILY [id number]-eufjxqygb-lay C-Mn 1 EACH capsule 1 ea PO DAILY Fish Oil 500 MG capsule,delayed release(DR/EC) 500 mg PO DAILY Patient Comments: hold for colonoscopy 07/23/23 ascorbic acid (vitamin C) 500 MG capsule 500 mg PO DAILY vitamin E 670 mg (1,000 unit) capsule 670 mg PO MOWEFR Patient Comments: M, W, F fenofibrate 160 mg tablet 160 mg PO DAILY oxycodone 5 mg Tablet 5 mg PO Q6H PRN PRN (Reason: Pain Score 6-10) 3 Days Qty: 9 0RF levothyroxine 175 mcg tablet 175 mcg PO DAILY metoprolol succinate 50 mg tablet extended release 24 hr 50 mg PO BID albuterol sulfate 2.5 mg /3 mL (0.083 %) solution for nebulization 2.5 mg inhalation Q6H PRN (Reason: shortness of breath or wheezing) ammonium lactate 12 % lotion 1 applic topical DAILY PRN (Reason: dry skin) omeprazole 20 mg capsule,delayed release(DR/EC) 40 mg PO DAILY hyoscyamine sulfate 0.125 mg tablet, sublingual 0.125 mg sublingual Q8H PRN (Reason: Irritable Bowel Syndrome) Qty: 60 1RF colestipol 1 gram tablet 1 g PO BID Qty: 180 4RF Primary Care Provider: JAYLENE VO Referrals: Jim Guo MD [Med Staff - Active Staff] - 3-5 Days JAYLENE VO MD [Primary Care Provider] - Yanick Reyes MD [Med Staff - Active Staff] - 3-5 Days Print Language: Citizen Of [place] Disposition Disposition: Home, Self Care Discharge Date/Time: 02/05/24 14:39
[2024-02-05] MEDS: HYDROmorphone 1 MG/ML Syringe IM (11:04)
[2024-02-05] MEDS: Ondansetron 4 MG/2 ML Vial IM (11:04)
[2024-02-05] MEDS: HYDROmorphone 1 MG/ML Syringe IV (14:33)
[2024-02-05 14:38] VITALS: BP 126/72; PULSE 70; RESP 15; TEMP 36.6; O2SAT 99
== END 2024-02-05 14:39 | disposition home or self-care (01) ==
PROVIDERS: Emergency Provider Emergency Medicine; PCP Internal Medicine; Visit Provider Emergency Medicine
DX: M50.10 Cervical disc disorder with radiculopathy, unspecified cervical region (principal); J44.9 Chronic obstructive pulmonary disease, unspecified; E11.9 Type 2 diabetes mellitus without complications; M48.02 Spinal stenosis, cervical region; M50.00 Cervical disc disorder with myelopathy, unspecified cervical region; I10 Essential (primary) hypertension; E07.9 Disorder of thyroid, unspecified; E78.00 Pure hypercholesterolemia, unspecified; Z87.19 Personal history of other diseases of the digestive system; Z87.11 Personal history of peptic ulcer disease; Z79.82 Long term (current) use of aspirin; Z90.49 Acquired absence of other specified parts of digestive tract; Z79.84 Long term (current) use of oral hypoglycemic drugs; Z90.89 Acquired absence of other organs; Z79.899 Other long term (current) drug therapy; Z79.890 Hormone replacement therapy; Z96.652 Presence of left artificial knee joint; Z87.891 Personal history of nicotine dependence
CPT/HCPCS: 72141; 96372; 96374; 99282; J2405

== ENCOUNTER → 2024-04-22 | Outpatient (CLI) | payer MEDICARE, OTHER, SELFPAY ==
[2024-04-22 09:57] LABS: Absolute Lymphocyte Count 1.81 X10^3/uL (0.83-4.51); Absolute Neutrophil Count 5.2 X10^3/uL (2.0-7.7); Basophil# 0.04 X10^3/uL; Basophil% 0.5 % (0-1); Eosinophil# 0.12 X10^3/uL; Eosinophils% 1.6 % (0-5); Hematocrit 42.1 % (37-47); Hemoglobin 13.3 g/dL (12.0-15.0); Lymphocyte # 1.81 X10^3/ul (0.83-4.51); Lymphocyte % 23.4 % (19-41); Mean Corp Hgb Conc 31.6 g/dL (32-36); Mean Corpuscular Hgb 29.2 pg (27.0-32.0); Mean Corpuscular Volume 92.5 fL (81-99); Mean Platelet Vol. 9.7 fl (6.2-12.0); Monocyte# 0.55 X10^3/uL; Monocyte% 7.1 % (0-10); NRBC Flagged by Analyzer 0 % (0-5); Neutrophil # 5.17 X10^3/uL (2.7-7.7); Neutrophil % 66.9 % (47-70); Platelet Count 194 K/mm3 (150-450); RBC Distribution Width CV 13.5 % (11.6-14.6); RBC Distribution Width SD 45.7 fl (35.1-43.9); Red Blood Count 4.55 M/mm3 (4.2-5.4); White Blood Count 7.7 K/mm3 (4.4-11.0)
[2024-04-22 10:47] LABS: AST(SGOT) 10 U/L (15-37); Alanine Aminotransfer ALT/SGPT 20 U/L (13-56); Albumin, Serum 3.6 g/dL (3.2-5.0); Alkaline Phosphatase 74 U/L (45-117); Anion Gap 8 (5-15); BUN 19 mg/dL (7-18); BUN/Creat Ratio 21.8 RATIO (10-20); Chloride 108 mmol/L (98-107); Cholesterol 136 mg/dL (200); Creatinine, Serum 0.87 mg/dL (0.55-1.02); EST Glomerular Filtration Rate 67 mL/min (>60); Est Glom Filt Rate - Afr Amer 81 mL/min (>60); Globulin 3.6 g/dL (2.2-4.2); Glucose 162 mg/dL (74-106); High Density Lipoprotein 55 mg/dL; Potassium 4.1 mmol/L (3.5-5.1); Protein, Total 7.2 g/dL (6.4-8.2); Sodium Level 142 mmol/L (136-145); Triglycerides 176 mg/dL; Very Low Density Lipoprotein 35 mg/dL (5-40)
[2024-04-22 12:20] LABS: Hemoglobin A1c 6.8 % (3.8-5.6)
[2024-04-22 12:55] LABS: Color, Urine Yellow (Yellow); Glucose, Dipstick Normal (Normal); Ketone-Dipstick Negative (Negative); Leukocyte Esterase-Dipstick Negative /ul (Negative); Nitrite-Dipstick Negative (Negative); Occult Blood-Urine Negative /ul (Negative); Protein-Dipstick 30 mg/dl (Negative); Urine Bilirubin Dipstick Negative (Negative); Urine Clarity Clear (Clear); Urine Urobilinogen Normal (Normal)
== END | disposition home or self-care (01) ==
LOC: LAB 09:12
PROVIDERS: PCP Internal Medicine; Referring Provider Internal Medicine; Visit Provider Internal Medicine
DX: E11.42 Type 2 diabetes mellitus with diabetic polyneuropathy (principal)
CPT/HCPCS: 36415; 80053; 80061; 81002; 82043; 83036; 85025; 87086; 87088

== ENCOUNTER → 2024-06-14 | Outpatient (CLI) | payer MEDICARE, OTHER, SELFPAY ==
--- NOTE | 2024-06-14 13:09 | RAD_ITS ---
EXAM: XR Chest, 2 Views CLINICAL INDICATION: COPD TECHNIQUE: Frontal and lateral views of the chest. COMPARISON: No relevant prior studies available. FINDINGS: LUNGS AND PLEURAL SPACES: Pulmonary venous congestion. Mild COPD. Pulmonary nodule noted on CT chest dated 12/04/2023 can not be clearly visualized on the chest radiograph. If indicated, further evaluation with CTs is recommended. No consolidation. No pneumothorax. HEART: Unremarkable. No cardiomegaly. MEDIASTINUM: Unremarkable. Normal mediastinal contour. BONES/JOINTS: Unremarkable. No acute fracture. RAD/Chest PA and Lateral IMPRESSION: 1. Pulmonary venous congestion. 2. Mild COPD. Pulmonary nodule noted on CT chest dated 12/04/2023 can not be clearly visualized on the chest radiograph. If indicated, further evaluation with CTs is recommended. Reading Location: [facility]
== END | disposition home or self-care (01) ==
LOC: RAD 12:58
PROVIDERS: PCP Internal Medicine; Referring Provider Internal Medicine Pulmonary Disease; Visit Provider Internal Medicine Pulmonary Disease
DX: J44.9 Chronic obstructive pulmonary disease, unspecified (principal)
CPT/HCPCS: 71046

== ENCOUNTER → 2025-01-11 | Outpatient (CLI) | payer MEDICARE, OTHER, SELFPAY ==
[2025-01-11 11:29] LABS: Mucous, Urine 0 SEEN /hpf (<or=2+); Red Blood Cells-Urine 0 SEEN /hpf (0-5)
[2025-01-11 12:01] LABS: Color, Urine Yellow (Yellow); Glucose, Dipstick Normal (Normal); Ketone-Dipstick Negative (Negative); Leukocyte Esterase-Dipstick Negative /ul (Negative); Nitrite-Dipstick Negative (Negative); Occult Blood-Urine Negative /ul (Negative); Protein-Dipstick 15 mg/dl (Negative); Specific Gravity, Urine 1.020 (1.002-1.030); Urine Bilirubin Dipstick Negative (Negative)
[2025-01-11 12:10] LABS: Hematocrit 42.8 % (37-47); Hemoglobin 14.2 g/dL (12.0-15.0); Immature Granulocytes Count 0.050 X10^3/uL (0.0-0.0); Mean Corp Hgb Conc 33.2 g/dL (32-36); Mean Corpuscular Volume 90.3 fL (81-99); Mean Platelet Vol. 9.5 fl (6.2-12.0); NRBC Flagged by Analyzer 0 % (0-5); Platelet Count 222 K/mm3 (150-450); RBC Distribution Width CV 13.4 % (11.6-14.6); RBC Distribution Width SD 44.6 fl (35.1-43.9); Red Blood Count 4.74 M/mm3 (4.2-5.4); White Blood Count 10.3 K/mm3 (4.4-11.0)
--- OUTSIDE RECORDS SUMMARY | 2025-01-11 12:12 | XMS RPT_ITS | CCD ---
Author Organization [facility] Care Team Providers Care Celery Wrapper Name Role Phone Mihir Bess Unavailable Unavailable TAVO CRAFT, [facility] Primary Care Physician Mihir Bess MD Primary Care Provider Unavailable Primary Care Provider Unavailranda VO MD, GEO Primary Care Physician Pcp, No Primary Care Provider Unavailabl e Unavailable Primary Care Provider Unavailabl JIMENEZ Souza Referring Unavailable Dr. Andrew Forbes Attending Provider MD TAVO [facility] Primary Care Provider [phone] MD TAVO [facility] Referring Provider [phone] Andrew Forbes Referring Provider Dr. Andrew Forbes Other Provider [phone] Andrew Forbes Attending Provider MD TAVO [facility] Primary Care Provider MD TAVO [facility] Referring Provider [phone] Andrew Forbes Referring Provider Dr. Andrew Forbes Other Provider MD TAVO [facility] Primary Care Provider MD TAVO GEO Referring Provider FriendDr. Temple Attending Provider FriendDr. Temple Other Provider TEACH LOLY MATA Attending Unavailchintan VO MD, GEO Primary Care Unavailable TAVO CRAFT, GEO Primary Care Unavailable OMAR FARAH MD Attending Unavailable JIMENEZ MONAHAN CNP Attending Unavailable TAVO CRAFT, GE[facility] Primary Care Unavailable DELMER SHEARER DO Attending Unavailable TAVO CRAFT, GEO Primary Care Unavailable DELMER SHEARER DO Attending Unavailable TAVO CRAFT, GEO Primary Care Unavailable JIMENEZ MONAHAN CNP Attending Unavailable TAVO CRAFT, GEO Primary Care Unavailable JIMENEZ MONAHAN CNP Attending Unavailable TAVO CRAFT, GEO Primary Care Unavailable MD TAVO GEO Primary Care Provider MD TAVO GEO Referring Provider [phone] Temple Attending Provider [phone] Temple Other Provider MARGI Hu Attending Provider MD TAVO GE[facility] Primary Care Provider MD TAVO GEO Referring Provider Dr. Maverick Rust Attending Provider MD TAVO GEO Primary Care Provider MD TAVO GEO Referring Provider [phone] MARGI Hu Attending Provider MD TAVO GEO Primary Care Provider MD TAVO GEO Referring Provider Dr. Maverick Rust Attending Provider FriendDr. Temple Other Provider [phone] Tavo CRAFT, Geo Primary Care Provider MARJORIE CAIN DO Attending Unavailable TAVO CRAFT, GEO Primary Care Unavailable MD ANISH KAM Attending Unavailable TAVO CRAFT, GEO Primary Care Unavailable LINCOLN ORR MD Attending Unavailable TAVO CRAFT, GEO Primary Care Unavailable TAVO CRAFT, GEO Attending Unavailable TAVO CRAFT, GEO Primary Care Unavailable TAVO CRAFT, GEO Primary Care Provider TAVO CRAFT, GEO Attending Provider [phone] TAVO CRAFT, GEO Referring Provider Dr. Lincoln Orr MD, V Attending Provider Dr. Lincoln Orr MD, V Referring Provider TAVO, GEO Primary Care Unavailable Enterprise, Taylor Attending Unavailable Hamzah, Taylor Referring Unavailable UngMemo rogers Attending Unavailable TAVO, GEO Primary Care Unavailable Lincoln Orr V Attending Unavailable SibLincoln maldonado V Referring Unavailable TAVO, GEO Primary Care Unavailable TAVO, GEO Attending Unavailable TAVO, GEO Referring Unavailable TAVO, GEO Primary Care Unavailable TAVO, GEO Referring Unavailable Kg Hu Attending Unavailable TAVO, GEO Primary Care Unavailable Allergies Allergy Classification Reported Allergen(s) Allergy Type Date of Onset Reaction(s) Facility Sulfonamides (antibiotic) (1 source) Sulfonamides (Antibiotic) Drug Allergy 5 [facility] (13 sources) Sulfonamides (Antibiotic); Translations: [sulfa drugs] Drug allergy [facility] (20 sources) Sulfonamides (Antibiotic); Translations: [SULFA (SULFONAMIDE ANTIBIOTICS)] Allergy to substance 5 [facility] (1 source) Sulfonamides (Antibiotic) Propensity to adverse reactions to drug 2 [facility] (14 sources) Adhesive Tape; Translations: [adhesive tape] Allergy to substance 3 [facility] Medications Current Medications Medication Drug Class(es) Dates Sig (Normalized) Sig (Original) Tylenol (20 sources) Start: 12-04-2020 Tylenol Oral, q4h, PRN as needed for pain, 0 Refill(s) Start Date: 12/04/20 Status: Ordered Repeat number: 1 Start: 12-04-2020 Tylenol Oral, q4h, PRN as needed for pain, 0 Refill(s) Start Date: 12/04/20 Status: Ordered Start: 10-08-2017 End: 11-15-2021 take 1000 mg by mouth every eight hours Acetaminophen Active 1000 MG PO EVERY 8 HOURS 90 October 07, 2017 11:00pm Start: 09-23-2017 End: 10-08-2017 Acetaminophen (Tylenol) 325 MG capsule Discontinued 325 mg PO NEEDED as needed for Pain September 23, 2017 12:00am October 08, 2017 12:01pm take [address] [facility] every six hours as needed acetaminophen (TYLENOL) 325 mg tablet Take 650 mg by mouth every 6 hours as needed. Active Comment on above: Take 650 mg by mouth every 6 hours as needed. acetaminophen 325 mg / oxyCODONE hydrochloride 5 mg oral tablet (20 sources) Opioid Agonist Start: 02-05-2024 take 1 tablet by mouth every eight hours as needed for pain Oxycodone-Acetamin ophen (Percocet) 5-325 mg tablet Active 1 {tbl} PO Q8H as needed for pain 10 3 February 05, 2024 Start: 05-22-2022 End: 07-09-2022 Oxycodone-Acetaminophen (Per cocet) 5-325 mg Tablet Discontinued 1 {tbl} PO EVERY 6 HOURS as needed for Pain May 22, 2022 1:00am July 09, 2022 9:41am Start: 05-10-2022 End: 05-20-2022 Oxycodone-Acetaminophen 5-32 5 mg tablet Discontinued 1 {tbl} PO EVERY 6 HOURS NEEDED as needed for pain 10 08May 10, 2022 May 20, 2022 10:55am Start: 05-10-2022 End: 05-20-2022 take 1 tablet by mouth every six hours as needed Oxycodone-Acetaminophen Discontinued 1 TABLET PO EVERY 6 HOURS NEEDED 10 08May 10, 2022 May 20, 2022 10:55am albuterol 0.83 mg/ml inhalation solution (20 sources) beta2-Adrenergic Agonist Start: 07-21-2023 take 2.5 mg by inhalation every six hours as needed for wheezing Albuterol Sulfate 2.5 mg /3 mL (0.083 %) solution for nebulization Active 2.5 mg INHALATION EVERY 6 HOURS as needed for shortness of breath or wheezing July 21, 2023 12:00am Start: 09-23-2017 Albuterol Sulf ate (Ventolin Hfa) 1 INHALER inhaler Active 2 NMA INHALATION EVERY 6 HOURS NEEDED as needed for COPD September 23, 2017 12:00am Start: 09-23-2017 take 1 puff(s) by in halation every six hours as needed Albuterol Sulfate (Ventolin Hfa) 1 INHALER inhaler Active 2 PUFF INHALATION EVERY 6 HOURS NEEDED September 23, 2017 12:00am Start: 09-23-2017 take 1 puff(s) by in halation every six hours as needed Albuterol Sulfate (Ventolin Hfa) 1 INHALER inhaler Active 2 PUFF INHALATION EVERY 6 HOURS NEEDED September 22, 2017 11:00pm Start: 09-23-2017 take 1 puff(s) by in halation every six hours as needed Albuterol Sulfate (Ventolin Hfa) 1 INHALER inhaler Active 2 PUFF INHALATION EVERY 6 HOURS NEEDED September 22, 2017 11:00pm Start: 09-12-2017 take 1 puff(s) by in halation four times daily as needed for wheezing Ventolin HFA MDI (90 mcg/inh) inhalation aerosol 1 puff(s), Inhalation, QID, PRN as needed for wheezing, 0 Refill(s) Start Date: 09/12/17 Status: Ordered Repeat number: 1 Start: 09-12-2017 take 1 puff(s) by in halation four times daily as needed for wheezing Ventolin HFA MDI (90 mcg/inh) inhalation aerosol 1 puff(s), Inhalation, QID, PRN as needed for wheezing, 0 Refill(s) Start Date: 09/12/17 Status: Ordered albuterol HFA (P ROAIR HFA) 90 mcg/actuation inhaler Inhale 2 Puffs as instructed as needed. Active albuterol (PROVE NTIL) (2.5 MG/3ML) 0.083% nebulizer solution Take 2.5 mg by nebulization every 6 hours as needed for Wheezing 0 Active ALBUTEROL IN Inh pushpa into the lungs 0 Active Comment on above: Inhale 2 Puffs as in structed as needed. ascorbic acid 500 mg oral capsule (20 sources) Vitamin C Start: 09-23-2017 take 1 capsule by mouth once daily Ascorbic Acid (Vitamin C) 500 MG capsule Active 500 mg PO DAILY September 23, 2017 12:00am Start: 09-23-2014 take 1 tablet by mouth once da toñito Vitamin C 1 tab, Oral, qDay Start Date: 09/23/14 Status: Ordered Repeat number: 1 Start: 09-23-2014 take 1 tablet by mouth once da toñito Vitamin C 1 tab, Oral, qDay Start Date: 09/23/14 Status: Ordered take 1 tablet by mouth once chad y Ascorbic Acid (VITAMIN C) 1,000 mg tablet Take 1,000 mg by mouth once daily. Active Ascorbic Acid (V ITAMIN C PO) Take by mouth daily 0 Active Comment on above: Take 1,000 mg by boaz th once daily. aspirin 81 mg chewable tablet (20 sources) Platelet Aggregation Inhibitor, Nonsteroidal Anti-inflammatory Drug Start: 05-20-2022 take 1 tablet by mouth once daily Aspirin 81 mg tablet,chewable Active 81 mg PO DAILY May 20, 2022 1:00am Start: 12-04-2020 aspirin 81 mg oral capsule Dose : 81 mg = 1 cap(s), Oral, qDay, 0 Refill(s) Start Date: 12/04/20 Status: Ordered Repeat number: 1 azelastine hydrochloride 0.137 mg/actuat metered dose nasal spray (20 sources) Histamine-1 Receptor Antagonist Start: 05-20-2022 Azelastine 137 mcg (0.1 %) aerosol,spray Active 2 NMA INTRANASAL TWICE A DAY May 20, 2022 1:00am administer into each nostril Start: 05-20-2022 take 1 spray(s) nasa l route twice daily Azelastine Active 2 SPRAY INTRANASAL TWICE A DAY May 20, 2022 1:00am administer into each nostril Start: 12-04-2020 azelastine 137 mcg/inh (0.1%) nasal spray Dose = 2 spray(s), Intranasal, BID, # 30 mL, 0 Refill(s) Start Date: 12/04/20 Status: Ordered Quantity: 30.0 Unit: mL Repeat number: 1 AZELASTINE HCL N A by Nasal route 0 Active azelastine 137 mcg/inh (0.1%) nasal spray (2 sources) Start: 12-04-2020 azelastine 137 mcg/inh (0.1%) nasal spray Dose = 2 spray(s), Intranasal, BID, # 30 mL, 0 Refill(s) Start Date: 12/04/20 Status: Ordered Breo Ellipta 100 mcg-25 mcg/inh inhalation powder (7 sources) Start: 12-08-2020 take 1 dose by inhalation once daily Breo Ellipta 100 mcg-25 mcg/inh inhalation powder Dose = 1 puff(s), Inhalation, Daily, 0 Refill(s) Start Date: 12/08/20 Status: Ordered budesonide 0.032 mg/actuat metered dose nasal spray (11 sources) Corticosteroid Start: 12-04-2020 budesonide 0.0 32 mg/inh nasal spray Nasal, BID, 0 Refill(s) Start Date: 12/04/20 Status: Ordered Repeat number: 1 budesonide 0.032 mg/inh nasal spray (2 sources) Start: 12-04-2020 budesonide 0.0 32 mg/inh nasal spray Nasal, BID, 0 Refill(s) Start Date: 12/04/20 Status: Ordered buPROPion hydrochloride 100 mg oral tablet (20 sources) Aminoketone Start: 10-01-2021 End: 10-01-2021 take 1 tablet by mouth twice daily buPROPion (WELLBUTRIN) 100 mg tablet Take 1 tablet by mouth twice daily. 90 tablet 3 10/01/2021 Active Start: 09-23-2017 take 1 tablet by boaz th twice daily Bupropion Hcl (Wellbutrin Sr) 100 MG tablet sustained-release 12 hr Active 100 mg PO TWICE A DAY September 23, 2017 12:00am Start: 09-23-2014 take 1 tablet by boaz th every hour, then take 1 tablet by mouth twice daily buPROPion 100 mg/12 hours (SR) oral tablet, extended release Dose : 100 mg = 1 tab(s), Oral, BID Start Date: 09/23/14 Status: Ordered Repeat number: 1 Start: 09-23-2014 take 1 tablet by boaz th every hour, then take 1 tablet by mouth twice daily buPROPion 100 mg/12 hours (SR) oral tablet, extended release Dose : 100 mg = 1 tab(s), Oral, BID Start Date: 09/23/14 Status: Ordered Comment on above: Take 100 mg by mouth twice daily. Take 1 tablet by boaz th twice daily. calcium chloride 0.0014 meq/ml / potassium chloride 0.004 meq/ml / sodium chloride 0.103 meq/ml / sodium lactate 0.028 meq/ml injectable solution (2 sources) Start: 11-16-19 lactated ringers infusion cholecalciferol 0.05 mg oral capsule (14 sources) Vitamin D Start: 05-20-19 23 take 1 capsule by mouth once daily Cholecalciferol (Vitamin D3) 50 mcg (2,000 unit) capsule Active 50 ug PO DAILY May 20, 2022 1:00am Cholecalciferol (VITAMIN D3 PO) Take by mouth daily 0 Active Chondroitin Sulfates / Glucosamine (13 sources) Start: 12-04-2020 Glucosamine Ch ondroitin Oral, BID, 0 Refill(s) Start Date: 12/04/20 Status: Ordered Repeat number: 1 Start: 12-04-2020 Glucosamine Ch ondroitin Oral, BID, 0 Refill(s) Start Date: 12/04/20 Status: Ordered cimetidine 200 mg oral tablet (10 sources) Histamine-2 Receptor Antagonist Start: 09-23-2017 take 150 mg by mouth twice daily Cimetidine Active 150 MG PO TWICE A DAY September 22, 2017 11:00pm Start: 09-12-2017 take 1 dose by mouth once chad y cimetidine Dose : 150 mg =, Oral, qDay, 0 Refill(s) Start Date: 09/12/17 Status: Ordered CIMETIDINE ACID MAINTENANCE MECHANIC ELEVATORS PO (1 source) CIMETIDINE ACID MAINTENANCE MECHANIC ELEVATORS PO Take by mouth daily 0 Active cinnamon bark 500 mg oral capsule (13 sources) Start: 3 take 1 capsule by mouth twice daily Cinnamon Bark (Cinnamon) 500 mg capsule Active 1000 mg PO TWICE A DAY May 20, 2022 1:00am Cinnamon Preparation (13 sources) Non-Standardized Food Allergenic Extract Start: 1 take 1 capsule by mouth twice daily Cinnamon 1000 mg capsule Oral, BID, 0 Refill(s) Start Date: 12/04/20 Status: Ordered Repeat number: 1 Start: 12-04-[address] [facility] twice daily Cinnamon 1000 mg capsule Oral, BID, 0 Refill(s) Start Date: 12/04/20 Status: Ordered Colestipol (20 sources) Bile Acid Sequestrant Start: 09-17-2023 Colestip ol 1 gram tablet Active 1 g PO TWICE A DAY 180 September 17, 2023 9:02am Start: 01-27-2023 colestipol 1 g oral tablet Dose : 1 gram(s) = 1 tab(s), Oral, BID, 0 Refill(s) Start Date: 01/27/23 Status: Ordered Repeat number: 1 Start: 01-02-2023 End: 09-17-2023 Colestipol 1 gram tablet Dis continued 1 g PO TWICE A DAY 60 30 July 07, 2023 12:55pm September 17, 2023 9:02am cyclobenzaprine hydrochloride 10 mg oral tablet (1 source) Muscle Relaxant Start: 02-03-2024 take 1 tablet by mouth three times daily as needed for muscle spasms Cyclobenzaprine 10 mg tablet Active 10 mg PO THREE TIMES A DAY as needed for muscle spasm February 03, 2024 1:00am D3 (13 sources) Start: 12-04-2020 take 1 dose by mouth once daily D3 Dose : 150 mcg =, Oral, qDay, 0 Refill(s) Start Date: 12/04/20 Status: Ordered Repeat number: 1 Start: 12-04-2020 take 1 dose by mouth once chad y D3 Dose : 150 mcg =, Oral, qDay, 0 Refill(s) Start Date: 12/04/20 Status: Ordered diclofenac sodium 75 mg delayed release oral tablet (7 sources) Nonsteroidal Anti-inflammatory Drug take 1 tablet by mouth twice daily diclofenac, EC, (VOLTAREN) 75 mg EC tablet Take 75 mg by mouth twice daily. Active Comment on above: Take 75 mg by mouth twice daily. 1 ml diphenhydrAMINE hydrochloride 50 mg/ml cartridge (1 source) Histamine-1 Receptor Antagonist Start: 2021 End: 2021 diphenhydrAMINE (BENADRYL) injection 12.5 mg fenofibrate 160 mg oral tablet (20 sources) Peroxisome Proliferator Receptor alpha Agonist Start: 2022 take 1 tablet by mouth once daily Fenofibrate 160 mg tablet Active 160 mg PO DAILY July 01, 2022 12:00am Start: 09-23-2014 End: 10-01-2021 Fenofibrate (LOFIBRA) 160 mg tablet TAKE 1 TABLET EVERY DAY 90 tablet 3 07/22/2022 Active Comment on above: Take 160 mg by mouth once daily. Take 1 tablet by boaz once daily. Fish Oils (13 sources) Start: 09-23-2014 take 1000 mg by mouth once daily Fish Oil 1,000 mg, Oral, qDay Start Date: 09/23/14 Status: Ordered Repeat number: 1 Start: 09-23-2014 take 1000 mg by mouth once [place] Fish Oil 1,000 mg, Oral, qDay Start Date: 09/23/14 Status: Ordered fluticasone propionate 0.05 mg/actuat metered dose nasal spray (1 source) Corticosteroid take 1 spray(s) nasal route at bedtime fluticasone (FLONASE ALLERGY RELIEF) 50 MCG/ACT nasal spray 1 spray by Each Nostril route in the morning and at bedtime 0 Active fluticasone / salmeterol (7 sources) Corticosteroid, beta2-Adrenergic Agonist take 1 puff(s) by inhalation twice daily fluticasone-salmeter ol (ADVAIR DISKUS) 250-50 mcg/dose dsdv Inhale 1 Puff as instructed twice daily. Active take 1 puff(s) by in halation twice daily fluticasone-salmeterol (ADVAIR DISKUS) 2 50-50 mcg/dose dsdv Inhale 1 Puff as instructed twice daily. 0 Active Comment on above: Inhale 1 Puff as ins tructed twice daily. Fluticasone-Umeclidin -Vilanter (14 sources) Anticholinergic, Corticosteroid, beta2-Adrenergic Agonist Start: 05-20-2022 Tpemkgpafxm-Ejcgspsui-Bh lanter (Trelegy Ellipta) 100-62.5-25 mcg blister with device Active 1 NMA INHALATION DAILY May 20, 2022 1:00am Start: 05-20-2022 Fluticasone-Um eclidin-Vilanter (Trelegy Ellipta) 100-62.5-25 mcg blister with device Active 1 INH INHALATION DAILY May 20, 2022 1:00am Start: 05-20-2022 Fluticasone-Um eclidin-Vilanter (Trelegy Ellipta) 100-62.5-25 mcg blister with device Active 1 INH INHALATION DAILY May 20, 2022 12:00am take 1 puff(s) by inhalation once daily ymbdrmqfbqo-ghtubgksy-foelev (TRELEGY ELLIPTA) 100-62.5-25 MCG/INH AEPB Inhale 1 puff into the lungs daily 0 Active 30 actuat fluticasone furoate 0.1 mg/actuat / vilanterol 0.025 mg/actuat dry powder inhaler (3 sources) Corticosteroid, beta2-Adrenergic Agonist Start: 09-23-2017 take 1 dose by inhalation once daily Fluticasone Furoate-Vilanterol (Breo Ellipta) 1 EACH blister with device Active 1 EACH IH DAILY September 22, 2017 11:00pm gabapentin 300 mg oral capsule (7 sources) Anti-epileptic Agent take 1 capsule by mouth once daily at bedtime gabapentin (NEURONTIN) 300 mg capsule Take 300 mg by mouth daily at bedtime. Active Comment on above: Take 300 mg by mouth daily at bedtime. Glucosamine (7 sources) Start: 09-23-2014 take 1 dose by mouth twice daily glucosamine Dose : 1,200 mg =, Oral, BID Start Date: 09/23/14 Status: Ordered Glucosamine-Cho ndroit-Vit C-Mn (15 sources) Start: 09-23-2017 Glucosamine-Chondroit- Vit C-Mn Active 1 EACH PO DAILY September 23, 2017 2:05pm Start: 09-23-2017 Glucosamine-Ch ondroit-Vit C-Mn Active 1 EACH PO DAILY September 22, 2017 11:00pm Start: 09-23-2017 Glucosamine-Ch ondroit-Vit C-Mn Active 1 EACH PO DAILY September 23, 2017 12:00am Nonuzmbpnoh-Ehxkmdviv-Vun C-Mn 1 EACH capsule (1 source) Start: 09-23-2017 take 1 capsule by mouth once daily Shwxutcfxur-Pzrxdkzni-Czw C-Mn 1 EACH capsule Active 1 NMA PO DAILY September 23, 2017 12:00am hydrALAZINE hydrochloride 50 mg oral tablet (20 sources) Arteriolar Vasodilator Start: 05-20-2022 take 1 tablet by mouth every twelve hours in the morning, then take 2 tablets by mouth in the evening Hydralazine 50 mg tablet Active 50 mg PO Q12H May 20, 2022 1:00am 50 mg in AM and 100mg in PM Start: 05-20-2022 hydrALAZINE 50 mg oral tablet Dose : 50 mg = 1 tab(s), Oral, BID, # 90 tab(s), 0 Refill(s) Start Date: 01/27/23 Status: Ordered Quantity: 90.0 Unit: tab(s) Repeat number: 1 Start: 05-20-2022 take 25 mg by mouth twice chad y Hydralazine Active 25 MG PO TWICE A DAY May 20, 2022 1:00am Start: 05-20-2022 take 25 mg by mouth three times daily Hydralazine Active 25 MG PO THREE TIMES A DAY May 20, 2022 1:00am take 1 tablet by boaz th three times daily hydrALAZINE (APRESOLINE) 50 MG tablet Take 50 mg by mouth 3 times daily 0 Active 1 ml HYDROmorphone hydrochloride 1 mg/ml cartridge (2 sources) Opioid Agonist Start: 11-15-2021 HYDROmorphone (DILAUDID) injection 0.5 mg Start: 11-15-2021 HYDROmorphone (DILAUDID) injection 0.25 mg ibuprofen 600 mg oral tablet (1 source) Nonsteroidal Anti-inflammatory Drug Start: 02-03-2024 take 1 tablet by mouth every six hours as needed for pain Ibuprofen 600 mg tablet Active 600 mg PO EVERY 6 HOURS as needed for pain 30 February 03, 2024 1:00am labetalol (NORMODYNE;TRANDATE) injection 5 mg (1 source) Start: 11-15-2021 labetalol (NORMODYNE;TRANDAT E) injection 5 mg ammonium lactate 120 mg/ml topical lotion (1 source) Start: 02-05-2024 Ammonium Lactate 12 % lotion Active 1 NMA TOPICAL DAILY as needed for dry skin February 05, 2024 1:00am levocetirizine dihydrochloride 5 mg oral tablet (20 sources) Histamine-1 Receptor Antagonist Start: 05-20-2022 take 1 tablet by mouth once daily Levocetirizine 5 mg tablet Active 5 mg PO DAILY May 20, 2022 1:00am Start: 12-04-2020 levocetirizine Oral, qPM, 0 Refill(s) Start Date: 12/04/20 Status: Ordered Repeat number: 1 Start: 12-04-2020 levocetirizine Oral, qPM, 0 Refill(s) Start Date: 12/04/20 Status: Ordered take 1 tablet by boaz th once daily levocetirizine (XYZAL) 5 MG tablet Take 5 mg by mouth daily 0 Active levothyroxine sodium 0.175 mg oral tablet (20 sources) l-Thyroxine Start: 07-21-2023 take 1 tablet by mouth once daily Levothyroxine 175 mcg tablet Active 175 ug PO DAILY July 21, 2023 12:00am Start: 05-20-2022 End: 07-21-2023 Levothyroxine 150 mcg tablet Discontinued 175 ug PO DAILY May 20, 2022 10:53am July 21, 2023 8:46am Start: 05-20-2022 End: 07-21-2023 take 175 ug by mouth once daily Levothyroxine Discontinued 175 MCG PO DAILY May 20, 2022 10:53am July 21, 2023 8:46am Start: 12-04-2020 take 1 dose by mouth once daily levothyroxine Dose : 175 mcg =, Oral, qDay, 0 Refill(s) Start Date: 12/04/20 Status: Ordered Repeat number: 1 Start: 12-04-2020 take 1 dose by mouth once daily levothyroxine Dose : 175 mcg =, Oral, qDay, 0 Refill(s) Start Date: 12/04/20 Status: Ordered Start: 09-23-2017 End: 05-20-2022 take 1 tablet by mouth once daily Levothyroxine 150 MCG tablet Discontinued 150 ug PO DAILY September 23, 2017 12:00am May 20, 2022 11:07am take 1 tablet by [facility] once daily levothyroxine (SYNTHROID) 175 MCG tablet Take 175 mcg by mouth Daily 0 Active 10 ml lidocaine hydrochloride 10 mg/ml injection (1 source) Antiarrhythmic, Amide Local Anesthetic Start: 11-15-2021 End: 11-15-2021 lidocaine PF 1 % injection 1 mL loperamide hydrochloride 2 mg oral tablet (20 sources) Opioid Agonist Start: 12-04-2020 take 1 dose by mouth once as needed Imodium A-D Dose : 2 mg =, Oral, PRN as needed for loose stool, 0 Refill(s) Start Date: 12/04/20 Status: Ordered Repeat number: 1 Start: 09-23-2017 take [address] [facility] once as needed Loperamide (Imodium A-D) 2 MG capsule Active 2 mg PO NEEDED as needed for Irritable Bowel Syndrome September 23, 2017 12:00am losartan potassium 100 mg oral tablet (20 sources) Angiotensin 2 Receptor Marin Start: 09-23-2014 End: 10-01-2021 take 1 tablet by mouth at bedtime Losartan 100 MG tablet Active 100 mg PO AT BEDTIME September 23, 2017 12:00am Comment on above: TAKE 1 TABLET EVERY DAY IN THE EVENING Take 100 mg by mouth once daily. Magnesium (1 source) MAGNESIUM PO Take by mouth daily 0 Active magnesium gluconate 550 mg oral tablet (16 sources) Start: 09-23-2017 take 1 tablet by mouth once daily Magnesium 30 MG tablet Active 30 mg PO DAILY September 23, 2017 12:00am Start: 09-23-2017 take 40 mg by mouth once daily Magnesium Active 40 MG PO DAILY September 23, 2017 12:00am magnesium oxide 400 mg oral tablet (7 sources) take 1 tablet by mouth once daily magnesium oxide (MAG-OX) 400 mg tablet Take 400 mg by mouth once daily. Active Comment on above: Take 400 mg by mouth once daily. 1 ml meperidine hydrochloride 25 mg/ml cartridge (1 source) Opioid Agonist Start: 2 meperidine (DEMEROL) injection 12.5 mg metFORMIN hydrochloride 500 mg oral tablet (20 sources) Biguanide Start: 3 take 1 tablet by mouth twice daily Metformin 500 mg tablet Active 500 mg PO TWICE A DAY May 20, 2022 1:00am Start: 03-26-2022 End: 04-25-2022 take 1 tablet by mouth once daily metFORMIN ER (GLUCOPHAGE XR) 500 mg 24 hr tablet take 1 tablet by mouth once daily 30 tablet 0 03/26/2022 Active Start: 12-04-2020 MetFORMIN (Eqv -Glumetza) 500 mg oral tablet, EXTENDED RELEASE Dose : 500 mg = 1 tab(s), Oral, qAM, 0 Refill(s) Start Date: 12/04/20 Status: Ordered Repeat number: 1 Comment on above: take 1 tablet by boaz once daily methylPREDNISolone 4 mg oral tablet (1 source) Corticosteroid Start: 2023 take 1 tablet by mouth once daily Methylprednisolone (Methylpred Dp) 4 mg tablets,dose pack Active 4 mg PO DAILY February 05, 2024 1:00am 24 hr metoprolol succinate 50 mg extended release oral tablet (20 sources) beta-Adrenergic Marin Start: 2023 take 1 tablet by mouth twice daily Metoprolol Succinate 50 mg tablet extended release 24 hr Active 50 mg PO TWICE A DAY July 21, 2023 12:00am Start: 01-27-2023 Metoprolol Suc cinate ER 50 mg oral TABLET extended release Dose : 50 mg = 1 tab(s), Oral, BID, # 30 tab(s), 0 Refill(s) Start Date: 01/27/23 Status: Ordered Quantity: 30.0 Unit: tab(s) Repeat number: 1 Start: 05-20-2022 End: 07-21-2023 Metoprolol Tartrate (Lopress or) 100 mg tablet Discontinued 50 mg PO TWICE A DAY May 20, 2022 10:54am July 21, 2023 8:47am Start: 12-08-2020 Toprol-XL 50 m g oral tablet, extended release Dose : 50 mg = 1 tab(s), Oral, qDay, # 30 tab(s), 3 Refill(s), Pharmacy: [facility] [address] 157.5, cm, 12/06/20 12:12:00 EDT, Height, kg, 12/06/20 12:12:00 EDT, Dosing Weight Start Date: 12/08/20 Status: Ordered Start: 12-08-2020 Toprol-XL 50 m g oral tablet, extended release Dose : 50 mg = 1 tab(s), Oral, qDay, # 30 tab(s), 3 Refill(s), [facility] [address] 157.5, cm, 12/06/20 12:12:00 EDT, Height, kg, 12/06/20 12:12:00 EDT, Dosing Weight Start Date: 12/08/20 Status: Ordered Start: 09-23-2017 End: 05-20-2022 take 1 tablet by mouth twice daily Metoprolol Tartrate (Lopressor) 100 MG tablet Discontinued 100 mg PO TWICE A DAY September 23, 2017 12:00am May 20, 2022 11:07am take 100 mg by mouth once daily metoprolol succinate ER (TOPROL XL) 100 mg Tb24 Take 100 mg by mouth once daily. Active Comment on above: Take 100 mg by mouth once daily. mirtazapine 15 mg oral tablet (19 sources) Start: 05-20-2022 take 1 tablet by mouth at bedtime Mirtazapine 15 mg tablet Active 15 mg PO AT BEDTIME May 20, 2022 1:00am Mis Medication (16 sources) Start: 12-04-2020 Misc Medication 0 Refill(s), 98.8 Start Date: 12/04/20 Status: Ordered Start: 12-04-2020 [facility] Refill(s), 98.8 Start Date: 12/04/20 Status: Ordered montelukast 10 mg oral tablet (20 sources) Leukotriene Receptor Antagonist Start: 09-23-2014 take 1 tablet by mouth once daily Montelukast (Singulair) 10 MG tablet Active 10 mg PO DAILY September 23, 2017 12:00am Comment on above: Take 10 mg by mouth daily at bedtime. 24 hr naproxen 500 mg extended release oral tablet (2 sources) Nonsteroidal Anti-inflammatory Drug Start: 04-22-2022 End: 04-27-2022 naproxen 500 mg (as sodium) oral tablet, extended release Dose : 500 mg = 1 tab(s), Oral, BID, PRN as needed for pain, Take 2 hours after taking baby aspirin., X 5 day(s), # 10 tab(s), 0 Refill(s), 04/27/22 17:39:00 EST Start Date: 04/22/22 Stop Date: 04/27/22 Status: Ordered ofloxacin 3 mg/ml otic solution (2 sources) Quinolone Antimicrobial Start: 01-30-2023 End: 02-13-2023 ofloxacin 0.3% otic solution Dose = 4 drop(s), Ear, both, BID, X 7 day(s), # 5 mL, 1 Refill(s), Pharmacy: [id number], 160, cm, 01/30/23 12:50:00 EST, Height, kg, 01/30/23 12:50:00 EST, Dosing Weight Start Date: 01/30/23 Stop Date: 02/13/23 Status: Ordered Start: 11-15-2021 End: 11-22-2021 ofloxacin (FLOXIN) 0.3 % alexandra c solution Place 4 drops into both ears 2 times daily for 7 days 10 mL 1 11/15/2021 11/22/2021 Active [place] 5-See-Hlw-Fish Oil (Fish Oil) 500 MG capsule,delayed release(DR/EC) (14 sources) Start: 09-23-2017 take 1 capsule by mouth once daily [place] 3-Ris-Det-Fish Oil (Fish Oil) 500 MG capsule,delayed release(DR/EC) Active 500 mg PO DAILY September 23, 2017 12:00am Start: 09-23-2017 take 1 capsule by mo uth once daily [place] 8-Dla-Vvq-Fish Oil (Fish Oil) 500 MG capsule,delayed release(DR/EC) Active 500 MG PO DAILY September 23, 2017 12:00am Start: 09-23-2017 take 1 capsule by mo uth once daily [place] 4-Uzi-Ook-Fish Oil (Fish Oil) 500 MG capsule,delayed release(DR/EC) Active 500 MG PO DAILY September 22, 2017 11:00pm [place] 1-Gpj-Xox-Fish Oil (Fish Oil) 500 MG Capsule.Dr (2 sources) Start: 09-23-2017 take 1 capsule by mouth once daily [place] 3-Icw-Ofw-Fish Oil (Fish Oil) 500 MG Capsule.Dr Active 500 MG PO DAILY September 23, 2017 2:05pm Start: 09-23-2017 take 1 capsule by mo uth once daily [place] 9-Qwv-Oaq-Fish Oil (Fish Oil) 500 MG Capsule.Dr Active 500 MG PO DAILY September 23, 2017 12:00am [place]-3 Fatty Acids-Vitamin E (FISH OIL) 1,000 mg cap (7 sources) take 1 capsule by mo uth once daily [place]-3 Fatty Acids-Vitamin E (FISH OIL) 1,000 mg cap Take 1 capsule by mouth once daily. Active take 1 capsule by mouth once [place]-3 Fatty Acids-Vitamin E (FISH OIL) 1,000 mg cap Take 1 capsule by mouth once daily. 0 Active Comment on above: Take 1 capsule by mo uth once daily. omeprazole 20 mg delayed release oral capsule (20 sources) Proton Pump Inhibitor Start: 02-05-2024 take 2 capsules by mouth once daily Omeprazole 20 mg capsule,delayed release(DR/EC) Active 40 mg PO DAILY February 05, 2024 1:00am Start: 10-08-2022 End: 02-05-2024 take 1 capsule by mouth once daily Omeprazole 20 mg capsule,delayed release(DR/EC) Discontinued 20 mg PO DAILY September 02, 2023 11:49am February 05, 2024 11:56am Start: 05-22-2022 End: 10-08-2022 take 1 tablet by mouth once daily Omeprazole 20 mg Tablet,Delayed Release (Dr/Ec) Discontinued 20 mg PO DAILY May 22, 2022 1:00am October 08, 2022 11:11am 2 ml ondansetron 2 mg/ml injection (1 source) Serotonin-3 Receptor Antagonist Start: 11-15-2021 End: 11-15-2021 ondansetron (ZOFRAN) injection 4 mg oxyCODONE hydrochloride 5 mg oral tablet (20 sources) Opioid Agonist Start: 07-09-2022 take 1 tablet by mouth every six hours as needed for pain Oxycodone 5 mg Tablet Active 5 mg PO EVERY 6 HOURS NEEDED as needed for Pain Score 6-10 9 3 July 09, 2022 Start: 11-15-2021 End: 11-15-2021 oxyCODONE (ROXICODONE) immed iate release tablet 5 mg Start: 10-08-2017 End: 05-20-2022 take 5-10 mg by mouth every six hours as needed for pain Oxycodone 5 MG tablet Discontinued 5 - 10 mg PO EVERY 6 HOURS NEEDED as needed for Mod-Severe Pain (4-10/10) 80 7 October 08, 2017 11:58am May 20, 2022 10:55am potassium chloride 10 meq extended release oral tablet (13 sources) Start: 05-20-2022 take 1 tablet by mouth once daily Potassium Chloride 10 mEq tablet extended release Active 10 meq PO DAILY May 20, 2022 1:00am potassium citrate (1 source) POTASSIUM CITRAT E PO Take by mouth daily 0 Active pravastatin sodium 40 mg oral tablet (20 sources) HMG-CoA Reductase Inhibitor Start: 09-23-2014 take 1 tablet by mouth at bedtime Pravastatin 40 MG tablet Active 40 mg PO AT BEDTIME September 23, 2017 12:00am Comment on above: Take 40 mg by mouth once daily. raNITIdine 150 mg oral tablet (7 sources) Histamine-2 Receptor Antagonist take 1 tablet by mouth twice daily ranitidine (ZANTAC) 150 mg tablet Take 150 mg by mouth twice daily. Active Comment on above: Take 150 mg by mouth twice daily. 5 ml sodium chloride 9 mg/ml injection (9 sources) Start: 11-15-2021 0.9 % sodium chloride bolus Start: 11-15-2021 0.9 % sodium c hloride infusion Start: 11-15-2021 sodium chlorid e flush 0.9 % injection 5-40 mL tiotropium 0.018 mg inhalation powder (7 sources) Anticholinergic take 1 capsule by inhalation once daily tiotropium (SPIRIVA) 18 mcg inhalation capsule Inhale 18 mcg as instructed once daily. Active Comment on above: Inhale 18 mcg as ins tructed once daily. Trelegy Ellipta 100 mcg-62.5 mcg-25 mcg/inh inhalation powder (6 sources) Start: 01-28-20 take 1 dose by mouth once daily Trelegy Ellipta 100 mcg-62.5 mcg-25 mcg/inh inhalation powder Dose = 1 puff(s), Inhalation, qDay, at the same time every day. Following administration, rinse mouth with water after use (do not swallow)., # 60 EA, 0 Refill(s) Start Date: 01/27/23 Status: Ordered Quantity: 60.0 Unit: EA Repeat number: 1 Start: 01-27-2023 take 1 dose by mouth once daily Trelegy Ellipta 100 mcg-62.5 mcg-25 mcg/inh inhalation powder Dose = 1 puff(s), Inhalation, qDay, at the same time every day. Following administration, rinse mouth with water after use (do not swallow)., # 60 EA, 0 Refill(s) Start Date: 01/27/23 Status: Ordered Turmeric Root Extract (16 sources) Start: 09-23-2017 take 500 mg by mouth once daily Turmeric Root Extract Active 500 MG PO DAILY September 23, 2017 2:05pm Start: 09-23-2017 End: 05-20-2022 take 1 capsule by mouth once daily Turmeric Root Extract 500 MG capsule Discontinued 500 mg PO DAILY September 23, 2017 12:00am May 20, 2022 11:07am Start: 09-23-2017 End: 05-20-2022 take 500 mg by mouth once daily Turmeric Root Extract Discontinued 500 MG PO DAILY September 23, 2017 12:00am May 20, 2022 11:07am Start: 09-23-2017 End: 05-20-2022 take 500 mg by mouth once daily Turmeric Root Extract Discontinued 500 MG PO DAILY September 22, 2017 11:00pm May 20, 2022 10:07am Start: 09-23-2017 take 500 mg by mouth once chad y Turmeric Root Extract Active 500 MG PO DAILY September 22, 2017 11:00pm Start: 09-23-2017 take 500 mg by mouth once chad y Turmeric Root Extract Active 500 MG PO DAILY September 23, 2017 12:00am Vit B Cmplx 3-FA-Vit C-Bioti n tablet (7 sources) Vit B Cmplx 3-FA -Vit C-Biotin tablet Take 1 tablet by mouth daily with breakfast. Active Vit B Cmplx 3-FA -Vit C-Biotin tablet Take 1 tablet by mouth daily with breakfast. 0 Active Comment on above: Take 1 tablet by boaz th daily with breakfast. Vitamin B Complex (15 sources) Start: 09-23-2017 Vitamin B Complex Active 1 EACH PO DAILY September 23, 2017 2:05pm Start: 09-23-2017 Vitamin B Comp janet Active 1 EACH PO DAILY September 22, 2017 11:00pm Start: 09-23-2017 Vitamin B Comp janet Active 1 EACH PO DAILY September 23, 2017 12:00am Vitamin B Complex 1 EACH capsule (1 source) Start: 09-23-2017 Vitamin B Comp janet 1 EACH capsule Active 1 NMA PO DAILY September 23, 2017 12:00am Vitamin B Complex oral capsule (13 sources) Start: 12-04-2020 take 1 capsule by mouth once daily Vitamin B Complex oral capsule Oral, qDay, 0 Refill(s) Start Date: 12/04/20 Status: Ordered Repeat number: 1 Start: 12-04-2020 Vitamin B Comp janet oral capsule Oral, qDay, 0 Refill(s) Start Date: 12/04/20 Status: Ordered vitamin e 450 mg oral capsul e (20 sources) Start: 05-20-2022 Vitamin E 670 mg (1,000 unit) capsule Active 670 mg PO MOWEFR May 20, 2022 10:57am Start: 09-23-2017 End: 05-20-2022 take 1 capsule by mouth once daily Vitamin E 1,000 UNIT capsule Discontinued 1000 U PO DAILY September 23, 2017 12:00am May 20, 2022 11:07am Start: 09-23-2014 take 1 tablet by boaz th every other day vitamin E 1 tab, Oral, Every other day Start Date: 09/23/14 Status: Ordered Repeat number: 1 Start: 09-23-2014 take 1 tablet by boaz th every other day vitamin E 1 tab, Oral, Every other day Start Date: 09/23/14 Status: Ordered take 1 capsule by mo ut once daily alpha tocopheryl acetate (VITAMIN E) 400 unit capsule Take 400 Units by mouth once daily. Active take 1 capsule by mo uth once daily alpha tocopheryl acetate (VITAMIN E) 400 unit capsule Take 400 Units by mouth once daily. 0 Active Comment on above: Take 400 Units by mo ut once daily. VITAMIN E PO (1 source) VITAMIN E PO Artem e by mouth 3 x's/week 0 Active Completed/Discontinued Medications Medication Drug Class(es) Dates Sig (Normalized) Sig (Original) amoxicillin 875 mg / clavulanate 125 mg oral tablet (6 sources) Penicillin-class Antibacterial Start: 03-12-2023 End: 07-21-2023 Amoxicillin-Pot Clavulanate 875-125 mg tablet Discontinued 1 {tbl} PO TWICE A DAY March 12, 2023 1:00am July 21, 2023 8:43am Start: 03-12-2023 End: 07-21-2023 take 1 tablet by mouth twice daily Amoxicillin-Pot Clavulanate Discontinued 1 TABLET PO TWICE A DAY March 12, 2023 1:00am July 21, 2023 8:43am cholestyramine resin 4000 mg powder for oral suspension (20 sources) Bile Acid Sequestrant Start: 07-09-2022 End: 01-02-2023 Cholestyramine (With Sugar) 4 gram powder Discontinued 1 NMA PO DAILY 348.6 July 09, 2022 9:45am January 02, 2023 2:17pm Start: 06-25-2022 End: 07-09-2022 Cholestyramine (With Sugar) 4 gram powder Discontinued 1 NMA PO THREE TIMES A DAY June 25, 2022 12:00am July 09, 2022 9:45am 24 hr dilTIAZem hydrochloride 240 mg extended release oral capsule (20 sources) Calcium Channel Marin Start: 09-23-2017 End: 05-20-2022 take 1 capsule by mouth once daily Diltiazem Hcl 240 MG capsule,extended release 24hr Discontinued 240 mg PO DAILY September 23, 2017 12:00am May 20, 2022 11:07am Comment on above: Take 240 mg by mouth once daily. famotidine 20 mg oral tablet (1 source) Histamine-2 Receptor Antagonist Start: 11-15-2021 End: 11-15-2021 famotidine (PEPCID) tablet 20 mg 12 hr guaiFENesin 600 mg extended release oral tablet (19 sources) Start: 01-27-2023 End: 02-02-2023 Mucinex 600 mg oral tablet, extended release Dose : 600 mg = 1 tab(s), Oral, q12h, # 14 tab(s), 0 Refill(s) Start Date: 01/27/23 Stop Date: 02/02/23 Status: Ordered Quantity: 14.0 Unit: tab(s) Repeat number: 1 Start: 05-20-2022 take 2 tablets by mo [facility] once daily, then take 1 tablet by mouth every twelve hours Guaifenesin (Mucinex) 600 mg tablet extended release 12hr Active 1200 mg PO DAILY May 20, 2022 1:00am hyoscyamine sulfate 0.125 mg sublingual tablet (20 sources) Start: 09-23-2017 End: 04-02-2023 take 1 tablet under the tongue every eight hours as needed Hyoscyamine Sulfate 0.125 mg tablet, sublingual Discontinued 0.125 mg SL Q8H as needed for Irritable Bowel Syndrome 60 February 21, 2023 12:50pm April 02, 2023 2:53pm Start: 09-12-2017 hyoscyamine 0. 125 mg oral tablet Dose : 0.125 mg = 1 tab(s), Oral, QID, PRN abdominal pain/diarrhea, 0 Refill(s) Start Date: 09/12/17 Status: Ordered Repeat number: 1 oxymetazoline hydrochloride 0.5 mg/ml nasal spray (1 source) Start: 11-15-2021 End: 11-15-2021 oxymetazoline (AFRIN) 0.05 % nasal spray 2 spray potassium gluconate 2.5 meq oral tablet (20 sources) Start: 09-23-2017 End: 05-20-2022 take 1 tablet by mouth once daily Potassium 99 MG tablet Discontinued 99 mg PO DAILY September 23, 2017 12:00am May 20, 2022 10:56am take 1 tablet by mouth once chad y potassium gluconate 550 mg (90 mg) tab Take 1 tablet by mouth once daily. Active Comment on above: [facility] predniSONE 10 mg oral tablet (6 sources) Start: 03-12-2023 End: 07-21-2023 take 4 tablets by mouth once daily, then take 3 tablets by mouth once daily, then take 2 tablets by mouth once daily, then take 1 tablet by mouth once daily Prednisone 10 mg tablet Discontinued 10 mg PO As Directed March 12, 2023 1:00am July 21, 2023 8:49am 4 tablets daily x 3 days, then 3 tablets daily x 3 days, then 2 tablets daily x 3 days, then 1 tablet daily x 3 days sucralfate 1000 mg oral tablet (20 sources) Aluminum Complex Start: 06-25-2022 End: 08-05-2022 take 1 tablet by mouth twice daily Sucralfate (Carafate) 1 gram tablet Discontinued 1 g PO TWICE A DAY 60 June 25, 2022 12:00am August 05, 2022 1:55pm Start: 05-31-2022 End: 06-14-2022 take 1 tablet by mouth twice daily Sucralfate (Carafate) 1 gram tablet Discontinued 1 g PO TWICE A DAY May 31, 2022 1:00am June 13, 2022 12:00am June 14, 2022 12:04am Problems Active Problems Problem Classification Problem Date Documented Da te Episodic/Chronic Abdominal hernia (13 sources) Umbilical hernia; Translations: [Umbilical hernia without obstruction or gangrene] 06-25-2022 Episodic Comment on above: Patient with small l ocal hernia noted on recent CT imaging during her ER visit earlier this month. This appears to be asymptomatic, but when I performed exam patient does have tenderness referred to the right upper quadrant. I have discussed repairing this at the time of her cholecystectomy by simply shifting my supraumbilical port site into this hernia and the closing it primarily. Patient is interested in proceeding with this addition to her procedure. We will addend her consents to reflect this addition. Abdominal pain (20 sources) Abdominal pain - cause unknown; Translations: [Right upper quadrant pain] Onset: 04-30-2022 09-10-2017 Episodic Comment on above: Is a 76-year-old fem pushpa, with numerous comorbidities and moderately extensive past surgical history, who presents for complaints of constant right upper quadrant abdominal discomfort. Her full history is given in HPI, but is not consistent with a classic description of biliary colic/symptomatic cholelithiasis. Important differences include origination posteriorly and radiation than anteriorly as well as no postprandial effect or any associated nausea and vomiting. With exam, patient's pain is partially reproduced with palpation along the paraspinal tissues in the lower thoracic region. With this history and exam my differential includes gastritis, peptic ulcer disease, radiculopathy, chronic cholecystitis. Given patient's extensive past surgical history and the atypical history for this complaint, I would like to proceed with further work-up of this differential. I have recommended initiation of PPI, scheduling diagnostic EGD, obtaining HIDA imaging, and that patient reestablishes contact with her spine doctor. Patient and her daughter expressed appreciation for this recommendation and states they see the merit in further evaluation before proceeding with surgery. Biliary tract disease (20 sources) Biliary calculus; Translations: [Calculus of gallbladder without cholecystitis without obstruction] 05-10-2022 Episodic Comment on above: Is a 77-year-old fem pushpa with known cholelithiasis who describes ongoing biliary colic type of symptoms. She did have some relief with initiation of cholestyramine for treatment of diarrhea as a double effect. Now that we also have a diagnosis of biliary dyskinesia with her recent HIDA imaging, I have recommended that we proceed for laparoscopic cholecystectomy with intraoperative cholangiogram. Patient did have recent ER visit with completed CMP and lipase both these were within normal limits. I did discuss with patient that both bile reflux gastropathy and diarrhea can be seen in the postoperative period from the cholecystectomy and I have no way to prognosticate what her symptoms will do in response. I have also informed her that I would have a low threshold to monitor her postoperatively given her numerous medical comorbidities, but would plan for an outpatient disposition. As per recent HIDA zackery talavera patient has an ejection fraction of 9%. This qualifies her as biliary dyskinesia. Taken together with the biliary colic described above, I recommend laparoscopic cholecystectomy with intraoperative cholangiogram. Patient with evidenc e of cholelithiasis and sludge on recent gallbladder imaging. However, her story is not typical for biliary colic or symptomatic lithiasis. Weighing this against her extensive surgical/medical history, I have proposed the above work-up for further evaluation. As part of this I would like to obtain a HIDA scan to assess for possible chronic cholecystitis. Given the large size of her solitary gallstone, I do not believe that it would be at significant risk for becoming lodged within the biliary tract. I have also informed patient and her daughter, that if we proceeded with surgery rather than doing further work-up and we did not help with her discomfort, we could instead exacerbate her issues with chronic diarrhea. Chronic obstructive pulmonary disease and bronchiectasis (20 sources) Chronic obstructive lung disease; Translations: [Chronic obstructive pulmonary disease, unspecified] Onset: 10-31-2014 04-14-2018 Chronic Diabetes mellitus with complications (1 source) Type 2 diabetes mellitus with diabetic polyneuropathy; Translations: [Type 2 diabetes mellitus with diabetic polyneuropathy] Onset: 05-11-2024 Chronic Diabetes mellitus without complication (20 sources) Diabetes mellitus; Translations: [Type 2 diabetes mellitus without complications] 04-14-2018 Chronic Disorders of lipid metabolism (20 sources) Hypercholesterolemia; Translations: [Mixed hyperlipidemia] Onset: 10-31-2014 04-14-2018 Chronic Diverticulosis and diverticulitis (20 sources) Diverticula of intestine; Translations: [Diverticular disease] Onset: 10-31-2014 04-14-2018 Chronic E Codes: Adverse effects of medical care (10 sources) Complication of procedure; Translations: [Aspiration of fluid as the cause of abnormal reaction of the patient, or of later complication, without mention of misadventure at the time of the procedure] 03-12-2023 Episodic Essential hypertension (20 sources) Hypertensive disorder; Translations: [Essential (primary) hypertension] Onset: 10-31-2014 04-14-2018 Chronic Gastritis and duodenitis (13 sources) Bile-induced gastritis; Translations: [Other gastritis without bleeding] 06-25-2022 Episodic Comment on above: Seen during EGD maura ier last month (May 2022). Patient reports that she is still taking the PPI, but never was able to warehouse order picker Carafate due to miscommunication. We will look to make sure that this is appropriately ordered out of today's visit and patient is to begin taking it as soon as she fills the prescription. I have, as above, shared with patient and her family that I am uncertain whether the gallbladder surgery may improve this issue, and have concerns that it may actually worsen the symptoms. Patient states that she is ready to try despite this risk. Gastroduodenal ulcer (except hemorrhage) (14 sources) Peptic ulcer; Translations: [Peptic ulcer, site unspecified, unspecified as acute or chronic, without hemorrhage or perforation] 05-10-2022 Chronic Immunizations and screening for infectious disease (10 sources) Contact with or exposure to other viral diseases 03-12-2023 Episodic Osteoarthritis (14 sources) Arthritis; Translations: [Unspecified osteoarthritis, unspecified site] 05-20-2022 Chronic Other and unspecified benign neoplasm (9 sources) Polyp of colon; Translations: [Polyp of colon] 07-19-2022 Episodic Other and unspecified benign neoplasm (6 sources) Tubular adenoma of colon; Translations: [Benign neoplasm of colon, unspecified] 02-11-2023 Episodic Comment on above: four 2022; one villo us serrated adenoma Other and unspecified benign neoplasm (1 source) Benign lipomatous neoplasm of intra-abdominal organs; Translations: [Lipoma of colon] 08-01-2023 Episodic Comment on above: Patient is a 78-year -old female with numerous pulmonary diagnoses owing to a longstanding history of tobacco use (recently underwent cessation) who presents for 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 While the size of this lesion is rather large it is not felt to have undergone significant growth in the 6 months since its first description with colonoscopy by Dr. Rust. Further, patient denies any obstructive symptoms. Interestingly, biopsy results of this area are read by pathology is concerning for possible "inflammatory polyp", however, mature adipose tissue is described. I held a candid conversation with patient and her family today sharing that I would not advise proceeding with surgery for this apparently benign lesion that is not causing symptoms or showing signs of significant growth. I stated that the risk for segmental colectomy did not seem to be warranted based upon the indication of potentially preventing the blockage especially in light of patient's significant medical risk and plans for ongoing tight interval endoscopic surveillance for her history of advanced adenomatous polyps. Patient and her family had opportunity to ask all questions and expressed appreciation and comfort with recommendation as given. Other connective tissue disease (1 source) H/O: back problem; Translations: [Personal history of other diseases of the musculoskeletal system and connective tissue] 05-20-2022 Episodic Other gastrointestinal disorders (13 sources) Irritable bowel syndrome with diarrhea 09-10-2017 Chronic Other gastrointestinal disorders (20 sources) Diarrhea; Translations: [Diarrhea, unspecified] 06-25-2022 Episodic Comment on above: Patient describes on set frequent, explosive diarrhea. She reports some benefits with starting cholestyramine per PCP. She denies any recent stool testing. Given that we are planning a semielective surgery, I would like to obtain a results before proceeding to the OR. I have also informed patient that diarrhea can be a side effect of cholecystectomy and have no way of prognosticating how her body will respond in the postoperative period. Lastly, patient's family reports that patient does have a diagnosis of irritable bowel syndrome with fecal incontinence, but the above symptoms appear to be distinctly worse from her baseline. Other gastrointestinal disorders (6 sources) Diarrhea, unspecified; Translations: [Diarrhea] 06-25-2022 Episodic Other liver diseases (14 sources) Steatosis of liver; Translations: [Fatty (change of) liver, not elsewhere classified] 05-10-2022 Chronic Other liver diseases (14 sources) High lipase level in serum; Translations: [Abnormal levels of other serum enzymes] 05-10-2022 Episodic Other lower respiratory disease (13 sources) Dyspnea; Translations: [Shortness of breath] 05-20-2022 Episodic Other non-traumatic joint disorders (1 source) Pain of right shoulder joint; Translations: [Pain in right shoulder] Episodic Other non-traumatic joint disorders (1 source) Pain of left shoulder joint; Translations: [Pain in left shoulder] Episodic Other nutritional; endocrine; and metabolic disorders (7 sources) Obesity; Translations: [Obesity, unspecified] Onset: 10-31-2014 10-31-2014 Chronic Other screening for suspected conditions (not mental disorders or infectious disease) (13 sources) Patient encounter status; Translations: [Encounter for screening for malignant neoplasm of colon] 12-06-2022 Episodic Residual codes; unclassified (20 sources) Sleep apnea; Translations: [Sleep apnea, unspecified] 09-10-2017 Chronic Spondylosis; intervertebral disc disorders; other back problems (2 sources) Degeneration of cervical intervertebral disc; Translations: [Other cervical disc degeneration, unspecified cervical region] Chronic Sprains and strains (2 sources) Strain of neck muscle; Translations: [Strain of muscle, fascia and tendon at neck level, initial encounter] 02-03-2024 Episodic Thyroid disorders (20 sources) Goiter; Translations: [Multinodular goiter] Onset: 10-31-2014 09-23-2014 Chronic Unclassified (1 source) Unknown / UNK(Unknown) Onset: 10-29-2016 Past or Other Problems Problem Classification Problem Date Documented Da te Episodic/Chronic Spondylosis; intervertebral disc disorders; other back problems (5 sources) Low back pain; Translations: [Low back pain, unspecified] Onset: 04-22-2022 Episodic Unclassified (1 source) R10.30 Onset: 10-29-2016 Unclassified (12 sources) H/O: back problem; Translations: [History of back problems] 05-20-2022 Results Test Name Value Interpretation Reference Range Facility Chest PA and Lateralon 06-14 Chest PA and Lateral [facility] [address] [place] [address] Chest PA and Lateral MR#: [id number] Acct: [id number] Name: RAFAEL MAURICE Rep #: [id number] : [id number] F [id number] From: Delmer Church MD PCP: GEO VO MD Status: REG CLI Study: Chest PA and Lateral Date of Exam: 06/14/24 Exam# [id number] Ordering Dr: Lincoln Orr MD EXAM: XR Chest, 2 Views CLINICAL INDICATION: COPD TECHNIQUE: Frontal and lateral views of the chest. COMPARISON: No relevant prior studies available. FINDINGS: LUNGS AND PLEURAL SPACES: Pulmonary venous congestion. Mild COPD. Pulmonary nodule noted on CT chest dated 12/04/2023 can not be clearly visualized on the chest radiograph. If indicated, further evaluation with CTs is recommended. No consolidation. No pneumothorax. HEART: Unremarkable. No cardiomegaly. MEDIASTINUM: Unremarkable. Normal mediastinal contour. BONES/JOINTS: Unremarkable. No acute fracture. RAD/Chest PA and Lateral IMPRESSION: 1. Pulmonary venous congestion. 2. Mild COPD. Pulmonary nodule noted on CT chest dated 12/04/2023 can not be clearly visualized on the chest radiograph. If indicated, further evaluation with CTs is recommended. Reading Location: [facility] CC: Dr. Lincoln Orr MD; GEO VO MD Flower Cutter: Signed Normal [facility] Urine Cultureon 04-24-2024 URC #1,2 Below infection level. Presumptive E. coli Troy Count <1000 Mixed Gram Positive Organisms Mixed Gram Positive Organisms MIXC Mixed contaminants. Submit a new specimen if indicated. Normal [facility] Comment on above: Performed By: #### L 502.0500, L400.0001, M100.2200, L400.2010, L501.9985, L500.4100, L100.0100, L500.4050 #### [facility] [address] [place], [place], [id number] Absolute neutrophil countOrd ered By: [facility] on 04-22-2024 Neutrophils (Bld) [#/Vol] 5.2 10*3/uL 2.0-7.7 [facility] Albumin to globulin ratioOrd ered By: [facility] on 04-22-2024 Albumin/Globulin [Mass ratio] 1.0 {ratio} 0.9-2.4 [facility] Basophil percentageOrdered B y: [facility] on 04-22-2024 Basophils/100 WBC (Bld) 0.5 % 0-1 [facility] Bilirubin Test strip Ql (U)O rdered By: [facility] on 04-22-2024 Bilirubin Ql (U) Negative Negative [facility] Bilirubin, totalOrdered By: [facility] on 04-22-2024 Bilirubin [Mass/Vol] 0.90 mg/dL 0.20-1.00 [facility] Comment on above: For patients on eltr ombopag therapy, use of Dimension [place] TBIL is not recommended. Blood urea nitrogen (BUN)/cr eatinine ratioOrdered By: [facility] on 04-22-2024 Urea nitrogen/Creatinine [Mass ratio] 21.8 mg/mg High 10-20 [facility] CBC W/Diff, Automatedon 03-26 Absolute Lymph 1.81 X10 3/uL Normal 0.83-4.51 [facility] Comment on above: Performed By: #### L 502.0500, L400.0001, M100.2200, L400.2010, L501.9985, L500.4100, L100.0100, L500.4050 #### [facility] [address] [place], [address] Absolute Neut 5.2 X10 3/uL Normal 2.0-7.7 [facility] Comment on above: Performed By: #### L 502.0500, L400.0001, M100.2200, L400.2010, L501.9985, L500.4100, L100.0100, L500.4050 #### [facility] [address] [place], [address] Basophils/100 WBC (Bld) 0.5 % Normal 0-1 [facility] Comment on above: Performed By: #### L 502.0500, L400.0001, M100.2200, L400.2010, L501.9985, L500.4100, L100.0100, L500.4050 #### [facility] [address] [place], [address] Eosinophils/100 WBC (Bld) 1.6 % Normal 0-5 [facility] Comment on above: Performed By: #### L 502.0500, L400.0001, M100.2200, L400.2010, L501.9985, L500.4100, L100.0100, L500.4050 #### [facility] [address] [place], [address] Erythrocyte distribution width (RBC) [Ratio] 13.5 % Normal 11.6-14.6 [facility] Comment on above: Performed By: #### L 502.0500, L400.0001, M100.2200, L400.2010, L501.9985, L500.4100, L100.0100, L500.4050 #### [facility] [address] [place], [address] Hematocrit (Bld) [Volume fraction] 42.1 % Normal 37-47 [facility] Comment on above: Performed By: #### L 502.0500, L400.0001, M100.2200, L400.2010, L501.9985, L500.4100, L100.0100, L500.4050 #### [facility] [address] [place], [address] Hemoglobin (Bld) [Mass/Vol] 13.3 g/dL Normal 12.0-15.0 [facility] Comment on above: Performed By: #### L 502.0500, L400.0001, M100.2200, L400.2010, L501.9985, L500.4100, L100.0100, L500.4050 #### [facility] [address] [place], [address] IG% 0.500 Normal 0.0-0.9 [facility] Comment on above: Result Comment: IG% - Immature Granulocytes (promyelocytes, myelocytes and metamyelocytes) > 1% indicates that a LEFT SHIFT is Present. Performed By: #### L 502.0500, L400.0001, M100.2200, L400.2010, L501.9985, L500.4100, L100.0100, L500.4050 #### [facility] [address] [place], [address] Lymphocytes/100 WBC (Bld) 23.4 % Normal 19-41 [facility] Comment on above: Performed By: #### L 502.0500, L400.0001, M100.0, L400.2010, L501.9985, L500.4100, L100.0100, L500.4050 #### [facility] [address] [place], [address] MCH (RBC) [Entitic mass] 29.2 pg Normal 27.0-32.0 [facility] Comment on above: Performed By: #### L 502.0500, L400.0001, M100.2200, L400.2010, L501.9985, L500.4100, L100.0100, L500.4050 #### [facility] [address] [place], [address] MCHC (RBC) [Mass/Vol] 31.6 g/dL Low 32-36 [facility] Comment on above: Performed By: #### L 502.0500, L400.0001, M100.2200, L400.2010, L501.9985, L500.4100, L100.0100, L500.4050 #### [facility] [address] [place] [place], [address] MCV (RBC) [Entitic vol] 92.5 fL Normal 81-99 [facility] Comment on above: Performed By: #### L 502.0500, L400.0001, M100.2200, L400.2010, L501.9985, L500.4100, L100.0100, L500.4050 #### [facility] [address] [place] [place], [address] Monocytes/100 WBC (Bld) 7.1 % Normal 0-10 [facility] Comment on above: Performed By: #### L 502.0500, L400.0001, M100.2200, L400.2010, L501.9985, L500.4100, L100.0100, L500.4050 #### [facility] [address] [place] [place], [address] Neutrophils/100 WBC (Bld) 66.9 % Normal 47-70 [facility] Comment on above: Performed By: #### L 502.0500, L400.0001, M100.2200, L400.2010, L501.9985, L500.4100, L100.0100, L500.4050 #### [facility] [address] [place] [place], [address] Nucleated RBC (Bld) [#/Vol] 0 10*3/uL Normal 0-5 [facility] Comment on above: Performed By: #### L 502.0500, L400.0001, M100.2200, L400.2010, L501.9985, L500.4100, L100.0100, L500.4050 #### [facility] [address] [place], [address] Platelet mean volume (Bld) [Entitic vol] 9.7 fL Normal 6.2-12.0 [facility] Comment on above: Performed By: #### L 502.0500, L400.0001, M100.2200, L400.2010, L501.9985, L500.4100, L100.0100, L500.4050 #### [facility] [address] [place], [address] Platelets (Bld) [#/Vol] 194 10*3/uL Normal 150-450 [facility] Comment on above: Performed By: #### L 502.0500, L400.0001, M100.0, L400.2010, L501.9985, L500.4100, L100.0100, L500.4050 #### [facility] [address] [place], [address] RBC (Bld) [#/Vol] 4.55 10*6/uL Normal 4.2-5.4 [facility] Comment on above: Performed By: #### L 502.0500, L400.0001, M100.0, L400.2010, L501.9985, L500.4100, L100.0100, L500.4050 #### [facility] [address] [place], [address] RDW SD 45.7 fl High 35.1-43.9 [facility] Comment on above: Performed By: #### L 502.0500, L400.0001, M100.2200, L400.2010, L501.9985, L500.4100, L100.0100, L500.4050 #### [facility] [address] [place], [place], [id number] WBC (Bld) [#/Vol] 7.7 10*3/uL Normal 4.4-11.0 [facility] Comment on above: Performed By: #### L 502.0500, L400.0001, M100.2200, L400.2010, L501.9985, L500.4100, L100.0100, L500.4050 #### [facility] [address] [place], [place], [id number] Carbon dioxide measurementOr dered By: GEO TAVO on 04-22-2024 CO2 [Moles/Vol] 26.0 mmol/L 21.0-32.0 [facility] Chloride measurementOrdered By: GEO TAVO on 04-22-2024 Chloride [Moles/Vol] 108 mmol/L High 98-107 [facility] Comprehensive Metabolic Prof ilon 04-22-2024 Albumin [Mass/Vol] 3.6 g/dL Normal 3.2-5.0 [facility] Comment on above: Performed By: #### L 502.0500, L400.0001, M100.2200, L400.2010, L501.9985, L500.4100, L100.0100, L500.4050 #### [facility] [address] [place], [place], [id number] Albumin/Globulin [Mass ratio] 1.0 {ratio} Normal 0.9-2.4 [facility] Comment on above: Performed By: #### L 502.0500, L400.0001, M100.2200, L400.2010, L501.9985, L500.4100, L100.0100, L500.4050 #### [facility] [address] [place], [place], [id number] ALK P 74 U/L Normal 45-117 [facility] Comment on above: Performed By: #### L 502.0500, L400.0001, M100.2200, L400.2010, L501.9985, L500.4100, L100.0100, L500.4050 #### [facility] [address] [place], [address] ALT [Catalytic activity/Vol] 20 U/L Normal 13-56 [facility] Comment on above: Performed By: #### L 502.0500, L400.0001, M100.2200, L400.2010, L501.9985, L500.4100, L100.0100, L500.4050 #### [facility] [address] [place], [address] AST [Catalytic activity/Vol] 10 U/L Low 15-37 [facility] Comment on above: Performed By: #### L 502.0500, L400.0001, M100.2200, L400.2010, L501.9985, L500.4100, L100.0100, L500.4050 #### [facility] [address] [place], [address] Bilirubin [Mass/Vol] 0.90 mg/dL Normal 0.20-1.00 [facility] Comment on above: Result Comment: For patients on eltrombopag therapy, use of Dimension [place] TBIL is not recommended. Performed By: #### L 502.0500, L400.0001, M100.2200, L400.2010, L501.9985, L500.4100, L100.0100, L500.4050 #### [facility] [address] [place], [address] BUN/CRE 21.8 RATIO High 10-20 [facility] Comment on above: Performed By: #### L 502.0500, L400.0001, M100.2200, L400.2010, L501.9985, L500.4100, L100.0100, L500.4050 #### [facility] [address] [place], [address] CA,Total 10.0 mg/dL Normal 8.5-10.1 [facility] Comment on above: Performed By: #### L 502.0500, L400.0001, M100.2200, L400.2010, L501.9985, L500.4100, L100.0100, L500.4050 #### [facility] [address] [place], [address] Chloride [Moles/Vol] 108 mmol/L High 98-107 [facility] Comment on above: Performed By: #### L 502.0500, L400.0001, M100.2200, L4.2010, L501.9985, L500.4100, L100.0100, L500.4050 #### [facility] [address] [place], [address] CO2 [Moles/Vol] 26.0 mmol/L Normal 21.0-32.0 [facility] Comment on above: Performed By: #### L 502.0500, L400.0001, M100.0, L4.2010, L501.9985, L500.4100, L100.0100, L500.4050 #### [facility] [address] [place], [address] Creatinine [Mass/Vol] 0.87 mg/dL Normal 0.55-1.02 [facility] Comment on above: Result Comment: The validity of the calculated GFR GFRAA in patients over 70 years has not been determined. Clinical correlation is essential. Performed By: #### L 502.0500, L400.0001, M100.2200, L400.2010, L501.9985, L500.4100, L100.0100, L500.4050 #### [facility] [address] [place], [address] EST GFR - AA 81 mL/min Normal >60 [facility] Comment on above: Result Comment: Afri can Qatari GFR Calc Performed By: #### L 502.0500, L400.0001, M100.2200, L400.2010, L501.9985, L500.4100, L100.0100, L500.4050 #### [facility] [address] [place], [address] GAP 8 Normal 5-15 [facility] Comment on above: Performed By: #### L 502.0500, L400.0001, M100.2200, L400.2010, L501.9985, L500.4100, L100.0100, L500.4050 #### [facility] [address] [place], [address] GFR/1.73 sq M.predicted among non-blacks MDRD (S/P/Bld) [Vol rate/Area] 67 mL/min/{1.73_m2} Normal >60 [facility] Comment on above: Result Comment: Non- GFR Calc Performed By: #### L 502.0500, L400.0001, M100.2200, L400.2010, L501.9985, L500.4100, L100.0100, L500.4050 #### [facility] [address] [place], [address] Globulin (S) [Mass/Vol] 3.6 g/dL Normal 2.2-4.2 [facility] Comment on above: Performed By: #### L 502.0500, L400.0001, M100.2200, L400.2010, L501.9985, L500.4100, L100.0100, L500.4050 #### [facility] [address] [place], [address] Glucose [Mass/Vol] 162 mg/dL High 74-106 [facility] Comment on above: Result Comment: Fast ing Glucose result greater than or equal to 126 mg/dL suggests DIABETES MELLITUS per A.D.A. criteria. Performed By: #### L 502.0500, L400.0001, M100.2200, L400.2010, L501.9985, L500.4100, L100.0100, L500.4050 #### [facility] [address] [place], [address] Potassium [Moles/Vol] 4.1 mmol/L Normal 3.5-5.1 [facility] Comment on above: Performed By: #### L 502.0500, L400.0001, M100.2200, L400.2010, L501.9985, L500.4100, L100.0100, L500.4050 #### [facility] [address] [place], [address] Sodium [Moles/Vol] 142 mmol/L Normal 136-145 [facility] Comment on above: Performed By: #### L 502.0500, L400.0001, M100.2199, L400.2010, L501.9985, L500.4100, L100.0100, L500.4050 #### [facility] [address] [place], [address] T PROT 7.2 g/dL Normal 6.4-8.2 [facility] Comment on above: Performed By: #### L 502.0500, L400.0001, M100.2200, L400.2010, L501.9985, L500.4100, L100.0100, L500.4050 #### [facility] [address] [place], [address] Urea nitrogen [Mass/Vol] 19 mg/dL High 7-18 [facility] Comment on above: Performed By: #### L 502.0500, L400.0001, M100.2200, L400.2010, L501.9985, L500.4100, L100.0100, L500.4050 #### [facility] [address] [place], [address] Eosinophil percentageOrdered By: GEO TAVO on 04-22-2024 Eosinophils/100 WBC (Bld) 1.6 % 0-5 [facility] Erythrocyte distribution wid th ratioOrdered By: [facility] on 04-22-2024 Erythrocyte distribution width (RBC) [Ratio] 13.5 % 11.6-14.6 [facility] Erythrocyte distribution wid th standard deviationOrdered By: [facility] on 04-22-2024 Erythrocyte distribution width (RBC) [Entitic vol] 45.7 fL High 35.1-43.9 [facility] Estimated glomerular filtrat ion rate (GFR) AmericanOrdered By: [facility] on 04-22-2024 Estimated GFR (MDRD) Amer 81 mL/min >60 [facility] Comment on above: GFR Calc Glomerular filtration rate ( GFR) estimationOrdered By: [facility] on 04-22-2024 Estimated GFR (MDRD) Non-Af Amer 67 mL/min >60 [facility] Comment on above: Non- GFR Calc Glucose Ql (U)Ordered By: IS H TAVO on 04-22-2024 Urine Glucose (UA) Normal mg/dl Normal [facility] Glucose measurementOrdered B y: [facility] on 04-22-2024 Glucose [Mass/Vol] 162 mg/dL High 74-106 [facility] Comment on above: Fasting Glucose resu lt greater than or equal to 126 mg/dL suggests DIABETES MELLITUS per A.D.A. criteria. Hematocrit Auto (Bld) [Volum e fraction]Ordered By: [facility] on 04-22-2024 Hematocrit (Bld) [Volume fraction] 42.1 % 37-47 [facility] Hemoglobin A1con 04-22-2024 HbA1c (Bld) [Mass fraction] 6.8 % High 3.8-5.6 [facility] Comment on above: Result Comment: Norm al < 5.7 % Prediabetic 5.7 - 6.4 % Diabetic >or= 6.5 % Please note range changes. Performed By: #### L 502.0500, L400.0001, M100.2200, L400.2011, L501.9985, L500.4100, L100.0100, L500.4050 #### [facility] [address] [place], [address] Hemoglobin A1c percentageOrd ered By: [facility] on 04-22-2024 HbA1c (Bld) [Mass fraction] 6.8 % High 3.8-5.6 [facility] Comment on above: Normal < 5.7 % Predi abetic 5.7 - 6.4 % Diabetic >or= 6.5 % Please note range changes. Hemoglobin measurementOrdere d By: [facility] on 04-22-2024 Hemoglobin (Bld) [Mass/Vol] 13.3 g/dL 12.0-15.0 [facility] High density lipoprotein (HD L) measurementOrdered By: [facility] on 04-22-2024 Cholesterol in HDL [Mass/Vol] 55 mg/dL >40 [facility] Comment on above: The drugs N-Acetylcy steine and Metamizole may falsely depress this assay. Reference Range HDL <40 mg/dL Low HDL Cholesterol HDL >or= 60 mg/dL High HDL Cholesterol Immature granulocytes/100 WB C Auto (Bld)Ordered By: [facility] on 04-22-2024 Immature granulocytes/100 WBC (Bld) 0.500 % 0.0-0.9 [facility] Comment on above: IG% - Immature Granu locytes (promyelocytes, myelocytes and metamyelocytes) > 1% indicates that a LEFT SHIFT is Present. Ketones Test strip Ql (U)Ord ered By: [facility] on 04-22-2024 Ketones Ql (U) Negative Negative [facility] - Chemistry and C hemistry - challengeOrdered By: [facility] on 04-22-2024 AST [Catalytic activity/Vol] 10 U/L Low 15-37 [facility] Lipid Profileon 04-22-2024 Cholesterol [Mass/Vol] 136 mg/dL Normal 200 [facility] Comment on above: Result Comment: <200 mg/dL Desirable 200-240 mg/dL Borderline >240 mg/dL High Risk Performed By: #### L 502.0500, L400.0001, M100.2200, L400.2011, L501.9985, L500.4100, L100.0100, L500.4050 #### [facility] [address] [place], [address] Cholesterol in HDL [Mass/Vol] 55 mg/dL Normal [facility] Comment on above: Result Comment: The drugs N-Acetylcysteine and Metamizole may falsely depress this assay. Reference Range HDL <40 mg/dL Low HDL Cholesterol HDL >or= 60 mg/dL High HDL Cholesterol Performed By: #### L 502.0500, L400.0001, M100.2200, L400.2010, L501.9985, L500.4100, L100.0100, L500.4050 #### [facility] [address] [place], [address] Cholesterol in LDL [Mass/Vol] 46 mg/dL Normal 0-130 [facility] Comment on above: Performed By: #### L 502.0500, L400.0001, M100.2199, L4.2010, L501.9985, L500.4100, L100.0100, L500.4050 #### [facility] [address] [place], [address] Cholesterol in VLDL [Mass/Vol] 35 mg/dL Normal 5-40 [facility] Comment on above: Performed By: #### L 502.0500, L400.0001, M100.0, L400.2010, L501.9985, L500.4100, L100.0100, L500.4050 #### [facility] [address] [place], [address] Triglyceride [Mass/Vol] 176 mg/dL Normal [facility] Comment on above: Result Comment: The drugs N-Acetylcysteine and Metamizole may falsely depress this assay. Serum Triglycerides Reference Interval Normal <150 mg/dL Borderline high 150 - 199 mg/dL High 200 - 499 mg/dL Very High > or = 500 mg/dL Performed By: #### L 502.0500, L400.0001, M100.2200, L4.2010, L501.9985, L500.4100, L100.0100, L500.4050 #### [facility] [address] [place], [place], [id number] Low density lipoprotein (LDL ) cholesterol measurementOrdered By: [facility] on 04-22-2024 Cholesterol in LDL [Mass/Vol] 46 mg/dL 0-130 [facility] Lymphocytes Auto (Unsp spec) [#/Vol]Ordered By: [facility] TAV[facility] on 04-22-2024 Lymphocytes (Bld) [#/Vol] 1.81 10*3/uL 0.83-4.51 [facility] Lymphocytes/100 WBC Auto (Un sp spec)Ordered By: [facility] on 04-22-2024 Lymphocytes/100 WBC (Bld) 23.4 % 19-41 [facility] MCV (mean corpuscular volume ) determinationOrdered By: [facility] on 04-22-2024 MCV (RBC) [Entitic vol] 92.5 fL 81-99 [facility] Mean corpuscular hemoglobin (MCH) determinationOrdered By: [facility] on 04-22-2024 MCH (RBC) [Entitic mass] 29.2 pg 27.0-32.0 [facility] Mean corpuscular hemoglobin concentration (MCHC) determinationOrdered By: [facility] on 04-22-2024 MCHC (RBC) [Mass/Vol] 31.6 g/dL Low 32-36 [facility] Mean platelet volume determi nationOrdered By: [facility] on 04-22-2024 Platelet mean volume (Bld) [Entitic vol] 9.7 fL 6.2-12.0 [facility] Microalbumin,Random Urineon 04-22-2024 MICROALBUMIN,UR 130.0 mg/L Normal NO RANGE EST. [facility] Comment on above: Performed By: #### L 502.0500, L400.0001, M100.2200, L400.2010, L501.9985, L500.4100, L100.0100, L500.4050 #### [facility] [address] [place], [address] Monocyte percentageOrdered B y: [facility] on 04-22-2024 Monocytes/100 WBC (Bld) 7.1 % 0-10 [facility] Neutrophil percentageOrdered By: [facility] on 04-22-2024 Neutrophils/100 WBC (Bld) 66.9 % 47-70 [facility] Nitrite Test strip Ql (U)Ord ered By: GEO TAVO on 04-22-2024 Nitrite Ql (U) Negative Negative [facility] Nucleated red blood cell per centageOrdered By: [facility] on 04-22-2024 Nucleated RBC/100 WBC (Bld) [Ratio] 0 % 0-5 [facility] Platelet countOrdered By: IS H TAVO on 04-22-2024 Platelets (Bld) [#/Vol] 194 10*3/uL 150-450 [facility] Potassium measurementOrdered By: [facility] on 04-22-2024 Potassium [Moles/Vol] 4.1 mmol/L 3.5-5.1 [facility] Protein Test strip Ql (U)Ord ered By: [facility] on 04-22-2024 Protein Ql (U) 30 mg/dl High Negative [facility] RBC Auto (Bld) [#/Vol]Ordere d By: [facility] on 04-22-2024 RBC (Bld) [#/Vol] 4.55 10*6/uL 4.2-5.4 [facility] Random urine microalbumin me asurementOrdered By: [facility] on 04-22-2024 Urine Random Microalbumin 130.0 mg/L NO RANGE EST. [facility] Serum anion gap measurementO rdered By: [facility] on 04-22-2024 Anion gap [Moles/Vol] 8 mmol/L 5-15 [facility] Serum globulin measurementOr dered By: [facility] on 04-22-2024 Globulin (S) [Mass/Vol] 3.6 g/dL 2.2-4.2 [facility] Serum or plasma alanine barbour otransferase (ALT) measurementOrdered By: [facility] on 04-22-2024 ALT [Catalytic activity/Vol] 20 U/L 13-56 [facility] Serum or plasma albumin yvette urement (mass/volume)Ordered By: [facility] on 04-22-2024 Albumin [Mass/Vol] 3.6 g/dL 3.2-5.0 [facility] Serum or plasma alkaline dahlia sphatase measurementOrdered By: [facility] on 04-22-2024 ALP [Catalytic activity/Vol] 74 U/L 45-117 [facility] Serum or plasma calcium yvette urement (mass/volume)Ordered By: [facility] on 04-22-2024 Calcium [Mass/Vol] 10.0 mg/dL 8.5-10.1 [facility] Serum or plasma cholesterol measurement (mass/volume)Ordered By: [facility] on 04-22-2024 Cholesterol [Mass/Vol] 136 mg/dL <200 [facility] Comment on above: <200 mg/dL Desirable 200-240 mg/dL Borderline >240 mg/dL High Risk Serum or plasma creatinine m easurement (mass/volume)Ordered By: [facility] on 04-22-2024 Creatinine [Mass/Vol] 0.87 mg/dL 0.55-1.02 [facility] Comment on above: The validity of the calculated GFR & GFRAA in patients over 70 years has not been determined. Clinical correlation is essential. Serum or plasma urea nitroge n measurement (mass/volume)Ordered By: [facility] on 04-22-2024 Urea nitrogen [Mass/Vol] 19 mg/dL High 7-18 [facility] Sodium levelOrdered By: [facility] on 04-22-2024 Sodium [Moles/Vol] 142 mmol/L 136-145 [facility] Total proteinOrdered By: [facility] on 04-22-2024 Protein [Mass/Vol] 7.2 g/dL 6.4-8.2 [facility] Triglycerides measurementOrd ered By: [facility] on 04-22-2024 Triglyceride [Mass/Vol] 176 mg/dL <199 [facility] Comment on above: The drugs N-Acetylcy steine and Metamizole may falsely depress this assay.Serum Triglycerides Reference Interval Normal <150 mg/dL Borderline high 150 - 199 mg/dL High 200 - 499 mg/dL Very High > or = 500 mg/dL Urinalysis, Completeon 04-22 BACTERIA 0 SEEN Normal None Seen [facility] Comment on above: Order Comment: Urine , Random Result Comment: CUUR Performed By: #### L 502.0500, L400.0001, M100.2200, L400.2010, L501.9985, L500.4100, L100.0100, L500.4050 #### [facility] [address] [place], [address] EPI,SQUAMOUS 0 SEEN Normal 5-10 [facility] Comment on above: Order Comment: Urine , Random Result Comment: CUUR Performed By: #### L 502.0500, L400.0001, M100.2200, L400.2010, L501.9985, L500.4100, L100.0100, L500.4050 #### [facility] [address] [place], [address] Mucus Ql (Urine sed) 0 SEEN Normal [facility] Comment on above: Order Comment: Urine , Random Result Comment: CUUR Performed By: #### L 502.0500, L400.0001, M100.2200, L400.2010, L501.9985, L500.4100, L100.0100, L500.4050 #### [facility] [address] [place], [address] RBC 0 SEEN Normal 0-5 [facility] Comment on above: Order Comment: Urine , Random Result Comment: CUUR Performed By: #### L 502.0500, L400.0001, M100.2200, L400.2010, L501.9985, L500.4100, L100.0100, L500.4050 #### [facility] [address] [place], [address] WBC 0 SEEN Normal 0-5 [facility] Comment on above: Order Comment: Urine , Random Result Comment: CUUR Performed By: #### L 502.0500, L400.0001, M100.2200, L400.2010, L501.9985, L500.4100, L100.0100, L500.4050 #### [facility] [address] [place], [address] BILIRUBIN URINE Normal Negative [facility] Comment on above: Order Comment: Urine , Random Result Comment: CUUR Performed By: #### L 502.0500, L400.0001, M100.2200, L400.2011, L501.9985, L500.4100, L100.0100, L500.4050 #### [facility] [address] [place], [address] Clarity (U) Normal Clear [facility] Comment on above: Order Comment: Urine , Random Result Comment: CUUR Performed By: #### L 502.0500, L400.0001, M100.2200, L400.2010, L501.9985, L500.4100, L100.0100, L500.4050 #### [facility] [place], [address] Color (U) Normal Yellow [facility] Comment on above: Order Comment: Urine , Random Result Comment: CUUR Performed By: #### L 502.0500, L400.0001, M100.2200, L400.2010, L501.9985, L500.4100, L100.0100, L500.4050 #### [facility] [address] [place], [address] GLUCOSE, UR Normal Normal [facility] Comment on above: Order Comment: Urine , Random Result Comment: CUUR Performed By: #### L 502.0500, L400.0001, M100.2200, L400.2010, L501.9985, L500.4100, L100.0100, L500.4050 #### [facility] [address] [place], [address] KETONE UR Normal Negative [facility] Comment on above: Order Comment: Urine , Random Result Comment: CUUR Performed By: #### L 502.0500, L400.0001, M100.2200, L400.2010, L501.9985, L500.4100, L100.0100, L500.4050 #### [facility] [address] [place], [address] LEUK ESTERASE Normal Negative [facility] Comment on above: Order Comment: Urine , Random Result Comment: CUUR Performed By: #### L 502.0500, L400.0001, M100.2200, L400.2010, L501.9985, L500.4100, L100.0100, L500.4050 #### [facility] [address] [place], [address] Nitrite Ql (U) Normal Negative [facility] Comment on above: Order Comment: Urine , Random Result Comment: CUUR Performed By: #### L 502.0500, L400.0001, M100.2200, L400.2010, L501.9985, L500.4100, L100.0100, L500.4050 #### [facility] [address] [place], [address] OCCULT BLOOD-UR Normal Negative [facility] Comment on above: Order Comment: Urine , Random Result Comment: CUUR Performed By: #### L 502.0500, L400.0001, M100.2200, L400.2010, L501.9985, L500.4100, L100.0100, L500.4050 #### [facility] [address] [place], [address] pH UR Normal 5.0 - 8.0 [facility] Comment on above: Order Comment: Urine , Random Result Comment: CUUR Performed By: #### L 502.0500, L400.0001, M100.2200, L400.2010, L501.9985, L500.4100, L100.0100, L500.4050 #### [facility] [address] [place], [address] PROT DIPSTX Normal Negative [facility] Comment on above: Order Comment: Urine , Random Result Comment: CUUR Performed By: #### L 502.0500, L400.0001, M100.2200, L400.2010, L501.9985, L500.4100, L100.0100, L500.4050 #### [facility] [address] [place], [address] SP.GR. DIPSTX Normal 1.002-1.03 0 [facility] Comment on above: Order Comment: Urine , Random Result Comment: CUUR Performed By: #### L 502.0500, L400.0001, M100.2200, L400.2010, L501.9985, L500.4100, L100.0100, L500.4050 #### [facility] [address] [place], [place], [phone] UR Preservative Normal [facility] Comment on above: Order Comment: Urine , Random Result Comment: CUUR Performed By: #### L 502.0500, L400.0001, M100.2200, L400.2010, L501.9985, L500.4100, L100.0100, L500.4050 #### [facility] [address] [place], [address] UROBILI Normal Normal [facility] Comment on above: Order Comment: Urine , Random Result Comment: CUUR Performed By: #### L 502.0500, L400.0001, M100.2200, L400.2010, L501.9985, L500.4100, L100.0100, L500.4050 #### [facility] [address] [place], [place], [phone] Urinalysis, Routine (Dipstic k)on 04-22-2024 BILIRUBIN URINE Negative Normal Negative [facility] Comment on above: Order Comment: ADD O N TO TODAYS URINE Urine, Random Performed By: #### L 502.0500, L400.0001, M100.2200, L400.2011, L501.9985, L500.4100, L100.0100, L500.4050 #### [facility] [address] [place], [address] Clarity (U) Clear Normal Clear [facility] Comment on above: Order Comment: ADD O N TO TODAYS URINE Urine, Random Performed By: #### L 502.0500, L400.0001, M100.2200, L400.2010, L501.9985, L500.4100, L100.0100, L500.4050 #### [facility] [address] [place], [address] Color (U) Yellow Normal Yellow [facility] Comment on above: Order Comment: ADD O N TO TODAYS URINE Urine, Random Performed By: #### L 502.0500, L400.0001, M100.2200, L400.2010, L501.9985, L500.4100, L100.0100, L500.4050 #### [facility] [address] [place], [address] GLUCOSE, UR Normal Normal Normal [facility] Comment on above: Order Comment: ADD O N TO TODAYS URINE Urine, Random Performed By: #### L 502.0500, L400.0001, M100.2200, L400.2010, L501.9985, L500.4100, L100.0100, L500.4050 #### [facility] [address] [place], [address] KETONE UR Negative Normal Negative [facility] Comment on above: Order Comment: ADD O N TO TODAYS URINE Urine, Random Performed By: #### L 502.0500, L400.0001, M100.2200, L400.2010, L501.9985, L500.4100, L100.0100, L500.4050 #### [facility] [address] [place], [address] LEUK ESTERASE Negative Normal Negative [facility] Comment on above: Order Comment: ADD O N TO TODAYS URINE Urine, Random Performed By: #### L 502.0500, L400.0001, M100.2200, L400.2010, L501.9985, L500.4100, L100.0100, L500.4050 #### [facility] [address] [place], [place], [phone] Nitrite Ql (U) Negative Normal Negative [facility] Comment on above: Order Comment: ADD O N TO TODAYS URINE Urine, Random Performed By: #### L 502.0500, L400.0001, M100.2200, L400.2010, L501.9985, L500.4100, L100.0100, L500.4050 #### [facility] [address] [place], [place], [id number] OCCULT BLOOD-UR Negative Normal Negative [facility] Comment on above: Order Comment: ADD O N TO TODAYS URINE Urine, Random Performed By: #### L 502.0500, L400.0001, M100.2199, L400.2010, L501.9985, L500.4100, L100.0100, L500.4050 #### [facility] [address] [place], [place], [id number] pH UR 6.0 Normal 5.0 - 8.0 [facility] Comment on above: Order Comment: ADD O N TO TODAYS URINE Urine, Random Performed By: #### L 502.0500, L400.0001, M100.2200, L400.2010, L501.9985, L500.4100, L100.0100, L500.4050 #### [facility] [address] [place], [address] PROT DIPSTX 30 mg/dl Abnormal Negative [facility] Comment on above: Order Comment: ADD O N TO TODAYS URINE Urine, Random Performed By: #### L 502.0500, L400.0001, M100.2200, L400.2011, L501.9985, L500.4100, L100.0100, L500.4050 #### [facility] [address] [place], [place], [id number] SP.GR. DIPSTX 1.020 Normal 1.002-1.03 0 [facility] Comment on above: Order Comment: ADD O N TO TODAYS URINE Urine, Random Performed By: #### L 502.0500, L400.0001, M100.2200, L400.2011, L501.9985, L500.4100, L100.0100, L500.4050 #### [facility] [address] [facility] [place], [address] UROBILI Normal Normal Normal [facility] Comment on above: Order Comment: ADD O N TO TODAYS URINE Urine, Random Performed By: #### L 502.0500, L400.0001, M100.2200, L400.2011, L501.9985, L500.4100, L100.0100, L500.4050 #### [facility] [address] [facility] [place], [address] Urine blood detectionOrdered By: GEO VO on 04-22-2024 Urine Occult Blood Negative Negative [facility] Urine clarityOrdered By: GEO VO on 04-22-2024 Clarity (U) Clear Clear [facility] Urine color determinationOrd ered By: GEO VO on 04-22-2024 Color (U) Yellow Yellow [facility] Urine cultureOrdered By: GEO VO on 04-22-2024 Bacteria identified Cx Nom (U) Presumptive E. coli Abnormal [facility] Bacteria identified Cx Nom (U) Positive Abnormal [facility] Urine leukocyte esterase det ection by dipstickOrdered By: GEO VO on 04-22-2024 Leukocyte esterase Test strip Ql (U) Negative Negative [facility] Urine pHOrdered By: GEO RIVERA L on 04-22-2024 pH (U) 6.0 [pH] 5.0 - 8.0 [facility] Urine specific gravity measu rementOrdered By: GEO VO on 04-22-2024 Specific gravity (U) [Rel density] 1.020 1.002-1.03 0 [facility] Urobilinogen Ql (U)Ordered B y: GEO VO on 04-22-2024 Urine Urobilinogen Normal mg/dl Normal [facility] Very low density lipoprotein (VLDL) cholesterol measurementOrdered By: GEO VO on 04-22-2024 VLDL Cholesterol 35 mg/dL 5-40 [facility] White blood cell (WBC) count Ordered By: GEO VO on 04-22-2024 WBC (Bld) [#/Vol] 7.7 10*3/uL 4.4-11.0 [facility] Emergency Department Summary on 02-05-2024 Emergency Department Summary [facility] Records Department [address] [place] [address] Emergency Department Summary 02/05/24 MR#: [id number] Acct: [id number] Name: RAFAEL MAURICE Rep #: [id number] : 1945 78 From: Memo Green DO PCP: GEO VO MD Status:DEP ER Location: ED HPI History of Present Illness Chief Complaint: Other, Pain/Inj Detail of Chief Complaint: Severe neck pain Informant: patient Narrative Narrative: Patient presents to the emergency department with complaint of severe neck pain. Patient states that she woke up 5 days ago with some mild discomfort in the right side of her neck. Patient was seen at urgent care and diagnosed with a trapezius strain and started on cyclobenzaprine and Motrin which is not helping her pain at all. Pain now bilaterally and radiating down both arms to about the elbow. She denies significant weakness. Pain worse with movement and cough. Patient has history of arthritis and has had some chronic back pain issues. She has been seen in the past by Dr. Lew back specialist as well as pain management Dr. Glover. Patient not anticoagulated. She does take a baby aspirin. [facility] Medical History (Updated 02/05/24 @ 14:[address] Memo Green DO) Strain of cervical portion of both trapezius muscles Cervical myofascial strain Abn react-fluid aspirat COPD with exacerbation Contact with or exposure to other viral diseases Sessile colonic polyp Umbilical hernia without obstruction and without gangrene Wears partial dentures Post-menopausal Thyroid disease Diabetes Arthritis Fatty liver High cholesterol Easy bruising Back pain Dietary restriction History of IBS History of diverticulitis Epigastric direct abdominal tenderness Smoker On home oxygen therapy BiPAP (biphasic positive airway pressure) dependence COPD (chronic obstructive pulmonary disease) Shortness of breath on exertion Chronic cough Hypertension History of echocardiogram History of stress test Cardiology follow-up encounter History of rheumatic fever Adhesion, postoperative History of ovarian cyst Hemorrhoids History of back problems Peptic ulcer disease Home Medications ???Medication ???Instructions ???Recorded ???Last Taken ???Type albuterol sulfate 90 mcg/actuation 2 puff inhalation Q6H PRN PRN COPD 09/23/17 07/08/22 History aerosol inhaler (Ventolin HFA) ascorbic acid (vitamin C) 500 mg 500 mg PO DAILY SUPPLEMENT 09/23/17 Unknown History capsule bupropion HCl 100 mg tablet,12 hr 100 mg PO BID ANXIETY 09/23/17 01/23/23 History sustained-release (Wellbutrin SR) ulifmhoizwa-[id number]-[id number] C-Mn 500 1 ea PO DAILY SUPPLEMENT 09/23/17 Unknown History mg-400 mg capsule loperamide 2 mg capsule (Imodium 2 mg PO PRN PRN Irritable Bowel 09/23/17 Unknown History A-D) Syndrome losartan 100 mg tablet 100 mg PO QHS BP 09/23/17 Unknown History magnesium 30 mg tablet 30 mg PO DAILY SUPPLEMENT 09/23/17 Unknown History montelukast 10 mg tablet 10 mg PO DAILY COPD 09/23/17 Unknown History (Singulair) omega 3-dha 60 mg-epa 90 mg-fish 500 mg PO DAILY SUPPLEMENT 09/23/17 07/18/23 History oil 500 mg capsule, delayed release (Fish Oil) pravastatin 40 mg tablet 40 mg PO QHS CHOLESTEROL 09/23/17 Unknown History vitamin B complex 1 ea PO DAILY SUPPLEMENT 09/23/17 Unknown History aspirin 81 mg chewable tablet 81 mg PO DAILY 05/20/22 07/18/23 History azelastine 137 mcg (0.1 %) nasal 2 spray intranasal BID 05/20/22 Unknown History spray cholecalciferol (vitamin D3) 50 50 mcg PO DAILY 05/20/22 Unknown History mcg (2,000 unit) capsule cinnamon bark 500 mg capsule 1,000 mg PO BID 05/20/22 Unknown History (Cinnamon) fluticasone fur. 100 mcg-umeclid 1 inh inhalation DAILY 05/20/22 Unknown History 62.5 mcg-vilant 25 mcg inhalat.powder (Trelegy Ellipta) guaifenesin 600 mg tablet, 1,200 mg PO DAILY 05/20/22 05/27/22 History extended release 12 hr (Mucinex) hydralazine 50 mg tablet 50 mg PO Q12H 05/20/22 07/08/22 History levocetirizine 5 mg tablet 5 mg PO DAILY 05/20/22 Unknown History metformin 500 mg tablet 500 mg PO BID 05/20/22 Unknown History mirtazapine 15 mg tablet 15 mg PO QHS 05/20/22 Unknown History potassium chloride 10 mEq 10 meq PO DAILY 05/20/22 Unknown History tablet,extended release vitamin E 670 mg (1,000 unit) 670 mg PO MOWEFR SUPPLEMENT 05/20/22 Unknown History capsule fenofibrate 160 mg tablet 160 mg PO DAILY 07/01/22 Unknown History oxycodone 5 mg tablet 5 mg PO Q6H PRN PRN Pain Score 07/09/22 Unknown Rx 6-10 3 days #9 tabs hyoscyamine sulfate 0.125 mg 0.125 mg sublingual Q8H PRN 04/02/23 Unknown Rx sublingual tablet Irritable Bowel Syndrome #60 tabs albuterol sulfate 2.5 mg/3 mL 2.5 mg inhalation Q6H PRN 07/21/23 Unknown History (0.083 %) solution for nebulization sh (more content not included)... Normal [facility] Spine Cervical (Routine)on 04-06-2023 Spine Cervical (Routine) [facility] Imaging Services [address] [place] [address] Spine Cervical (Routine) MR#: [id number] Acct: [id number] Name: RAFAEL MAURICE Rep #: [id number] : 1945 F 78 From: Ginette aayla MD PCP: GEO VO MD Status: [facility] ER Study: Spine Cervical (Routine) Date of Exam: Exam# [id number] Ordering Dr: Memo Green DO [id number] HISTORY: neck pain, paraesthesias both arms, NO TRAUMA, NO H/O OF PRIOR CERVICAL SURGERY. TECHNIQUE: Multiplanar and multisequence MR images of the cervical spine were obtained without contrast. 264 images. COMPARISON: None. FINDINGS: VERTEBRAE: Vertebral body heights maintained. Mild degenerative changes at multiple levels. No other significant bone marrow signal abnormality. VERTEBRAL ALIGNMENT: Straightening of the cervical lordosis. Minimal 1-2 mm retrolisthesis of C4-5 and anterolisthesis of C5-6. SPINAL CORD: Slightly increased T2 cord signal at the C4-5 level. SOFT TISSUES: No prevertebral fluid collection. INTERVERTEBRAL DISCS: C2-3: Minimal posterior disc protrusion with uncovertebral and facet arthropathy superimposed on a developmentally narrow spinal canal resulting in moderate central canal stenosis and bilateral foraminal narrowing. C3-4: Minimal posterior disc bulge osteophyte complex with uncovertebral and facet arthropathy superimposed on a developmentally narrow spinal canal resulting in moderate central canal stenosis and bilateral foraminal narrowing C4-5: Mild posterior disc bulge osteophyte complex with uncovertebral and facet arthropathy resulting in mild indentation of the ventral cord, severe central canal stenosis, and moderate bilateral foraminal narrowing. C5-6: Mild posterior disc bulge osteophyte complex with uncovertebral and facet arthropathy superimposed on a developmentally narrow spinal canal resulting in moderate central canal stenosis and bilateral foraminal narrowing C6-7: Fusion across the intervertebral disc space. Residual degenerative change with osteophytes resulting in mild central canal stenosis and moderate bilateral foraminal narrowing. C7-T1: Mild disc bulge eccentric to the right resulting in minimal narrowing of the thecal sac and no significant foraminal narrowing. 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 Severe spinal canal stenosis, cord impingement, and bilateral foraminal narrowing of C4-5 with mild cord edema/myelopathy. Moderate spinal canal stenosis with bilateral foraminal narrowing at C2-3, C3-4, and C5-6. Electronically Signed: Ginette Viveros MD at 13:35 EST , CC: Dr. Memo Green DO; GEO VO MD Flower Cutter: Signed Normal [facility] Urgent Care Visit Reporton 1 04-04-2023 Urgent Care Visit Report [facility] [address], [address] [place] [address] OFFICE VISIT Date of Service: 02/03/24 MR#: [id number] Acct: [id number] Name: RAFAEL MAURCIE Rep #: [id number] : 1945 Provider: MARGI Worrell Age/Sex: 78/F Location: [facility] Status: Signed Intake Vital Signs 08/01/23 10:08 02/03/24 13:13 Height 5 ft 2 in Weight: 202 lb BMI 36.9 BP 149/87 H 116/72 Blood Pressure Location Lt brachial Rt brachial Position Sitting Sitting Respiration 17 16 Pulse 76 86 Pulse Source Monitor Monitor Temp 97.5 F L 97.6 F L Temp Source Temporal Oral Pulse Oximetry (%) 96 94 Oxygen Delivery Method room air room air Intake Visit Reasons: NECK PAIN AND SHOULDER UNK INJ Allergies adhesive tape Allergy (Verified 02/03/24 13:14) Rash Sulfa (Sulfonamide Antibiotics) Allergy (Verified 02/03/24 13:14) Rash Have you fallen in the past year?: No PFSH Medical History (Updated 02/03/24 @ 16:05 by MARGI Marino) Strain of cervical portion of both trapezius muscles Cervical myofascial strain Abn react-fluid aspirat COPD with exacerbation Contact with or exposure to other viral diseases Sessile colonic polyp Umbilical hernia without obstruction and without gangrene Wears partial dentures Post-menopausal Thyroid disease Diabetes Arthritis Fatty liver High cholesterol Easy bruising Back pain Dietary restriction History of IBS History of diverticulitis Epigastric direct abdominal tenderness Smoker On home oxygen therapy BiPAP (biphasic positive airway pressure) dependence COPD (chronic obstructive pulmonary disease) Shortness of breath on exertion Chronic cough Hypertension History of echocardiogram History of stress test Cardiology follow-up encounter History of rheumatic fever Adhesion, postoperative History of ovarian cyst Hemorrhoids History of back problems Peptic ulcer disease Surgical History Hx of esophagogastroduodenoscopy Hx of right cataract extraction Hx of left cataract extraction Hx of colonoscopy History of esophagogastroduodenoscopy (EGD) History of placement of ear tubes History of thyroidectomy History of carpal tunnel repair History of left knee replacement History of hysterectomy History of cardiac cath History of D C History of ovarian cystectomy History of appendectomy Hx of tonsillectomy Family History Sister Breast cancer Hypertension Mother Cancer pancreatic Hypertension Aunt Diabetes Grandfather Hypertension CVA (cerebral vascular accident) Grandmother Hypertension Social History household members: none Smoking Status: Current every day smoker tobacco type: cigarettes alcohol intake: never substance use type: does not use HPI HPI Details: RAFAEL MAURICE, is a 78 F who presents to the office today for initial evaluation acute onset posterior cervical and bilateral trapezius pain of unknown etiology x 4 days. No history of trauma to the same. PMH NC. No upper extremity radicular complaints. Cowb-cua-tzaxbtb ibuprofen 200 mg tablets x 4 taken all at once earlier this morning making symptoms tolerable although still painful. No chest pain or shortness of breath or dyspnea on exertion. No other associated symptoms and no other alleviating/aggravating factors. cerv/ trapezius strain ibuprofen 600/ flexeril 10 prescribed refused PT ROS Const Constitutional: No other (As above) Exam Const General: cooperative, healthy appearing and no acute distress Nutritional Appearance: average body habitus Orientation: alert and awake [facility] Head: normal to inspection Ears: hearing grossly normal bilaterally and external ears normal Nose: external nose normal Eyes General: appearance normal, both eyes and all related structures Neck Neck: normal visual inspection, full ROM, no meningeal signs and supple Resp Effort Inspection: normal respiratory effort and able to speak in complete sentences Auscultation: Bilateral: Clear to Auscultation Cardio Palpation: normal PMI Rate: regular rate Rhythm: regular rhythm Heart Sounds: S1 normal, S2 normal, no gallops, no murmurs and no rubs Pulses: radial pulses present Musc Cervical Spine: normal cervical lordosis, cervical ROM normal, cervical muscular tenderness (Bilateral paraspinal and upper trapezius musculature) and pain with cervical ROM; No cervical spinal tenderness Skin General: no rashes or lesions noted Neuro General: patient alert, patient awake and patient oriented x3 Cognition: normal cognition Speech: speech normal Extrem Other: FAROM bilateral upper extremities with reboot to you (more content not included)... Normal [facility] XR CHEST 2 VIEWSon 4 XR CHEST 2 VIEWS ORIGINAL EXAMINATION: TWO XRAY VIEWS OF THE CHEST 01/27/2024 1:47 pm COMPARISON: 04/24/2022 HISTORY: ORDERING SYSTEM PROVIDED HISTORY: Reason for Exam: COVID FINDINGS: The cardiomediastinal silhouette demonstrates stable cardiomegaly. There are calcified granulomas once again visualized within the mediastinum and hilar regions. There is a stable 7 mm left suprahilar nodular density. No consolidative opacity is identified. There is no pneumothorax or pleural effusion. No free air seen beneath the level of the diaphragm. There are no acute osseous abnormalities. There are moderate degenerative changes of the spine. IMPRESSION: No acute radiographic findings. I have personally reviewed the images of this examination and agree with the resident's findings and interpretation. Interpreted by: Brant Kraft DO Preliminary Report By: Remy Perry Electronically signed By Brant Kraft DO Dictated Date: 01/28/2024 10:35:58 AM Prelim Date: 01/28/2024 11:05:42 AM Sign Date: 01/28/2024 11:05:42 AM Ordering Provider: LINCOLN Shields [facility] .Auto Diffon 12-16-2023 Basophil, Absolute 0.1 10 3/mcL Normal 0.0-0.2 [facility] Comment on above: Performed By: #### L IPID, ANEU, CBC, CMP, A1C, DLDL, ADIFF, GFR #### [facility] [address] [place], [place] [address] Basophils/100 WBC (Bld) 1.1 % Normal 0.0-2.5 [facility] Comment on above: Performed By: #### L IPID, ANEU, CBC, CMP, A1C, DLDL, ADIFF, GFR #### [facility] [address] [place], [place] [address] Eosinophil, Absolute 0.1 10 3/mcL Normal 0.0-0.7 [facility] Comment on above: Performed By: #### L IPID, ANEU, CBC, CMP, A1C, DLDL, ADIFF, GFR #### [address] [address] Eosinophils/100 WBC (Bld) 1.8 % Normal 0.0-7.0 [facility] Comment on above: Performed By: #### L IPID, ANEU, CBC, CMP, A1C, DLDL, ADIFF, GFR #### [address] [address] Lymphocyte, Absolute 1.6 10 3/mcL Normal 0.9-4.3 [facility] Comment on above: Performed By: #### L IPID, ANEU, CBC, CMP, A1C, DLDL, ADIFF, GFR #### [address] [address] Lymphocytes/100 WBC (Bld) 23.4 % Normal 20.0-40.0 [facility] Comment on above: Performed By: #### L IPID, ANEU, CBC, CMP, A1C, DLDL, ADIFF, GFR #### [address] [address] Monocyte, Absolute 0.5 10 3/mcL Normal 0.1-1.4 [facility] Comment on above: Performed By: #### L IPID, ANEU, CBC, CMP, A1C, DLDL, ADIFF, GFR #### [address] [address] Monocytes/100 WBC (Bld) 7.2 % Normal 2.0-13.0 [facility] Comment on above: Performed By: #### L IPID, ANEU, CBC, CMP, A1C, DLDL, ADIFF, GFR #### [address] [address] Neutrophils/100 WBC (Bld) 66.5 % Normal 50.0-75.0 [facility] Comment on above: Performed By: #### L IPID, ANEU, CBC, CMP, A1C, DLDL, ADIFF, GFR #### [facility] [address] [place], [place] [address] .GFRon 12-16-2023 GFR 70 ml/min/1.73sqm Normal [facility] Comment on above: Result Comment: GFR Population mean for , Non- Americans Ages 20-29 = 116 mL/min/1.73 sq.m. Ages 30-39 = 107 mL/min/1.73 sq.m. Ages 40-49 = 99 mL/min/1.73 sq.m. Ages 50-59 = 93 mL/min/1.73 sq.m. Ages 60-69 = 85 mL/min/1.73 sq.m. Ages 70+ = 75 mL/min/1.73 sq.m. Chronic Kidney Disease: Less than 60 mL/min/1.73 square meters End Stage Renal Disease: Less than 15 mL/min/1.73 square meters Performed By: #### L IPID, ANEU, CBC, CMP, A1C, DLDL, ADIFF, GFR #### [address] [address] GFR Non- 58 ml/min/1.73sqm Normal [facility] Comment on above: Result Comment: GFR Population mean for , Non- Americans Ages 20-29 = 116 mL/min/1.73 sq.m. Ages 30-39 = 107 mL/min/1.73 sq.m. Ages 40-49 = 99 mL/min/1.73 sq.m. Ages 50-59 = 93 mL/min/1.73 sq.m. Ages 60-69 = 85 mL/min/1.73 sq.m. Ages 70+ = 75 mL/min/1.73 sq.m. Chronic Kidney Disease: Less than 60 mL/min/1.73 square meters End Stage Renal Disease: Less than 15 mL/min/1.73 square meters Performed By: #### L IPID, ANEU, CBC, CMP, A1C, DLDL, ADIFF, GFR #### [id number] [place], [place] [address] .NEUABSon 12-16-2023 Neutrophil, Absolute 4.7 10 3/mcL Normal 2.3-8.1 [facility] Comment on above: Performed By: #### L IPID, ANEU, CBC, CMP, A1C, DLDL, ADIFF, GFR #### [place] [id number] A1Con 12-16-2023 Glucose [Mass/Vol] 151 mg/dL Normal [facility] Comment on above: Result Comment: Estella mated Average Glucose calculated by equation ((28.7xA1C)-46.7) Estimated average glucose (eAG) is a calculated value from Hemoglobin A1C and is account development representative of the average blood glucose level in the last 2-3 month period. Normal range: less than 114 mg/dL Performed By: #### L IPID, ANEU, CBC, CMP, A1C, DLDL, ADIFF, GFR #### [place] [address] HbA1c (Bld) [Mass fraction] 6.9 % High 4.3-6.4 [facility] Comment on above: Performed By: #### L IPID, ANEU, CBC, CMP, A1C, DLDL, ADIFF, GFR #### [place] [address] CBCon 12-16-2023 Erythrocyte distribution width (RBC) [Ratio] 14.3 % Normal 11.5-15.5 [facility] Comment on above: Performed By: #### L IPID, ANEU, CBC, CMP, A1C, DLDL, ADIFF, GFR #### [place] [address] Hematocrit (Bld) [Volume fraction] 40.3 % Normal 34.0-46.0 [facility] Comment on above: Performed By: #### L IPID, ANEU, CBC, CMP, A1C, DLDL, ADIFF, GFR #### [place] [address] Hgb 13.6 G/dL Normal 12.0-16.0 [facility] Comment on above: Performed By: #### L IPID, ANEU, CBC, CMP, A1C, DLDL, ADIFF, GFR #### [place] [id number] MCH (RBC) [Entitic mass] 31.8 pg Normal 27.0-33.0 [facility] Comment on above: Performed By: #### L IPID, ANEU, CBC, CMP, A1C, DLDL, ADIFF, GFR #### [address] [address] MCHC 33.8 G/dL Normal 32.0-36.0 [facility] Comment on above: Performed By: #### L IPID, ANEU, CBC, CMP, A1C, DLDL, ADIFF, GFR #### [address] [address] MCV (RBC) [Entitic vol] 94.3 fL Normal 80.0-99.0 [facility] Comment on above: Performed By: #### L IPID, ANEU, CBC, CMP, A1C, DLDL, ADIFF, GFR #### [place] [address] Platelet 177 10 3/mcL Normal 150-450 [facility] Comment on above: Performed By: #### L IPID, ANEU, CBC, CMP, A1C, DLDL, ADIFF, GFR #### [address] [address] Platelet mean volume (Bld) [Entitic vol] 7.6 fL Normal 6.6-10.5 [facility] Comment on above: Performed By: #### L IPID, ANEU, CBC, CMP, A1C, DLDL, ADIFF, GFR #### [address] [address] RBC 4.27 10 6/mcL Normal 4.10-5.30 [facility] Comment on above: Performed By: #### L IPID, ANEU, CBC, CMP, A1C, DLDL, ADIFF, GFR #### [address] [address] WBC 7.0 10 3/mcL Normal 4.5-10.8 [facility] Comment on above: Performed By: #### L IPID, ANEU, CBC, CMP, A1C, DLDL, ADIFF, GFR #### [address] [address] CMPon 12-16-2023 Albumin Level 3.5 G/dL Normal 3.4-4.8 [facility] Comment on above: Performed By: #### L IPID, ANEU, CBC, CMP, A1C, DLDL, ADIFF, GFR #### [address] [address] Albumin/Globulin [Mass ratio] 1.2 {ratio} Normal 1.1-2.5 [facility] Comment on above: Performed By: #### L IPID, ANEU, CBC, CMP, A1C, DLDL, ADIFF, GFR #### [address] [address] ALP [Catalytic activity/Vol] 70 U/L Normal 40-135 [facility] Comment on above: Performed By: #### L IPID, ANEU, CBC, CMP, A1C, DLDL, ADIFF, GFR #### [address] [address] ALT [Catalytic activity/Vol] 28 U/L Normal 14-59 [facility] Comment on above: Performed By: #### L IPID, ANEU, CBC, CMP, A1C, DLDL, ADIFF, GFR #### [address] [address] AST [Catalytic activity/Vol] 14 U/L Normal 10-40 [facility] Comment on above: Performed By: #### L IPID, ANEU, CBC, CMP, A1C, DLDL, ADIFF, GFR #### [address] [address] Bili Total 0.7 mg/dL Normal 0.2-1.0 [facility] Comment on above: Result Comment: Use of this assay is not recommended for patients undergoing treatment with eltrombopag due to the potential for falsely elevated results. Performed By: #### L IPID, ANEU, CBC, CMP, A1C, DLDL, ADIFF, GFR #### [address] [address] BUN/Creatinine Ratio 27 ratio Normal 7-27 [facility] Comment on above: Performed By: #### L IPID, ANEU, CBC, CMP, A1C, DLDL, ADIFF, GFR #### [address] [address] Calcium [Mass/Vol] 8.8 mg/dL Normal 8.4-10.[address] [facility] Comment on above: Performed By: #### L IPID, ANEU, CBC, CMP, A1C, DLDL, ADIFF, GFR #### [address] [address] Chloride [Moles/Vol] 106 mmol/L Normal 98-107 [facility] Comment on above: Performed By: #### L IPID, ANEU, CBC, CMP, A1C, DLDL, ADIFF, GFR #### [address] [address] CO2 [Moles/Vol] 29 mmol/L Normal 23-31 [facility] Comment on above: Performed By: #### L IPID, ANEU, CBC, CMP, A1C, DLDL, ADIFF, GFR #### [address] [address] Creatinine [Mass/Vol] 0.94 mg/dL Normal 0.55-1.02 [facility] Comment on above: Result Comment: Test ing performed on Siemens Dimension EXL analyzer using a modified kinetic Patel technique. Performed By: #### L IPID, ANEU, CBC, CMP, A1C, DLDL, ADIFF, GFR #### [address] [address] Electrolyte Balance 6.0 mEq/L Normal 4.0-15.0 [facility] Comment on above: Performed By: #### L IPID, ANEU, CBC, CMP, A1C, DLDL, ADIFF, GFR #### [address] [address] Globulin 3.0 G/dL Normal [facility] Comment on above: Performed By: #### L IPID, ANEU, CBC, CMP, A1C, DLDL, ADIFF, GFR #### [address] [address] Glucose [Mass/Vol] 177 mg/dL High 83-[address] [facility] Comment on above: Performed By: #### L IPID, ANEU, CBC, CMP, A1C, DLDL, ADIFF, GFR #### [address] [address] Potassium [Moles/Vol] 4.2 mmol/L Normal 3.5-5.1 [facility] Comment on above: Performed By: #### L IPID, ANEU, CBC, CMP, A1C, DLDL, ADIFF, GFR #### [address] [address] Sodium [Moles/Vol] 141 mmol/L Normal 136-[address] [facility] Comment on above: Performed By: #### L IPID, ANEU, CBC, CMP, A1C, DLDL, ADIFF, GFR #### [address] [address] Total Protein 6.5 G/dL Normal 6.4-8.2 [facility] Comment on above: Performed By: #### L IPID, ANEU, CBC, CMP, A1C, DLDL, ADIFF, GFR #### [address] [address] Urea nitrogen [Mass/Vol] 25 mg/dL High 7-18 [facility] Comment on above: Performed By: #### L IPID, ANEU, CBC, CMP, A1C, DLDL, ADIFF, GFR #### [address] [address] DLDLon 12-16-2023 Direct LDL Cholesterol 68 mg/dL Normal 0-99 [facility] Comment on above: Result Comment: Dire ct LDL Cholesterol Reference Interval: Optimal: <100 mg/dL Near Optimal/above optimal: 100-129 mg/dL Borderline high: 130-159 mg/dL High: 160-189 mg/dL Very high: >=190 mg/dL Performed By: #### L IPID, ANEU, CBC, CMP, A1C, DLDL, ADIFF, GFR #### [place] [address] LABORATORYOrdered By: David Lepe on 12-16-2023 Albumin DL <= 20 mg/L (U) [Mass/Vol] 6580 mcg/dL Invalid Interpretation Code AO ADM SS Albumin/Creatinine DL <= 20 mg/L (U) [Mass ratio] 88 mcg/mg High 0 - 30 mcg/mg AO ADM SS Creatinine (U) [Mass/Vol] 74.4 mg/dL Normal 28.0 - 117.0 mg/dL AO ADM SS Cholesterol [Mass/Vol] 135 mg/dL Normal 0 - 2 00 mg/dL AO ADM SS Comment on above: Interpretive Data: C holesterol Reference Interval: Less than 200 Desirable 200-239 Borderline high risk 240 and above High risk Cholesterol in HDL [Mass/Vol] 49 mg/dL Normal 40 - 60 mg/dL AO ADM SS Cholesterol in LDL [Mass/Vol] 55 mg/dL Normal 0 - 130 mg/dL AO ADM SS Cholesterol in LDL [Mass/Vol] 68 mg/dL Normal 0 - 99 mg/dL AO ADM SS Comment on above: Interpretive Data: D irect LDL Cholesterol Reference Interval: Optimal: <100 mg/dL Near Optimal/above optimal: 100-129 mg/dL Borderline high: 130-159 mg/dL High: 160-189 mg/dL Very high: >=190 mg/dL Triglyceride [Mass/Vol] 153 mg/dL High 0 - 150 mg/dL AO ADM SS Comment on above: Interpretive Data: T riglyceride Reference Interval: Less than 150 Normal 150-199 Borderline high risk 200-499 High risk 500 or higher Very high risk LABORATORYOrdered By: SYSTEM SYSTEM on 12-16-2023 Albumin BCP dye [Mass/Vol] 3.5 G/dL Normal 3.4 - 4.8 G/dL AO ADM SS Albumin/Globulin [Mass ratio] 1.2 {ratio} Normal 1.1 - 2.5 ratio AO ADM SS ALP [Catalytic activity/Vol] 70 U/L Normal 40 - 135 U/L AO ADM SS ALT With P-5'-P [Catalytic activity/Vol] 28 U/L Normal 14 - 59 U/L AO ADM SS AST With P-5'-P [Catalytic activity/Vol] 14 U/L Normal 10 - 40 U/L AO ADM SS Basophils (Bld) [#/Vol] 0.1 103/mcL Normal 0.0 - 0.2 10^3/mcL AO Workflow SS Basophils/100 WBC (Bld) 1.1 % Normal 0.0 - 2.5 % AO Workflow SS Bilirubin [Mass/Vol] 0.7 mg/dL Normal 0.2 - 1 .0 mg/dL AO ADM SS Comment on above: Interpretive Data: U se of this assay is not recommended for patients undergoing treatment with eltrombopag due to the potential for falsely elevated results. Calcium [Mass/Vol] 8.8 mg/dL Normal 8.4 - 10. 2 mg/dL AO ADM SS Chloride [Moles/Vol] 106 mmol/L Normal 98 - 10 7 mmol/L AO ADM SS CO2 [Moles/Vol] 29 mmol/L Normal 23 - 31 mmol/L AO ADM SS Creatinine [Mass/Vol] 0.94 mg/dL Normal 0.55 - 1.02 mg/dL AO ADM SS Comment on above: Interpretive Data: T esting performed on Siemens Dimension EXL analyzer using a modified kinetic Patel technique. Electrolyte Balance 6.0 mEq/L Normal 4.0 - 15 .0 mEq/L AO ADM SS Eosinophil, Absolute 0.1 103/mcL Normal 0.0 - 0 .7 10^3/mcL AO Workflow SS Eosinophils/100 WBC (Bld) 1.8 % Normal 0.0 - 7.0 % AO Workflow SS Erythrocyte distribution width (RBC) [Ratio] 14.3 % Normal 11.5 - 15.5 % AO Workflow SS GFR/1.73 sq M.predicted among blacks MDRD (S/P/Bld) [Vol rate/Area] 70 ml/min/1.73sqm Invalid Interpretation Code AO Chemistry S Comment on above: Interpretive Data: GFR Population mean for , Non- Americans Ages 20-29 = 116 mL/min/1.73 sq.m. Ages 30-39 = 107 mL/min/1.73 sq.m. Ages 40-49 = 99 mL/min/1.73 sq.m. Ages 50-59 = 93 mL/min/1.73 sq.m. Ages 60-69 = 85 mL/min/1.73 sq.m. Ages 70+ = 75 mL/min/1.73 sq.m. Chronic Kidney Disease: Less than 60 mL/min/1.73 square meters End Stage Renal Disease: Less than 15 mL/min/1.73 square meters GFR/1.73 sq M.predicted among non-blacks MDRD (S/P/Bld) [Vol rate/Area] 58 ml/min/1.73sqm Invalid Interpretation Code AO Chemistry S Comment on above: Interpretive Data: GFR Population mean for , Non- Americans Ages 20-29 = 116 mL/min/1.73 sq.m. Ages 30-39 = 107 mL/min/1.73 sq.m. Ages 40-49 = 99 mL/min/1.73 sq.m. Ages 50-59 = 93 mL/min/1.73 sq.m. Ages 60-69 = 85 mL/min/1.73 sq.m. Ages 70+ = 75 mL/min/1.73 sq.m. Chronic Kidney Disease: Less than 60 mL/min/1.73 square meters End Stage Renal Disease: Less than 15 mL/min/1.73 square meters Globulin 3.0 G/dL Invalid Interpretation Code AO ADM SS Glucose [Mass/Vol] 177 mg/dL High 83 - 110 mg/dL AO ADM SS Glucose [Mass/Vol] 151 mg/dL Invalid Interpretation Code AO Chemistry S Comment on above: Interpretive Data: E stimated average glucose (eAG) is a calculated value from Hemoglobin A1C and is account development representative of the average blood glucose level in the last 2-3 month period. Normal range: less than 114 mg/dL HbA1c (Bld) [Mass fraction] 6.9 % High 4.3 - 6.4 % AO ADM SS Hematocrit (Bld) [Volume fraction] 40.3 % Normal 34.0 - 46.0 % AO Workflow SS Hemoglobin (Bld) [Mass/Vol] 13.6 G/dL Normal 12.0 - 16.0 G/dL AO Workflow SS Lymphocytes (Bld) [#/Vol] 1.6 103/mcL Normal 0.9 - 4.3 10^3/mcL AO Workflow SS Lymphocytes/100 WBC (Bld) 23.4 % Normal 20.0 - 40.0 % AO Workflow SS MCH (RBC) [Entitic mass] 31.8 pg Normal 27.0 - 33.0 pg AO Workflow SS MCHC 33.8 G/dL Normal 32.0 - 36.0 G/dL AO Workflow SS MCV (RBC) [Entitic vol] 94.3 fL Normal 80.0 - 99.0 fL AO Workflow SS Monocytes (Bld) [#/Vol] 0.5 103/mcL Normal 0.1 - 1.4 10^3/mcL AO Workflow SS Monocytes/100 WBC (Bld) 7.2 % Normal 2.0 - 13.0 % AO Workflow SS Neutrophils (Bld) [#/Vol] 4.7 103/mcL Normal 2.3 - 8.1 10^3/mcL AO Workflow SS Neutrophils/100 WBC (Bld) 66.5 % Normal 50.0 - 75.0 % AO Workflow SS Platelet mean volume (Bld) [Entitic vol] 7.6 fL Normal 6.6 - 10.5 fL AO Workflow SS Platelets (Bld) [#/Vol] 177 103/mcL Normal 150 - 450 10^3/mcL AO Workflow SS Potassium [Moles/Vol] 4.2 mmol/L Normal 3.5 - 5.1 mmol/L AO ADM SS Protein [Mass/Vol] 6.5 G/dL Normal 6.4 - 8.2 G/dL AO ADM SS RBC (Bld) [#/Vol] 4.27 106/mcL Normal 4.10 - 5.30 10^6/mcL AO Workflow SS Sodium [Moles/Vol] 141 mmol/L Normal 136 - 145 mmol/L AO ADM SS Urea nitrogen [Mass/Vol] 25 mg/dL High 7 - 18 mg/dL AO ADM SS Urea nitrogen/Creatinine [Mass ratio] 27 ratio Normal 7 - 27 ratio AO ADM SS WBC (Bld) [#/Vol] 7.0 103/mcL Normal 4.5 - 10.8 10^3/mcL AO Workflow SS LIPIDon 12-16-2023 Cholesterol [Mass/Vol] 135 mg/dL Normal 0-200 [facility] Comment on above: Result Comment: Chol esterol Reference Interval: Less than 200 Desirable 200-239 Borderline high risk 240 and above High risk Performed By: #### L IPID, ANEU, CBC, CMP, A1C, DLDL, ADIFF, GFR #### [id number] [place], [place] [address] Cholesterol in HDL [Mass/Vol] 49 mg/dL Normal 40-60 [facility] Comment on above: Performed By: #### L IPID, ANEU, CBC, CMP, A1C, DLDL, ADIFF, GFR #### [id number] [place], [place] [address] Cholesterol in LDL [Mass/Vol] 55 mg/dL Normal 0-130 [facility] Comment on above: Performed By: #### L IPID, ANEU, CBC, CMP, A1C, DLDL, ADIFF, GFR #### [id number] [place], [place] [address] Triglyceride [Mass/Vol] 153 mg/dL High 0-150 [facility] Comment on above: Result Comment: Trig lyceride Reference Interval: Less than 150 Normal 150-199 Borderline high risk 200-499 High risk 500 or higher Very high risk Performed By: #### L IPID, ANEU, CBC, CMP, A1C, DLDL, ADIFF, GFR #### [address] [address] MALBRon 12-16-2023 U Creatinine 74.4 mg/dL Normal 28.0-117.0 [facility] Comment on above: Performed By: #### M ALBR #### [address] [address] U Microalb 6580 mcg/dL Normal [facility] Comment on above: Performed By: #### M ALBR #### [address] [address] U Ratio Alb/Cre 88 mcg/mg High 0-30 [facility] Comment on above: Performed By: #### M ALBR #### [address] [address] Thin prep Papanicolaou smear with manual screeningOrdered By: Maverick Rust on 07-23-2023 Thin prep Papanicolaou smear with manual screening 171 mg/dL 74-106 [facility] Comment on above: MANAGEMENT OF PATIEN T CARE PER NURSING PROTOCOL Bacteria identified Respirat ory culture Nom (Unsp spec)Ordered By: Lincoln Orr on 06-13-2023 Respiratory Culture Pseudomonas aeruginosa [facility] Gram stain for investigation of transfusion reactionOrdered By: Lincoln Orr on 06-13-2023 Microscopic observation Gram stain Nom (Unsp spec) [facility] No Panel Informationon 03-12 Influenza Types A,B Rapid (Clinic) Negative [facility] POC SARS CoV-2 Antigen Negative [facility] LABORATORYOrdered By: Verenice Rodgersiter on 01-30-2023 Glucose [Mass/Vol] 111 mg/dL Invalid Interpretation Code 82 - 115 mg/dL [facility] Work Phone: Glucose Glucometer (BldC) [M ass/Vol]Ordered By: Maverick Rust on 01-23-2023 Glucose [Mass/Vol] 143 mg/dL 74-106 [facility] Comment on above: MANAGEMENT OF PATIEN T CARE PER NURSING PROTOCOL Absolute lymphocyte countOrd ered By: GEO TAVO on 01-11-2023 Lymphocytes Auto (Unsp spec) [#/Vol] 1.64 10*3/uL 0.83-4.51 [facility] Basophil percentageOrdered B y: GEO TAVO on 01-11-2023 Basophils/100 WBC (Bld) 1.0 % 0-1 [facility] Chloride [Moles/Vol] 105 mmol/L 98-107 [facility] Cholesterol [Mass/Vol] 112 mg/dL <200 [facility] Comment on above: <200 mg/dL Desirable 200-240 mg/dL Borderline >240 mg/dL High Risk Eosinophils/100 WBC (Bld) 2.9 % 0-5 [facility] Glucose [Mass/Vol] 143 mg/dL 74-106 [facility] Comment on above: Fasting Glucose resu lt greater than or equal to 126 mg/dL suggests DIABETES MELLITUS per A.D.A. criteria. Neutrophils (Bld) [#/Vol] 4.4 10*3/uL 2.0-7.7 [facility] Neutrophils/100 WBC (Bld) 63.9 % 47-70 [facility] Potassium [Moles/Vol] 4.2 mmol/L 3.5-5.1 [facility] Sodium [Moles/Vol] 143 mmol/L 136-145 [facility] Triglyceride [Mass/Vol] 142 mg/dL <199 [facility] Comment on above: The drugs N-Acetylcy steine and Metamizole may falsely depress this assay.Serum Triglycerides Reference Interval Normal <150 mg/dL Borderline high 150 - 199 mg/dL High 200 - 499 mg/dL Very High > or = 500 mg/dL WBC (Bld) [#/Vol] 6.8 10*3/uL 4.4-11.0 [facility] Bilirubin Test strip Ql (U)O rdered By: [facility] on 01-11-2023 Bilirubin Ql (U) Negative Negative [facility] Blood erythrocytes count (nu mber/volume)Ordered By: [facility] on 01-11-2023 RBC (Bld) [#/Vol] 4.56 10*6/uL 4.2-5.4 [facility] Blood hemoglobin measurement (mass/volume)Ordered By: [facility] on 01-11-2023 Hemoglobin (Bld) [Mass/Vol] 14.0 g/dL 12.0-15.0 [facility] Blood lymphocytes/100 leukoc ytesOrdered By: [facility] on 01-11-2023 Lymphocytes/100 WBC (Bld) 24.0 % 19-41 [facility] Blood monocytes/100 leukocyt esOrdered By: [facility] on 01-11-2023 Monocytes/100 WBC (Bld) 7.8 % 0-10 [facility] Blood platelet mean volumeOr dered By: [facility] on 01-11-2023 Platelet mean volume (Bld) [Entitic vol] 9.6 fL 6.2-12.0 [facility] Determination of erythrocyte mean corpuscular volume (MCV)Ordered By: [facility] on 01-11-2023 MCV (RBC) [Entitic vol] 96.1 fL 81-99 [facility] Hematocrit Auto (Bld) [Volum e fraction]Ordered By: [facility] on 01-11-2023 Hematocrit (Bld) [Volume fraction] 43.8 % 37-47 [facility] Ketones Test strip Ql (U)Ord ered By: [facility] on 01-11-2023 Ketones Ql (U) Negative Negative [facility] Laboratory - Chemistry and C hemistry - challengeOrdered By: [facility] on 01-11-2023 CO2 [Moles/Vol] 32.0 mmol/L 21.0-32.0 [facility] Urea nitrogen/Creatinine [Mass ratio] 28.4 mg/mg 10- [facility] Laboratory - Hematology and Cell countsOrdered By: [facility] on 01-11-2023 Erythrocyte distribution width (RBC) [Entitic vol] 46.7 fL 35.1-43.9 [facility] Erythrocyte distribution width (RBC) [Ratio] 13.2 % 11.6-14.6 [facility] Immature granulocytes/100 WBC (Bld) 0.400 % 0.0-0.9 [facility] Comment on above: IG% - Immature Granu locytes (promyelocytes, myelocytes and metamyelocytes) > 1% indicates that a LEFT SHIFT is Present. MCH (RBC) [Entitic mass] 30.7 pg 27.0-32.0 [facility] Nucleated RBC/100 WBC (Bld) [Ratio] 0 % 0-5 [facility] MCHC Auto (RBC) [Mass/Vol]Or dered By: [facility] on 01-11-2023 MCHC (RBC) [Mass/Vol] 32.0 g/dL 32-36 [facility] Nitrite Test strip Ql (U)Ord ered By: [facility] on 01-11-2023 Nitrite Ql (U) Negative Negative [facility] No Panel InformationOrdered By: [facility] on 01-11-2023 Estimated GFR (MDRD) Amer 77 mL/min >60 [facility] Comment on above: GFR Calc Estimated GFR (MDRD) Non-Af Amer 64 mL/min >60 [facility] Comment on above: Non- GFR Calc Miscellaneous Test See comment [facility] Comment on above: TEST RESULTS LIMITST hyroid Panel With TSHTSH 10.500 High uIU/mL 0.450-4.500Thyroxine (T4) 9.1 ug/dL 4.5-12.0T3 Uptake 31 % 24-39Free Thyroxine Index 2.8 1.2-4.9 TESTING PERFORMED AT [facility]. ORIGINAL REPORT ON FILE IN LAB CONTAINS ADDITIONAL TEST SITE INFORMATION. Platelets bldOrdered By: GEO VO on 01-11-2023 Platelets (Bld) [#/Vol] 204 10*3/uL 150-450 [facility] Protein Test strip Ql (U)Ord ered By: GEO TAVO on 01-11-2023 Protein Ql (U) 30 mg/dl Negative [facility] Serum or plasma calcium yvette urement (mass/volume)Ordered By: GEO TAVO on 01-11-2023 Calcium [Mass/Vol] 9.0 mg/dL 8.5-10.1 [facility] Serum or plasma cholesterol in HDL measurement (mass/volume)Ordered By: [facility] on 01-11-2023 Cholesterol in HDL [Mass/Vol] 42 mg/dL >40 [facility] Comment on above: The drugs N-Acetylcy steine and Metamizole may falsely depress this assay. Reference Range HDL <40 mg/dL Low HDL Cholesterol HDL >or= 60 mg/dL High HDL Cholesterol Serum or plasma cholesterol in VLDL measurement (mass/volume)Ordered By: [facility] on 01-11-2023 Cholesterol in VLDL [Mass/Vol] 28 mg/dL 5-40 [facility] Serum or plasma creatinine m easurement (mass/volume)Ordered By: [facility] on 01-11-2023 Creatinine [Mass/Vol] 0.91 mg/dL 0.55-1.02 [facility] Comment on above: The validity of the calculated GFR & GFRAA in patients over 70 years has not been determined. Clinical correlation is essential. Serum or plasma low density lipoprotein (LDL) cholesterol measurement (mass/volume)Ordered By: GEO TAVO on 01-11-2023 Cholesterol in LDL [Mass/Vol] 42 mg/dL 0-130 [facility] Serum or plasma urea nitroge n measurement (mass/volume)Ordered By: GEO TAVO on 01-11-2023 Urea nitrogen [Mass/Vol] 26 mg/dL 7-18 [facility] Thin prep Papanicolaou smear with manual screeningOrdered By: GEO VO on 01-11-2023 Thin prep Papanicolaou smear with manual screening 6 5-15 [facility] Urine blood detectionOrdered By: GEO VO on 01-11-2023 RBC Ql (U) Negative Negative [facility] Urine clarityOrdered By: GEO VO on 01-11-2023 Clarity (U) Clear Clear [facility] Urine color determinationOrd ered By: GEO TAVO on 01-11-2023 Color (U) YELLOW Yellow [facility] Urine glucose detectionOrder ed By: GEO VO on 01-11-2023 Glucose Ql (U) Normal mg/dl Normal [facility] Urine leukocyte esterase det ection by dipstickOrdered By: GEO TAVO on 01-11-2023 Leukocyte esterase Test strip Ql (U) 25 /ul Negative [facility] Urine pHOrdered By: GEO RIVERA L on 01-11-2023 pH (U) 6.5 [pH] 5.0 - 8.0 [facility] Urine specific gravity measu rementOrdered By: GEO VO on 01-11-2023 Specific gravity (U) [Rel density] 1.010 1.002-1.03 0 [facility] Urobilinogen Auto test strip Ql (U)Ordered By: GEO VO on 01-11-2023 Urobilinogen Ql (U) Normal mg/dl Normal [facility] Whole blood hemoglobin A1c/t otal hemoglobin ratio (mass fraction)Ordered By: GEO VO on 01-11-2023 HbA1c (Bld) [Mass fraction] 6.2 % 3.8-5.6 [facility] Comment on above: Normal < 5.7 % Predi abetic 5.7 - 6.4 % Diabetic >or= 6.5 % Please note range changes. XR HIP 2-3 VIEWS LEFTon 11-22 XR HIP 2-3 VIEWS LEFT ORIGINAL EXAMINATION: 2 XRAY VIEWS OF THE LEFT HIP 12/02/2022 1:48 pm COMPARISON: None. HISTORY: ORDERING SYSTEM PROVIDED HISTORY: Reason for Exam: osteoarthritis FINDINGS: Mild osteoarthritis is present at the left hip with minimal marginal sclerosis. There are corticated osseous densities at the greater trochanter, presumably enthesopathy. Similar findings are present at the inferior left ischium. Minor left SI joint degenerative changes are present. No fracture, dislocation or other acute abnormality seen. IMPRESSION: Mild degenerative changes as described. No acute process. Interpreted by: Andrew Pacheco MD Preliminary Report By: Andrew Pacheco MD Electronically signed By Andrew Pacheco MD Dictated Date: 12/04/2022 8:48:46 AM Prelim Date: 12/04/2022 8:49:41 AM Sign Date: 12/04/2022 8:49:41 AM Ordering Provider: LOLY [facility] ([place]) XR HIP 2-3 VIEWS RIGHTon XR HIP 2-3 VIEWS RIGHT ORIGINAL EXAMINATION: 2 XRAY VIEWS OF THE RIGHT HIP 12/02/2022 1:46 pm COMPARISON: None. HISTORY: ORDERING SYSTEM PROVIDED HISTORY: Reason for Exam: osteoarthritis FINDINGS: No acute fracture or dislocation. Normal osseous mineralization. No visible aggressive osseous lesion. The included pelvic ring and sacrum are intact. Minimal degenerative changes are noted of the hip with chondrocalcinosis. Mild degenerative changes are noted of the pubic symphysis with osteophytosis. Minimal degenerative changes are noted of the included sacroiliac joint. Mild heterotopic ossification about the superior aspect of the greater trochanter. IMPRESSION: 1. No acute osseous abnormality. 2. Very mild arthrosis. Interpreted by: Brant Correa DO Preliminary Report By: Brant Correa DO Electronically signed By Brant Correa DO Dictated Date: 12/04/2022 12:55:33 PM Prelim Date: 12/04/2022 1:02:50 PM Sign Date: 12/04/2022 1:02:50 PM Ordering Provider: LOLY MUKHERJEE [facility] ([place]) EP PanelOrdered By: Dr. Veena cruz on 06-26-2022 Gastrointestinal pathogens panel CINTIA+probe (Stl) [facility] Absolute lymphocyte countOrd ered By: Dr. Enriquez on 06-22-2022 Lymphocytes Auto (Unsp spec) [#/Vol] 1.60 10*3/uL 0.83-4.51 [facility] Basophil percentageOrdered B y: Dr. Enriquez on 06-22-2022 Basophils/100 WBC (Bld) 0.8 % 0-1 [facility] Bilirubin [Mass/Vol] 0.70 mg/dL 0.20-1.00 [facility] Comment on above: For patients on eltr ombopag therapy, use of Dimension [place] TBIL is not recommended. Chloride [Moles/Vol] 106 mmol/L 98-107 [facility] Eosinophils/100 WBC (Bld) 1.6 % 0-5 [facility] Glucose [Mass/Vol] 103 mg/dL 74-106 [facility] Comment on above: Fasting Glucose resu lt from 100 to 125 mg/dL suggests IMPAIRED HOMEOSTASIS per A.D.A. criteria. Neutrophils (Bld) [#/Vol] 5.0 10*3/uL 2.0-7.7 [facility] Neutrophils/100 WBC (Bld) 68.4 % 47-70 [facility] Potassium [Moles/Vol] 4.1 mmol/L 3.5-5.1 [facility] Protein [Mass/Vol] 7.1 g/dL 6.4-8.2 [facility] Sodium [Moles/Vol] 140 mmol/L 136-145 [facility] WBC (Bld) [#/Vol] 7.3 10*3/uL 4.4-11.0 [facility] Blood erythrocytes count (nu mber/volume)Ordered By: Dr. Enriquez on 06-22-2022 RBC (Bld) [#/Vol] 4.39 10*6/uL 4.2-5.4 [facility] Blood hemoglobin measurement (mass/volume)Ordered By: Dr. Enriquez on 06-22-2022 Hemoglobin (Bld) [Mass/Vol] 13.7 g/dL 12.0-15.0 [facility] Blood lymphocytes/100 leukoc ytesOrdered By: Dr. Enriquez on 06-22-2022 Lymphocytes/100 WBC (Bld) 21.9 % 19-41 [facility] Blood monocytes/100 leukocyt esOrdered By: Dr. Enriquez on 06-22-2022 Monocytes/100 WBC (Bld) 7.0 % 0-10 [facility] Blood platelet mean volumeOr dered By: Dr. Enriquez on 06-22-2022 Platelet mean volume (Bld) [Entitic vol] 9.0 fL 6.2-12.0 [facility] Determination of erythrocyte mean corpuscular volume (MCV)Ordered By: Dr. Enriquez on 06-22-2022 MCV (RBC) [Entitic vol] 93.2 fL 81-99 [facility] Direct bilirubinOrdered By: Dr. Enriquez on 06-22-2022 Bilirubin.direct [Mass/Vol] 0.21 mg/dL 0.00-0.30 [facility] Hematocrit Auto (Bld) [Volum e fraction]Ordered By: Dr. Enriquez on 06-22-2022 Hematocrit (Bld) [Volume fraction] 40.9 % 37-47 [facility] Laboratory - Chemistry and C hemistry - challengeOrdered By: Dr. Enriquez on 06-22-2022 ALP [Catalytic activity/Vol] 70 U/L 45-117 [facility] ALT [Catalytic activity/Vol] 29 U/L 13-56 [facility] CO2 [Moles/Vol] 29.0 mmol/L 21.0-32.0 [facility] Globulin (S) [Mass/Vol] 3.5 g/dL 2.2-4.2 [facility] Lipase [Catalytic activity/Vol] 63 U/L 73-393 [facility] Urea nitrogen/Creatinine [Mass ratio] 16.4 mg/mg 10-20 [facility] Laboratory - Hematology and Cell countsOrdered By: Dr. Enriquez on 06-22-2022 Erythrocyte distribution width (RBC) [Entitic vol] 43.0 fL 35.1-43.9 [facility] Erythrocyte distribution width (RBC) [Ratio] 12.7 % 11.6-14.6 [facility] Immature granulocytes/100 WBC (Bld) 0.300 % 0.0-0.9 [facility] Comment on above: IG% - Immature Granu locytes (promyelocytes, myelocytes and metamyelocytes) > 1% indicates that a LEFT SHIFT is Present. MCH (RBC) [Entitic mass] 31.2 pg 27.0-32.0 [facility] Nucleated RBC/100 WBC (Bld) [Ratio] 0 % 0-5 [facility] MCHC Auto (RBC) [Mass/Vol]Or dered By: Dr. Enriquez on 06-22-2022 MCHC (RBC) [Mass/Vol] 33.5 g/dL 32-36 [facility] No Panel InformationOrdered By: Dr. Enriquez on 06-22-2022 Estimated Creatinine Clearance Calc 44.02 ml/min [facility] Estimated GFR (MDRD) Amer 83 mL/min >60 [facility] Comment on above: GFR Calc Estimated GFR (MDRD) Non-Af Amer 69 mL/min >60 [facility] Comment on above: Non- GFR Calc Platelets bldOrdered By: Dr. Enriquez on 06-22-2022 Platelets (Bld) [#/Vol] 198 10*3/uL 150-450 [facility] Serum or plasma albumin yvette urement (mass/volume)Ordered By: Dr. Enriquez on 06-22-2022 Albumin [Mass/Vol] 3.6 g/dL 3.2-5.0 [facility] Serum or plasma calcium yvette urement (mass/volume)Ordered By: Dr. Enriquez on 06-22-2022 Calcium [Mass/Vol] 9.5 mg/dL 8.5-10.1 [facility] Serum or plasma creatinine m easurement (mass/volume)Ordered By: Dr. Enriquez on 06-22-2022 Creatinine [Mass/Vol] 0.86 mg/dL 0.55-1.02 [facility] Comment on above: The validity of the calculated GFR & GFRAA in patients over 70 years has not been determined. Clinical correlation is essential. Serum or plasma urea nitroge n measurement (mass/volume)Ordered By: Dr. Enriquez on 06-22-2022 Urea nitrogen [Mass/Vol] 14 mg/dL 7-18 [facility] Thin prep Papanicolaou smear with manual screeningOrdered By: Dr. Enriquez on 06-22-2022 Thin prep Papanicolaou smear with manual screening 24 U/L 15-37 [facility] Thin prep Papanicolaou smear with manual screening 5 5-15 [facility] Glucose Glucometer (BldC) [M ass/Vol]Ordered By: Dr. Forbes on 2022 Glucose [Mass/Vol] 134 mg/dL 74-106 [facility] Comment on above: MANAGEMENT OF PATIEN T CARE PER NURSING PROTOCOL XR RIBS 2 VIEWS LEFT/PA CHES T(AO)on 05-23-2022 XR RIBS 2 VIEWS LEFT/PA CHEST(AO) ORIGINAL EXAMINATION: 2 XRAY VIEWS OF LEFT RIBS WITH 1 XRAY VIEW OF THE CHEST 05/22/2022 3:48 pm COMPARISON: Chest x-ray 04/24/2022. HISTORY: ORDERING SYSTEM PROVIDED HISTORY: Reason for Exam: other chest pain FINDINGS: Heart is normal in size. No focal consolidation or pulmonary edema. Stable appearance of the left suprahilar nodule. No pneumothorax or large pleural effusion. No acute osseous abnormality. Specifically, no rib fracture. IMPRESSION: Similar appearance of the left suprahilar nodule. CT thorax advised for further characterization. No rib fracture. I have personally reviewed the images of this examination and agree with the resident's findings and interpretation. Interpreted by: Pj Subramanian MD Preliminary Report By: Hang Preciado Electronically signed By Pj Subramanian MD Dictated Date: 05/23/2022 1:26:21 PM Prelim Date: 05/23/2022 1:56:42 PM Sign Date: 05/23/2022 1:56:42 PM Ordering Provider: JIMENEZFRANKLIN MONAHAN [facility] ([place]) XR RIBS 2 VIEWS RIGHTon XR RIBS 2 VIEWS RIGHT ORIGINAL EXAMINATION: 2 XRAY VIEWS OF THE RIGHT RIBS 05/22/2022 3:49 pm COMPARISON: Chest x-ray 04/24/2022. HISTORY: ORDERING SYSTEM PROVIDED HISTORY: Reason for Exam: other chest pain FINDINGS: No acute osseous abnormality. Specifically, no rib fracture. Likely calcific tendinosis of the right rotator cuff. There is subacromial space narrowing as well. No pneumothorax. Calcified perihilar lymph nodes. IMPRESSION: No rib fracture. Likely calcific tendinosis of the rotator cuff. I have personally reviewed the images of this examination and agree with the resident's findings and interpretation. Interpreted by: Pj Subramanian MD Preliminary Report By: Hang Preciado Electronically signed By Pj Subramanian MD Dictated Date: 05/23/2022 1:29:53 PM Prelim Date: 05/23/2022 2:22:46 PM Sign Date: 05/23/2022 2:22:46 PM Ordering Provider: JIMENEZ REYNA [facility] ([place]) XR SPINE THORACIC 2 VIEWSon 05-23-2022 XR SPINE THORACIC 2 VIEWS ORIGINAL EXAMINATION: TWO XRAY VIEWS OF THE THORACIC SPINE 05/22/2022 3:49 pm COMPARISON: Thoracic spine x-ray 07/04/2021 HISTORY: ORDERING SYSTEM PROVIDED HISTORY: Reason for Exam: other chest pain FINDINGS: There are 12 rib-bearing thoracic type vertebral bodies. Vertebral body heights are maintained. There is minimal dextrocurvature of the thoracic spine. Multilevel degenerative changes including disc height loss and endplate osteophytes. IMPRESSION: No acute osseous abnormality. Mild to moderate degenerative changes of the spine, unchanged. I have personally reviewed the images of this examination and agree with the resident's findings and interpretation. Interpreted by: Pj Subramanian MD Preliminary Report By: Hang Preciado Electronically signed By Pj Subramanian MD Dictated Date: 05/23/2022 1:34:36 PM Prelim Date: 05/23/2022 2:22:07 PM Sign Date: 05/23/2022 2:22:07 PM Ordering Provider: JIMENEZ MONAHAN [facility]) Absolute lymphocyte countOrd ered By: Dr. Mojica on 05-10-2022 Lymphocytes Auto (Unsp spec) [#/Vol] 1.77 10*3/uL 0.83-4.51 [facility] Basophil percentageOrdered B y: Dr. Mojica on 05-10-2022 Basophils/100 WBC (Bld) 1.0 % 0-1 [facility] Bilirubin [Mass/Vol] 0.70 mg/dL 0.20-1.00 [facility] Comment on above: For patients on eltr ombopag therapy, use of Dimension [place] TBIL is not recommended. Chloride [Moles/Vol] 110 mmol/L 98-107 [facility] Eosinophils/100 WBC (Bld) 1.6 % 0-5 [facility] Glucose [Mass/Vol] 126 mg/dL 74-106 [facility] Comment on above: Fasting Glucose resu lt greater than or equal to 126 mg/dL suggests DIABETES MELLITUS per A.D.A. criteria. Neutrophils (Bld) [#/Vol] 4.8 10*3/uL 2.0-7.7 [facility] Neutrophils/100 WBC (Bld) 65.6 % 47-70 [facility] Potassium [Moles/Vol] 3.7 mmol/L 3.5-5.1 [facility] Protein [Mass/Vol] 7.3 g/dL 6.4-8.2 [facility] Sodium [Moles/Vol] 143 mmol/L 136-145 [facility] WBC (Bld) [#/Vol] 7.3 10*3/uL 4.4-11.0 [facility] Blood erythrocytes count (nu mber/volume)Ordered By: Dr. Mojica on 05-10-2022 RBC (Bld) [#/Vol] 4.61 10*6/uL 4.2-5.4 [facility] Blood hemoglobin measurement (mass/volume)Ordered By: Dr. Mojica on 05-10-2022 Hemoglobin (Bld) [Mass/Vol] 14.5 g/dL 12.0-15.0 [facility] Blood lymphocytes/100 leukoc ytesOrdered By: Dr. Mojica on 05-10-2022 Lymphocytes/100 WBC (Bld) 24.2 % 19-41 [facility] Blood monocytes/100 leukocyt esOrdered By: Dr. Mojica on 05-10-2022 Monocytes/100 WBC (Bld) 7.5 % 0-10 [facility] Blood platelet mean volumeOr dered By: Dr. Mojica on 05-10-2022 Platelet mean volume (Bld) [Entitic vol] 9.0 fL 6.2-12.0 [facility] Determination of erythrocyte mean corpuscular volume (MCV)Ordered By: Dr. Mojica on 05-10-2022 MCV (RBC) [Entitic vol] 93.7 fL 81-99 [facility] Direct bilirubinOrdered By: Dr. Mojica on 05-10-2022 Bilirubin.direct [Mass/Vol] 0.24 mg/dL 0.00-0.30 [facility] Hematocrit Auto (Bld) [Volum e fraction]Ordered By: Dr. Mojica on 05-10-2022 Hematocrit (Bld) [Volume fraction] 43.2 % 37-47 [facility] Laboratory - Chemistry and C hemistry - challengeOrdered By: Dr. Mojica on 05-10-2022 ALP [Catalytic activity/Vol] 67 U/L 45-117 [facility] ALT [Catalytic activity/Vol] 21 U/L 13-56 [facility] CO2 [Moles/Vol] 27.0 mmol/L 21.0-32.0 [facility] Globulin (S) [Mass/Vol] 3.7 g/dL 2.2-4.2 [facility] Lipase [Catalytic activity/Vol] 577 U/L 73-393 [facility] Urea nitrogen/Creatinine [Mass ratio] 19.1 mg/mg 10-20 [facility] Laboratory - Hematology and Cell countsOrdered By: Dr. Mojica on 05-10-2022 Erythrocyte distribution width (RBC) [Entitic vol] 43.9 fL 35.1-43.9 [facility] Erythrocyte distribution width (RBC) [Ratio] 12.8 % 11.6-14.6 [facility] Immature granulocytes/100 WBC (Bld) 0.100 % 0.0-0.9 [facility] Comment on above: IG% - Immature Granu locytes (promyelocytes, myelocytes and metamyelocytes) > 1% indicates that a LEFT SHIFT is Present. MCH (RBC) [Entitic mass] 31.5 pg 27.0-32.0 [facility] Nucleated RBC/100 WBC (Bld) [Ratio] 0 % 0-5 [facility] MCHC Auto (RBC) [Mass/Vol]Or dered By: Dr. Mojica on 05-10-2022 MCHC (RBC) [Mass/Vol] 33.6 g/dL 32-36 [facility] No Panel InformationOrdered By: Dr. Mojica on 05-10-2022 Estimated Creatinine Clearance Calc 45.50 ml/min [facility] Estimated GFR (MDRD) Amer 92 mL/min >60 [facility] Comment on above: GFR Calc Estimated GFR (MDRD) Non-Af Amer 76 mL/min >60 [facility] Comment on above: Non- GFR Calc Platelets bldOrdered By: Dr. Mojica on 05-10-2022 Platelets (Bld) [#/Vol] 195 10*3/uL 150-450 [facility] Serum or plasma albumin yvette urement (mass/volume)Ordered By: Dr. Mojica on 05-10-2022 Albumin [Mass/Vol] 3.6 g/dL 3.2-5.0 [facility] Serum or plasma calcium yvette urement (mass/volume)Ordered By: Dr. Mojica on 05-10-2022 Calcium [Mass/Vol] 9.3 mg/dL 8.5-10.1 [facility] Serum or plasma creatinine m easurement (mass/volume)Ordered By: Dr. Mojica on 05-10-2022 Creatinine [Mass/Vol] 0.78 mg/dL 0.55-1.02 [facility] Comment on above: The validity of the calculated GFR & GFRAA in patients over 70 years has not been determined. Clinical correlation is essential. Serum or plasma urea nitroge n measurement (mass/volume)Ordered By: Dr. Mojica on 05-10-2022 Urea nitrogen [Mass/Vol] 15 mg/dL 7-18 [facility] Thin prep Papanicolaou smear with manual screeningOrdered By: Dr. Mojica on 05-10-2022 Thin prep Papanicolaou smear with manual screening 18 U/L 15-37 [facility] Thin prep Papanicolaou smear with manual screening 6 5-15 [facility] US ABD RIGHT UPPER QUADRANTo n 04-30-2022 US ABD RIGHT UPPER QUADRANT * * *Final Report* * * DATE OF EXAM: Apr 30 2022 6:36PM U 1032 - US ABD RIGHT UPPER QUADRANT / PROCEDURE REASON: right upper quadrant pain * * * * Physician Interpretation * * * * EXAMINATION: RIGHT UPPER QUADRANT ULTRASOUND HISTORY: right upper quadrant pain. . TECHNIQUE: Sonography of the right upper quadrant was performed. Images were obtained and stored in a permanent archive. MQ: [id number] COMPARISON: None. RESULT: Pancreas: Normal sonographic appearance. Portions obscured: tail Liver: Echotexture: Normal, homogeneous. Echogenicity: Increased Surface contour: Smooth Lesions: None. Fatty sparing near the gallbladder. Biliary: No intrahepatic biliary duct dilation. CBD: 0.4 cm at the hilum. Gallbladder: Normal caliber -Contents: Cholelithiasis and sludge present -Wall: No gallbladder wall thickening. -Other: No pericholecystic fluid or positive sonographic Burkett sign. Right Kidney: No hydronephrosis. 5.2 cm right renal cyst. Ascites: None. IMPRESSION: Cholelithiasis and gallbladder sludge. Hepatic steatosis. Flower Cutter: JULIANA Transcribe Date/Time: Apr 30 2022 7:30P Dictated by : JESSE LUCIO MD This examination was interpreted and the report reviewed and electronically signed by: JESSE LUCIO MD on Apr 30 2022 7:34PM EST [id number] Normal [facility] US ABD RT UPPER QUADRANTon 0 04-30-2022 [facility] US RENALon 04-27-2022 US RENAL ORIGINAL EXAMINATION: ULTRASOUND OF THE KIDNEYS 04/25/2022 2:48 pm COMPARISON: None. HISTORY: ORDERING SYSTEM PROVIDED HISTORY: Reason for Exam: LUMBAR PAIN FINDINGS: The bladder is visualized with a prevoid volume of 268 cc. No focal bladder wall thickening or lesion is appreciated. Bilateral ureteral jets are noted. There is demonstration of a small postvoid residual of 40.6 cc. The right kidney measures 11.9 x 4.9 x 4.9 cm in length and the left kidney measures 10.6 x 5.1 x 5.5 cm in length. Kidneys demonstrate normal cortical echogenicity. No hydronephrosis or intrarenal stones. Simple right renal cyst is noted measuring 5.6 x 4.5 x 5.2 cm. There is incidental note of cholelithiasis. No gallbladder wall thickening, pericholecystic fluid, or Burkett sign is appreciated. IMPRESSION: 5.6 cm simple right renal cyst. Small bladder postvoid residual. Cholelithiasis without evidence of cholecystitis. Interpreted by: Anthony Dawkins MD Preliminary Report By: Anthony Dawkins MD Electronically signed By Anthony Dawkins MD Dictated Date: 04/27/2022 8:37:51 PM Prelim Date: 04/27/2022 8:41:10 PM Sign Date: 04/27/2022 8:41:10 PM Ordering Provider: JIMENEZ MONAHAN [facility] ([place]) XR CHEST 2 VIEWSon 3 XR CHEST 2 VIEWS ORIGINAL EXAMINATION: TWO XRAY VIEWS OF THE CHEST04/24/2022 11:29 am COMPARISON: 02/04/2022, 12/04/2020 HISTORY: ORDERING SYSTEM PROVIDED HISTORY: Reason for Exam: shirtness of breath FINDINGS: Enlargement of the cardiac silhouette noted. There is atherosclerosis.Calcified granuloma seen in the mediastinum and hilar regions. Accentuated vascular markings noted. A left suprahilar nodular density measures approximately 7 mm. There is a questionable faint right upper lung nodule. There is no pulmonary consolidation. No pneumothorax or pleural effusion. No aggressive osseous lesions identified.Degenerative changes seen in the spine. IMPRESSION: Cardiomegaly. Accentuated vascular markings could relate to congestion Left suprahilar lung nodule. There may be an additional small nodule in the right upper lung. CT thorax advised for characterization Interpreted by: Brant Juarez MD Preliminary Report By: Brant Juarez MD Electronically signed By Brant Juarez MD Dictated Date: 04/27/2022 7:38:54 AM Prelim Date: 04/27/2022 7:40:58 AM Sign Date: 04/27/2022 7:40:58 AM Ordering Provider: JIMENEZ [facility] ([place]) .Urinalysis Microscopic (AO) on 04-22-2022 UA RBC 0-5 Abnormal None Seen [facility] [place] Comment on above: Performed By: #### U A, UAMICAO #### [address] [address] UA Squam Epithelial 0-5 Abnormal None Seen [facility] ([place]) Comment on above: Performed By: #### U A, UAMICAO #### [address] [address] UA WBC 0-5 Abnormal None Seen [facility] [place] Comment on above: Performed By: #### U A, UAMICAO #### [address] [address] LABORATORYOrdered By: David Lepe on 04-22-2022 Appearance (U) Clear (04/22/22 4:53 PM) Invalid Interpretation Code Clear AO Auto Urine SS Bilirubin Ql (U) Negative (04/22/22 4:53 PM) Invalid Interpretation Code Negative AO Auto Urine SS Color (U) Yellow (04/22/22 4:53 PM) Invalid Interpretation Code AO Auto Urine SS Glucose Test strip (U) [Mass/Vol] Negative Invalid Interpretation Code Negativemg /dL AO Auto Urine SS Hemoglobin Auto test strip (U) [Mass/Vol] Negative (04/22/22 4:53 PM) Invalid Interpretation Code Negative AO Auto Urine SS Ketones Ql (U) Negative Invalid Interpretation Code Negativemg /dL AO Auto Urine SS UA Leuk Est Negative (04/22/22 4:53 PM) Invalid Interpretation Code Negative AO Auto Urine SS UA Nitrite Negative (04/22/22 4:53 PM) Invalid Interpretation Code Negative AO Auto Urine SS UA pH 5.0 (04/22/22 4:53 PM) Invalid Interpretation Code 5.0 - 8.0 AO Auto Urine SS UA Protein 100 mg/dL Invalid Interpretation Code Negativemg /dL AO Auto Urine SS UA RBC 0-5 /HPF Invalid Interpretation Code None Seen/HPF AO Auto Urine SS UA Spec Grav >=1.030 *ABN* (04/22/22 4:53 PM) Invalid Interpretation Code 1.015-1.02 5 AO Auto Urine SS UA Specimen Type Void (04/22/22 4:53 PM) Invalid Interpretation Code AO Auto Urine SS UA Squam Epithelial 0-5 /HPF Invalid Interpretation Code None Seen/HPF AO Auto Urine SS UA Urobilinogen 0.2 E.U./dL Invalid Interpretation Code 0.2-1.0E.U ./dL AO Auto Urine SS WBC LM.HPF (Urine sed) [#/Area] 0-5 /HPF Invalid Interpretation Code None Seen/HPF AO Auto Urine SS UAon 04-22-2022 Color (U) Yellow Normal [facility] [place] Comment on above: Performed By: #### U A, UAMICAO #### [address] [address] Glucose (U) [Mass/Vol] Negative Normal Negative [facility] ([place] Comment on above: Performed By: #### U A, UAMICAO #### [address] [address] Ketones Ql (U) Negative Normal Negative [facility] [place] Comment on above: Performed By: #### U A, UAMICAO #### [address] [address] UA Appear Clear Normal Clear [facility] [place] Comment on above: Performed By: #### U A, UAMICAO #### [address] [address] UA Blood Negative Normal Negative [facility] [place] Comment on above: Performed By: #### U A, UAMICAO #### [address] [address] UA Leuk Est Negative Normal Negative [facility] [place] Comment on above: Performed By: #### U A, UAMICAO #### [address] [address] UA Nitrite Negative Normal Negative [facility] [place] Comment on above: Performed By: #### U A, UAMICAO #### [address] [address] UA pH 5.0 Normal 5.0 - 8.0 [facility] [place] Comment on above: Performed By: #### U A, UAMICAO #### [address] [address] UA Protein 100 mg/dL Abnormal Negative [facility] [place] Comment on above: Performed By: #### U A, UAMICAO #### [address] [address] UA Spec Grav >=1.030 Abnormal 1.015-1.02 5 [facility] [place] Comment on above: Performed By: #### U A, UAMICAO #### [address] [address] UA Specimen Type Void Normal [facility] [place] Comment on above: Performed By: #### U A, UAMICAO #### [address] [address] UA Urobilinogen 0.2 E.U./dL Normal 0.2-1.0 [facility] [place] Comment on above: Performed By: #### U A, UAMICAO #### [address] [address] Urobilinogen (U) [Mass/Vol] Negative Normal Negative [facility] [place] Comment on above: Performed By: #### U RAFA Gray #### [address] [address] XR SPINE LUMBOSACRAL 2 OR 3 VIEWSon 04-22-2022 XR SPINE LUMBOSACRAL 2 OR 3 VIEWS ORIGINAL EXAMINATION: THREE XRAY VIEWS OF THE LUMBAR SPINE 04/22/2022 5:07 pm COMPARISON: None. HISTORY: ORDERING SYSTEM PROVIDED HISTORY: Reason for Exam: Lower back pain 2 weeks FINDINGS: There are 5 [id number] lumbar type vertebral bodies. The 12th ribs [...] Date: 04/22/2022 6:55:43 PM Ordering Provider: MELITA [facility] ([place]) Absolute lymphocyte counton 12-07-2021 Lymphocytes Auto (Unsp spec) [#/Vol] 2.07 10*3/uL 0.83-4.51 [facility] Work Phone: Basophil percentageon 2021 Basophils/100 WBC (Bld) 0.8 % 0-1 [facility] Work Phone: Eosinophils/100 WBC (Bld) 2.2 % 0-5 [facility] Work Phone: Neutrophils (Bld) [#/Vol] 4.7 10*3/uL 2.0-7.7 [facility] Work Phone: Neutrophils/100 WBC (Bld) 60.6 % 47-70 [facility] Work Phone: WBC (Bld) [#/Vol] 7.8 10*3/uL 4.4-11.0 [facility] Work Phone: Blood erythrocytes count (nu mber/volume)on 12-07-2021 RBC (Bld) [#/Vol] 4.64 10*6/uL 4.2-5.4 [facility] Work Phone: Blood hemoglobin measurement (mass/volume)on 12-07-2021 Hemoglobin (Bld) [Mass/Vol] 14.5 g/dL 12.0-15.0 [facility] Work Phone: Blood lymphocytes/100 leukoc yteson 12-07-2021 Lymphocytes/100 WBC (Bld) 26.7 % 19-41 [facility] Work Phone: Blood monocytes/100 leukocyt eson 12-07-2021 Monocytes/100 WBC (Bld) 8.9 % 0-10 [facility] Work Phone: Blood platelet mean volumeon 12-07-2021 Platelet mean volume (Bld) [Entitic vol] 9.5 fL 6.2-12.0 [facility] Work Phone: Determination of erythrocyte mean corpuscular volume (MCV)on 12-07-2021 MCV (RBC) [Entitic vol] 97.0 fL 81-99 [facility] Work Phone: Hematocrit Auto (Bld) [Volum e fraction]on 12-07-2021 Hematocrit (Bld) [Volume fraction] 45.0 % 37-47 [facility] Work Phone: LABORATORYOrdered By: Sujey Masterson on 12-07-2021 Albumin BCP dye [Mass/Vol] 3.6 G/dL Invalid Interpretation Code 3.4 - 4.8 G/dL AO ADM SS Albumin/Globulin [Mass ratio] 1.1 {ratio} Invalid Interpretation Code 1.1 - 2.5 ratio AO ADM SS ALP [Catalytic activity/Vol] 84 U/L Invalid Interpretation Code 40 - 135 U/L AO ADM SS ALT With P-5'-P [Catalytic activity/Vol] 28 U/L Invalid Interpretation Code 14 - 59 U/L AO ADM SS AST With P-5'-P [Catalytic activity/Vol] 20 U/L Invalid Interpretation Code 10 - 40 U/L AO ADM SS Bilirubin [Mass/Vol] 0.7 mg/dL Invalid Interpretation Code 0.2 - 1.0 mg/dL AO ADM SS Calcium [Mass/Vol] 8.8 mg/dL Invalid Interpretation Code 8.4 - 10.2 mg/dL AO ADM SS Chloride [Moles/Vol] 102 mmol/L Invalid Interpretation Code 98 - 107 mmol/L AO ADM SS Cholesterol [Mass/Vol] 149 mg/dL Invalid Interpretation Code 0 - 200 mg/dL AO ADM SS Cholesterol in HDL [Mass/Vol] 43 mg/dL Invalid Interpretation Code 40 - 60 mg/dL AO ADM SS Cholesterol in LDL [Mass/Vol] 74 mg/dL Invalid Interpretation Code 0 - 130 mg/dL AO ADM SS CO2 [Moles/Vol] 30 mmol/L Invalid Interpretation Code 23 - 31 mmol/L AO ADM SS Creatinine [Mass/Vol] 0.83 mg/dL Invalid Interpretation Code 0.55 - 1.02 mg/dL AO ADM SS Electrolyte Balance 9.0 mEq/L Invalid Interpretation Code 4.0 - 15.0 mEq/L AO ADM SS Globulin 3.2 G/dL Invalid Interpretation Code AO ADM SS Glucose [Mass/Vol] 188 mg/dL Invalid Interpretation Code 83 - 110 mg/dL AO ADM SS HbA1c (Bld) [Mass fraction] 7.3 % Invalid Interpretation Code 4.3 - 6.4 % AO ADM SS Potassium [Moles/Vol] 4.5 mmol/L Invalid Interpretation Code 3.5 - 5.1 mmol/L AO ADM SS Protein [Mass/Vol] 6.8 G/dL Invalid Interpretation Code 6.4 - 8.2 G/dL AO ADM SS Sodium [Moles/Vol] 141 mmol/L Invalid Interpretation Code 136 - 145 mmol/L AO ADM SS Triglyceride [Mass/Vol] 161 mg/dL Invalid Interpretation Code 0 - 150 mg/dL AO ADM SS TSH Qn 0.93 m[IU]/L Invalid Interpretation Code 0.36 - 3.74 mcIU/mL AO ADM SS Urea nitrogen [Mass/Vol] 18 mg/dL Invalid Interpretation Code 7 - 18 mg/dL AO ADM SS Urea nitrogen/Creatinine [Mass ratio] 22 ratio Invalid Interpretation Code 7 - 27 ratio AO ADM SS LABORATORYOrdered By: Ibeth Price on 12-07-2021 Basophil, Absolute 0.1 103/mcL Invalid Interpretation Code 0.0 - 0.2 10^3/mcL AO Workflow SS Basophils/100 WBC (Bld) 1.0 % Invalid Interpretation Code 0.0 - 2.5 % AO Workflow SS Eosinophil, Absolute 0.2 103/mcL Invalid Interpretation Code 0.0 - 0.4 10^3/mcL AO Workflow SS Eosinophils/100 WBC (Bld) 2.6 % Invalid Interpretation Code 0.0 - 7.0 % AO Workflow SS Erythrocyte distribution width (RBC) [Ratio] 13.9 % Invalid Interpretation Code 11.5 - 14.5 % AO Workflow SS Hematocrit (Bld) [Volume fraction] 40.3 % Invalid Interpretation Code 37.0 - 47.0 % AO Workflow SS Hemoglobin (Bld) [Mass/Vol] 14.0 G/dL Invalid Interpretation Code 12.0 - 16.0 G/dL AO Workflow SS Lymphocyte, Absolute 1.4 103/mcL Invalid Interpretation Code 0.8 - 3.9 10^3/mcL AO Workflow SS Lymphocytes/100 WBC (Bld) 21.7 % Invalid Interpretation Code 10.0 - 50.0 % AO Workflow SS MCH (RBC) [Entitic mass] 32.1 pg Invalid Interpretation Code 27.0 - 31.2 pg AO Workflow SS MCHC 34.8 G/dL Invalid Interpretation Code 33.0 - 37.0 G/dL AO Workflow SS MCV (RBC) [Entitic vol] 92.4 fL Invalid Interpretation Code 80.0 - 94.0 fL AO Workflow SS Monocyte, Absolute 0.5 103/mcL Invalid Interpretation Code 0.2 - 1.0 10^3/mcL AO Workflow SS Monocytes/100 WBC (Bld) 7.9 % Invalid Interpretation Code 1.7 - 13.0 % AO Workflow SS Neutrophil, Absolute 4.3 103/mcL Invalid Interpretation Code 2.9 - 6.2 10^3/mcL AO Workflow SS Neutrophils/100 WBC (Bld) 66.8 % Invalid Interpretation Code 37.0 - 80.0 % AO Workflow SS Platelet mean volume (Bld) [Entitic vol] 7.3 fL Invalid Interpretation Code 7.4 - 10.4 fL AO Workflow SS Platelets (Bld) [#/Vol] 222 103/mcL Invalid Interpretation Code 130 - 400 10^3/mcL AO Workflow SS RBC (Bld) [#/Vol] 4.36 106/mcL Invalid Interpretation Code 4.20 - 5.40 10^6/mcL AO Workflow SS WBC (Bld) [#/Vol] 6.5 103/mcL Invalid Interpretation Code 4.6 - 10.8 10^3/mcL AO Workflow SS LABORATORYOrdered By: SYSTEM SYSTEM on 12-07-2021 GFR 81 ml/min/1.73sqm Invalid Interpretation Code AO Chemistry S GFR Non- 67 ml/min/1.73sqm Invalid Interpretation Code AO Chemistry S T3 [Mass/Vol] 106 ng/dL Invalid Interpretation Code 60 - 181 ng/dL AH ADM SS T4 [Mass/Vol] 11.2 ug/dL Invalid Interpretation Code 4.5 - 10.9 mcg/dL AH ADM SS LABORATORYOrdered By: BRISEIDA CHO CONTRIBUTOR_SYSTEM on 12-07-2021 LDL Cholesterol Direct 79 mg/dL Invalid Interpretation Code <100mg/dL AO Sendouts SS Comment on above: Result Comment: <100 mg/dL, Optimal 100-129 mg/dL, Near optimal/above optimal 130-159 mg/dL, Borderline high 160-189 mg/dL, High >189 mg/dL, Very high Secondary prevention optimal LDL Cholesterol levels are recommended to be < 70 mg/dL Performed By: [facility] [email or web address] [address] Pattern Cleaner: Kemar Nicholson III, M.D. CLIA#: [id number] VLDL Cholesterol See Below Invalid Interpretation Code AO Sendouts SS Comment on above: Result Comment: Test not indicated. Performed By: [facility] [employer] [place] [id number] Pattern Cleaner: Kemar Nicholson III, M.D. CLIA#: [id number] Laboratory - Hematology and Cell countson 12-07-2021 Erythrocyte distribution width (RBC) [Entitic vol] 45.9 fL 35.1-43.9 [facility] Work Phone: Erythrocyte distribution width (RBC) [Ratio] 12.9 % 11.6-14.6 [facility] Work Phone: Immature granulocytes/100 WBC (Bld) 0.800 % 0.0-0.9 [facility] Work Phone: Comment on above: IG% - Immature Granu locytes (promyelocytes, myelocytes and metamyelocytes) > 1% indicates that a LEFT SHIFT is Present. MCH (RBC) [Entitic mass] 31.3 pg 27.0-32.0 [facility] Work Phone: Nucleated RBC/100 WBC (Bld) [Ratio] 0 % 0-5 [facility] Work Phone: MCHC Auto (RBC) [Mass/Vol]on 12-07-2021 MCHC (RBC) [Mass/Vol] 32.2 g/dL 32-36 [facility] Work Phone: [phone] Platelets bldon 12-07-2021 Platelets (Bld) [#/Vol] 226 10*3/uL 150-450 [facility] Work Phone: Glucose,Bedsideon 11-15-2021 Glucose [Mass/Vol] 210 mg/dL High 70-100 [facility] Comment on above: Result Comment: Test performed by glucose meter. Results may be 10%-15% lower than serum/plasma values. (CLIA ID [id number]) Performed By: #### B GLU #### [facility] [address] [place] [address] OPERATIVE REPORTon 2 Ordered by an unspec ified provider. [facility] POCT GlucoseOrdered By: Ana Gallardo on 11-15-2021 Glucose [Mass/Vol] 210 mg/dL High 70 - 100 mg/dL [facility] Comment on above: Test performed by gl ucose meter. Results may be 10%-15% lower than serum/plasma values. (CLIA ID [id number]) Interpretation and review of laboratory results Abnormal [facility] POCT Glucoseon 11-15-2021 Test Performed by [facility], [address] , [address] LAB ABDOMEN 3 VIEWSon 10-29-2016 ABDOMEN 3 VIEWS ABDOMEN 3 VIEWSOrder ing Physician: Mihir Bess MD10/29/2016 2:42 PMABDOMINAL SERIES:Comparison: NoneClinical Statement: Abdominal pain worse in the lower abdomenFINDINGS: AP supine and upright views of the abdomen show a normalgas pattern. There are no opaque calculi. No organomegaly. Noevidence of pneumoperitoneum or obstruction. There is a foreign bodyoverlying the right midabdomen, location unknown. This may be withinthe patient or outside the patient. Please correlate with physicalexam and patient history.Negative PA chest.IMPRESSION:1. No acute chest findings.2. Radiopaque foreign body overlying the right abdomen, either withinthe patient or outside the patient. Please correlate with physicalexam and patient history. ---- Electronic Signature on File ----Signed By: Delfin Galarza [email or web address]: 10/29/2016 3:53 PMSigned: 10/29/2016 3:56 PM Reported By: DELFIN GALARZA M.D. Signed By: DELFIN GALARZA M.D. [facility] Vital Signs Date Time Vital Sign Value Performing Clinician Facility 07-23-2023 08:19-0400 Body temperature 98 [degF] MD GEO VO Work Phone: [facility] 07-23-2023 08:19-0400 Diastolic blood pressure 71 mm[Hg] MD GEO VO Work Phone: [facility] 07-23-2023 08:19-0400 Heart rate 70 /min MD GEO VO Work Phone: [facility] 07-23-2023 08:19-0400 Respiratory rate 14 /min MD GEO VO Work Phone: [facility] 07-23-2023 08:19-0400 SaO2% (BldA) [Mass fraction] 93 % MD GEO VO Work Phone: 2(646)506-344906 [place] [address] 07-23-2023 08:19-0400 Systolic blood pressure 131 mm[Hg] MD GEO TAVO Work Phone: 4(022)053-824104 [place] [address] 07-23-2023 06:48-0400 Body height 160.02 cm MD GEO TAVO Work Phone: 0(627)340-467704 [place] [address] 07-23-2023 06:48-0400 Body mass index (BMI) [Ratio] 34.7 kg/m2 MD GEO TAVO Work Phone: 0(056)654-955404 [place] [address] 07-23-2023 06:48-0400 Body weight 89 kg MD GEO TAVO Work Phone: 3(624)278-756004 [place] [address] 03-12-2023 14:19-0500 Body height 160.02 cm MD GEO TAVO Work Phone: 4(739)631-253004 [place] [address] 03-12-2023 14:19-0500 Body mass index (BMI) [Ratio] 34.2 kg/m2 MD GEO TAVO Work Phone: 4(478)573-220904 [place] [address] 03-12-2023 14:19-0500 Body temperature 99.1 [degF] MD GEO TAVO Work Phone: 7(935)675-259204 [place] [address] 03-12-2023 14:19-0500 Body weight 87.54 kg MD GEO TAVO Work Phone: 0(048)636-426404 [place] [address] 03-12-2023 14:19-0500 Diastolic blood pressure 96 mm[Hg] GEO TAVO Work Phone: 5(814)790-353904 [place] [address] 03-12-2023 14:19-0500 Heart rate 85 /min MD GEO TAVO Work Phone: 5(491)987-185204 [place] [address] 03-12-2023 14:19-0500 Respiratory rate 20 /min MD GEO TAVO Work Phone: 1(737)869-459104 [place] [address] 03-12-2023 14:19-0500 SaO2% (BldA) [Mass fraction] 94 % MD GEO TAVO Work Phone: 8(260)317-649606 [place] [address] 03-12-2023 14:19-0500 Systolic blood pressure 156 mm[Hg] MD GEO TAVO Work Phone: [facility] 01-30-2023 15:37-0500 Diastolic Blood Pressure Non-Invasive 62 1 DELMER MANFRED DO [facility] 01-30-2023 15:37-0500 Heart rate 77 /min DELMER MANFRED DO [facility] 01-30-2023 15:37-0500 Respiratory rate 17 /min DELMER MANFRED DO [facility] 01-30-2023 15:37-0500 Systolic Blood Pressure Non-Invasive 137 1 DELMER MANFRED DO [facility] 01-30-2023 15:15-0500 Diastolic Blood Pressure Non-Invasive 69 1 DELMER MANFRED DO [facility] 01-30-2023 15:15-0500 Heart rate 76 /min DELMER MANFRED DO [facility] 01-30-2023 15:15-0500 Respiratory rate 19 /min DELMER MANFRED DO [facility] 01-30-2023 15:15-0500 Systolic Blood Pressure Non-Invasive 136 1 DELMER MANFRED DO [facility] 01-30-2023 15:01-0500 diastolic 61 mm[Hg] DELMER MANFRED DO [facility] 01-30-2023 15:01-0500 Respiratory rate 19 /min DELMER MANFRED DO [facility] 01-30-2023 14:55-0500 Heart rate 69 /min DELMER MANFRED DO [facility] 01-30-2023 14:55-0500 systolic 120 mm[Hg] DELMER MANFRED DO [facility] 01-30-2023 14:40-0500 Body temperature 97.7 [degF] DELMER MANFRED DO [facility] 01-30-2023 14:35-0500 Respiratory Rate - Anes 18 br/min DELMER MANFRED DO [facility] 01-30-2023 14:30-0500 Respiratory Rate - Anes 21 br/min DELMER MANFRED DO [facility] 01-30-2023 14:25-0500 Respiratory Rate - Anes 24 br/min DELMER MANFRED DO [facility] 01-30-2023 12:53-0500 Body weight 33.75 kg/m2 DELMER MANFRED DO [facility] 01-30-2023 12:40-0500 Body height 160 cm DELMER MANFRED DO [facility] 01-30-2023 12:40-0500 Body temperature 97.7 [degF] DELMER MANFRED DO [facility] 01-30-2023 12:40-0500 Body weight 86.4 kg DELMER MANFRED DO [facility] 01-30-2023 12:40-0500 Heart rate 70 /min DELMER MANFRED DO [facility] 01-27-2023 09:05-0500 Blood Pressure Location DELMER MANFRED DO [facility] 01-27-2023 09:05-0500 Blood Pressure Method DELMER MANFRED DO [facility] 01-27-2023 09:05-0500 Body height 160 cm DELMER [employer] [facility] 01-27-2023 09:05-0500 Body weight 33.75 kg/m2 DELMER [employer] [facility] 01-27-2023 09:05-0500 Body weight 86.4 kg DELMER [employer] [facility] 01-27-2023 09:05-0500 Diastolic Blood Pressure Non-Invasive 70 1 DELMER [employer] [facility] 01-27-2023 09:05-0500 Heart rate 74 /min DELMER [employer] [facility] 01-27-2023 09:05-0500 Respiratory rate 18 /min DELMER SMITHIGHAM EDAN [facility] 01-27-2023 09:05-0500 Systolic Blood Pressure Non-Invasive 128 1 DELMER SMITHIGHAM EDAN [facility] 01-23-2023 09:39-0400 Body temperature 98.7 [degF] MD MARIEE TAVO Work Phone: [facility] 01-23-2023 09:39-0400 Diastolic blood pressure 84 mm[Hg] MD MARIEE TAVO Work Phone: [facility] 01-23-2023 09:39-0400 Heart rate 77 /min GEO TAVO Work Phone: [facility] 01-23-2023 09:39-0400 Respiratory rate 16 /min MD MARIEE TAVO Work Phone: [facility] 01-23-2023 09:39-0400 SaO2% (BldA) [Mass fraction] 95 % GEO TAVO Work Phone: 5(264)167-917006 [place] [address] 01-23-2023 09:39-0400 Systolic blood pressure 121 mm[Hg] MD GEO TAVO Work Phone: 9(554)276-463904 [place] [address] 01-23-2023 07:16-0400 Body height 160.02 cm MD GEO TAVO Work Phone: 6(130)026-448304 [place] [address] 01-23-2023 07:16-0400 Body mass index (BMI) [Ratio] 34 kg/m2 MD GEO TAVO Work Phone: 2(274)113-130304 [place] [address] 01-23-2023 07:16-0400 Body weight 87 kg MD GEO TAVO Work Phone: 4(260)162-288004 [place] [address] 06-25-2022 10:05-0400 Body height 157.48 cm MD GEO TAVO Work Phone: 8(504)717-274904 [place] [address] 06-25-2022 10:05-0400 Body mass index (BMI) [Ratio] 34.2 kg/m2 [facility] Work Phone: 6(913)804-201504 [place] [address] 06-25-2022 10:05-0400 Body temperature 97.5 [degF] MD GEO TAVO Work Phone: 2(485)394-073504 [place] [address] 06-25-2022 10:05-0400 Body weight 85.04 kg MD GEO TAVO Work Phone: 4(176)221-168304 [place] [address] 06-25-2022 10:05-0400 Diastolic blood pressure 80 mm[Hg] GEO TAV[facility] Work Phone: 8(816)379-408104 [place] [address] 06-25-2022 10:05-0400 Heart rate 76 /min MD GEO TAVO Work Phone: 6(767)652-248504 [place] [address] 06-25-2022 10:05-0400 Respiratory rate 17 /min MD GEO TAVO Work Phone: 5(093)880-817504 [place] [address] 06-25-2022 10:05-0400 SaO2% (BldA) [Mass fraction] 92 % MD GEO TAVO Work Phone: 4(027)200-055706 [place] [address] 06-25-2022 10:05-0400 Systolic blood pressure 131 mm[Hg] GEO TAVO Work Phone: [facility] 06-22-2022 14:55-0400 Diastolic blood pressure 71 mm[Hg] GEO TAVO Work Phone: [facility] 06-22-2022 14:55-0400 Heart rate 89 /min [facility] Work Phone: 1(822)146-027906 [place] [address] 06-22-2022 14:55-0400 Respiratory rate 18 /min GE[facility] Work Phone: 4(531)058-093704 [place] [address] 06-22-2022 14:55-0400 SaO2% (BldA) [Mass fraction] 91 % GEO [facility] Work Phone: 7(136)900-423204 [place] [address] 06-22-2022 14:55-0400 Systolic blood pressure 139 mm[Hg] GEO TAVO Work Phone: 4(722)427-149004 [place] [address] 06-22-2022 14:03-0400 Inhaled oxygen flow rate 2 L/min GEO T[facility] Work Phone: 4(980)859-182106 [place] [address] 06-22-2022 12:01-0400 Body height 157.48 cm GE[facility] Work Phone: 1(593)740-768204 [place] [address] 06-22-2022 12:01-0400 Body mass index (BMI) [Ratio] 33.6 kg/m2 [facility] Work Phone: 4(715)620-820406 [place] [address] 06-22-2022 12:01-0400 Body temperature 97.4 [degF] GEO T[facility] Work Phone: 8(846)023-032506 [place] [address] 06-22-2022 12:01-0400 Body weight 83.46 kg GEO TAVO Work Phone: 1(516)960-362606 [place] [address] 2022 14:22-0500 Heart rate 81 /min GE[facility] Work Phone: 8(463)761-155306 [place] [address] 2022 14:22-0500 Respiratory rate 20 /min GEO T[facility] Work Phone: 8(775)961-311106 [place] [address] 2022 14:22-0500 SaO2% (BldA) [Mass fraction] 96 % GE[facility] Work Phone: 9(348)420-686406 [address] [place] [address] 2022 13:51-0500 Body temperature 97.7 [degF] GEO TAVO Work Phone: 6(939)261-932804 [place] [address] 2022 13:51-0500 Diastolic blood pressure 65 mm[Hg] [employer] Work Phone: 3(743)842-317804 [place] [address] 2022 13:51-0500 Systolic blood pressure 124 mm[Hg] [employer] Work Phone: 8(087)318-255804 [place] [address] 2022 12:11-0500 Body height 157.48 cm [employer] Work Phone: 7(987)463-312904 [place] [address] 2022 12:11-0500 Body mass index (BMI) [Ratio] 34 kg/m2 [employer] Work Phone: 7(799)337-741904 [place] [address] 2022 12:11-0500 Body weight 84.3 kg [employer] Work Phone: 5(046)361-264204 [place] [address] 05-20-2022 09:49-0500 Body mass index (BMI) [Ratio] 34.2 kg/m2 [employer] Work Phone: 6(531)654-068604 [place] [address] 05-20-2022 09:49-0500 Body temperature 97.6 [degF] [employer] Work Phone: 7(209)371-390606 [place] [address] 05-20-2022 09:49-0500 Body weight 84.82 kg GEO T[facility]O Work Phone: 8(939)330-176006 [place] [address] 05-20-2022 09:49-0500 Diastolic blood pressure 73 mm[Hg] GE[employer] T[employer]O Work Phone: 7(501)243-913706 [place] [address] 05-20-2022 09:49-0500 Heart rate 80 /min [employer] [facility] Work Phone: 6(472)417-582206 [place] [address] 05-20-2022 09:49-0500 Respiratory rate 17 /min MD MARIEE TAVO Work Phone: [facility] 05-20-2022 09:49-0500 SaO2% (BldA) [Mass fraction] 93 % MD MARIEE TAVO Work Phone: [facility] 05-20-2022 09:49-0500 Systolic blood pressure 154 mm[Hg] MD MARIEE TAVO Work Phone: [facility] 05-10-2022 15:57-0500 Respiratory rate 18 /min [facility] 05-10-2022 15:57-0500 SaO2% (BldA) [Mass fraction] 99 % [facility] 05-10-2022 12:35-0500 Inhaled oxygen flow rate 2 L/min [facility] 05-10-2022 10:56-0500 Body height 167.64 cm [facility] 05-10-2022 10:56-0500 Body mass index (BMI) [Ratio] 30.8 kg/m2 [facility] 05-10-2022 10:56-0500 Body temperature 97.2 [degF] [facility] 05-10-2022 10:56-0500 Body weight 86.63 kg [facility] 05-10-2022 10:56-0500 Diastolic blood pressure 96 mm[Hg] [facility] 05-10-2022 10:56-0500 Heart rate 83 /min [facility] 05-10-2022 10:56-0500 Systolic blood pressure 148 mm[Hg] [facility] 04-22-2022 15:00-0500 Body height 157.5 cm OMAR FARAH MD [facility] 04-22-2022 15:00-0500 Body temperature 98.96 [degF] OMAR FARAH MD [facility] 04-22-2022 15:00-0500 Body weight 89.2 kg OMAR FARAH MD [facility] 04-22-2022 15:00-0500 Diastolic Blood Pressure Non-Invasive 69 1 OMAR FARAH MD [facility] 04-22-2022 15:00-0500 Heart rate 85 /min OMAR FARAH MD [facility] 04-22-2022 15:00-0500 Respiratory rate 20 /min OMAR FARAH MD [facility] 04-22-2022 15:00-0500 Systolic Blood Pressure Non-Invasive 132 1 OMAR FARAH MD [facility] 11-15-2021 10:25-0400 Body temperature 97 [degF] [email or web address] Phone: [employer] 11-15-2021 10:25-0400 Diastolic blood pressure 73 mm[Hg] [employer] Phone: [employer] 11-15-2021 10:25-0400 Heart rate 75 /min [employer] Phone: [employer] 11-15-2021 10:25-0400 Respiratory rate 17 /min [employer] Phone: [employer] 11-15-2021 10:25-0400 SaO2% (BldA) [Mass fraction] 96 % [employer] Phone: [employer] 11-15-2021 10:25-0400 Systolic blood pressure 127 mm[Hg] [employer] Phone: [employer] 11-15-2021 06:56-0400 Body height 157.5 cm [employer] Phone: [employer] 11-15-2021 06:56-0400 Body mass index (BMI) [Ratio] 36.76 kg/m2 [facility] Phone: [employer] 11-15-2021 06:56-0400 Body weight 91.17 kg [facility] Phone: [facility] Encounters Encounter Date Encounter Type Care Provider Facility Start: 12-19-2024 ambulatory GEO VO Facility:[facility] Start: 06-14-2024 End: 06-14-2024 ambulatory GEO VO MD Work Phone: [facility] Work Phone: Start: 06-14-2024 End: 06-14-[address] Lincoln Orr MD -Radiology, [facility] Work Phone: Start: 06-14-2024 End: 06-14-2024 ambulatory Lincoln Orr Facility:[facility] Start: 04-22-2024 End: 04-22-2024 Patient encounter procedure GEO VO MD -Laboratory Work Phone: Start: 04-22-2024 End: 04-22-2024 ambulatory GEO VO Facility:[facility] Start: 03-16-2024 End: 03-18-2024 Patient encounter procedure [facility] Provider [facility] Start: 02-12-2024 End: 04-15-2024 ambulatory MD ANISH KAM Facility:[facility] Start: 02-12-2024 End: 04-15-2024 Physical therapy management ANISH KAM [facility] Start: 02-05-2024 End: 02-05-2024 Emergency department patient visit Memo Green Facility:[facility] Start: 02-03-2024 End: 02-03-2024 ambulatory GEO VO Facility:[facility] Start: 01-27-2024 End: 01-27-2024 ambulatory LINCOLN ORR MD Facility[facility] Start: 01-27-2024 End: 01-27-2024 Patient encounter procedure LINCOLN ORR MD [facility] Start: 12-16-2023 End: 12-16-2023 ambulatory GEO VO MD [facility] Start: 12-16-2023 End: 12-16-2023 Patient encounter procedure GEO VO MD [facility] Start: 12-05-2023 End: 02-17-2024 ambulatory MARJORIESUE CAIN DO Facility:[facility] Start: 12-05-2023 End: 02-17-2024 Physical therapy management MARJORIE CAIN DO [facility] Start: 09-03-2023 Refill Mihir Palacio MD Work Phone: [facility] Comment on above: Refill Request Start: 07-23-2023 Non-patient / Non-visit MD GEO VO Work Phone: [facility] Start: 07-23-2023 End: 07-23-2023 Admission to same day surgery center MD GEO VO Work Phone: [facility]-Endoscopy Work Phone: Start: 07-23-2023 End: 07-23-2023 ambulatory MD GEO VO Work Phone: [facility] Work Phone: Start: 06-13-2023 End: 06-13-2023 ambulatory MD GEO VO Work Phone: [facility] Work Phone: Start: 06-13-2023 End: 06-13-2023 Patient encounter procedure MD GEO VO Work Phone: [facility]-Laboratory, Specimen Work Phone: Start: 06-03-2023 End: 06-03-2023 ambulatory MD GEO VO Work Phone: [facility] Work Phone: Start: 06-03-2023 End: 06-03-2023 Patient encounter procedure MD GEO VO Work Phone: [facility] Start: 04-23-2023 End: 04-23-2023 ambulatory MD GEO VO Work Phone: [facility] Work Phone: Start: 04-23-2023 End: 04-23-2023 Patient encounter procedure MD GEO VO Work Phone: [facility]-Cat Scan, [facility] Work Phone: Start: 03-12-2023 End: 03-12-2023 ambulatory MD GEO VO Work Phone: [facility] Work Phone: Start: 03-12-2023 End: 03-12-2023 Patient encounter procedure MD GEO VO Work Phone: [facility] Work Phone: Start: 01-30-2023 End: 01-30-2023 ambulatory [facility] Facility:B Start: 01-30-2023 End: 01-30-2023 SAME DAY STAY [facility] Start: 01-27-2023 End: 01-28-2023 ambulatory [facility] Facility:B Start: 01-27-2023 End: 01-27-2023 Admission to establishment [facility] Start: 01-23-2023 Non-patient / Non-visit MD GEO VO Work Phone: [facility] Start: 01-23-2023 End: 01-23-2023 Admission to same day surgery center MD GEO VO Work Phone: [facility]-Endoscopy Work Phone: Start: 01-23-2023 End: 01-23-2023 ambulatory MD GEO VO Work Phone: [facility] Work Phone: Start: 01-11-2023 End: 01-11-2023 ambulatory MD GEO VO Work Phone: [facility] Work Phone: Start: 01-11-2023 End: 01-11-2023 Patient encounter procedure MD GEO VO Work Phone: [facility]-Laboratory Work Phone: Start: 12-17-2022 End: 12-17-2022 ambulatory MD MARIEE TAVO Work Phone: [facility] Work Phone: Start: 12-17-2022 End: 12-17-2022 Patient encounter procedure [facility] Work Phone: Start: 12-06-2022 End: 12-06-2022 Patient encounter procedure MD GEO VO Work Phone: [facility] G[facility] Work Phone: Start: 12-02-2022 End: 12-03-2022 ambulatory LOLY MUKHERJEE [facility] Facility:B Start: 06-25-2022 End: 06-25-2022 ambulatory MD GEO VO Work Phone: [facility] Work Phone: Start: 06-25-2022 End: 06-25-2022 Patient encounter procedure MD GEO VO Work Phone: [facility]-Laboratory, Specimen Start: 06-25-2022 End: 06-25-2022 Patient encounter procedure MD GEO VO Work Phone: [facility] Start: 06-22-2022 End: 06-22-2022 Emergency department patient visit MD GEO OV Work Phone: [facility]-Emergency Department Start: 06-18-2022 End: 06-18-2022 ambulatory MD GEO VO Work Phone: [facility] Work Phone: Start: 06-18-2022 End: 06-18-2022 Patient encounter procedure MD GEO VO Work Phone: [facility]-Nuclear Medicine, [facility] Start: 2022 Non-patient / Non-visit MD GEO VO Work Phone: [facility] Start: 2022 End: 2022 Admission to same day surgery center MD MARIEE TAVO Work Phone: [facility]-Endoscopy Start: 2022 End: 2022 ambulatory MD GEO VO Work Phone: [facility] Work Phone: Start: 05-22-2022 End: 05-23-2022 ambulatory JIMENEZ REYNA [employer] Facility:B Start: 05-22-2022 End: 05-22-2022 Patient encounter procedure JIMENEZ REYNA [employer] [facility] Start: 05-20-2022 End: 05-20-2022 Patient encounter procedure MD GEO VO Work Phone: [facility] Start: 05-10-2022 End: 05-10-2022 Emergency department patient visit [facility]-Emergency Department Start: 04-30-2022 ambulatory JIMENEZ REYNA Facilit y:[id number] Start: 04-30-2022 End: 04-30-2022 Subsequent hospital visit by physician [facility] [address] [facility] Comment on above: Right upper quadrant pain [R10.11] Start: 04-25-2022 End: 04-26-2022 ambulatory JIMENEZ REYNA [employer] Facility:A Start: 04-24-2022 End: 04-25-2022 ambulatory JIMENEZ REYNA [employer] Facility:[facility] Start: 04-24-2022 End: 04-24-2022 Patient encounter procedure JIMENEZ REYNA [employer]PER[employer] [facility] Start: 04-23-2022 Refill Mihir Palacio MD Work Phone: [facility] Comment on above: Refill Request Start: 04-22-2022 End: 04-22-2022 Emergency department patient visit GEO VO MD Facility:B Start: 04-22-2022 End: 04-22-2022 Emergency department patient visit OMAR FARAH MD [facility] Start: 03-20-2022 Refill Mihir Palacio MD Work Phone: [facility] Comment on above: Refill Request Start: 02-04-2022 End: 02-04-2022 Patient encounter procedure LINCOLN ORR MD [facility] Start: 12-07-2021 End: 12-07-2021 Patient encounter procedure GEO VO MD [facility] Start: 12-07-2021 End: 12-07-2021 ambulatory [facility] Work Phone: Start: 12-07-2021 End: 12-07-2021 Patient encounter procedure [facility]-Laboratory Start: 11-15-2021 End: 11-15-2021 [facility]: [facility] Comment on above: Arrived Start: 10-01-2021 Refill Mihir Palacio MD Work Phone: [facility] Comment on above: Refill Request Start: 09-28-2021 Refill Mihir Palacio MD Work Phone: [facility] Comment on above: Refill Request Start: 06-07-2021 End: 06-07-2021 Patient encounter procedure JIMENEZ MONAHAN CNP [facility] Start: 05-08-2021 End: 05-08-2021 Patient encounter procedure [facility]-Outpatient Bone Densitometry Start: 02-20-2021 Patient encounter procedure [facility]-Cat Scan, [facility] Start: 02-07-2021 End: 02-07-2021 Patient encounter procedure CHIARA FISCHER [employer]PER[employer] [facility] Start: 10-29-2016 Ambulatory Mihir Yan y:[facility] Procedures Date Procedure Procedure Detail Performing Clinician Start: 06-14-2024 X-ray of chest, PA and lateral views GEO VO MD Work Phone: Start: 04-22-2024 Urine culture GEO VO MD Work Phone: Start: 07-23-2023 Colonoscopy MD GEO VO Work Phone: Start: 06-13-2023 Investigation of transfusion reaction MD MARIEE TAVO Work Phone: Start: 06-13-2023 Respiratory microbial culture MD GEO PERALES Work Phone: Start: 06-03-2023 Positron emission tomography with computed tomography MD GEO VO Work Phone: Start: 04-23-2023 CT of chest MD GEO VO Work Phone: Start: 03-12-2023 Plain chest X-ray MD GEO VO Work Phone: Start: 01-23-2023 Colonoscopy MD GEO VO Work Phone: Start: 12-13-2022 Plain chest X-ray MD GEO VO Work Phone: Start: 06-22-2022 Computed tomography of abdomen and pelvis with intravenous contrast MD GEO VO Work Phone: Start: 06-22-2022 US scan of gallbladder MD GEO VO Work Phone: Start: 06-18-2022 Radionuclide imaging of liver and/or biliary tract using radioactive isotope [facility]O Work Phone: Start: 2022 Esophagogastroduodenoscopy GEO TAVO Work Phone: Start: 05-10-2022 US scan of gallbladder Start: 04-30-2022 Us abdominal real time w/image limited Jimenez Monahan Work Phone: Start: 11-15-2021 OPERATIVE REPORT Physician Generic Start: 11-15-2021 Gluc bld gluc mntr dev cleared fda spec home [facility] Work Phone: Start: 05-08-2021 Dual energy X-ray absorptiometry Start: 05-08-2021 Screening mammography Start: 02-20-2021 CT of chest without contrast Start: 12-07-2020 Catheterization of left heart CHIARA PREBI SH [employer]PERATOR [employer] Comment on above: The study demonstrates moderate CAD, pre dominantly involving the LAD. 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 She is doing remarkably well in the postoperative recovery. She denies any concerns at today's visit and happily reports improvement in her preoperative discomfort and bowel irregularities. She questions whether she may have had this issue for many years and blames some of the effects on a diagnosis of irritable bowel syndrome when they were related to the gallbladder all long. She is well-healing on exam. I have reviewed both her postoperative pathology as well as the results of her cholangiogram with her. At this time I recommend that she begin tapering off her use of cholestyramine and we see how she will do without the effects of this medication. 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 [employer] Tonsillectomy CHIARA AALIYAH C ECONOMIC ADVISER Plan of Treatment Date Care Activity Detail Author Start: 12-07-2026 LIPID SCREEN LIPID SCREEN [facility] Start: 11-23-2023 Covid-19 Vaccine () Covid-19 Vaccine () [facility] Start: 11-23-2023 Influenza vaccination [facility] Start: 07-23-2023 Patient discharge [facility] Start: 03-24-2023 Advance Directive Discussion Advance Directive Discussion [facility] Start: 03-24-2023 Behavioral Health Screening Behavioral Health Screening [facility] Start: 01-23-2023 Colonoscopy w/biopsy single/multiple COLONOSCOPY AND BIOPSY [facility] Start: 01-23-2023 Colsc flx w/rmvl of tumor polyp lesion snare tq COLONOSCOPY W/LESION REMOVAL [facility] Start: 01-23-2023 Colsc flx with direc antonio submucosal njx any sbst COLONOSCOPY SUBMUCOUS NJX [facility] Start: 01-23-2023 Patient discharge [facility] Start: 11-22-2022 Covid-19 Vaccine () Covid-19 Vaccine () [facility] Start: 06-25-2022 Gastrointestinal pat hogens panel - Stool by CINTIA with probe detection [facility] Start: 2022 Egd transoral biopsy single/multiple EGD BIOPSY SINGLE/MULTIPLE [facility] Start: 2022 Patient discharge [facility] Start: 03-24-2022 ADVANCE DIRECTIVE DISCUSSION ADVANCE DIRECTIVE DISCUSSION [facility] Start: 03-24-2022 DEPRESSION ASSESSMENT DEPRESSION ASS ESSMENT [facility] Start: 11-22-2021 Influenza vaccination [facility] Start: 2021 RSV Vaccine (1 - 1-d ose 75+ series) RSV Vaccine (1 - 1-dose 75+ series) [facility] Start: 03-24-2021 ADVANCE DIRECTIVE DISCUSSION ADVANCE DIRECTIVE DISCUSSION [facility] Start: 12-06-2020 COVID-19 VACCINE (3 - Booster for Moderna series) COVID-19 VACCINE (3 - Booster for Moderna series) [facility] Start: 08-31-2020 COVID-19 VACCINE (3 - Booster for Moderna series) COVID-19 VACCINE (3 - Booster for Moderna series) [facility] Start: 10-30-2019 DIABETES SCREEN DIABETES SCREEN [facility] Start: 10-30-2019 Diabetes Screening Diabetes Screenin g [facility] Start: 12-01-2014 Urine microalbumin profile DTa P,Tdap,Td Vaccine (1 - Tdap) [facility] Start: 05-28-2011 BONE DENSITY BONE DENSITY [facility] Start: 05-28-2011 Screening for osteoporosis Bone Dens ity Screening [facility] Start: 2006 RSV Vaccine (1 - 1-d ose 60+ series) RSV Vaccine (1 - 1-dose 60+ series) [facility] Start: 2001 Screening for osteoporosis DEX A (modify frequency per FRAX score) [facility] Start: 1996 Shingles vaccine (1 of 2) Coleman gles vaccine (1 of 2) [facility] Start: 1996 SHINGRIX VACCINE (1 of 2) COLEMAN GRIX VACCINE (1 of 2) [facility] Start: 05-28-1991 COLOGUARD (FIT-DNA) COLOGUARD (FIT-D NA) [facility] Start: 05-28-1991 Colonoscopy COLONOSCOPY [facility] Start: 05-28-1991 COLORECTAL CANCER SCREENING COLORECTAL CANCER SCREENING [facility] Start: 05-28-[address] COLONOGRAPHY [facility] Start: 05-28-1991 FECAL OCCULT BLOOD FECAL OCCULT BLOO D [facility] Start: 05-28-1991 LIPID SCREEN LIPID SCREEN [facility] Start: 05-28-1991 Screening for malign ant neoplasm of colon [facility] Start: 05-28-1991 SIGMOIDOSCOPY SIGMOIDOSCOPY [facility] Start: 1976 Zoledronic acid therapy ALPHA- 1 ANTITRYPSIN DEFICIENCY SCREENING [facility] Start: 1965 DTaP/Tdap/Td vaccine (1 - Tdap) DTaP/Tdap/Td vaccine (1 - Tdap) [facility] Start: 1965 Urine microalbumin profile DTAP,TDAP ,TD (1 - Tdap) [facility] Start: 1964 ANNUAL PCP TEAM A R SPECIALIST AIDEN DISEASE VISIT ANNUAL PCP TEAM CHRONIC DISEASE VISIT [facility] Start: 1964 Anxiety Screening Anxiety Screening [facility] Start: 1964 BP CONTROLLED (<130/80) BP CONTROLLE D (<130/80) [facility] Start: 1964 Depression Screening Depression Scre ening [facility] Start: 1964 HEPATITIS C SCREENING HEPATITIS C SC REENING [facility] Start: 1964 Hepatitis C screening S [facility] Start: 1964 SPIROMETRY SPIROMETRY [facility] Start: 1958 Adult depression scr eening assessment DEPRESSION SCREENING [facility] Start: 1958 Depression Screen Depression Screen [facility] Start: 1956 Lipid panel Lipids [facility] Start: 1952 Pneumococcal 65+ yea rs Vaccine (1 - PCV) Pneumococcal 65+ years Vaccine (1 - PCV) [facility] Start: 1952 PNEUMOCOCCAL: 65+ (1 - PCV) PNEUMOCOCCAL: 65+ (1 - PCV) [facility] Start: 1946 COVID-19 Vaccine (#1) COVID-19 Vacci ne (#1) [facility] Blood glucose - POCT Blood gluco se - POCT Point of Care Testing STAT As Needed until discontinued starting 11/15/2021 [facility] Work Phone: Comment on above: As Needed until disc ontinued starting 11/15/2021 Enteric Bacteriology Enteric Bacteriology [facility] End: 11-15-2021 INITIATE PACU OXYGEN THERAPY PROTOCOL Initiate PACU Oxygen Therapy Protocol Respiratory Care Routine Continuous until discontinued starting 11/15/2021 [facility] Work Phone: Comment on above: Continuous until dis continued starting 11/15/2021 End: 11-15-2021 Intermittent pulse oximetry Pulse Oximetry Spot Check Respiratory Care Routine One Time for 1 Occurrences starting 11/15/2021 until 11/15/2021 [facility] Work Phone: Comment on above: One Time for 1 Occur rences starting 11/15/2021 until 11/15/2021 Nasal Cannula Oxygen Nasal Cannu la Oxygen Respiratory Care Routine As Needed until discontinued starting 11/15/2021 [facility] Work Phone: Comment on above: As Needed until disc ontinued starting 11/15/2021 Nasal Cannula Oxygen Nasal Cannu la Oxygen Respiratory Care Routine As Needed until discontinued starting 11/15/2021 [facility] Work Phone: Comment on above: As Needed until disc ontinued starting 11/15/2021 Nonrebreather mask oxygen Nonreb reather mask oxygen Respiratory Care Routine As Needed until discontinued starting 11/15/2021 [facility] Work Phone: Comment on above: As Needed until disc ontinued starting 11/15/2021 Nonrebreather mask oxygen Nonreb reather mask oxygen Respiratory Care Routine As Needed until discontinued starting 11/15/2021 [facility] Work Phone: Comment on above: As Needed until disc ontinued starting 11/15/[address] [facility] Work Phone: Patient referral [facility] Work Phone: Radionuclide imaging of liver and/or biliary tract using radioactive isotope [facility] Spirometry panel Incentive hayley metry Respiratory Care Routine Q1H PRN until discontinued starting 11/15/2021 [facility] Work Phone: Comment on above: Q1H PRN until discon tinued starting 11/15/2021 Immunizations Immunization Date Immunization Notes Care Provider [facility] 01-05-2019 influenza virus vaccine, unspecified formulation Mihir Bess MD Work Phone: [facility] 11-30-2014 tetanus and diphther ia toxoids, adsorbed, preservative free, for adult use (2 Lf of tetanus toxoid and 2 Lf of diphtheria toxoid) [facility] Payers Date Payer Category Payer Self-pay [id number] 2016 Private Health Insurance [facility] AARP SUPPLEMENT [id number] 2016-Present [phone] [address] [place] [address] Indemnity [id number] 2016 Private Health Insurance [id number] 2016 Unknown [id number] 2014 Medicare MEDICARE MEDICAR E B [id number] 2014-Present [address] [address] [place] [address] Medicare [id number] 2011 Medicare [id number] 2011 Medicare [id number] 1946 Unknown [id number] 1946 Unknown [id number] 1946 Unknown [id number] 1946 Unknown [id number] 1946 Unknown [id number] 1946 Unknown [id number] 1946 Unknown [id number] 1945 Unknown [id number] .627 1945 Unknown [id number] .627 1945 Unknown [id number] .627 1945 Unknown [id number] .627 Medicare [id number] Unknown [id number] .462 Unknown [id number] .462 Unknown [id number] .462 Unknown [id number] .462 Unknown [id number] .462 Social History Date Type Detail Facility Start: 12-04-2020 Light tobacco smoker (finding) [facility] Start: 1945 Sex Assigned At Female [facility] Start: 10-08-2017 End: 07-21-2023 Tobacco smoking status NHIS Unknown if ever smoked [facility] Start: 10-08-[address] [facility] Start: 10-31-2014 End: 11-15-2021 Tobacco smoking status NHIS Smokes tobacco daily [facility] History of tobacco use Cigarette Smoker [facility] Start: 10-31-2014 End: 04-22-2020 Cigarettes smoked current (pack per day) - Reported 0.5 [facility] Start: 11-01-2014 Alcohol intake Not Asked Amparo hancock [facility] Start: 1945 Sex Assigned At Not on file [facility] Start: 11-15-2021 Tobacco use and exposure Smokeless tobacco [facility] Start: 11-15-2021 Alcohol intake Ex-drinker (finding) [facility] Work Phone: Start: 11-15-2021 History SDOH Alcohol Comment rare [facility] Work Phone: Start: 11-05-2021 End: 11-15-2021 Exposure to SARS-CoV-2 (event) Not sure [facility]: Start: 04-22-2020 Area Deprivation Index [facility] National Score (1-100), lower number is lower risk Not on file [facility] Sexual Orientation [facility] Start: 02-15-2019 End: 06-19-2024 Sex Female (finding) [facility] Start: 02-05-2024 [facility] NEGATED: Highlighted row [facility] Medical Equipment Procedure Code Equipment Code Equipment Original Text Equipment Identifier Dates Total cholecystectomy with exploration of common bile duct Open-surgery ligation 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 [id number] FDA Start: 07-08-2022 Colonoscopy Tissue marking ink [id number] FDA Start: 01-23-2023 DOUGH,CEMENT 6191-1-010 FDA Start: 10-06-2017 DOUGH,CEMENT 6191-1-010 FDA Start: 10-06-2017 TRIATHLON PATELLA FDA Start: 10-06-2017 TRIATHLON POST STAB FEM COMP FDA Start: 10-06-2017 TRIATHLON TIBIAL BASEPLATE NINO FDA Start: 10-06-2017 TRIATHLON TIBIAL INSERT-PS FDA Start: 10-06-2017 DOUGH,CEMENT 6191-1-010 FDA Start: 10-06-2017 DOUGH,CEMENT 6191-1-010 FDA Start: 10-06-2017 TRIATHLON PATELLA FDA Start: 10-06-2017 TRIATHLON POST STAB FEM COMP FDA Start: 10-06-2017 TRIATHLON TIBIAL BASEPLATE NINO FDA Start: 10-06-2017 TRIATHLON TIBIAL INSERT-PS FDA Start: 10-06-2017 DOUGH,CEMENT 6191-1-010 FDA Start: 10-06-2017 DOUGH,CEMENT 6191-1-010 FDA Start: 10-06-2017 TRIATHLON PATELLA FDA Start: 10-06-2017 TRIATHLON POST STAB FEM COMP FDA Start: 10-06-2017 TRIATHLON TIBIAL BASEPLATE NINO FDA Start: 10-06-2017 TRIATHLON TIBIAL INSERT-PS FDA Start: 10-06-2017 DOUGH,CEMENT 6191-1-010 FDA Start: 10-06-2017 DOUGH,CEMENT 6191-1-010 FDA Start: 10-06-2017 TRIATHLON PATELLA FDA Start: 10-06-2017 TRIATHLON POST STAB FEM COMP FDA Start: 10-06-2017 TRIATHLON TIBIAL BASEPLATE NINO FDA Start: 10-06-2017 TRIATHLON TIBIAL INSERT-PS FDA Start: 10-06-2017 DOUGH,CEMENT 6191-1-010 FDA Start: 10-06-2017 DOUGH,CEMENT 6191-1-010 FDA Start: 10-06-2017 TRIATHLON PATELLA FDA Start: 10-06-2017 TRIATHLON POST STAB FEM COMP FDA Start: 10-06-2017 TRIATHLON TIBIAL BASEPLATE NINO FDA Start: 10-06-2017 TRIATHLON TIBIAL INSERT-PS FDA Start: 10-06-2017 DOUGH,CEMENT 6191-1-010 FDA Start: 10-06-2017 DOUGH,CEMENT 6191-1-010 FDA Start: 10-06-2017 TRIATHLON PATELLA FDA Start: 10-06-2017 TRIATHLON POST STAB FEM COMP FDA Start: 10-06-2017 TRIATHLON TIBIAL BASEPLATE NINO FDA Start: 10-06-2017 TRIATHLON TIBIAL INSERT-PS FDA Start: 10-06-2017 DOUGH,CEMENT 6191-1-010 FDA Start: 10-06-2017 DOUGH,CEMENT 6191-1-010 FDA Start: 10-06-2017 TRIATHLON PATELLA FDA Start: 10-06-2017 TRIATHLON POST STAB FEM COMP FDA Start: 10-06-2017 TRIATHLON TIBIAL BASEPLATE NINO FDA Start: 10-06-2017 TRIATHLON TIBIAL INSERT-PS FDA Start: 10-06-2017 DOUGH,CEMENT 6191-1-010 FDA Start: 10-06-2017 DOUGH,CEMENT 6191-1-010 FDA Start: 10-06-2017 TRIATHLON PATELLA FDA Start: 10-06-2017 TRIATHLON POST STAB FEM COMP FDA Start: 10-06-2017 TRIATHLON TIBIAL BASEPLATE NINO FDA Start: 10-06-2017 TRIATHLON TIBIAL INSERT-PS FDA Start: 10-06-2017 DOUGH,CEMENT 6191-1-010 FDA Start: 10-06-2017 DOUGH,CEMENT 6191-1-010 FDA Start: 10-06-2017 TRIATHLON PATELLA FDA Start: 10-06-2017 TRIATHLON POST STAB FEM COMP FDA Start: 10-06-2017 TRIATHLON TIBIAL BASEPLATE NINO FDA Start: 10-06-2017 TRIATHLON TIBIAL INSERT-PS FDA Start: 10-06-2017 DOUGH,CEMENT 6191-1-010 FDA Start: 10-06-2017 DOUGH,CEMENT 6191-1-010 FDA Start: 10-06-2017 TRIATHLON PATELLA FDA Start: 10-06-2017 TRIATHLON POST STAB FEM COMP FDA Start: 10-06-2017 TRIATHLON TIBIAL BASEPLATE NINO FDA Start: 10-06-2017 TRIATHLON TIBIAL INSERT-PS FDA Start: 10-06-2017 DOUGH,CEMENT 6191-1-010 FDA Start: 10-06-2017 DOUGH,CEMENT 6191-1-010 FDA Start: 10-06-2017 TRIATHLON PATELLA FDA Start: 10-06-2017 TRIATHLON POST STAB FEM COMP FDA Start: 10-06-2017 TRIATHLON TIBIAL BASEPLATE NINO FDA Start: 10-06-2017 TRIATHLON TIBIAL INSERT-PS FDA Start: 10-06-2017 DOUGH,CEMENT 6191-1-010 FDA Start: 10-06-2017 DOUGH,CEMENT 6191-1-010 FDA Start: 10-06-2017 TRIATHLON PATELLA FDA Start: 10-06-2017 TRIATHLON POST STAB FEM COMP FDA Start: 10-06-2017 TRIATHLON TIBIAL BASEPLATE NINO FDA Start: 10-06-2017 TRIATHLON TIBIAL INSERT-PS FDA Start: 10-06-2017 DOUGH,CEMENT 6191-1-010 FDA Start: 10-06-2017 DOUGH,CEMENT 6191-1-010 FDA Start: 10-06-2017 TRIATHLON PATELLA FDA Start: 10-06-2017 TRIATHLON POST STAB FEM COMP FDA Start: 10-06-2017 TRIATHLON TIBIAL BASEPLATE NINO FDA Start: 10-06-2017 TRIATHLON TIBIAL INSERT-PS FDA Start: 10-06-2017 DOUGH,CEMENT 6191-1-010 FDA Start: 10-06-2017 DOUGH,CEMENT 6191-1-010 FDA Start: 10-06-2017 TRIATHLON PATELLA FDA Start: 10-06-2017 TRIATHLON POST STAB FEM COMP FDA Start: 10-06-2017 TRIATHLON TIBIAL BASEPLATE NINO FDA Start: 10-06-2017 TRIATHLON TIBIAL INSERT-PS FDA Start: 10-06-2017 DOUGH,CEMENT 6191-1-010 FDA Start: 10-06-2017 DOUGH,CEMENT 6191-1-010 FDA Start: 10-06-2017 TRIATHLON PATELLA FDA Start: 10-06-2017 TRIATHLON POST STAB FEM COMP FDA Start: 10-06-2017 TRIATHLON TIBIAL BASEPLATE NINO FDA Start: 10-06-2017 TRIATHLON TIBIAL INSERT-PS FDA Start: 10-06-2017 DOUGH,CEMENT 6191-1-010 FDA Start: 10-06-2017 DOUGH,CEMENT 6191-1-010 FDA Start: 10-06-2017 TRIATHLON PATELLA FDA Start: 10-06-2017 TRIATHLON POST STAB FEM COMP FDA Start: 10-06-2017 TRIATHLON TIBIAL BASEPLATE NINO FDA Start: 10-06-2017 TRIATHLON TIBIAL INSERT-PS FDA Start: 10-06-2017 Goals Date Patient Goal Desired Activity /State Functional Status Date Assessment Result Facility 02-12-2024 Functional Status Objective: Cardiovascular Screen: 120/70 BP: HR: 80 BPM O2 sat: 94% Observation: Mild excess thoracic kyphosis. Mild to moderate forward head posture. Cervical ROM: Flex: no loss ERP, Ext: not tested, Rotation. Min loss bilat ERP Palpation: Denies central spine tenderness Sensation: grossly intact and symmetrical to light touch on bilat UE's Special tests neuro: Hoffmans and inverted supinator sign: - bilat Segmental Motion: not tested Sensation:Grossly intact light touch bilat UE's and LE Reflexes: 1+ bilat biceps and triceps , 1+ billat achilles [facility] 12-05-2023 Functional Status Objective: ROM/ Strength: See chart for shoulder Cervical AROM: NT Cardiovascular screen: BP: 130/70 HR: 96% HR: 68 BPM Reflexes: NT Observation: No signs of swelling or obvious signs of infection in shoulder region. No obvious mario deformity noted but patient has described this in the past and orthopedics is aware. Special Tests: painful arc +, drop arm +, infraspinatus - [facility] 01-30-2023 Functional Status bilateral knee high padma lied/on [facility] 01-30-2023 Functional Status Maintained [facility] 01-27-2023 Functional Status Sensory Deficits None [facility] 04-22-2022 Functional Status Independent [facility] Mental Status Date Assessment Result Facility 07-23-2023 Cognitive function Voice/Name [facility] Work Phone: 01-30-2023 Mental Status Oriented x 4 [facility] 01-30-2023 Mental Status [facility] 01-23-2023 Cognitive function Voice/Name [facility] Work Phone: 2022 Cognitive function Level Of Cons ciousness Awake;Appropriate [facility] Work Phone: 2022 Cognitive function Patient Orien tation Person;Place;Time [facility] Work Phone: 04-22-2022 Mental Status Orientation Oriented x 4 [facility] Clinical Notes 10-01-2021 to 06-14-2024 Note Date & Type Note Facility 06-14-2024 Radiology Diagnostic study note [facility] Imaging Services [address] [place] [address] Chest PA and Lateral MR#: [id number] Acct: [id number] Name: RAFAEL MAURICE Rep #: [id number] : 1945 F 79 From: Sharon Church MD PCP: GEO VO MD Status: REG CLI Study:Chest PA and Lateral Date of Exam: 06/14/24 Exam# [id number] Ordering Dr: Lincoln Orr MD EXAM: XR Chest, 2 Views CLINICAL INDICATION: COPD TECHNIQUE: Frontal and lateral views of the chest. COMPARISON: No relevant prior studies available. FINDINGS: LUNGS AND PLEURAL SPACES: Pulmonary venous congestion. Mild COPD. Pulmonary nodule noted on CT chest dated 12/04/2023 can not be clearly visualized on the chest radiograph. If indicated, further evaluationwith CTs is recommended. No consolidation. No pneumothorax. HEART: Unremarkable. No cardiomegaly. MEDIASTINUM: Unremarkable. Normal mediastinal contour. BONES/JOINTS: Unremarkable. No acute fracture. RAD/Chest PA and Lateral IMPRESSION: 1. Pulmonary venous congestion. 2. Mild COPD. Pulmonary nodule noted on CT chest dated 12/04/2023 can not be clearly visualized on the chest radiograph. If indicated, further evaluation with CTs is recommended. Reading Location: [facility] CC: Dr. Lincoln Orr MD; GEO VO MD ~ Flower Cutter: Signed [facility] 07-23-2023 Procedure note [facility] 07-23-2023 Procedure note [facility] 01-30-2023 Hospital Discharg e instructions Patient Education [...] your ears completely after. General instructions Take oosf-goo-jhbvssr and prescription medicines only as told by [...] 04/05/2016 Document Revised: 06/30/2018 Document Reviewed: 06/30/2018 [employer] Patient Education 2020 e(ye)BRAIN. 01/30/2023 14:59:21 General Anesthesia, Adult, Care After [...] what activities are safe for you. Take iivg-xwe-kholqxd and prescription medicines only as told by [...] 06/16/2001 Document Revised: 03/13/2018 Document Reviewed: 10/24/2017 [employer] Patient Education 2020 [employer] Inc. 01/30/2023 13:55:07 9. AO Myringotomy & Insertion [...] Document Reviewed: 12/17/2008 ExitCare Patient Information 2015 [place], [facility]. This information is not intended to replace advice given to you by your health care provider. Make sure you discuss any questions you have with your health care provider. Follow Up Care 12/12/2022 14:29:45 With:DELMER SHEARER DO Address: [address] [place] [address] [place] [phone] When: Unknown Comments:CALL DR SHEARER WITH ANY QUESTIONS OR CONCERNS. GO TO THE EMERGENCY ROOM WITH ANY URGENT CONCERNS. YOUR FOLLOW UP APPOINTMENT IS 02-20-23 AT 1:30 IN THE AFTERNOON. CALL AND RESCHEDULE IF THIS APPOINTMENT DOESN'T WORK FOR YOU With:DELMER SHEARER DO Address: [address] [place] [address] [place] [phone] When:02/20/2023 13:30:00 [facility] 01-30-2023 Note Discharge Instructions Thank you for allowing [facility] to assist you with your healthcare needs. The following is important discharge information regarding your hospital visit. Your Care Team GEO VO MD, DR. What to do next Follow Up Appointments Follow Up with DELMER SHEARER DO When 02/20/2023 01:30 PM EST Where: [address] [place] [address] [place] [id number] [phone] Follow Up with DELMER SHEARER DO When Why: CALL DR SHEARER WITH ANY QUESTIONS OR CONCERNS. GO TO THE EMERGENCY ROOM WITH ANY URGENT CONCERNS. YOUR FOLLOW UP APPOINTMENT IS 02-20-23 AT 1:30 IN THE AFTERNOON. CALL AND RESCHEDULE IF THIS APPOINTMENT DOESN'T WORK FOR YOU Where: [address] [place] [address] [place] [address] [phone] Allergies sulfa drug Medications Please ask your [...] Duration: 7 Days Refills: 1 Pickup at [id number] Unchanged acetaminophen (Tylenol) by mouth Every 4 [...] Every other day Pharmacy Information [id number]: [address], [place] [id number] [phone] What When Comments Stop Taking Misc Medication [...] may report side effects to FDA at [phone]. What other drugs will affect ofloxacin otic? It is not likely that other drugs you take orally or inject will have an effect on ofloxacin used in the ears. But many drugs can interact with each other. Tell each of your healthcare providers about all medicines you use, including prescription and opsb-oam-iglhsal medicines, vitamins, and herbal products. Where can I get more information? Your pharmacist can provide more information about ofloxacin otic. Remember, keep this and all other medicines out of the reach of children, never share your medicines with others, and use this medication only for the indication prescribed. Every effort has been made to ensure that the information provided by [employer]. ('[employer]') is accurate, up-to-date, and complete, but no guarantee is made to that effect. Drug information contained herein may be time sensitive. [employer] information has been compiled for use by healthcare practitioners and consumers in the [place] and therefore [employer] does not warrant that uses outside of the [place] are appropriate, unless specifically indicated otherwise. [employer] drug information does not endorse drugs, diagnose patients or recommend therapy. [employer] drug information is an informational resource designed [...] effective or appropriate for any given patient. [facility] does not assume any responsibility for any aspect of healthcare administered with the aid of information [facility] provides. The information contained herein is not intended to cover all possible uses, directions, precautions, warnings, drug interactions, allergic reactions, or adverse effects. If you have questions about the drugs you are taking, check with your doctor, nurse or pharmacist. Copyright 0666-8196 [employer]. Version: 4.01. Revision Date: 11/04/2022. Education Materials [...] your ears completely after. General instructions Take dtqi-srl-rgkauxj and prescription medicines only as told by [...] 04/05/2016 Document Revised: 06/30/2018 Document Reviewed: 06/30/2018 [employer] Patient Education 2020 [employer] Inc. General Anesthesia, Adult, Care After This sheet [...] what activities are safe for you. Take vdgy-tio-kcfvmvj and prescription medicines only as told by [...] 06/16/2001 Document Revised: 03/13/2018 Document Reviewed: 10/24/2017 Elsevier Patient Education 2020 [employer] Inc. Myringotomy & Insertion of Ventilating Ear [...] Document Reviewed: 12/17/2008 ExitCare Patient Information 2015 [address] [facility]. This information is not intended to replace advice given to you by your health care provider. Make sure you discuss any questions you have with your health care provider. Additional Information VACCINATE! IT SAVES LIVES! Members of the community who have not yet received the COVID-19 vaccine and would like to receive it can visit one of [facility] vaccine clinics. There are many vaccine clinic locations within the [facility]. For locations and available times, please visit [email or web address].o hio.gov/. It is important to note that some COVID mobile vaccine clinics are held outdoors and may be canceled in rainy or stormy conditions. To learn more about pediatric vaccinations (ages 5-11), we invite you to visit the [facility] webpage. https://www.[facility].org/p ages/3569-Jqjri-Ohzcokiffym-Freq xybtoi-Wcewf-Yfnrsrkum.html To learn more about the COVID-19 vaccine, we invite you to visit the CDC website for a list of frequently asked questions.https://www.cdc.gov/co ronavirus/2019-ncov/vaccines/faq .html [employer] Patient Portal Access Instructions: Stay connected with your healthcare team and access your personal medical information anytime with the [employer] Patient Portal. Please follow the directions below to create your [employer] account: 1.Access the email account you provided upon registration to the hospital/physician office.2.Look for an invitation email from [facility].3.Open the email and access the invitation link: Accept Invitation to [employer].4.Fill in the required manning to create your account. To access your account, visit [employer]. Click the blue button labeled "Access Patient Portal" and then log in with the username [...] you will allow to register on the [facility] Patient Portal for access to your information. You can also access the [facility] on the [place] [facility] padma. Simply click on "Patient Portal" and then log into your account. If you would like to receive a full copy of your medical records, please contact the [facility] Medical Records Department by calling [phone], Friday through Friday between 8 a.m. and [...] Call your local pharmacy or go to [email or web address] to find one close to you.3.Make use of household items: Use cat litter or old coffee grounds to dispose medications if other options are not available. Mix your drugs with these household products, seal them in an airtight container and throw it into the garbage. Call [facility]: [phone] to be sure your drugs can be [...] aware that I should contact my doctor. Patient/Brewmaster Signature: Date/Time: Relationship to Patient: Witness Name/Signature: Date/Time: [facility] 01-30-2023 Anesthesiology Consult note Patient: RAFAEL MAURICE Age: 77 years Sex: Female : 1945 Associated Diagnoses: None Author: MERON MELVIN USABILITY STRATEGIST-MICROPHONE OPERATOR Preoperative Information Time of last food or [...] pain of unknown etiology / SNOMED CT 451390242 / Confirmed COPD / SNOMED CT 03857089 / Confirmed Diabetes / SNOMED CT 875383913 / Confirmed Diverticulosis / SNOMED CT 835178862 / Confirmed Goiter / SNOMED CT 2675757 / Confirmed Hypercholesterolemia / SNOMED CT 20285591 / Confirmed Hypertension / SNOMED CT [id number] 6A74 / Confirmed Irritable bowel syndrome with diarrhea / SNOMED CT 305341655 / Confirmed Sleep apnea / SNOMED CT 488176348 / Confirmed, Active Problems (10) COPD Diabetes Diverticulosis Goiter Hypercholesterolemia Hypertension Irritable bowel syndrome with diarrhea Lower abdominal pain of unknown etiology Sleep apnea Tobacco use Histories Past Medical History: Active COPD (03542875) Hypertension ([id number] 96A74) Goiter (3364497) Family History: Cancer Mother Breast cancer Sister High blood pressure Daughter Hypercholesterolemia Daughter HTN - Hypertension Mother Coronary artery disease Sister High cholesterol Mother Procedure history: Cardiac catheterisation, left heart (326854770) on 12/07/2020 at 75 Years. Comments: 01/05/2021 9:27 Jeimy Orozco MA (ABR-OE) The study demonstrates moderate CAD, predominantly involving the LAD. Colonoscopy (298041646) on 09/12/2017 at 72 Years. Tonsillectomy (057329252). Abdominal hysterectomy (866237970). Arthroplasty of the knee (612364936). Appendectomy (632157686). History of thyroidectomy (1279812321). Ovarian cystectomy (4776426087). Social History Social & Psychosocial Habits Alcohol [...] Signs(last 24 hrs) Last Charted Heart Rate Fmqohtrtk67 bpm (JAN 30 14:00) Resp Rate 15 br/min (JAN 30 12:40) SBP97 mmHg (JAN 30 14:00) DBP70 mmHg (JAN 30 14:00) BMI33.75 (JAN 30 12:53) Measurements from flowsheet : Measurements 01/30/2023 12:53 EST Body Mass Index 33.75 kg/m2 01/30/2023 12:40 EST Height 160 cm Admission Weight 86.4 kg [place] Body Weight 52.38 kg Admission Body Mass [...] Lab results 01/30/2023 14:08 EST SN - NE - Medication AFRIN NASAL SPRAY 0.5% SN - NE - Medication ofloxacin ophthalmic 0.3% Solution SN - NE - Route of Administration Nasal SN - NE - Route of Administration Topical SN - NE - By (Single) SN - NE - By (Single) SN - NE - By (Single) SN - NE - By (Single) SN - NE - Time Administered 01/30/2023 14:06 SN - NE - Time Administered 01/30/2023 14:07 01/30/2023 14:05 [...] Surgeon SN - CAt - Role Performed MICROPHONE OPERATOR SN - CAt - Role Performed Computational Physicist 1 SN - CAt - Role Performed Scrub 1 SN - CAt - Role Performed Model And Mold Maker 1 SN - CAt - Role Performed Welder Fitter Apprentice SN - CAt - Role Performed Computational Physicist 2 01/30/2023 13:25 EST [facility] MAIN OR Preop & Phase II Record [facility] MAIN OR Preop & Phase II Record 01/30/2023 12:56 EST SN - Preop - CTm Pt Ready for OR/Proced 01/30/2023 12:56 01/30/2023 12:53 EST Designated Person #1 We May Share PHI Mark Dawkins [phone] Designated Person #1 Relationship Daughter Designated Person #2 We May Share PHI Renetta Currie [phone] Designated Person #2 Relationship Daughter Privacy Restrictions Requested None Body Mass Index 33.75 kg/m2 Status N/A Sensory Deficits None Diagnosed With Sleep Apnea Yes Advanced Directives Yes Advance Directive Type [place] Durable Power of [place] Room Operator [facility] [place] Declaration (Living Will) Advance Directive Location [...] 9:30 Anesthesia Evaluation Performed By MERON MELVIN USABILITY STRATEGIST-MICROPHONE OPERATOR Barriers to Learning None evident Teaching Method Explanation, Printed materials Preferred Spoken Language Kazakh Preferred Written Language Kazakh Teaching Evaluation No further teaching needed Safety Brochure Information Reviewed Unable to complete [place] Video Viewed No Information Given by [...] Height 160 cm Admission Weight 86.4 kg [place] Body Weight 52.38 kg Admission Body Mass [...] Symptoms Ulcers/Lesions Skin Temperature Warm Skin Description [place], Dry Skin Integrity Intact Mucous Membrane Color [place] Skin Moisture General Dry Extremity Movement Unequal [...] Allergies Yes Anesthesia Extension Set Applied Yes Channeler On Yes Consent Form Signed Yes Patient [...] 01/29/2023 18:30 Cardiac Clearance For Surgery By GEO VO MD . Assessment and Plan [place] [employer] Anesthesiologists (ASA) physical status classification: Class III. Anesthetic Preoperative Plan Premedication: intravenous. Anesthetic technique: General. Induction: intravenously. Maintenance airway: Laryngeal mask airway. Postoperative pain management: Per surgeon. Risks discussed: nausea, vomiting, sore throat. Informed consent: signed by patient. Digitally Signed by MERON MELVIN on 01/30/2023 02:11 PM [facility] 01-23-2023 Procedure note [facility] 01-23-2023 Procedure note [facility] 2022 Procedure note [facility] 2022 Procedure note [facility] 05-10-2022 Discharge summary Note Date/Time May 10, 2022 12:03pm [facility] Medical Records Department [address] [place] [address] Emergency Department Summary 05/10/22 MR#: [id number] Acct: [id number] Name: RAFAEL MAURICE Rep #:[id number] : 1945 76 From: Sergio Mojica MD PCP: GEO VO MD Status:REG ER Location: ED HPI HPI - GI History of Present Illness Chief Complaint: Abd Pain Detail of Chief Complaint: Right upper quadrant pain, history of cholelithiasis Informant: patient Abdominal Pain/Flank Pain Onset: Weeks Context: Sudden Onset Timing: Continuous and Waxes and wanes Quality: Aching and Cramping Location: RUQ Current Severity: Moderate Maximum Severity: Severe Worsened by: Nothing Relieved by: Nothing Nausea/Vomiting/Emesis GI Symptom: Positive for Nausea; Negative for Vomiting Diarrhea/Melena/Hematochezia GI Symptom: Negative for Diarrhea, Melena or Hematochezia Associated Symptoms Associated Symptoms: Negative for Dysuria, Frequency, Hematuria or Urgency Narrative Narrative: Patient presents with right upper quadrant pain. She was scheduled to see Dr. Forbes, general surgeon, today. Her appointment was canceled because of an emergency. She presents because of persistent pain since onset. She was told by staff that she would have to wait 2 weeks. She states she cannot wait 2 weeks. She states no matter what she eats or drinks her pain gets somewhat worse. The pain is never gone away. She does report nausea without vomiting or diarrhea. She denies fever, chills night sweats. Denies change in color of her urine or stool. Denies change in color of her eyes. Records from outside facility were obtained using [facility]. Liver was unremarkable. Common bile duct was 0.4 cm at the hilum. Gallbladder caliber was normal. Stones and sludge were noted. There was no thickening of the gallbladder wall. No evidence of pericholecystic fluid or positive sonographic Burkett sign. There is no right hydronephrosis. There was a 5.2 cm right renal cyst noted. Outside records from [facility] were reviewed. Thiswas the evaluation prior to her gallbladder ultrasound. Concern at time of thatevaluation was that patient had biliary disease. Prior similar symptoms: Yes Recent Illness/Hospitalization: Yes PFSH PFSH Home Medications albuterol sulfate 90 mcg/actuation aerosol inhaler (Ventolin HFA) 2 puff inhalation Q6H PRN PRN COPD 09/23/17 [History Last Taken Unknown] ascorbic acid (vitamin C) 500 mg capsule 500 mg PO DAILY SUPPLEMENT 09/23/17 [History Last Taken Unknown] bupropion HCl 100 mg tablet,12 hr sustained-release (Wellbutrin SR) 100 mg PO BID ANXIETY 09/23/17 [History Last Taken Unknown] cimetidine 200 mg tablet 150 mg PO BID ANTACID 09/23/17 [History Last Taken Unknown] diltiazem HCl 240 mg capsule,extended release 24 hr 240 mg PO DAILY BP 09/23/17 [History Last Taken 10/06/17 04:00 240 MG] fenofibrate nanocrystallized 160 mg tablet (Triglide) 160 mg PO DAILY CHOLESTEROL 09/23/17 [History Last Taken Unknown] fluticasone furoate 100 mcg-vilanterol 25 mcg/dose inhalation powder (Breo Ellipta) 1 ea IH DAILY COPD 09/23/17 [History Last Taken 10/06/17 04:00 1 EACH] npbldifnewc-ymuwvmhfj-djn C-Mn 500 mg-400 mg capsule 1 ea PO DAILY SUPPLEMENT 09/23/17 [History Last Taken Unknown] hyoscyamine sulfate 0.125 mg sublingual tablet 0.125 mg sublingual PRN PRN Irritable Bowel Syndrome 09/23/17 [History Last Taken Unknown] levothyroxine 150 mcg tablet 150 mcg PO DAILY THYROID 09/23/17 [History Last Taken 10/06/17 04:00 150 MCG] loperamide 2 mg capsule (Imodium A-D) 2 mg PO PRN PRN Irritable Bowel Syndrome 09/23/17 [History Last Taken Unknown] losartan 100 mg tablet 100 mg PO QHS BP 09/23/17 [History Last Taken Unknown] magnesium 30 mg tablet 40 mg PO DAILY SUPPLEMENT 09/23/17 [History Last Taken Unknown] metoprolol tartrate 100 mg tablet (Lopressor) 100 mg PO BID BP 09/23/17 [History Last Taken 10/06/17 04:00 100 MG] montelukast 10 mg tablet (Singulair) 10 mg PO DAILY COPD 09/23/17 [History Last Taken Unknown] omega 3-dha 60 mg-epa 90 mg-fish oil 500 mg capsule, delayed release (Fish Oil) 500 mg PO DAILY SUPPLEMENT 09/23/17 [History Last Taken Unknown] potassium 99 mg tablet 99 mg PO DAILY SUPPLEMENT 09/23/17 [History Last Taken Unknown] pravastatin 40 mg tablet 40 mg PO QHS CHOLESTEROL 09/23/17 [History Last Taken Unknown] turmeric root extract 500 mg capsule 500 mg PO DAILY SUPPLEMENT 09/23/17 [History Last Taken Unknown] vitamin B complex 1 ea PO DAILY SUPPLEMENT 09/23/17 [History Last Taken Unknown] vitamin E 670 mg (1,000 unit) capsule 1,000 unit PO DAILY SUPPLEMENT 09/23/17 [History Last Taken Unknown] acetaminophen 500 mg tablet 1,000 mg PO Q8 #90 tabs 10/08/17 [Rx Last Taken Unknown] oxycodone 5 mg tablet 5 - 10 mg PO Q6H PRN PRN Mod-Severe Pain (4-10/10) 7 days #80 tabs 10/08/17 [Rx Last Taken Unknown] oxycodone-acetaminophen 5 mg-325 mg tablet 1 tab PO Q6H PRN PRN pain 5 days #20 TABLETS 05/10/22 [Rx Last Taken Unknown] Allergy/AdvReac Type Severity Reaction Status Date / Time Sulfa (Sulfonamide Allergy Other Verified 09/23/17 14:04 Antibiotics) Social History (Updated 05/10/22 @ 11:[address] Sergio Mojica MD) household members: none Smoking Status: Never smoker substance use type: does not use ROS ROS ED Constitutional Constitutional ED: Denies chills, fever(s), subjective, sweats or weight loss ENT ENT ED: Denies ear pain, rhinorrhea or sore throat Cardiovascular Cardiovascular: Denies chest pain, orthopnea, palpitations, paroxysmal nocturnaldyspnea or racing heartbeat Respiratory/Chest Respiratory/Chest: Denies cough, dyspnea, dyspnea on exertion, orthopnea or paroxysmal nocturnal dyspnea Gastrointestinal Gastrointestinal: Reports abdominal pain and nausea; Denies constipation, diarrhea, melena or vomiting Genitourinary Genitourinary ED: Denies dysuria, hematuria or urinary frequency Musculoskeletal Musculoskeletal: Denies arthralgias, back pain, myalgias or neck pain Integumentary Denies abscess, Abrasions or rash Neurologic Neurologic: Denies paresthesias Psychiatric Psychiatric: Reports depression Endocrine Endocrinology: Denies polydipsia, polyphagia or polyuria EXAM Physical Exam Const Vital Signs: 05/10/22 10:56 05/10/22 12:35 05/10/22 12:35 Temperature 97.2 F L Temperature Source Temporal Pulse Rate 83 Respiratory Rate 16 Blood Pressure 148/96 H Blood Pressure Mean 113 Pulse Ox 97 85 95 Oxygen Delivery Method Room Air Room Air Nasal Cannula Oxygen Flow Rate (L/min) 2 Positive well nourished, well developed and obese Constitutional Narrative: Patient appears uncomfortable. General Appearance ED: well developed; Negative for NAD Nutritional Appearance: obese HEENT Reports TM's clear and moist mucous membranes HEENT Narrative: Posterior pharynx unremarkable. normocephalic and atraumatic Tympanic Membrane ED: Yes TM's clear Eyes PERRL and EOMs intact bilaterally General Eye ED: Negative for pale conjunctiva or scleral icterus Neck no lymphadenopathy, supple and no JVD Resp normal respiratory effort and clear to auscultation bilaterally Cardio regular rate, regular rhythm, S1 normal heart sound, S2 normal heart sound and no murmurs GI no masses; Negative for non-tender Inspection: Negative for abdominal distention Auscultation: hypoactive bowel sounds Palpation: soft, tender RLQ (There is is a positive clinical Burkett sign.) and guarding RUQ; Negative for rigid, hepatomegaly, splenomegaly, hernia, mass, pulsatile mass or rebound tenderness present Back/Spine no CVA tenderness Cervical Spine: Negative for cervical spine tenderness Thoracic Spine / Upper Back: Negative for thoracic spinal tenderness Extremity full ROM General Extremety ED: Negative for edema or tenderness General Extremity: Negative for edema Neuro CN's II-XII intact bilaterally, moves all extremities and no sensory deficits noted Sensorium / Orientation: alert Psych Mood & Affect: depressed Skin no wounds General Skin Exam: Negative for jaundice Lesions: no lesions Rashes: no rashes MDM MDM MDM Narrative Medical decision making narrative: Will obtain blood work and discuss case with surgeon. Patient did receive IV morphine for her pain and IV Zofran for her nausea. If transaminases are elevated will reimage. Lipase was obtained because of possibility of gallstone pancreatitis. Prior records from outside facility were reviewed. Lab Data Attestation: I reviewed the patient's lab results. Lab results narrative: White count is normal. Basic metabolic panel is unremarkable. Liver panel is unremarkable. Lipase is elevated at 577. Lipase is approximate 1.5 times normal. This does not indicate pancreatitis. Because she has multiple stones notedon ultrasound and lipase is now elevated we will obtain ultrasound of the right upper quadrant to assess gallbladder and common bile duct. The common bile ductwas normal on prior ultrasound. Labs: Laboratory Results - last 24 hr 05/10/22 05/10/22 11:25 11:25 WBC 7.3 RBC 4.61 Hgb 14.5 Hct 43.2 MCV 93.7 MCH 31.5 MCHC 33.6 RDW Std Deviation 43.9 RDW Coeff of Duong 12.8 Plt Count 195 MPV 9.0 Immature Gran % (Auto) 0.100 Neut % (Auto) 65.6 Lymph % (Auto) 24.2 [place] % (Auto) 7.5 Eos % (Auto) 1.6 Baso % (Auto) 1.0 Absolute Neuts (auto) 4.8 Absolute Lymphs (auto) 1.77 Nucleated RBC % 0 Sodium 143 Potassium 3.7 Chloride 110 H Carbon Dioxide 27.0 Anion Gap 6 BUN 15 Creatinine 0.78 Estim Creat Clear Calc 45.50 Est GFR (MDRD) Af Amer 92 Est GFR (MDRD) Non-Af 76 BUN/Creatinine Ratio 19.1 Glucose 126 H Calcium 9.3 Total Bilirubin 0.70 Direct Bilirubin 0.24 AST 18 ALT 21 Alkaline Phosphatase 67 Total Protein 7.3 Albumin 3.6 Globulin 3.7 Lipase 577 H Radiography Diagnostic Testing: Clinical Impression(s) from Imaging Studies Gallbladder Ultrasound 05/10/22 12:05 IMPRESSION: Hepatomegaly and diffuse fatty infiltration of the liver. Solitary gallstone with mildly distended gallbladder lumen. Electronically Signed: Boris Carney MD at 13:24 EST , ADDENDUM: 05/10/22 1402 IMPRESSION: undefined Treatment and Re-Evaluation Narrative: Patient was reassessed at 1541. Patient states that she is still having pain. She was informed that her laboratory studies are unremarkable. She was informedthat she has a solitary gallstone. There was fatty infiltration of the liver aswell. There is no evidence of cholecystitis. There is no evidence of pancreatitis. The common bile duct was normal. She was discharged with prescription for pain medicine. She did reschedule to follow-up with surgeon. Discharge Plan Triage Chief Complaint: Abd Pain ED Provider: YuniorSergio Dx/Rx/DC Orders Clinical Impression: Biliary colic, Cholelithiasis, Hypertension, Fatty liver, Elevated lipase Instructions: ED Gallstones with Biliary Colic Prescriptions: New oxycodone-acetaminophen [oxycodone-acetaminophen] 5-325 mg tablet 1 tab PO Q6H PRN PRN (Reason: pain) 5 Days Qty: 20 0RF No Action vitamin E 1,000 UNIT capsule 1,000 unit PO DAILY loperamide [Imodium A-D] 2 MG capsule 2 mg PO PRN PRN (Reason: Irritable Bowel Syndrome) pravastatin 40 MG tablet 40 mg PO QHS metoprolol tartrate [Lopressor] 100 MG tablet 100 mg PO BID diltiazem HCl 240 MG capsule,extended release 24hr 240 mg PO DAILY bupropion HCl [Wellbutrin SR] 100 MG tablet sustained-release 12 hr 100 mg PO BID potassium 99 MG tablet 99 mg PO DAILY cimetidine 200 MG tablet 150 mg PO BID hyoscyamine sulfate 0.125 MG tablet, sublingual 0.125 mg sublingual PRN PRN (Reason: Irritable Bowel Syndrome) levothyroxine 150 MCG tablet 150 mcg PO DAILY montelukast [Singulair] 10 MG tablet 10 mg PO DAILY albuterol sulfate [Ventolin HFA] 1 INHALER inhaler 2 puff inhalation Q6H PRN PRN (Reason: COPD) losartan 100 MG tablet 100 mg PO QHS magnesium 30 MG tablet 40 mg PO DAILY vitamin B complex 1 EACH capsule 1 ea PO DAILY gbahwmksxht-zvklujezw-vjg C-Mn 1 EACH capsule 1 ea PO DAILY omega 8-hud-dks-fish oil [Fish Oil] 500 MG capsule,delayed release(DR/EC) 500 mg PO DAILY fenofibrate nanocrystallized [Triglide] 160 MG tablet 160 mg PO DAILY turmeric root extract 500 MG capsule 500 mg PO DAILY fluticasone furoate-vilanterol [Breo Ellipta] 1 EACH blister with device 1 ea IH DAILY ascorbic acid (vitamin C) 500 MG capsule 500 mg PO DAILY acetaminophen 500 MG tablet 1,000 mg PO Q8 Qty: 90 0RF oxycodone 5 MG tablet 5 - 10 mg PO Q6H PRN PRN (Reason: Mod-Severe Pain (4-1010)) 7 Days Qty: 80 0RF Primary Care Provider: GEO VO Referrals: GEO VO MD [Primary Care Provider] - Andrew Forbes MD [[facility] Staff - Active Staff] - Keep [facility] appointment Disposition Disposition: Home, Self Care What to do if you have Problems For any increased pain, shortness of breath, bleeding, nausea or vomiting, chestpain, or any unexpected problems, contact your Primary Care Provider. Call [facility] ([phone]) or report to the closest Emergency Room. Call 911 if necessary. 05/10/22 5900 <Electronically signed by Sergio Mojica MD> Cosigner Signature (if applicable): CC: GEO VO MD ~ Signed [facility] Work Phone: 1(421) 924-285301-30-2023 Hospital Discharge instructions Patient Education 04/22/2022 17:38:38 Back Exercises, [...] floor and hold for up to 5 seconds.Repeat 10 times on each side. Standin. Wall squats: Stand with your back against the wall. Move your feet about 12 inches away from thewall. Tighten your stomach muscles, and slowly bend [...] knees. At the same time, raise and straightenyour right arm and left leg until they are parallel to the ground. Hold for 2 seconds and come backslowly to a starting position. Repeat with left [...] both legs a few inches off the floorat the same time. Hold for 5 seconds [...] the ground (this is not a full sit- up). Keep your head in line with your body (don t bend your neck forward). Hold for 2 seconds, then slowly lower. [id number] [employer] [address] [place] [address], [place] [address]. All rights reserved. This information is not intended as a substitute for professional medical care. Always follow yourhealthcare professional's instructions. Follow Up Care 04/22/2022 14:25:40 With:GEO VO MD, Internal Medicine Address: [address] [place] [address] When:2-4 days [facility] 01-30-2023 Note ORIGINAL EXAMINATION: THREE XRAY VIEWS OF THE LUMBAR SPINE 04/22/2022 5:07 pm COMPARISON: None. HISTORY: ORDERING SYSTEM PROVIDED HISTORY: Reason for Exam: Lower back pain 2 weeks FINDINGS: There are 5 htp-zjt-tydzopv lumbar type vertebral bodies. The 12th ribs [...] 04/22/2022 6:55:43 PM Ordering Provider: MELITA COYLE [facility]01-30-2023 Note Discharge Instructions Thank you for allowing [facility] to assist you with your healthcare needs. The following is importantdischarge information regarding your hospital visit. Diagnosis from [...] Schedule the Following Appointments Follow Up with GEO VO MD, Internal Medicine When Within 2-4 days Where: [address] [place] [address] Allergies sulfa drug Medications Please ask your primary doctor or pharmacist before taking any other medication not listed, including over the counter drugs, herbal medications, vitamins and or supplements as they may interact withyour home medications. What How Much When Instructions [...] floor and hold for up to 5 seconds.Repeat 10 times on each side. Standin. Wall squats: Stand with your back against the wall. Move your feet about 12 inches away from thewall. Tighten your stomach muscles, and slowly bend [...] knees. At the same time, raise and straightenyour right arm and left leg until they are parallel to the ground. Hold for 2 seconds and come backslowly to a starting position. Repeat with left [...] both legs a few inches off the floorat the same time. Hold for 5 seconds [...] the ground (this is not a full sit- up). Keep your head in line with your body (don t bend your neck forward). Hold for 2 seconds, then slowly lower. [id number] [employer] [address] [place] [address]. All rights reserved. This information is not intended as a substitute for professional medical care. Always follow yourhealthcare professional's instructions. Additional Information VACCINATE! IT SAVES LIVES! Members of the community who have not yet received the COVID-19 vaccine and would like to receive it can visit one of [facility] vaccine clinics. There are many vaccine clinic locations within the [facility]. For locations and available times, please visit [email or web address]. It is important to note that some COVID mobile vaccine clinics are held outdoors and may be canceled in rainy orstormy conditions. To learn more about pediatric vaccinations (ages 5-11), we invite you to visit the [facility] webpage. [email or web address] learn more about the COVID-19 vaccine, we invite you to visit the [facility] website for a list of frequently asked questions. [email or web address] [facility] Patient Portal Access Instructions: Stay connected with your healthcare team and access your personal medical information anytime with the [facility] Patient Portal. If you would like a full copy of your medical records please contact the [facility] Medical Records Department Friday through Friday between 8a.m. and 4:30p.m. Please follow the directions below to access the portal: 1.Access the email account you provided upon registration to the hospital.2.Look for an invitation email from [facility].3.Open the email and access the invitation link: Accept Invitation to [facility]4.Fill in the required manning to create your account. Sign into [email or web address] with your username and password that you [...] you will allow to register on the [facility] Patient Portal for access to your information. You can also access the [facility] Patient Portal on the [employer]. Simply click on "Health Records" under "HealthData" and then click on the [facility] logo. HOW TO SAFELY DISPOSE OF PRESCRIPTION MEDICATIONS Please use one of the following methods to safely dispose of your unused medications. 1.Use a drug disposal kit: the drug disposal pouch allows you to safely discard your old and unuseddrugs. Ask your nurse to give you one when you are discharged.2.Visit a local take-back location: Many local pharmacies and police departments have programs that collect old and unwanted prescriptiondrugs. Call your local pharmacy or go to http://bit.ly/8T1Ez7d to find one close to you.3.Make use of household items: Use cat litter or old coffee grounds to dispose medications if other options arenot available. Mix your drugs with these household products, seal them in an airtight container andthrow it into the garbage. Call [facility]: [phone] to be sure your drugs can be [...] drowsiness, such as benzodiazepines, also known as benzos,including diazepam and alprazolam, muscle relaxants or sleep aids. Never sell or share prescriptionopioids. This is illegal. Store opioids in a [...] questions, I am aware that I should contactmy doctor. 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 HISTORY: ORDERING SYSTEM PROVIDED HISTORY: Reason for Exam: Lower back pain 2 weeks FINDINGS: There are 5 vxa-orm-cjschtl lumbar type vertebral bodies. The 12th ribs [...] Sign Date: 04/22/2022 6:55:43 PM Ordering Provider: [facility]12-28-2022 Miscellaneous Notes* Telephone Encounter - Jeanine Dunne LPN - 03/20/2022 4:32 PM EST Script was filled in September for 1 year Jeanine Dunne LPN March 20, 2022 4:33 PM [facility] Note ORIGINAL EXAMINATION: TWO XRAY VIEWS OF [...] Sign Date: 02/04/2022 3:30:02 PM Ordering Provider: LINCOLN ORR [facility]11-14-2022 Note ORIGINAL EXAMINATION: TWO XRAY VIEWS OF [...] Sign Date: 02/04/2022 3:30:02 PM Ordering Provider: [facility]09-16-2022 Evaluation + Plan note Diagnostic Tests Pending * Microalbumin Level Urine 12/07/21 [facility] 08-25-2022 History of Present illness Narrative* Jeimy Patricio RN - 11/15/2021 9:43 AM EDT Pt to PACU phase 1 via cart with MICROPHONE OPERATOR. Pt responds to name. No c/o pain. IV infusing without diff-site without redness or edema. Belongings with pt. * Jeimy Patricio RN - 11/15/2021 9:43 AM EDT Cotton pieces in ear-no drainage noted. * Analilia Grayson RN - 11/15/2021 7:[address] Hunter made aware of current blood sugar and that pt finished taking steroids on 11/10/21. No new orders received at this time. documented in this [facility] Work Phone: [phone]) 249-402708-25-2022 Hospital Discharge instructions* Discharge Instructions* Delmer Shearer DO - 11/15/2021 8:57 AM EDT Post-Op Care for your Ear Tubes Dr. Delmer Shearer 1. Ear tubes help protect from ear infections, middle-ear fluid (liquid behind the eardrum), and the hearing problems that go along with them. Most tubes last about 6 to 18 months, allowing time for patient to "outgrow" their ear problems. Most tubes fall out [...] if needed, as are special neoprene headbands tocover the ears. Never use Playdoh or Silly [...] or concerns please contact our office at: [phone] IF YOU HAVE AN EMERGENCY, AND ARE UNABLE TO REACH THE DOCTOR AT THE ABOVE NUMBER, CALL OR GO TO [facility] EMERGENCY ROOM [phone] documented in this [facility] Work Phone: [phone]) 116-381607-11-2022 Miscellaneous Notes* Telephone Encounter - Chiara Bailey LPN - 10/01/2021 11:01 AM EDT Rx mail pharmacy faxed requesting the following refill. Pending Prescriptions Disp Refills BUPROPION HCL 100 MG TABLET 90 tablet 3 Sig: Take 1 tablet by mouth twice daily. NAM: No FENOFIBRATE 160 MG TABLET 90 tablet 3 Sig: Take 1 tablet by mouth once daily. NAM: No Patient last appointment: 09/28/2021 Patient Phone numbers: [phone] (home) Request is for script(s) to be escript to pharmacy. Chiara Bailey LPN documented [facility] + [facility] note No data available for this section [facility] Evaluation + Plan note Future Appointments Appointment Date:04/25/2022 02:00:00 PM Scheduled Provider: Location:[facility] Appointment Type:US Renal Future Scheduled Tests Radiology* US Renal 04/25/22 [facility] Evaluation + Plan note Future Appointments [facility] Evaluation + Plan note Future Appointments Appointment Date:12/17/2023 10:00:00 AM Scheduled Provider: Location:TY Appointment Type:PT [facility] Appointment Date:12/24/2023 01:00:00 PM Scheduled Provider: Location:TY Appointment Type:PT [facility] Evaluation + Plan note Future Appointments Appointment Date:02/20/2024 02:00:00 PM Scheduled Provider: Location:TY Appointment Type:PT [facility] Appointment Date:02/23/2024 04:00:00 PM Scheduled Provider: Location:TY Appointment Type:PT [facility] Appointment Date:02/26/2024 10:00:00 AM Scheduled Provider: Location:[facility] Appointment Type:PT [facility] Appointment Date:03/02/2024 02:30:00 PM Scheduled Provider: Location:TY Appointment Type:PT [facility] Appointment Date:03/05/2024 10:00:00 AM Scheduled Provider: Location:TY Appointment Type:PT [facility] evaluation noteNo assessment information available [facility] Work Phone: evaluation note* Diagnosis Onset Date Resolution Status Abdominal pain acute Cholelithiasis acute [facility] Work Phone: evaluation note* Diagnosis Onset Date Resolution Status Abdominal pain acute Cholelithiasis acute Bile reflux gastritis acute Biliary dyskinesia acute Diarrhea in adult patient ac shemar Symptomatic cholelithiasis a cute Umbilical hernia without obs truction and without gangrene acute [facility] Work Phone: evaluation note* Diagnosis Onset Date Resolution Status Diarrhea chronic Encounter for screening colonoscopy chronic [facility] Work Phone: Evaluation note* Diagnosis Onset Date Resolution Status Diarrhea chronic Encounter for screening colonoscopy chronic Abn react-fluid aspirat acut e Contact with or exposure to other viral diseases acute COPD with exacerbation chron [facility] Work Phone: Evaluation note* Diagnosis Onset Date Resolution Status Abn react-fluid aspirat acut e Contact with or exposure to other viral diseases acute COPD with exacerbation [facility] Work Phone: History and physical note Author Dr. Forbes [facility] 2022 12:41pm Note Date/Time 2022 12:4 1pm [facility] Medical Records Department [address] [place] [id number] History & Physical Exam 05/27/22 1240 MR#: [id number] Acct: [id number] Name: RAFAEL MAURICE Rep #:[id number] : 1945 77 From: Andrew Hancock PCP: GEO VO MD Status:[place] [facility] [place]: [place] [address] History and Physical Date of Admission: 05/27/22 Date of Service:? 05/20/22 MR#: [id number] Acct: [id number] Name:? JIMENA MAURICEMARKUS PEREZ Rep #: [id number] : 1945 ? ? Provider: Dr. Andrew Forbes MD Age/Sex:? 76/F ? ? Location: [facility] Status: Signed Intake Vital Signs ? 05/10/2309:56 05/20/2308:49 Height 5 ft 6 in 5 ft 2 in Weight: 191 lb 187 lb BMI 30.8 34.2 BP 148/96 H 154/73 H Blood Pressure Location ? Rt brachial Position ? Sitting Respiration 16 17 Pulse 83 80 Pulse Source ? Monitor Temp 97.2 F L 97.6 F L Temp Source Temporal Temporal Pulse Oximetry (%) 97 93 Oxygen Delivery Method ? room air Intake Visit Reasons:?Gall Stones Chief Complaint: Gallstones Handbag Frames Inspector Required: No Is patient in pain?: Yes Allergies Sulfa (Sulfonamide Antibiotics) Allergy (Verified 05/20/22 09:50) Rash Medications albuterol sulfate 90 mcg/actuation aerosol inhaler (Ventolin HFA) 2 puff inhalation Q6H PRN PRN COPD 09/23/17 [History Confirmed 05/20/22] ascorbic acid (vitamin C) 500 mg capsule 500 mg PO DAILY SUPPLEMENT 09/23/17 [History Confirmed 05/20/22] bupropion HCl 100 mg tablet,12 hr sustained-release (Wellbutrin SR) 100 mg PO BID ANXIETY 09/23/17 [History Confirmed 05/20/22] cimetidine 200 mg tablet 150 mg PO BID ANTACID 09/23/17 [History Confirmed 05/20/22] fenofibrate nanocrystallized 160 mg tablet (Triglide) 160 mg PO DAILY CHOLESTEROL 09/23/17 [History Confirmed 05/20/22] fluticasone furoate 100 mcg-vilanterol 25 mcg/dose inhalation powder (Breo Ellipta) 1 ea IH DAILY COPD 09/23/17 [History Confirmed 05/20/22] nnjolpspick-ncjeeoosb-dhx C-Mn 500 mg-400 mg capsule 1 ea PO DAILY SUPPLEMENT 09/23/17 [History Confirmed 05/20/22] hyoscyamine sulfate 0.125 mg sublingual tablet 0.125 mg sublingual PRN PRN Irritable Bowel Syndrome 09/23/17 [History Confirmed 05/20/22] loperamide 2 mg capsule (Imodium A-D) 2 mg PO PRN PRN Irritable Bowel Syndrome 09/23/17 [History Confirmed 05/20/22] losartan 100 mg tablet 100 mg PO QHS BP 09/23/17 [History Confirmed 05/20/22] magnesium 30 mg tablet 40 mg PO DAILY SUPPLEMENT 09/23/17 [History Confirmed 05/20/22] montelukast 10 mg tablet (Singulair) 10 mg PO DAILY COPD 09/23/17 [History Confirmed 05/20/22] omega 3-dha 60 mg-epa 90 mg-fish oil 500 mg capsule, delayed release (Fish Oil) 500 mg PO DAILY SUPPLEMENT 09/23/17 [History Confirmed 05/20/22] pravastatin 40 mg tablet 40 mg PO QHS CHOLESTEROL 09/23/17 [History Confirmed 05/20/22] vitamin B complex 1 ea PO DAILY SUPPLEMENT 09/23/17 [History Confirmed 05/20/22] acetaminophen 500 mg tablet 1,000 mg PO Q8 #90 tabs 10/08/17 [Rx Confirmed 05/20/22] aspirin 81 mg chewable tablet 81 mg PO DAILY 05/20/22 [History Confirmed 05/20/22] azelastine 137 mcg (0.1 %) nasal spray aerosol 2 spray intranasal BID 05/20/22 [History Confirmed 05/20/22] cholecalciferol (vitamin D3) 50 mcg (2,000 unit) capsule 150 mcg PO DAILY 05/20/22 [History Confirmed 05/20/22] cinnamon bark 500 mg capsule (Cinnamon) 1,000 mg PO BID 05/20/22 [History Confirmed 05/20/22] fluticasone fur. 100 mcg-umeclid 62.5 mcg-vilant 25 mcg inhalat.powder (Trelegy Ellipta) 1 inh inhalation DAILY 05/20/22 [History Confirmed 05/20/22] guaifenesin 600 mg tablet, extended release 12 hr (Mucinex) 1,200 mg PO DAILY 05/20/22 [History Confirmed 05/20/22] hydralazine 50 mg tablet 25 mg PO TID 05/20/22 [History Confirmed 05/20/22] levocetirizine 5 mg tablet 5 mg PO DAILY 05/20/22 [History Confirmed 05/20/22] levothyroxine 150 mcg tablet 175 mcg PO DAILY THYROID 05/20/22 [History Confirmed 05/20/22] metformin 500 mg tablet 500 mg PO DAILY 05/20/22 [History Confirmed 05/20/22] metoprolol tartrate 100 mg tablet (Lopressor) 50 mg PO BID BP 05/20/22 [History Confirmed 05/20/22] mirtazapine 15 mg tablet 15 mg PO DAILY 05/20/22 [History Confirmed 05/20/22] omeprazole 20 mg capsule,delayed release 20 mg PO DAILY #30 caps 05/20/22 [Rx Confirmed 05/20/22] potassium chloride 10 mEq tablet,extended release 10 meq PO DAILY 05/20/22 [History Confirmed 05/20/22] vitamin E 670 mg (1,000 unit) capsule 670 mg PO DAILY SUPPLEMENT 05/20/22 [History Confirmed 05/20/22] zinc 50 mg tablet 50 mg PO DAILY 05/20/22 [History Confirmed 05/20/22] PFSH Medical History?(Updated 05/20/22 @ 18:[address] Andrew Forbes MD) Adhesion, postoperative Hemorrhoids History of back problems History of ovarian cyst History of rheumatic fever Surgical History?(Updated 05/20/22 @ 09:44 by Ayse Friday) History of appendectomy History of cardiac cath History of carpal tunnel repair History of D&C History of hysterectomy History of left knee replacement History of ovarian cystectomy History of placement of ear tubes History of thyroidectomy Hx of tonsillectomy Family History?(Updated 05/20/22 @ 09:45 by Ayse Friday) Sister Breast cancer HypertensionMother Cancer ?? ? pancreatic HypertensionAunt DiabetesGrandfather Hypertension CVA (cerebral vascular accident)Grandmother Hypertension Social History?(Updated 05/20/22 @ 09:49 by Ayse Friday) household members:? none Smoking Status:? Current every day smoker tobacco type: cigarettes Smoking packsper day: 0.5 Smoking cigarettes per day: 10.0 alcohol intake:? never substance use type:? does not use HPI HPI HPI: Patient is a 76-year-old female who presents for diagnosis of cholelithiasis.? They are referred for surgical consultation from emergency medicine.? Patient presents today with her daughter who is a nurse practitioner locally.? Pain is described as hurting all the time, but punctuated with "sudden sharp pains".? She reports that this pain radiates from back to front.? Symptoms have been present for at least 1.5 months.? She states that she was initially seen at [facility] where she was directed to follow-up with her PCP and administered some naproxen.? On presenting to her PCP there is a suspicion of kidney stones and she underwent renal ultrasound 04/26/2022 but this was negative.? Ultrasound of the gallbladder, however revealed sludge and gallstones.? At this time she was referred to our office, but we had to cancel her initial visit on 05/10/2022 due to emergency operation.? That same day patient states that her pain became intolerable and she presented to our emergency room.? At that visit she had her right upper quadrant ultrasound repeated and this was stable.? She also had no concerning laboratories (daughterreports that patient's lipase was mildly elevated but not consistent with pancreatitis?Per chart it was 577) and she was thus discharged with a recommendation to keep to a liquid diet.? Patient states that she was compliant with this recommendation, but did not notice any difference in her pain symptomsafter 3 to 4 days.? Symptoms are not associated with eating.? Patient denies anyassociated nausea, vomiting, fevers, or chills.? Because of this discomfort, and"feeling full all the time" she has experienced some weight loss. In addition to the above, patient complains of uncomfortable bloating that prevents her from sitting on her right side.? She denies any history or present complaint of heartburn or reflux.? She has had no swallowing difficulties.? She confirms a history of screening colonoscopy with Dr. Cooper.? She reports this scope was performed 3 years ago and she was given a 5-year follow-up.? Her daughter recalls a history of adenomatous polyps. Previous work-up has included: Right upper quadrant ultrasound (as above on 05/10/2022.? This identified hepatomegaly and diffuse fatty liver infiltration.? Radiology also identified a solitary gallstone measuring 1.3 cm with mildly distended gallbladder lumen.? Gallbladder wall measures 2 mm.? Common bile duct diameter measured 5 mm. ROS General General: Yes weight change and fatigue; No appetite, colon cancer, breast cancer or weakness HEENT HEENT: Yes swollen glands; No difficulty swallowing, eye injury, eye surgery or hoarseness Endo Endocrine: Yes thyroid disease and diabetes mellitus; No thyroid cancer, Hair loss, heat intolerance or cold intolerance Skin Skin: No rash or changing moles Musc Musculoskeletal: Yes back problems and arthritis; No rheumatoid arthritis, gout or joint pain Cardio Cardiovascular: Yes high blood pressure; No murmur, pacemaker, heart disease, atrial fibrillation, heart attack, heart stent, palpitations, shortness of breat with exertion or chest pain Psych Psychiatric: No depression, anxiety or hearing voices Resp Respiratory: Yes shortness of breath, Yes sleep apnea, Yes cough, Yes COPD, No asthma, No emphysema and No wheezing Gastro Gastrointestinal: Yes abdominal pain, No nausea or vomiting, No diarrhea, No constipation, No blood in stool, No acid reflux, Yes hemorrhoids, No ulcers, No gallbladder problem and No black,tarry stools Hebert Hematologic: No blood thinners, No blood disorders, No bleeding, No anemia and No blood clots Neuro Neurologic: No system reviewed and no additional complaints, except as documented, No as per HPI, No abnormal gait, No abnormal hearing, No abnormal movements, No abnormal speech, No behavioral changes, No burning sensations, No confusion, No convulsions, No disequilibrium, No dizziness, No localized weakness, No frequent falls, No headache(s), No lack of coordination, No loss ofvision, No memory loss, No numbness, No other visual disturbances, No radicular pain, No restless legs, No sensory deficit, No syncope, No tingling, No tremor(s), No weakness and No other Exam Const General: cooperative Other: Frustrated Resp Effort & Inspection: normal respiratory effort Auscultation: no rales, no rhonchi and no wheezes Cardio Rate: regular rate Rhythm: regular rhythm GI Other: Mildly distended, soft, tender to palpation in the right upper quadrant and epigastrium.? Patient's tenderness is not consistent as she reports differing degrees of intensity with repeat exam.? Burkett sign is negative. Musc Thoracic/Lumbar Spine: paraspinal tenderness on the right (Patient reports significant lower thoracic tenderness right about the level of the costovertebral angle and extending anteriorly) in the lower thoracic Assessment and Plan Assessment and Plan (1) Abdominal pain: ?Status:?Acute ?Comment: Is a 76-year-old female, with numerous comorbidities and moderately extensive past surgical history, who presents for complaints of constant right upper quadrant abdominal discomfort.? Her full history is given in HPI, but is not consistent with a classic description of biliary colic/symptomatic cholelithiasis.? Important differences include origination posteriorly and radiation than anteriorly as well as no postprandial effect or any associated nausea and vomiting.? With exam, patient's pain is partially reproduced with palpation along the paraspinal tissues in the lower thoracic region.? With this history and exam my differential includes gastritis, peptic ulcer disease, radiculopathy, chronic cholecystitis.? Given patient's extensive past surgical history and the atypical history for this complaint, I would like to proceed with further work-up of this differential.? I have recommended initiation of PPI, scheduling diagnostic EGD, obtaining HIDA imaging, and that patient reestablishes contact with her spine doctor.? Patient and her daughter expressed appreciation for this recommendation and states they see the merit in further evaluation before proceeding with surgery. ?Plan: ? Omeprazole 20 mg daily ? Diagnostic EGD ? HIDA imaging ? Patient referred back to spine/pain doctor given radiating pain from her back (2) Cholelithiasis: ?Status:?Acute ?Comment: Patient with evidence of cholelithiasis and sludge on recent gallbladder imaging.? However, her story is not typical for biliary colic or symptomatic lithiasis.? Weighing this against her extensive surgical/medical history, I haveproposed the above work-up for further evaluation.? As part of this I would liketo obtain a HIDA scan to assess for possible chronic cholecystitis.? Given the large size of her solitary gallstone, I do not believe that it would be at significant risk for becoming lodged within the biliary tract.? I have also informed patient and her daughter, that if we proceeded with surgery rather thandoing further work-up and we did not help with her discomfort, we could instead exacerbate her issues with chronic diarrhea. ?Plan: ? HIDA imaging as above I have examined the patient and the H&P has been reviewed. There are no clinicalchanges since date of exam. Procedure was described in brief, again, and I alsoreminded both patient and her daughter of Sveta may expect biopsy results. Neither has any questions so we will proceed to the endoscopy suite for diagnostic EGD as discussed above. 05/27/22 1241 <Electronically signed by Andrew Forbes MD> Cosigner Signature (if applicable): CC: Dr. Andrew Forbes MD; GEO VO MD~ Signed [facility] Work Phone: History and physical note Author Maverick Friend [facility] January 23, 2023 8:25am Note Date/Time January 23, 2023 8 :25am [facility] Medical Records Department [address] [place] [address] History & Physical Exam 01/23/23 0825 MR#: [id number] Acct: [id number] Name: RAFAEL MAURICE Rep #:[id number] : 1945 77 From: Maverick Rust DO PCP: GEO VO MD Status:[facility] Location: [place] [address] History and Physical Date of Admission: 01/23/23 [facility] ED 05.10.22 with persistent RUQ abd pain. She was to establish with Dr. Wilkerson but had to cancel and couldn?t wait the two weeks to get OV and presented to ED. ? Biochemical CBC, CMP, LFT WNL.??? Lipase H577 ? US RUQ hepatomegaly 23.6cm with fatty infiltration; solitary gallstone with Burkett?s sign +; [facility] Dr. Forbes established 05.20.22 for previously diagnosed cholelithiasis. PCP r/o renal stones. ? EGD 05.27.22 nodular duodenal bulb; multiple fundic gland polyps; mucosal nodule in esophagus; small hiatal hernia. No specimens collected. [facility] ED presentation 06.22.22 with diffuse abdominal pain/cramping with reports of previously noted gallstone. Workup not concerning for acute finding and discharged with instruction to f/u with [facility]. ? US RUQ hepatomegaly 17cm with fatty infiltration; solitary gallstone, muprhy?s sign negative. ? CT abd/pel hepatomegaly with diffuse enlargement; solitary gallstone, gallbladder dilated 56mm; calcified granulomata of spleen; renal cysts [facility] OV 4.07.14 with recommendation of lap cholecystectomy. ? Laparoscopic cholecystectomy 07.08.22 performed without complication. Pathology chronic cholecystitis and cholelithiasis. [facility] OV 07.19.22 with symptom resolution. Notes need for screening colonoscopy forwhich records will be obtained. *BGI established 08.05.22 with continued resolution of abdominal pain. Need for screening colonoscopy requiring submucosal lift. ? Biochemical CBC, ESR, CMP, LFT, LDH, GAME, CHAPARRO comp, ANCA, GAME, celiac, IBD, without pertinent abnormality. ? CRP H14.90 ? RAST equivocal/low shrimp ? Stool calprotectin, elastase, lactoferrin, c.difficile (formed), blood WNL. Total fats increased. Contact, portal 08.13.22 with results and asking after symptoms. OV 12.06.22 feels she is doing approximately the same as previously. Cholestyramine is being taken QOD as directed by Dr. Forbes following cholecystectomy, on days without cholestyramine she is having significant loose stools. Last colonoscopy 5years prior with Dr. Cooper which she reports for severe diverticulosis and a concerning area that received ablation which Dr. Cooper felt was abnormal r/t NSAID use; this is not the first ablation episode.RAFAEL MAURICE, is a 77 F who presents to the office today for ROS Const Constitutional: No fatigue, fever(s), frequent falls, headache(s) or weight change ENT ENT: No headache(s) or difficulty swallowing Cardio Cardiology: No leg pain with exertion Gastro GI: Positive for bloating and diarrhea; No abdominal pain, change in bowel habits, constipation, heartburn, difficulty swallowing, Vomiting blood/hematemesis, Blood in stool, nausea/dyspepsia or vomiting Musc Musculoskeletal: Positive for back pain, stiffness, Arthritis and sciatica; No abnormal gait, joint pain, joint swelling, muscle cramps, muscle weakness, numbness, tingling, leg pain at night or leg pain with exertion Skin Skin: No dry skin, lesions, itchy eyes or rash Neuro Neurology: No abnormal gait, dizziness, frequent falls, headache(s), numbness, tingling, tremor(s), Increased tone in limbs, paralysis or seizures Psych Psychiatric: No anxiety, No depression, No paranoia, No Behavioral Problems, No Compulsive Behavior, No hyperactivity, No inattentiveness, No obsessions/compulsions, No Temper Tantrums and No suicidal ideation Endo Endocrine: No fatigue or weight change Aller/Imm Allergy/Immunologic: No itchy eyes Hebert/Lymp Hematologic/Lymphatic: No easy bleeding or easy bruising Exam Const General: cooperative and comfortable Nutritional Appearance: average body habitus and well nourished [facility] Head: normal to inspection Ears: hearing grossly normal bilaterally Nose: external nose normal Face and sinus: normal facial exam Mouth: oral mucosae normal Throat: posterior oropharynx normal Eyes General: appearance normal, both eyes and all related structures Neck Neck: normal visual inspection Chest Chest palpation & inspection: normal inspection of the chest and normal palpation of entire chest wall Resp Effort & Inspection: normal respiratory effort Auscultation: Bilateral: Clear to Auscultation Cardio Palpation: normal PMI Rate: regular rate Rhythm: regular rhythm GI Inspection: normal to inspection Auscultation: normal bowel sounds Percussion: normal to percussion Palpation: no hepatosplenomegaly Skin General: no rashes or lesions noted Neuro General: patient alert Extrem General: normal to inspection Psych Affect: normal affect Quality Reporting Tobacco Screening ([facility] 138) Smoking Status: Current every day smoker Assessment and Plan Assessment and Plan (1) Diarrhea: Status: Chronic Plan: The patient had is doing better After getting her gallbladder removed., She is taking medication well for underlying diseases such as hypertension and diabetes. Diarrhea occurred for years and she was diagnosed with IBS with diarrhea. Prior to her getting Diarrhea was watery, 4 to 5 times a day, even at night, and mild diffuse abdominal pain was accompanied without tenderness. She had no known allergies and had no history of ingestion of contaminated foods or raw meats. She did not take any new medications. The exact etiology of chronic diarrhea is quite broad as there are many different causes. ?Any process which causes increased water into the stool can produce diarrhea. These typically categorize into inflammatory and secretory diarrhea. We will perform a work-up to see if she has a secretory ,osmotic or inflammatory diarrhea. We will get stool studies to look for diseases such as exocrine pancreatic insufficiency by checking fecal, tryptase and fecal elastase. We will also look for inflammatory bowel disease with an IBD SGI. She does have significant diverticular disease which is a component to bacterialovergrowth. She is doing fairly well with cholestyramine every other day and Imodium along with Bentyl on a daily basis. Since she is only taking the cholestyramine every other day I will switch her to colestipol twice a day. Meredithchaitanya give us a follow-up phone call with a progress update. (2) Encounter for screening colonoscopy: Status: Chronic I have examined the patient and the H&P has been reviewed. There are no clinicalchanges since date of exam. 01/23/23 3417 <Electronically signed by Maverick Rust DO> Cosigner Signature (if applicable): CC: GEO VO MD; Maverick Rust DO~ Signed [facility] Work Phone: History and physical note Author Maverick Friend [facility] July 23, 2023 7:19am Note Date/Time July 23, 2023 7:19am [facility] Medical Records Department [address] [place] [address] History & Physical Exam 07/23/23718 MR#: [id number] Acct: [id number] Name: RAFAEL MAURICE Rep #:[id number] : 1945 78 From: Maverick Friend PCP: GEO VO MD Status:[place] [facility] [place] [address] History and Physical Date of Admission: 07/23/23 [facility] ED 05.10.22 with persistent RUQ abd pain. She was to establish with Dr. Oscar rm but had to cancel and couldn?t wait the two weeks to get OV and presented to ED. ? Biochemical CBC, CMP, LFT WNL.??? Lipase H577 ? US RUQ hepatomegaly 23.6cm with fatty infiltration; solitary gallstone with Burkett?s sign +; [facility] Dr. Forbes established 05.20.22 for previously diagnosed cholelithiasis. PCP r/o renal stones. ? EGD 05.27.22 nodular duodenal bulb; multiple fundic gland polyps; mucosal nodule in esophagus; small hiatal hernia. No specimens collected. [facility] ED presentation 06.22.22 with diffuse abdominal pain/cramping with reports of previously noted gallstone. Workup not concerning for acute finding and discharged with instruction to f/u with [facility]. ? US RUQ hepatomegaly 17cm with fatty infiltration; solitary gallstone, muprhy?s sign negative. ? CT abd/pel hepatomegaly with diffuse enlargement; solitary gallstone, gallbladder dilated 56mm; calcified granulomata of spleen; renal cysts [facility] OV .07.14 with recommendation of lap cholecystectomy. ? Laparoscopic cholecystectomy 07.08.22 performed without complication. Pathology chronic cholecystitis and cholelithiasis. [facility] OV 07.19.22 with symptom resolution. Notes need for screening colonoscopy forwhich records will be obtained. *BGI established 08.05.22 with continued resolution of abdominal pain. Need for screening colonoscopy requiring submucosal lift. ? Biochemical CBC, ESR, CMP, LFT, LDH, GAME, CHAPARRO comp, ANCA, GAME, celiac, IBD, without pertinent abnormality. ? CRP H14.90 ? RAST equivocal/low shrimp ? Stool calprotectin, elastase, lactoferrin, c.difficile (formed), blood WNL. Total fats increased. Contact, portal 08.13.22 with results and asking after symptoms. OV 12.06.22 feels she is doing approximately the same as previously. Cholestyramine is being taken QOD as directed by Dr. Forbes following cholecystectomy, on days without cholestyramine she is having significant loose stools. Last colonoscopy 5years prior with Dr. Cooper which she reports for severe diverticulosis and a concerning area that received ablation which Dr. Cooper felt was abnormal r/t NSAID use; this is not the first ablation episode.RAFAEL MAURICE, is a 77 F who presents to the office today for ROS Const Constitutional: No fatigue, fever(s), frequent falls, headache(s) or weight change ENT ENT: No headache(s) or difficulty swallowing Cardio Cardiology: No leg pain with exertion Gastro GI: Positive for bloating and diarrhea; No abdominal pain, change in bowel habits, constipation, heartburn, difficulty swallowing, Vomiting blood/hematemesis, Blood in stool, nausea/dyspepsia or vomiting Musc Musculoskeletal: Positive for back pain, stiffness, Arthritis and sciatica; No abnormal gait, joint pain, joint swelling, muscle cramps, muscle weakness, numbness, tingling, leg pain at night or leg pain with exertion Skin Skin: No dry skin, lesions, itchy eyes or rash Neuro Neurology: No abnormal gait, dizziness, frequent falls, headache(s), numbness, tingling, tremor(s), Increased tone in limbs, paralysis or seizures Psych Psychiatric: No anxiety, No depression, No paranoia, No Behavioral Problems, No Compulsive Behavior, No hyperactivity, No inattentiveness, No obsessions/compulsions, No Temper Tantrums and No suicidal ideation Endo Endocrine: No fatigue or weight change Aller/Imm Allergy/Immunologic: No itchy eyes Hebert/Lymp Hematologic/Lymphatic: No easy bleeding or easy bruising Exam Const General: cooperative and comfortable Nutritional Appearance: average body habitus and well nourished HENMT Head: normal to inspection Ears: hearing grossly normal bilaterally Nose: external nose normal Face and sinus: normal facial exam Mouth: oral mucosae normal Throat: posterior oropharynx normal Eyes General: appearance normal, both eyes and all related structures Neck Neck: normal visual inspection Chest Chest palpation & inspection: normal inspection of the chest and normal palpation of entire chest wall Resp Effort & Inspection: normal respiratory effort Auscultation: Bilateral: Clear to Auscultation Cardio Palpation: normal PMI Rate: regular rate Rhythm: regular rhythm GI Inspection: normal to inspection Auscultation: normal bowel sounds Percussion: normal to percussion Palpation: no hepatosplenomegaly Skin General: no rashes or lesions noted Neuro General: patient alert Extrem General: normal to inspection Psych Affect: normal affect Quality Reporting Tobacco Screening ([facility] 138) Smoking Status: Current every day smoker Assessment and Plan Assessment and Plan (1) Diarrhea: Status: Chronic Plan: The patient had is doing better After getting her gallbladder removed., She is taking medication well for underlying diseases such as hypertension and diabetes. Diarrhea occurred for years and she was diagnosed with IBS with diarrhea. Prior to her getting Diarrhea was watery, 4 to 5 times a day, even at night, and mild diffuse abdominal pain was accompanied without tenderness. She had no known allergies and had no history of ingestion of contaminated foods or raw meats. She did not take any new medications. The exact etiology of chronic diarrhea is quite broad as there are many different causes. ?Any process which causes increased water into the stool can produce diarrhea. These typically categorize into inflammatory and secretory diarrhea. We will perform a work-up to see if she has a secretory ,osmotic or inflammatory diarrhea. We will get stool studies to look for diseases such as exocrine pancreatic insufficiency by checking fecal, tryptase and fecal elastase. We will also look for inflammatory bowel disease with an IBD SGI. She does have significant diverticular disease which is a component to bacterialovergrowth. She is doing fairly well with cholestyramine every other day and Imodium along with Bentyl on a daily basis. Since she is only taking the cholestyramine every other day I will switch her to colestipol twice a day. Evita give us a follow-up phone call with a progress update. (2) Encounter for screening colonoscopy: Status: Chronic I have examined the patient and the H&P has been reviewed. There are no clinicalchanges since date of exam. 07/23/23718 <Electronically signed by Maverick Rust DO> Cosigner Signature (if applicable): CC: GEO VO MD; Maverick Rust DO~ Signed [facility] Work Phone: Hospital Discharge instructions No data available for this section [facility] Progress note No data available for this section [facility] Reason for referral (narrative)No reason for referral [facility] Work Phone: Summary Purpose Family History No Family History Records Found Relationship Condition Age at Onset Recorded Date/T maría sister Malignant neoplasm of breast Unknown Hypertension Unknown mother Malignant neoplasm Unknown aunt Diabetes mellitus Unknown grandfather Hypertension Unknown Cerebrovascular accident (CVA) Unknown grandmother Hypertension Unknown Advance Directives No Advanced Directives Records Found Advance Directive Response Recorded Date/ Time Living Will No October 06, 2017 2:44pm Power of Cocoa Room Operator No October 06 8 2:44pm Latest Code Status on File Code Status Date Activated Date Inactivated Comments Full Code 11/15/2021 6:37 AM Advance Directive Response Recorded Date/ Time Living Will No May 10, 023 11:29am Power of Cocoa Room Operator No May 10, 2022 11:29am Advance Directive Response Recorded Date/ Time Name of Medical Power of Cocoa Room Operator DAUGHTER May 22, 2022 12:05pm Living Will Yes May 22, 2022 12:05pm Power of Cocoa Room Operator Yes May 22 12:05pm Advance Directive Response Recorded Date/ Time Name of Medical Power of Cocoa Room Operator DAUGHTER May 22, 2022 1:05pm Name of Medical Power of Cocoa Room Operator RENETTA SMITH June 22, 2022 12:10pm Living Will Yes June 22, 2022 12:10pm Power of Cocoa Room Operator Yes June 22 12:10pm Advance Directive Response Recorded Date/ Time Name of Medical Power of Cocoa Room Operator DAUGHTER May 22, 2022 1:05pm Name of Medical Power of Cocoa Room Operator RENETTA SMITH June 22, 2022 12:10pm Living Will Yes July 01, 2022 9:21am Power of Cocoa Room Operator Yes July 01 9:21am Advance Directive Response Recorded Date/ Time Living Will Yes July 08, 2022 12:52pm Power of Cocoa Room Operator Yes July 08 12:52pm Advance Directive Response Recorded Date/ Time Living Will Yes January 15 1:49pm Power of Cocoa Room Operator Yes January 15, 2023 1:49pm Advance Directive Response Recorded Date/ Time Name of Medical Power of Cocoa Room Operator ON FILE January 15, 2023 1:49pm Living Will Yes January 15 1:49pm Power of Cocoa Room Operator Yes January 15, 2023 1:49pm Advance Directive Response Recorded Date/ Time Name of Medical Power of Cocoa Room Operator ON FILE January 15, 2023 12:49pm Living Will Yes January 15 12:49pm Power of Cocoa Room Operator Yes January 15, 2023 12:49pm Advance Directive Response Recorded Date/ Time Name of Medical Power of Cocoa Room Operator RENETTANIKI July 21, 2023 8:50am Living Will Yes July 21, 2023 8:50am Power of Cocoa Room Operator Yes July 20 8:50am Chief Complaint and Reason for Visit Chief Complaint NODULE SCREENING/POST KARMA Chief Complaint ABD PAIN Chief Complaint ABD PAIN Gall Stones Reason for Visit Abdominal pain Cholelithiasis Chief Complaint ABD PAIN Gall Stones RIGHT UPPER QUADRANT PAIN ABD PAIN Reason for Visit Abdominal pain Cholelithiasis Chief Complaint ABD PAIN Gall Stones RIGHT UPPER QUADRANT PAIN ABD PAIN DISCUSS SURGERY Reason for Visit Abdominal pain Cholelithiasis Bile reflux gastritis Biliary dyskinesia Diarrhea in adult patient Symptomatic cholelithiasis Umbilical hernia without obstruction and without gangrene Chief Complaint 4 M FU COPD Reason for Visit Diarrhea Encounter for screening colonoscopy Chief Complaint 4 M FU COPD SHORT OF BREATH/COUGH/FATIGUED EORDER Reason for Visit Diarrhea Encounter for screening colonoscopy Abn react-fluid aspirat Contact with or exposure to other viral diseases COPD with exacerbation Chief Complaint SHORT OF BREATH/COUG H/FATIGUED EORDER HX OF NICOTINE DEPENDENCE Reason for Visit Abn react-fluid aspi rat Contact with or exposure to other viral diseases COPD with exacerbation Chief Complaint SHORT OF BREATH/COUG H/FATIGUED EORDER HX OF NICOTINE DEPENDENCE PULM NODULE Reason for Visit Abn react-fluid aspi rat Contact with or exposure to other viral diseases COPD with exacerbation Chief Complaint SHORT OF BREATH/COUG H/FATIGUED EORDER HX OF NICOTINE DEPENDENCE PULM NODULE DYSPNEA Reason for Visit Abn react-fluid aspi rat Contact with or exposure to other viral diseases COPD with exacerbation Chief Complaint HX OF NICOTINE DEPEN DENCE PULM NODULE DYSPNEA Additional Source Comments INFORMATION SOURCE (unrecogn ized section and content) DATE CREATED AUTHOR 09/17/2017 [facility] [place] DATE CREATED AUTHOR AUTHOR'S ORGANIZ ATION 11/20/2021 [facility] DATE CREATED AUTHOR AUTHOR'S ORGANIZ ATION 05/01/2022 [facility] DATE CREATED AUTHOR AUTHOR'S ORGANIZ ATION 03/13/2023 [facility] ([place]) DATE CREATED AUTHOR AUTHOR'S ORGANIZ ATION 04/17/2024 [facility] DATE CREATED AUTHOR AUTHOR'S ORGANIZ ATION 12/16/2024 [facility] Goals (unrecognized section and content) Goals may be documented in a n alternate section Source Comments (unrecognize d section and content) In the event this informatio n is protected by the Federal Confidentiality of Alcohol and Drug Abuse Patient Records regulations: The Federal rules restrict any use of the information to criminally investigate or prosecute any alcohol or drug abuse patient.[facility] the event this information is protected by the Federal Confidentiality of Alcohol and Drug Abuse Patient Records regulations: The Federal rules restrict any use of the information to criminally investigate or prosecute any alcohol or drug abuse patient.[facility] the event this information is protected by the Federal Confidentiality of Alcohol and Drug Abuse Patient Records regulations: The Federal rules restrict any use of the information to criminally investigate or prosecute any alcohol or drug abuse patient.[facility] the event this information is protected by the Federal Confidentiality of Alcohol and Drug Abuse Patient Records regulations: The Federal rules restrict any use of the information to criminally investigate or prosecute any alcohol or drug abuse patient.[facility] the event this information is protected by the Federal Confidentiality of Alcohol and Drug Abuse Patient Records regulations: The Federal rules restrict any use of the information to criminally investigate or prosecute any alcohol or drug abuse patient.[facility] the event this information is protected by the Federal Confidentiality of Alcohol and Drug Abuse Patient Records regulations: The Federal rules restrict any use of the information to criminally investigate or prosecute any alcohol or drug abuse patient.[facility] Reason for Visit (unrecogniz ed section and content) Reason Comments Refill Request Reason Onset Date Comments Refill Request 10/01/2021 Care Teams (unrecognized sec tion and content) Celery Wrapper Relationship Specialty Start Date End Date Mihir Bess MD PCP - General Family Practice 08/09/14 Celery Wrapper Relationship Specialty Start Date End Date Mihir Bess MD PCP - General Family Practice 08/09/14 Celery Wrapper Relationship Specialty Start Date End Date Pcp, No PCP - General 10/06/21 04/23/22 Team Status: Active Member Role Status Dates Mihir Bess Family Provider Active GEO VO MD Primary Care Provider Active Team Status: Inactive Member Role Status Dates GEO VO MD Primary Care Provider Active Dr. Sergio Mojica MD Emergency Provider Active Team Status: Inactive Member Role Status Dates Dr. Andrew Forbes MD Attending Provider Active GEO VO MD Primary Care Provider, Referring Provid er Active Team Status: Active Member Role Status Dates GEO VO MD Primary Care Provider Active Dr. Andrew Forbes MD Attending Provide r, Referring Provider, Other Provider Active Team Status: Inactive Member Role Status Dates GEO VO MD Primary Care Provider Active Dr. Sergio Mojica MD Attending Provider, Emergency Provi ron Active Team Status: Inactive Member Role Status Dates GEO VO MD Primary Care Provider Active Dr. Andrew Forbes MD Attending Provider, Referring P rovider Active Team Status: Active Member Role Status Dates Mihir CLAROS Family Provider Active GEO VO MD Primary Care Provider Active Team Status: Active Member Role Status Dates GEO VO MD Primary Care Provider Active Dr. Andrew Forbes MD Attending Provider Active Team Status: Inactive Member Role Status Dates GEO VO MD Primary Care Provider Active Dr. Farhan Enriquez DO Emergency Provider Active Team Status: Inactive Member Role Status Dates GEO VO MD Primary Care Provider, Referring Provid er Active Dr. Andrew Forbes MD Attending Provider Active Team Status: Inactive Member Role Status Dates GEO VO MD Primary Care Provider Active Dr. Andrew Forbes MD Attending Provider Active Team Status: Active Member Role Status Dates GEO VO MD Primary Care Provider Active Dr. Andrew Forbes MD Attending Provider, Referring P rovider Active Team Status: Inactive Member Role Status Dates GEO VO MD Primary Care Provider Active Dr. Farhan Enriquez DO Attending Provider, Emergency Provider Active Team Status: Inactive Member Role Status Dates GEO VO MD Primary Care Provider, Referring Provid er Active Dr. Maverick Rust DO Attending Provider Active Team Status: Inactive Member Role Status Dates GEO VO MD Primary Care Provider Active Dr. Lincoln Orr MD Attending Provider, Referrin g Provider Active Team Status: Inactive Member Role Status Dates GEO VO MD Primary Care Provider, Attending Provid er Active Team Status: Active Member Role Status Dates GEO VO MD Primary Care Provider, Referring Provid er Active Dr. Maverick Rust DO Attending Provider, Other Prov ider Active Team Status: Inactive Member Role Status Dates GEO VO MD Primary Care Provider, Referring Provid er Active Kg KISER PA Attending Provider Active Team Status: Inactive Member Role Status Dates GEO VO MD Primary Care Provider Active Kg KISER PA Attending Provider, Referring Pr ovider Active Celery Wrapper Relationship Specialty Start Date End Date Geo Vo MD [address] [facility] [address] [place] [address] PCP - General Internal Medicine 08/08/22 Celery Wrapper Relationship Specialty Start Date End Date Geo Vo MD [address] [facility] [address] [place] [address] PCP - General Internal Medicine 08/08/22 Team Status: Inactive Member Role Status Dates GEO VO MD Primary Care Provider Active Star t: April 22, 2024 End: April 22, 2024 GEO VO MD Attending Provider Active Start: April 22, 2024 End: April 22, 2024 GEO VO MD Referring Provider Active Start: April 22, 2024 End: April 22, 2024 Team Status: Inactive Member Role Status Dates GEO VO MD Primary Care Provider Active Star t: June 14, 2024 End: June 14, 2024 Dr. Lincoln Orr MD Attending Provider Active Start: June 14, 2024 End: June 14, 2024 Dr. Lincoln Orr MD Referring Provider Active Start: June 14, 2024 End: June 14, 2024 Ordered Prescriptions (unrec ognized section and content) Prescription Sig Dispensed Refills Start Date End Da te ofloxacin (FLOXIN) 0.3 % otic solution Place 4 drops into both ears 2 times daily for 7 days 10 mL 1 11/15/2021 11/22/2021 Scheduled Active and Recently Administ ered Medications (unrecognized section and content) Medication Order 11/13/2021 11/14/2021 11/15/2021 acetaminophen (TYLENOL) tablet 1,000 mg (COMPLETED) 1,000 mg, Oral, ONCE, 1 dose, On Tenisha 11/15/21 at 0715, Maximum dose of acetaminophen is 4000 mg from all sources in 24 hours. Do not administer if patient has taken tylenol <4 hours earlier. Do not give if contraindicated ie. patient has active liver disease or cirrhosis., Pre-op (day of surgery) 0721 (Given - Provid er: Analilia Grayson RN) famotidine (PEPCID) tablet 20 mg (COMPLETED) 20 mg, Oral, ONCE, 1 dose, On Tenisha 11/15/21 at 0715, Pre-op (day of surgery) 0721 (Given - Provid er: Analilia Grayson RN) LORazepam (ATIVAN) injection 0.5 mg 0.5 mg, IntraVENous, ONCE, 1 dose, On Tenisha 11/15/21 at 1015, PACU only 1015 (Due) oxymetazoline (AFRIN) 0.05 % nasal spray 2 spray (COMPLETED) 2 spray, Each Nostril, ROAD FREIGHT FIRER TO O.R., 1 dose, On Tenisha 11/15/21 at 0700, Pre-op (day of surgery) 0807 (Given - Provid er: Analilia Grayson RN - Comment: given 30 min prior to surgery) sodium chloride flush 0.9 % injection 5-40 mL 5-40 mL, IntraVENous, EVERY 12 HOURS SCHEDULED (2 times per day), First dose on Tenisha 11/15/21 at 0900, Until Discontinued, For Line Patency: Peripheral IV = 5 [...] = 20 mL/lumen, Pre-op (day of surgery) 0900 (Due)2100 (Due) sodium chloride flush 0.9 % injection 5-40 mL 5-40 mL, IntraVENous, EVERY 12 HOURS SCHEDULED (2 times per day), First dose on Tenisha 11/15/21 at 1015, Until Discontinued, For Line Patency: Peripheral IV = 5 [...] Central Line = 20 mL/lumen, PACU only 1015 (Due)2100 (Due) Continuous Medication Order 11/13/2021 11/14/2021 11/15/2021 lactated [...] ion and content) Care Team Personnel Name: GEO VO MD Position: Physician Med Service: Active Provider Member Role: Primary Care Physician Address: Address: [address] [place] [address] Care Team Related Persons Name: MARK DAWKINS Address: Home [address] [place] [address] [place] Name: MARK DAWKINS Address: [address] [place] [address] [place] Name: MARK DAWKINS Address: [address] [place] [address] Name: MARK DAWKINS Address: Home [address] Care Team Personnel Name: GEO VO MD Position: Physician Member Role: Primary Care Physician Address: Address: [address] [place] [address] Care Team Related Persons Name: MARK DAWKINS Address: [address] [place] [address] Name: MARK DAWKINS Address: [address] [place] [address] [place] Name: MARK DAWKINS Address: [address] [place] [address] [place] Name: MARK DAWKINS Address: Home [address] Care Team Personnel Name: GEO VO MD Position: Physician Member Role: Primary Care Physician Address: Address: [address] [place] [address] [place] Name: Elsa Pablo RN Position: RN Member Role: RN Name: MELITA COYLE MD Position: Resident Member Role: Resident Address: Address: [address] [place] [address]- [place] Name: OMAR FARAH MD Position: ED Physician Member Role: ED Physician Address: [facility]: [facility] [address] [place] [address]- Care Team Related Persons Name: MARK DAWKINS Address: Home [address] [place] [address] [place] Name: MARK DAWKINS Address: [address] [place] [address] Name: MARK DAWKINS Agnieszka Address: Home [address] Name: MARK DAWKINS Address: Home [address] Care Team Personnel Name: GEO VO MD Position: Physician Member Role: Primary Care Physician Address: Address: [address] [place] [address] [place] Care Team Related Persons Name: MARK DAWKINS Address: [address] [place] [address] Name: MARK DAWKINS Address: Home [address] Name: MARK DAWKINS Address: Home [address] Name: MARK DAWKINS Address: Home [address] Care Team Personnel Name: GEO VO MD Position: Physician Member Role: Primary Care Physician Address: Address: [address] [place] [address] Care Team Related Persons Name: MARK DAWKINS Address: [address] [place] [address] Name: MARK DAWKINS Address: [address] Name: JUANCHO, MARK K Address: [address] [place] [address] [place] Name: MARK DAWKINS Address: [address] FOR RECORDS PERTAINING TO PATIENTS WHO ARE [...] BE BASED ON THE PRIMARY CLINICAL RECORDS. [employer] provides no warranty or guarantee of the accuracy or completeness of information in this document.
[2025-01-11 12:51] LABS: Squamous Epithelial Cells - UA 0-5 SEEN /hpf (5-10)
[2025-01-11 13:40] LABS: Microalbumin,Random Urine 31.6 mg/L (<20 mg/L)
[2025-01-11 14:13] LABS: AST(SGOT) 15 U/L (<=31); Alanine Aminotransfer ALT/SGPT 15 U/L (<=34); Albumin, Serum 4.1 g/dL (3.4-4.8); Alkaline Phosphatase 72 U/L (35-104); Anion Gap 12 (5-15); BUN 28 mg/dL (4-19); BUN/Creat Ratio 32.3 RATIO (10-20); Calcium,Total 9.6 mg/dL (7.6-11.0); Carbon Dioxide 27.8 mmol/L (21.0-32.0); Chloride 102 mmol/L (98-108); Cholesterol 160 mg/dL (<=200); Globulin 3.0 g/dL (2.2-4.2); Glucose 207 mg/dL (70-99); Low Density Lipoprotein Calc. 85 mg/dL; Potassium 4.5 mmol/L (3.3-5.1); Triglycerides 154 mg/dL; Very Low Density Lipoprotein 31 mg/dL (5-40); cholesterol:hdl ratio screen 3.31
== END | disposition home or self-care (01) ==
LOC: LAB 11:25
PROVIDERS: PCP Internal Medicine; Referring Provider Internal Medicine; Visit Provider Internal Medicine
DX: E11.42 Type 2 diabetes mellitus with diabetic polyneuropathy (principal)
CPT/HCPCS: 36415; 80053; 80061; 81001; 82043; 83036; 85025; 87086; 87088

== ENCOUNTER → 2025-02-23 | Outpatient (CLI) | payer MEDICARE, OTHER, SELFPAY ==
--- NOTE | 2025-02-23 11:45 | RAD_ITS ---
PROCEDURE: L/S SPINE MIN 4 VIEWS 02/23/2025 REASON FOR EXAM: LUMBAR DDD TECHNIQUE: Procedure Code: RADSPLS Modality: DX Procedure: L/S SPINE MIN 4 VIEWS COMPARISON: None FINDINGS: Lumbar spine five views. There is grade 2 spondylolisthesis at L4-5, 1.7 cm. There is loss of disc height which is most severe from L4-S1. There is moderate facet sclerosis. Osteopenia is noted. Vascular calcifications are present. Surgical clips are noted in the right upper quadrant. RAD/L/S Spine Min 4 Views IMPRESSION: There is grade 2 spondylolisthesis at L4-5, 1.7 cm. There is loss of disc height which is most severe from L4-S1. Reading Location: [place]
== END | disposition home or self-care (01) ==
LOC: RAD 11:28
PROVIDERS: PCP Internal Medicine; Referring Provider Clinical Nurse Specialist Adult Health; Visit Provider Clinical Nurse Specialist Adult Health
DX: M51.369 Other intervertebral disc degeneration, lumbar region without mention of lumbar back pain or lower extremity pain (principal)
CPT/HCPCS: 72110